=== PATIENT | male | born 1940 | race Caucasian/White ===

== ENCOUNTER 2016-11-15 19:43 | Emergency (ER) | payer MEDICARE ==
[~2016-11-15] VITALS: Ht 170.2 cm; Wt 80.8 kg
[2016-11-15 19:46] VITALS: TEMP 36.5; Ht 170.2 cm; Wt 80.8 kg
[2016-11-15] MEDS ORDERED: ATOR-24 PO (20:07)
--- NOTE | 2016-11-15 20:07 | EMERGENCY ROOM VISIT NOTE ---
History Report prepared by Amna: Jennifer Pastrana Under the Supervision of: Dr. Saige Damico D.O. First contact with patient: 19:54 Chief Complaint: DIARRHEA Stated Complaint: UNCONTROLLABLE DIARRHEA History of Present Illness The patient is a 75 year old male who presents to the Emergency Room with complaints of persistent diarrhea that began one hour prior to arrival. The patient states that he was recently diagnosed with diabetes, noting that he was just placed on Metformin. He states that he was previously on 1 tablet twice a day, but now is on two tablets twice a day. The patient states that today he started feeling bloated after he ate lunch. He states that he had a cheese steak in a bowl that had steak, cheese, peppers, onions, and lettuce. States he then "didn't feel well" after eating. The patient states that after he took a nap he developed persistent diarrhea. He states that he had six watery bowel movements in one hour. The patient states that the bowel movements are black in color but denies any hematochezia. He denies any history of previous GI bleeds. States he took pepto bismal after eating when he started to not feel well and before the diarrhea began. The patient denies any recent travel or other possible food sources. He states that recently he has been cutting back on carbohydrate intake. The patient denies any recent sick contacts. He states that he was recently on Doxycycline for bronchitis. The patient states that his Lipitor from 20 mg to 40 mg. He states that he additionally was changed from Atenolol to Norovasc for his hypertension. The patient reports a surgical history of an appendectomy. He denies any dizziness, lightheadedness, chest pain, shortness of breath, nausea, or vomiting. Source of History: patient Onset: one hour prior to arrival Position: other (global) Quality: other (diarrhea) Timing: other (persistent) Associated Symptoms: No chest pain, No SOB, No nausea, No vomiting, No hematochezia Review of Systems See HPI for pertinent positives & negatives. A total of 10 systems reviewed and were otherwise negative. Past Medical & Surgical Medical Problems: (1) Bronchitis (2) Diabetes (3) Heart disease (4) Hypertension (5) Stroke Surgical Problems: (1) S/P appendectomy Family History Diabetes mellitus FHx: cancer Heart disease Hypertension Kidney disease Kidney stones Social History Smoking Status: Former Smoker Smokeless Tobacco Use: No Alcohol Use: occasionally Marital Status: Housing Status: lives with family Occupation Status: retired Current/Historical Medications Scheduled Amlodipine (Norvasc), 5 MG PO DAILY Atorvastatin (Lipitor), 40 MG PO DAILY Cholecalciferol (Vitamin D3), 2,000 UNITS PO DAILY Clopidogrel (Plavix), 75 MG PO 5XWK Hydrochlorothiazide (Hctz), 25 MG PO DAILY Metformin Hcl (Glucophage), 500 MG PO UD Multivitamin (Multivitamin), 1 TAB PO DAILY Scheduled PRN Guaifenesin La (Guaifenesin Er), 600 MG PO DAILY PRN for Cough Allergies Coded Allergies: Hydrochlorothiazide (Verified Allergy, Mild, Cough, 11/15/16) Irbesartan (Verified Allergy, Mild, Cough, 11/15/16) Physical Exam Vital Signs Date Time Temp Pulse Resp B/P (MAP) Pulse Ox O2 Delivery O2 Flow Rate FiO2 11/16/16 01:20 75 18 121/75 97 Room Air 11/15/16 22:10 70 16 126/70 96 Room Air 11/15/16 20:57 86 16 149/82 93 Room Air 11/15/16 19:46 36.5 109 20 152/86 94 Room Air Physical Exam GENERAL: alert, well appearing, well nourished, no distress, non-toxic EYE EXAM: normal conjunctiva, PERRL and EOM's grossly intact OROPHARYNX: no exudate, no erythema, lips, buccal mucosa, and tongue normal and mucous membranes are moist NECK: supple, no nuchal rigidity, no adenopathy, non-tender LUNGS: Clear to auscultation. Normal chest wall mechanics HEART: no murmurs, S1 normal and S2 normal ABDOMEN: Mild tympany to percussion. abdomen soft, non-tender, normo-active bowel sounds, no masses, no rebound or guarding. BACK: Back is symmetrical on inspection and there is no deformity, no midline tenderness, no CVA tenderness. SKIN: no rashes and no bruising UPPER EXTREMITIES: upper extremities are grossly normal. LOWER EXTREMITIES: No pitting edema. NEURO EXAM: Normal sensorium, cranial nerves II-XII grossly intact, normal speech, no gross weakness of arms, no gross weakness of legs. Medical Decision & Procedures ER Provider Diagnostic Interpretation: Radiology results have been interpreted by the radiologist and reviewed by me. PA CHEST WITH ABDOMINAL SERIES CLINICAL HISTORY: Diarrhea. FINDINGS: A PA chest radiograph is obtained. No prior studies are available for comparison at the time of dictation. Examination is degraded by patient rotation. The cardiomediastinal silhouette is unremarkable. There is atherosclerotic calcification of the thoracic aorta. Chronic appearing interstitial thickening is noted. Linear scarring versus atelectasis is present the lung bases. No airspace consolidation, large pleural effusion, or pneumothorax is seen. The skeletal structures are osteopenic. Degenerative change is noted throughout the thoracic spine. Supine and erect abdominal radiographs are obtained. No prior studies are available for comparison at the time of dictation. There is a nonobstructed abdominal bowel gas pattern. No evidence of intraperitoneal free air is seen. There are no abnormal abdominal calcifications. Vascular calcifications and phleboliths are noted in the pelvis. There is moderate lumbosacral spondylosis. The bony pelvis appears intact. IMPRESSION: 1. No active disease in the chest. 2. Nonobstructed abdominal bowel gas pattern. Electronically signed by: Ollie Iverson M.D. 11/15/2016 9:01 PM Dictated Date/Time: 11/15/2016 8:59 PM Laboratory Results 11/15/16 20:15 Red Blood Count 5.30, Mean Corpuscular Volume 85.5, Mean Corpuscular Hemoglobin 30.0, Mean Corpuscular Hemoglobin Concent 35.1, Mean Platelet Volume 10.7, Neutrophils (%) (Auto) 59.8, Lymphocytes (%) (Auto) 29.3, Monocytes (%) (Auto) 7.4, Eosinophils (%) (Auto) 3.0, Basophils (%) (Auto) 0.3, Neutrophils # (Auto) 5.58, Lymphocytes # (Auto) 2.73, Monocytes # (Auto) 0.69, Eosinophils # (Auto) 0.28, Basophils # (Auto) 0.03 11/15/16 20:15 Test 11/15/16 20:15 11/16/16 00:47 White Blood Count 9.33 K/uL (4.8-10.8) Red Blood Count 5.30 M/uL (4.7-6.1) Hemoglobin 15.9 g/dL (14.0-18.0) Hematocrit 45.3 % (42-52) Mean Corpuscular Volume 85.5 fL (80-100) Mean Corpuscular Hemoglobin 30.0 pg (25-34) Mean Corpuscular Hemoglobin Concent 35.1 g/dl (32-36) Platelet Count 312 K/uL (130-400) Mean Platelet Volume 10.7 fL (7.4-10.4) Neutrophils (%) (Auto) 59.8 % Lymphocytes (%) (Auto) 29.3 % Monocytes (%) (Auto) 7.4 % Eosinophils (%) (Auto) 3.0 % Basophils (%) (Auto) 0.3 % Neutrophils # (Auto) 5.58 K/uL (1.4-6.5) Lymphocytes # (Auto) 2.73 K/uL (1.2-3.4) Monocytes # (Auto) 0.69 K/uL (0.11-0.59) Eosinophils # (Auto) 0.28 K/uL (0-0.5) Basophils # (Auto) 0.03 K/uL (0-0.2) RDW Standard Deviation 42.3 fL (36.4-46.3) RDW Coefficient of Variation 13.5 % (11.5-14.5) Immature Granulocyte % (Auto) 0.2 % Immature Granulocyte # (Auto) 0.02 K/uL (0.00-0.02) Anion Gap 13.0 mmol/L (3-11) Est Creatinine Clear Calc Drug Dose 50.0 ml/min Estimated GFR () 61.9 Estimated GFR (Non- 53.4 BUN/Creatinine Ratio 20.0 (10-20) Lactic Acid Level 2.1 mmol/L (0.4-2.0) Calcium Level 10.3 mg/dl (8.5-10.1) Total Bilirubin 0.7 mg/dl (0.2-1) Aspartate Amino Transf (AST/SGOT) 43 U/L (15-37) Alanine Aminotransferase (ALT/SGPT) 87 U/L (12-78) Alkaline Phosphatase 51 U/L (45-117) Total Protein 7.8 gm/dl (6.4-8.2) Albumin 4.2 gm/dl (3.4-5.0) Globulin 3.6 gm/dl (2.5-4.0) Albumin/Globulin Ratio 1.2 (0.9-2) Bedside Lactic Acid Venous 0.96 mmol/L (0.90-1.70) Laboratory results per my review. Medications Administered Medications (Trade) Dose Ordered Sig/Yuniel Route Start Time Stop Time Status Last Admin Dose Admin Sodium Chloride 1,000 ml @ 999 mls/hr Q1H1M STAT IV 11/15/16 21:47 11/15/16 22:47 DC 11/15/16 22:10 999 MLS/HR ED Course 1955: The patient was evaluated in room B6. A complete history and physical exam was performed. 2146: Ordered Sodium Chloride 1000 ml @ 999 mls/hr IV. 2218: I reevaluated the patient and he has had no further diarrhea. I did a repeat abdominal exam and it is still benign. 99: I reevaluated the patient and he is resting. I discussed the exam findings with him and I discussed the treatment plan. He verbalized complete understanding and agreement. He is ready to go home. Medical Decision The patient is a 75 year old male who presents to the ED with complaints of diarrhea. Differential diagnosis include food borne illness, medication reaction, viral syndrome, c-diff, mesenteric ischemia, colitis. Medication Reconciliation: I attest that I have personally reviewed the patient' s current medication list. Blood pressure screening: Patient was found to have an elevated blood pressure and was referred to their primary doctor for recheck and further treatment. Pt with no recurrent diarrhea here after being observed for several hours. tolerating pt. Repeat abdominal exams still without pain/discomfort. No f/c. Discussed with pt multiple possibilities for his diarrhea. Given stable VS, reassuring labs, and no recurrence, doubt ischemic colitis/aaa/dissection/sbo, doubt c.diff despite recent antibiotics. More likely related to food or recent change in metformin. Pt with dehydration clinically and appearance on labs. Mildly elevated lactate likely from dehydration, doubt bacteremia/sepsis. Discussed f/u with PCP as a precaution, sx to watch/return for, diet/hydration, glucose monitoring at home, he verbalized understanding and was agreeable with plan. Impression Primary Impression: Diarrhea Scribe Attestation The scribe's documentation has been prepared under my direction and personally reviewed by me in its entirety. I confirm that the note above accurately reflects all work, treatment, procedures, and medical decision making performed by me. Departure Information Dispostion Home / Self-Care Referrals Tristin Osorio D.O. (PCP) Forms HOME CARE DOCUMENTATION FORM, IMPORTANT VISIT INFORMATION, WORK / SCHOOL INSTRUCTIONS Patient Instructions My [facility] Additional Instructions Please call and follow up with your family doctor. Please drink clear liquids at frequent intervals to stay well-hydrated and eat a bland diet as tolerated. Please continue regular medications as prescribed and continue to check your blood sugar daily. If you develop any recurrent or worsening diarrhea, notice blood with your bowel movements, develop abdominal pain, nausea or vomiting, fevers or chills, or you have any other new or concerning symptoms, please return the emergency room. Problem Qualifiers Primary Impression: Diarrhea Diarrhea type: unspecified type Qualified Codes: R19.7 - Diarrhea, unspecified
[2016-11-15] MEDS ORDERED: CHOL2000 PO (20:14)
[2016-11-15] MEDS ORDERED: CLOP1TAB15 PO (20:14)
[2016-11-15] MEDS ORDERED: MULT-506 PO (20:14)
[2016-11-15] MEDS ORDERED: AMLO-110 PO (20:14)
[2016-11-15] MEDS ORDERED: GUAI1TAB75 PO (20:14)
[2016-11-15] MEDS ORDERED: HYDR25TA4 PO (20:14)
[2016-11-15] MEDS ORDERED: GLC/500 PO (20:14)
[2016-11-15 20:33] LABS: BASO % 0.3 %; BASO ABS # 0.03 K/uL (0-0.2); COMPLETE YES; HEMATOCRIT 45.3 % (42-52); IG% 0.2 %; LYMPH % 29.3 %; LYMPH ABS # 2.73 K/uL (1.2-3.4); MEAN CELL VOLUME 85.5 fL (80-100); MEAN CORPUSCULAR HGB CONC 35.1 g/dl (32-36); MEAN PLATELET VOLUME 10.7 fL (7.4-10.4); MONO % 7.4 %; NEUT % 59.8 %; PLATELET COUNT 312 K/uL (130-400); WHITE BLOOD COUNT 9.33 K/uL (4.8-10.8)
--- NOTE | 2016-11-15 21:02 | DIAGNOSTIC IMAGING REPORT ---
PA CHEST WITH ABDOMINAL SERIES CLINICAL HISTORY: Diarrhea. FINDINGS: A PA chest radiograph is obtained. No prior studies are available for comparison at the time of dictation. Examination is degraded by patient rotation. The cardiomediastinal silhouette is unremarkable. There is atherosclerotic calcification of the thoracic aorta. Chronic appearing interstitial thickening is noted. Linear scarring versus atelectasis is present the lung bases. No airspace consolidation, large pleural effusion, or pneumothorax is seen. The skeletal structures are osteopenic. Degenerative change is noted throughout the thoracic spine. Supine and erect abdominal radiographs are obtained. No prior studies are available for comparison at the time of dictation. There is a nonobstructed abdominal bowel gas pattern. No evidence of intraperitoneal free air is seen. There are no abnormal abdominal calcifications. Vascular calcifications and phleboliths are noted in the pelvis. There is moderate lumbosacral spondylosis. The bony pelvis appears intact. IMPRESSION: 1. No active disease in the chest. 2. Nonobstructed abdominal bowel gas pattern. Electronically signed by: Ollie Iverson M.D. 11/15/2016 9:01 PM Dictated Date/Time: 11/15/2016 8:59 PM
[2016-11-15 21:40] LABS: ALB/GLOB RATIO 1.2 (0.9-2); CALCIUM 10.3 mg/dl (8.5-10.1); CREATININE 1.3 mg/dl (0.60-1.40)
[2016-11-15] MEDS ORDERED: SODIUM CHLORIDE 0.9% 1000ML 1,000 ML IV STA (21:47)
[2016-11-15 21:52] LABS: POTASSIUM 3.3 mmol/L (3.5-5.1)
[2016-11-16 01:20] VITALS: BP 121/75; PULSE 75; O2SAT 97
== END 2016-11-16 01:35 | disposition home or self-care (01) ==
LOC: C.EDB 19:45
DX: R19.7 Diarrhea, unspecified (principal); E11.9 Type 2 diabetes mellitus without complications; I51.9 Heart disease, unspecified; I10 Essential (primary) hypertension; I63.9 Cerebral infarction, unspecified; Z83.3 Family history of diabetes mellitus; Z82.49 Family history of ischemic heart disease and other diseases of the circulatory system; Z87.891 Personal history of nicotine dependence

== ENCOUNTER 2023-12-24 17:34 | Inpatient (IN) ==
--- NOTE | 2023-12-24 18:17 | Emergency Department Note ---
Impression & Plan Acute UTI (urinary tract infection), Generalized weakness, Ambulatory dysfunction, Leukocytosis ED Provider Note HISTORY OF PRESENT ILLNESS: Patient is an 83-year-old male presenting with recurrent falls and generalized weakness. Patient's son provides most of history. Reports that the patient has had a significant decline in the last week or so. Reports the patient has had daily falls. States that the patient 4 days ago got up to go to the bathroom and his lower legs felt so weak that he lowered himself to the ground. He then was in the shower the next day and felt very weak and had to slide down the wall of the shower and sat on the ground until family could help him up. Patient states that he feels like his left leg gives out and his lower extremities are just too weak to hold him up when these episodes occur. He denies any chest pain or shortness of breath with the episodes. Denies any lightheadedness or dizziness or syncope. He states that he just feels like his legs are too weak. Son reports he is ambulatory with a cane at baseline. Son reports that they have been trying to work on getting him to [facility] in the outpatient setting and he was supposed to be evaluated tomorrow for [facility], but given his recurrent falls, the patient was brought to the emergency department. Son reports that today he was concerned because the patient seemed very disoriented and was hallucinating people in the room that were not there with him. Son reports the patient was recently treated for urinary tract infection at the end of November, but has not been on antibiotics in the last 2 weeks. He has been having episodes of loose stool over the last 2 to 3 weeks. No reported fevers. No abdominal pain, nausea or vomiting. Patient denies any dysuria. ROS: as above PHYSICAL EXAM: Constitutional: Patient appears in no acute distress. HENT: Head: Normocephalic and atraumatic. Eyes: EOMI, PERRL Mouth/Throat: Mucous membranes moist. Neck: Trachea midline. Neck supple. No midline cervical spine tenderness to palpation. Cardiovascular: RRR, No murmurs, rubs or gallops. Intact distal pulses. Pulmonary/Chest: No respiratory distress. Breath sounds clear and equal bilaterally. Expiratory wheezes bilaterally. No chest wall tenderness to palpation. Abdominal: Abdomen soft, no tenderness, rebound or guarding. Old appearing ecchymosis on the bilateral flanks. Musculoskeletal: No edema, tenderness or deformity noted. Skin: Warm and dry. No rash, erythema, pallor or cyanosis Psychiatric: Appropriate mood and affect for situation. Neurological: Alert and keenly responsive. CN II-XII grossly intact, moving all extremities equally and fully. MDM: - Vitals signs showed tachycardia. - History obtained via patient and patient's son. History as above. - Chronic conditions affecting care: HLD; DM-2; CVA; HTN; urothelial carcinoma of bladder - Differential diagnoses include, but are not limited to: pneumonia; UTI; CVA; intracranial hemorrhage; deconditioning - Order placed for continuous cardiac monitoring. At this time, monitor showed rate of 92 bpm with normal sinus rhythm, per my interpretation. - External medical records reviewed. Primary care visit note dated 12/13/[address] [facility] was reviewed. Patient was seen for a follow-up visit for 6-month recheck. He has a history of urothelial carcinoma and is seeing urology and had a procedure performed. Family had disclosed at that visit the patient having difficulties walking and recurrent falls. A home health referral in the outpatient setting was placed at the visit. - EKG interpreted by myself showed normal sinus rhythm. Rate 96 bpm. QT 390. No acute ischemic changes. 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 - Laboratory workup interpreted by myself showed leukocytosis (WBC 17.54) with neutrophilic shift; normal electrolytes; hyperglycemia (glucose 241); normal troponin - UA showed evidence of infection. Given 2g IV rocephin. - CXR negative for pneumonia, per my interpretation - CT head negative for acute pathology, per radiology - COVID/flu/RSV negative. - Will admit to hospital service for generalized weakness secondary to his acute UTI. Patient and patient's family are interested in potential placement at [facility] if possible, so patient will need PT/OT assessment on the inpatient setting as well. - Discussion was had with family independence case manager about patient's case and need for admission - Hospitalist, Dr. Camargo, consulted for admission - Patient admitted to [facility] service for further evaluation and management. ASSESSMENT AND PLAN: Diagnosis: Acute UTI; generalized weakness; recurrent falls; leukocytosis Plan: admit Past Med/Surg History Problem List (Updated 12/24/23 @ 19:36 by Kaur Christianson MD) Leukocytosis (Acute) Ambulatory dysfunction (Acute) Generalized weakness (Acute) Acute UTI (urinary tract infection) (Acute) Heart disease (Chronic) Medical History Hypertension Diabetes Family History Other Family history non-contributory Social History Smoking Status: Never smoker Tobacco Type: Cigarettes Preferred Language: British Feels Safe at Home: Yes Allergies Allergies Allergy/AdvReac Type Severity Reaction Status Date / Time hydrochlorothiazide Allergy Mild Cough Verified 11/09/18 18:16 irbesartan Allergy Mild Cough Verified 11/09/18 18:16 Home Meds Home Medications Medication Instructions Recorded Confirmed amlodipine 5 mg tablet 5 mg PO QAM 11/09/18 11/09/18 aspirin 81 mg tablet,delayed 81 mg PO QAM 11/09/18 11/09/18 release (Aspir-) atorvastatin 40 mg tablet 40 mg PO PM 11/09/18 11/09/18 cholecalciferol (vitamin D3) 50 2,000 unit PO QAM 11/09/18 11/09/18 mcg (2,000 unit) capsule (Vitamin D3) clopidogrel 75 mg tablet (Plavix) 75 mg PO 5XWK 11/09/18 11/09/18 hydrochlorothiazide 25 mg tablet 25 mg PO QAM 11/09/18 11/09/18 metformin 500 mg tablet,extended 500 mg PO QAM 11/09/18 11/09/18 release 24 hr metoprolol succinate 25 mg 25 mg PO QAM 11/09/18 11/09/18 tablet,extended release 24 hr multivitamin 1 tab PO QAM 11/09/18 11/09/18 pantoprazole 40 mg tablet,delayed 40 mg PO QAM 11/09/18 11/09/18 release (Protonix) Results & Data (ED) Vital Signs Vital Signs - 24 hr 12/24/23 17:36 12/24/23 18:10 12/24/23 18:10 Temperature 36.6 C 36.8 C Temperature Source Temporal Artery Scan Oral Pulse Rate 113 H 96 H Pulse Rate [Apical] 94 H Respiratory Rate 18 31 H 33 H Respiratory Effort / Characteristics Spontaneous SOB on Exertion Respiratory Pattern Regular Blood Pressure 138/68 Blood Pressure [Right Arm] 134/89 Blood Pressure Mean 91 Blood Pressure Mean [Right Arm] 104 Pulse Oximetry 94 98 98 Oxygen Delivery Method Room Air Room Air Sepsis Recent Fever Within 48 Hours No Sepsis New/Unexplained Change in Mental Status No Sepsis Action Taken by Nursing No Action Required 12/24/23 18:18 Temperature Temperature Source Pulse Rate 93 H Pulse Rate [Apical] Respiratory Rate Respiratory Effort / Characteristics Respiratory Pattern Blood Pressure Blood Pressure [Right Arm] Blood Pressure Mean Blood Pressure Mean [Right Arm] Pulse Oximetry Oxygen Delivery Method Sepsis Recent Fever Within 48 Hours Sepsis New/Unexplained Change in Mental Status Sepsis Action Taken by Nursing Laboratory Data 12/24/23 18:47 12/24/23 18:47 Lab Results 12/24/23 12/24/23 12/24/23 Range/Units 18:16 18:38 18:47 WBC 17.54 H (4.8-10.8) K/ul RBC 4.58 L (4.70-6.10) M/uL Hgb 13.6 L (14.0-18.0) g/dl Hct 40.3 L (42.0-52.0) % MCV 88.0 (80.0-100.0) fL MCH 29.7 (25.0-34.0) pg MCHC 33.7 (32.0-36.0) g/dL RDW Std Deviation 43.3 (36.4-46.3) fL RDW Coeff of Chinmay 13.5 (11.5-14.5) % Plt Count 210 (130-400) K/uL MPV 10.4 (9.4-12.4) fL Immature Gran % (Auto) 0.4 % Neut % (Auto) 86.0 % Lymph % (Auto) 4.6 % [place] % (Auto) 8.7 % Eos % (Auto) 0.1 % Baso % (Auto) 0.2 % Neut # (Auto) 15.09 H (1.40-6.50) K/uL Lymph # (Auto) 0.81 L (1.20-3.40) K/uL [place] # (Auto) 1.52 H (0.11-0.59) K/uL Eos # (Auto) 0.01 (0.00-0.50) K/uL Baso # (Auto) 0.04 (0.00-0.20) K/uL Immature Gran # (Auto) 0.07 (0.01-0.20) K/uL PT 12.8 H (9.0-12.0) Seconds INR 1.2 H (0.9-1.1) Sodium 137 (136-145) mmol/L Potassium 3.8 (3.5-5.1) mmol/L Chloride 104 (98-107) mmol/L Carbon Dioxide 25 (21-32) mmol/L Anion Gap 8 (3-11) BUN 21 (6-23) mg/dl Creatinine 1.20 (0.6-1.4) mg/dl Est Cr Clr Drug Dosing 46.3 ml/min Est GFR ( Amer) 64.4 ml/min Est GFR (Non-Af Amer) 55.6 ml/min BUN/Creatinine Ratio 17.5 (10-20) Glucose 241 H (70-99(Fasting)) mg/dl Lactate 1.5 (0.4-2.0) mmol/L Calcium 9.5 (8.6-10.3) mg/dl Magnesium 1.8 (1.7-2.4) mg/dl Total Bilirubin 0.8 (0.2-1.0) mg/dl AST 23 (13-39) U/L ALT 40 (7-52) U/L Alkaline Phosphatase 61 (34-104) U/L Troponin I High Sens 18.5 (0-20) pg/ml Total Protein 6.6 (6.0-8.3) gm/dl Albumin 3.9 (3.4-5.0) gm/dl Globulin 2.7 (2.5-4.0) gm/dl Albumin/Globulin Ratio 1.4 (0.9-2) TSH 0.924 (0.300-4.500) uIu/ml Urine Color Yellow Urine Appearance Turbid A (Clear) Urine pH 5.5 (4.5-7.5) Ur Specific [place] 1.014 (1.000-1.030) Urine Protein 2+ H (Negative) Urine Glucose (UA) Negative (Negative) Urine Ketones Trace H (Negative) Urine Blood 3+ H (Negative) Urine Nitrite Positive A (Negative) Urine Bilirubin Negative (Negative) Urine Urobilinogen Negative (Negative) Ur Leukocyte Esterase 3+ H (Negative) Urine WBC (Auto) >50 H (0-5) /hpf Urine RBC (Auto) 11-20 H (0-2) /hpf U Hyaline Cast (Auto) 0-2 (0-2) /lpf U Epithel Cells (Auto) 0-2 (0-2) /hpf Urine Bacteria (Auto) 4+ H (None Seen) SARS-CoV-2 (PCR) NEGATIVE (Negative) Influenza Type A (PCR) Negative (Neg) Influenza Type B (PCR) Negative (Neg) RSV (RT-PCR) Negative (Neg) Imaging Data Radiologist's Impression: Head CT 12/24/23 18:12 Exam(s): CT HEAD Without Contrast EXAM: CT Head Without Intravenous Contrast CLINICAL HISTORY: Reason for exam: recurrent falls; weakness. TECHNIQUE: Axial computed tomography images of the head/brain without intravenous contrast. CTDI is 35.65 mGy and DLP is 624.41 mGy-cm. Automated exposure control was utilized for the study. A dose lowering technique was utilized adhering to the principles of ALARA. COMPARISON: Head CT 03/02/2023 FINDINGS: Brain: No intracranial hemorrhage, mass-effect, or cerebral edema. Atrophy and chronic microvascular ischemic changes. Chronic infarcts within the cerebellum and occipital lobes. Ventricles: Unremarkable. Bones/joints: Unremarkable. No fracture. Soft tissues: Unremarkable. Sinuses: No acute sinusitis. Mastoid air cells: Unremarkable as visualized. IMPRESSION: 1. No acute intracranial abnormality. 2. Atrophy and chronic microvascular ischemic changes. 3. Chronic infarcts within the cerebellum and occipital lobes. Electronically signed by: Jordan Gilmore MD 12/24/23 19:30 PM Discharge Plan Visit Data Chief Complaint: Leg Weakness, Bilateral Stated Complaint: 4 FALLS, WEAKNESS IN LEGS, STOKE HISTORY/LT SIDE ED Provider: Kaur Christianson Discharge Problem: Acute UTI (urinary tract infection), Generalized weakness, Ambulatory dysfunction, Leukocytosis Forms Stand Alone Forms: My [employer] Prescriptions Prescriptions: No Action multivitamin Tablet 1 tab PO QAM atorvastatin 40 mg Tablet 40 mg PO PM clopidogrel [Plavix] 75 mg Tablet 75 mg PO 5XWK Rx Instructions: EVERY DAY EXCEPT SATURDAYS & SUNDAYS. amlodipine 5 mg Tablet 5 mg PO QAM aspirin [Aspir-81] 81 mg Tablet,Delayed Release (Dr/Ec) 81 mg PO QAM pantoprazole [Protonix] 40 mg Tablet,Delayed Release (Dr/Ec) 40 mg PO QAM hydrochlorothiazide 25 mg Tablet 25 mg PO QAM metoprolol succinate 25 mg Tablet Extended Release 24 Hr 25 mg PO QAM metformin 500 mg Tablet Extended Release 24 Hr 500 mg PO QAM cholecalciferol (vitamin D3) [Vitamin D3] 2,000 unit Capsule 2,000 unit PO QAM Referrals Referrals: Tristin Osorio DO [Primary Care Provider] -
[2023-12-24 19:02] LABS: Basophils # (auto) 0.04 K/uL (0.00-0.20); Basophils % (auto) 0.2 %; Eosinophils # (auto) 0.01 K/uL (0.00-0.50); Eosinophils % (auto) 0.1 %; Hematocrit (blood only) 40.3 % (42.0-52.0); Hemoglobin 13.6 g/dl (14.0-18.0); Immature Granulocytes # (auto) 0.07 K/uL (0.01-0.20); Immature Granulocytes % (auto) 0.4 %; Lymphocytes # (auto) 0.81 K/uL (1.20-3.40); Lymphocytes % (auto) 4.6 %; Mean Corpuscular Hemoglobin 29.7 pg (25.0-34.0); Mean Corpuscular Hgb Conc 33.7 g/dL (32.0-36.0); Mean Platelet Volume 10.4 fL (9.4-12.4); Monocytes # (auto) 1.52 K/uL (0.11-0.59); Monocytes % (auto) 8.7 %; Neutrophils # (auto) 15.09 K/uL (1.40-6.50); Platelet Count 210 K/uL (130-400); RDW Coefficient of Variation 13.5 % (11.5-14.5); RDW Standard Deviation 43.3 fL (36.4-46.3); Red Blood Count 4.58 M/uL (4.70-6.10); White Blood Count 17.54 K/ul (4.8-10.8)
[2023-12-24 19:07] LABS: Appearance Urine Turbid (Clear); Bacteria Urine Automated 4+ (None Seen); Bilirubin Urine Negative (Negative); Blood Urine 3+ (Negative); Color Urine Yellow; Epithelial Cell Urine Auto 0-2 /hpf (0-2); Glucose Urine UA Negative (Negative); Ketones Urine Trace (Negative); Leukocyte Esterase Urine 3+ (Negative); Nitrite Urine Positive (Negative); Protein Urine 2+ (Negative); Specific Gravity Urine 1.014 (1.000-1.030); Urobilinogen Urine Negative (Negative); WBC Urine Automated >50 /hpf (0-5); pH Urine 5.5 (4.5-7.5)
[2023-12-24 19:08] LABS: Cast Urine Automated 0-2 /lpf (0-2)
[2023-12-24 19:21] LABS: Albumin Globulin Ratio 1.4 (0.9-2); Albumin Level 3.9 gm/dl (3.4-5.0); BUN Creatinine Ratio 17.5 (10-20); Bilirubin,Total 0.8 mg/dl (0.2-1.0); Calcium 9.5 mg/dl (8.6-10.3); Creatinine Clr Calc Pharmacy 46.3 ml/min; Est GFR (African American) 64.4 ml/min; Est GFR (Non-African American) 55.6 ml/min; Globulin 2.7 gm/dl (2.5-4.0); Magnesium 1.8 mg/dl (1.7-2.4); Potassium 3.8 mmol/L (3.5-5.1); Total Protein 6.6 gm/dl (6.0-8.3)
[2023-12-24 19:27] LABS: Troponin I High Sensitivity 18.5 pg/ml (0-20)
--- NOTE | 2023-12-24 19:30 | CT Scan Report ---
Exam(s): CT HEAD Without Contrast EXAM: CT Head Without Intravenous Contrast CLINICAL HISTORY: Reason for exam: recurrent falls; weakness. TECHNIQUE: Axial computed tomography images of the head/brain without intravenous contrast. CTDI is 35.65 mGy and DLP is 624.41 mGy-cm. Automated exposure control was utilized for the study. A dose lowering technique was utilized adhering to the principles of ALARA. COMPARISON: Head CT 03/02/2023 FINDINGS: Brain: No intracranial hemorrhage, mass-effect, or cerebral edema. Atrophy and chronic microvascular ischemic changes. Chronic infarcts within the cerebellum and occipital lobes. Ventricles: Unremarkable. Bones/joints: Unremarkable. No fracture. Soft tissues: Unremarkable. Sinuses: No acute sinusitis. Mastoid air cells: Unremarkable as visualized. IMPRESSION: 1. No acute intracranial abnormality. 2. Atrophy and chronic microvascular ischemic changes. 3. Chronic infarcts within the cerebellum and occipital lobes. Electronically signed by: Jordan Gilmore MD 12/24/23 19:30 PM
[2023-12-24 19:31] LABS: INR 1.2 (0.9-1.1); Prothrombin Time 12.8 Seconds (9.0-12.0)
[2023-12-24 19:35] LABS: Influenza A virus by PCR Negative (Neg); Influenza B virus by PCR Negative (Neg); RSV by PCR Negative (Neg); SARS CoV2 RNA(COVID-19) Ceph NEGATIVE (Negative)
[2023-12-24 19:36] LABS: Thyroid Stimulating Hormone 0.924 uIu/ml (0.300-4.500)
[2023-12-24] MEDS: cefTRIAXone SODIUM 2,000 MG/50 ML BAG IV STA (19:48)
[2023-12-24] MEDS: SODIUM CHLORIDE 0.9% 1,000 ML IV ONE (19:49)
--- NOTE | 2023-12-24 19:49 | XRay Report ---
XR chest 1V portable CLINICAL HISTORY: weakness TECHNIQUE: Single frontal radiograph of the chest was obtained. Comparison: Comparison is made to chest and abdomen radiograph 11/15/2016 FINDINGS: No lines and tubes are seen. Calcified aortic knob is seen. Atelectasis is seen in the bilateral lowe r lungs. No evidence of pleural effusion or pneumothorax. IMPRESSION: No acute chest disease. ACT 112: Negative or not required by law. Electronically signed by: Manuel Duarte M.D. 12/24/2023 7:48 PM
[2023-12-24] MEDS ORDERED: GLUCOSE 40% GEL 15 GM TUBE PO PRN (21:50)
[2023-12-24] MEDS ORDERED: GLUCAGON FOR INJ 1 MG VIAL SQ PRN (21:50)
[2023-12-24] MEDS ORDERED: DEXTROSE 50% 50 ML SYRINGE IV PRN (21:50)
[2023-12-24] MEDS ORDERED: CARBOHYDRATES FOR HYPOGLYCEMIA PO PRN (21:50)
[2023-12-24] MEDS ORDERED: GLUCOSE 10 TAB/TUBE PO PRN (21:50)
[2023-12-24] MEDS ORDERED: LEVALBUTEROL 1.25 MG/3 ML NEB NEB PRN (21:55)
[2023-12-24] MEDS ORDERED: methylPREDNISolone 125 MG/2 ML VIAL IV STA (21:55)
[2023-12-24] MEDS: LEVALBUTEROL 1.25 MG/3 ML NEB NEB STA (22:08)
[2023-12-24] MEDS: methylPREDNISolone 60 MG in SYRINGE 0 ML IV ONE (22:47)
[2023-12-24] MEDS: HEPARIN SOD 5,000 UNIT/0.5 ML VIAL SQ SCH (22:48)
[2023-12-24] MEDS: INSULIN ASPART PER UNIT CHARGE SC SCH (22:48)
--- NOTE | 2023-12-24 22:56 | History & Physical Report ---
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 Son states patient lives with him but he has his own space. Last couple of days he fell several times mostly in the nighttime and son did not see the patient fall. But patient had told him that when he falls down he is taking a lot of time to get up. No hitting of the head. No loss of consciousness. And the patient told his son today that last night again he fell when he got of up from the bed because he saw his son and daughter in the room who were actually not present in the room. And also patient was finding hard to get up from the chair. Because of weakness ,falls and visual hallucination son brought him to the hospital today. In November patient had a surgery for bladder tumor which is found to be low-grade and since then he is incontinent of urine and using depends. He had episode of UTI after procedure. And he was told to check for any further infections. Patient was having no recent fevers. But lately his urine was foul smelling. Bowel movements On and off diarrhea. Patient denies any headache. No dizziness. No blurred visions. No runny nose. No sore throat. No cough. No difficulty swallowing. Appetite is been down for last couple of days. Denies any chest pain or shortness of breath. Patient when he came to the floor became short of breath and tachypneic. States occasional cough and he has mild COPD. But he saturating okay on room air currently. Confusion Weakness Most likely from acute UTI Empiric Rocephin Gentle fluids Will follow cultures PT OT when stable Close monitor COPD exacerbation History of tobacco abuse Diminished breath sounds and mild rhonchi and tachypnea Will follow CT chest Nebs [id number] and as needed IV Solu-Medrol Rocephin and Doxy Close monitor Bladder tumor Status post TURBT Low-grade noninvasive Since procedure having incontinence And UTI Urology consulted for any recommendations On and off diarrhea Will follow stool studies Diabetes Hold metformin Sliding scale Will follow blood sugars Follow his hba1c levels History of CVA Left-sided weakness On aspirin statin and Plavix Hypertension On amlodipine, hydralazine, hydrochlorothiazide, metoprolol succinate We will monitor Hyperlipidemia On statin GERD On Protonix Ambulate dysfunction PT OT when stable DVT prophylaxis Heparin subcu Disposition Med/telemetry Full code if there is chance of recovery. History of Present Illness Chief Complaint: Confusion, weakness Primary Care Provider: Tristin Osorio DO 83-year-old male with past medical history significant for type 2 diabetes, hyperlipidemia, 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 Son states patient lives with him but he has his own space. Last couple of days he fell several times mostly in the nighttime and son did not see the patient fall. But patient had told him that when he falls down he is taking a lot of time to get up. No hitting of the head. No loss of consciousness. And the patient told his son today that last night again he fell when he got of up from the bed because he saw his son and daughter in the room who were actually not present in the room. And also patient was finding hard to get up from the chair. Because of weakness ,falls and visual hallucination son brought him to the hospital today. In November patient had a surgery for bladder tumor which is found to be low-grade and since then he is incontinent of urine and using depends. He had episode of UTI after procedure. And he was told to check for any further infections. Patient was having no recent fevers. But lately his urine was foul smelling. Bowel movements On and off diarrhea. Patient denies any headache. No dizziness. No blurred visions. No runny nose. No sore throat. No cough. No difficulty swallowing. Appetite is been down for last couple of days. Denies any chest pain or shortness of breath. Patient when he came to the floor became short of breath and tachypneic. States occasional cough and he has mild COPD. But he saturating okay on room air currently. Past medical history. As mentioned above Past surgical history. Bladder instillation of Anticort splenic on 11/22/2023, cystoscopy/treat bladder tumor 11/22/2023, colonoscopy, appendectomy. Patient history. Living with son. Quit smoking in 2006. Smoked 2 packs a day for 50 years. Occasional beer. No drug use. Family history. Brother had cancer. Diabetes. Mother had diabetes. Father had UT. Daughter had gestational diabetes. Son has diabetes. Son has hypertension. Allergies Allergy/AdvReac Type Severity Reaction Status Date / Time hydrochlorothiazide Allergy Mild Cough Verified 12/24/23 20:15 irbesartan Allergy Mild Cough Verified 12/24/23 20:15 Home Medications Medication Instructions Recorded Confirmed Type amlodipine 5 mg tablet 5 mg PO QAM 12/24/23 12/24/23 History apple cider vinegar 300 mg tablet 300 mg PO DAILY 12/24/23 12/24/23 History aspirin 81 mg chewable tablet 81 mg PO DAILY 12/24/23 12/24/23 History atorvastatin 40 mg tablet 40 mg PO QAM 12/24/23 12/24/23 History cholecalciferol (vitamin D3) 50 50 mcg PO DAILY 12/24/23 12/24/23 History mcg (2,000 unit) tablet (Vitamin D3) clopidogrel 75 mg tablet 75 mg PO .[id number] 12/24/23 12/24/23 History dextromethorphan-guaifenesin 30 1 tab PO Q12H 12/24/23 12/24/23 History mg-600 mg tablet extended [id number] hr (Mucinex DM) hydralazine 10 mg tablet 20 mg PO QAM 12/24/23 12/24/23 History hydrochlorothiazide 25 mg tablet 25 mg PO QAM 12/24/23 12/24/23 History lactobacillus combination no.4 3 0 mmu cells PO DAILY 12/24/23 12/24/23 History billion cell capsule (Probiotic) metformin 500 mg tablet,extended 1,000 mg PO QAM 12/24/23 12/24/23 History release 24 hr metoprolol succinate 25 mg 25 mg PO QAM 12/24/23 12/24/23 History tablet,extended release 24 hr multivitamin 1 tab PO DAILY 12/24/23 12/24/23 History pantoprazole 40 mg tablet,delayed 40 mg PO DAILY 12/24/23 12/24/23 History release phenazopyridine 200 mg tablet 200 mg PO TID PRN .bladder pain 12/24/23 12/24/23 History (Pyridium) Past Med/Surg History Problem List Confusion Leukocytosis (Acute) Ambulatory dysfunction (Acute) Generalized weakness (Acute) Acute UTI (urinary tract infection) (Acute) Heart disease (Chronic) Medical History Hypertension Diabetes Family History Other Family history non-contributory Social History Smoking Status: Former smoker Tobacco Type: Cigarettes Smoking End Date: 2006; Second Hand Exposure: No; Do You Dip or Chew Tobacco: No; Tobacco Cessation Education Requested by Patient: No Hx Alcohol Use: No Hx Substance Use: No Preferred Language: Albanian Communication Ability: Effective Package Collector Required: No Beliefs That Will Affect Care: None Current Living Situation: Family Current Living Situation Comment: Patient lives in extension of son's home. Son and Daughter in Law Other Information That Helps Us Care for You: No Feels Safe at Home: Yes Safety Concerns: Feels Safe At This Time Assistive Devices: Cane and Walker Review of Systems Review of Systems: All systems reviewed & are unremarkable except as noted in HPI & below Physical Exam Physical Exam: General- Not in acute distress Head- atraumatic Eyes- PERRL. ENT- oropharynx clear Neck- supple, no JVD. Lungs- Diminished bilateral breath sounds and mild bilateral rhonchi heard Heart- regular rate and rhythm; no murmur, no gallop. Abdomen- normal bowel sounds, soft, nontender, no distension Extremities- no pretibial edema, no erythema seen Neuro- alert, oriented x 3; PERRL,no facial palsy; no dysarthria; moves extremities Results & Data Results & Data Vital Signs (Past 12 Hours) Vital Signs Temp Pulse Pulse Resp BP BP Pulse Ox 12/24/23 20:18 85 26 H 147/79 H 97 12/24/23 18:18 93 H 12/24/23 18:10 96 H 33 H 98 12/24/23 18:10 36.8 C 94 H 31 H 134/89 98 12/24/23 17:36 36.6 C 113 H 18 138/68 94 O2 Del Method 12/24/23 20:18 Room Air 12/24/23 18:18 12/24/23 18:10 Room Air 12/24/23 18:10 Room Air 12/24/23 17:36 Diagnostic Findings Laboratory Results WBC 17.54 K/ul (4.8-10.8) H 12/24/23 18:47 RBC 4.58 M/uL (4.70-6.10) L 12/24/23 18:47 Hgb 13.6 g/dl (14.0-18.0) L 12/24/23 18:47 Hct 40.3 % (42.0-52.0) L 12/24/23 18:47 MCV 88.0 fL (80.0-100.0) 12/24/23 18:47 MCH 29.7 pg (25.0-34.0) 12/24/23 18:47 MCHC 33.7 g/dL (32.0-36.0) 12/24/23 18:47 RDW Std Deviation 43.3 fL (36.4-46.3) 12/24/23 18:47 RDW Coeff of Chinmay 13.5 % (11.5-14.5) 12/24/23 18:47 Plt Count 210 K/uL (130-400) 12/24/23 18:47 MPV 10.4 fL (9.4-12.4) 12/24/23 18:47 Immature Gran % (Auto) 0.4 % 12/24/23 18:47 Neut % (Auto) 86.0 % 12/24/23 18:47 Lymph % (Auto) 4.6 % 12/24/23 18:47 Dare % (Auto) 8.7 % 12/24/23 18:47 Eos % (Auto) 0.1 % 12/24/23 18:47 Baso % (Auto) 0.2 % 12/24/23 18:47 Neut # (Auto) 15.09 K/uL (1.40-6.50) H 12/24/23 18:47 Lymph # (Auto) 0.81 K/uL (1.20-3.40) L 12/24/23 18:47 Dare # (Auto) 1.52 K/uL (0.11-0.59) H 12/24/23 18:47 Eos # (Auto) 0.01 K/uL (0.00-0.50) 12/24/23 18:47 Baso # (Auto) 0.04 K/uL (0.00-0.20) 12/24/23 18:47 Immature Gran # (Auto) 0.07 K/uL (0.01-0.20) 12/24/23 18:47 PT 12.8 Seconds (9.0-12.0) H 12/24/23 18:47 INR 1.2 (0.9-1.1) H 12/24/23 18:47 Sodium 137 mmol/L (136-145) 12/24/23 18:47 Potassium 3.8 mmol/L (3.5-5.1) 12/24/23 18:47 Chloride 104 mmol/L (98-107) 12/24/23 18:47 Carbon Dioxide 25 mmol/L (21-32) 12/24/23 18:47 Anion Gap 8 (3-11) 12/24/23 18:47 BUN 21 mg/dl (6-23) 12/24/23 18:47 Creatinine 1.20 mg/dl (0.6-1.4) 12/24/23 18:47 Est Cr Clr Drug Dosing 46.3 ml/min 12/24/23 18:47 Est GFR ( Amer) 64.4 ml/min 12/24/23 18:47 Est GFR (Non-Af Amer) 55.6 ml/min 12/24/23 18:47 BUN/Creatinine Ratio 17.5 (10-20) 12/24/23 18:47 Glucose 241 mg/dl (70-99(Fasting)) H 12/24/23 18:47 POC Glucose 198 mg/dl (70-99) H 12/24/23 22:13 Lactate 1.5 mmol/L (0.4-2.0) 12/24/23 18:47 Calcium 9.5 mg/dl (8.6-10.3) 12/24/23 18:47 Magnesium 1.8 mg/dl (1.7-2.4) 12/24/23 18:47 Total Bilirubin 0.8 mg/dl (0.2-1.0) 12/24/23 18:47 AST 23 U/L (13-39) 12/24/23 18:47 ALT 40 U/L (7-52) 12/24/23 18:47 Alkaline Phosphatase 61 U/L (34-104) 12/24/23 18:47 Troponin I High Sens 18.5 pg/ml (0-20) 12/24/23 18:47 Total Protein 6.6 gm/dl (6.0-8.3) 12/24/23 18:47 Albumin 3.9 gm/dl (3.4-5.0) 12/24/23 18:47 Globulin 2.7 gm/dl (2.5-4.0) 12/24/23 18:47 Albumin/Globulin Ratio 1.4 (0.9-2) 12/24/23 18:47 TSH 0.924 uIu/ml (0.300-4.500) 12/24/23 18:47 Urine Color Yellow 12/24/23 18:38 Urine Appearance Turbid (Clear) A 12/24/23 18:38 Urine pH 5.5 (4.5-7.5) 12/24/23 18:38 Ur Specific [place] 1.014 (1.000-1.030) 12/24/23 18:38 Urine Protein 2+ (Negative) H 12/24/23 18:38 Urine Glucose (UA) Negative (Negative) 12/24/23 18:38 Urine Ketones Trace (Negative) H 12/24/23 18:38 Urine Blood 3+ (Negative) H 12/24/23 18:38 Urine Nitrite Positive (Negative) A 12/24/23 18:38 Urine Bilirubin Negative (Negative) 12/24/23 18:38 Urine Urobilinogen Negative (Negative) 12/24/23 18:38 Ur Leukocyte Esterase 3+ (Negative) H 12/24/23 18:38 Urine WBC (Auto) >50 /hpf (0-5) H 12/24/23 18:38 Urine RBC (Auto) 11-20 /hpf (0-2) H 12/24/23 18:38 U Hyaline Cast (Auto) 0-2 /lpf (0-2) 12/24/23 18:38 U Epithel Cells (Auto) 0-2 /hpf (0-2) 12/24/23 18:38 Urine Bacteria (Auto) 4+ (None Seen) H 12/24/23 18:38 SARS-CoV-2 (PCR) NEGATIVE (Negative) 12/24/23 18:16 Influenza Type A (PCR) Negative (Neg) 12/24/23 18:16 Influenza Type B (PCR) Negative (Neg) 12/24/23 18:16 RSV (RT-PCR) Negative (Neg) 12/24/23 18:[address] 12/24/23 18:12 Exam(s): CT HEAD Without Contrast EXAM: CT Head Without Intravenous Contrast CLINICAL HISTORY: Reason for exam: recurrent falls; weakness. TECHNIQUE: Axial computed tomography images of the head/brain without intravenous contrast. CTDI is 35.65 mGy and DLP is 624.41 mGy-cm. Automated exposure control was utilized for the study. A dose lowering technique was utilized adhering to the principles of ALARA. COMPARISON: Head CT 03/02/2023 FINDINGS: Brain: No intracranial hemorrhage, mass-effect, or cerebral edema. Atrophy and chronic microvascular ischemic changes. Chronic infarcts within the cerebellum and occipital lobes. Ventricles: Unremarkable. Bones/joints: Unremarkable. No fracture. Soft tissues: Unremarkable. Sinuses: No acute sinusitis. Mastoid air cells: Unremarkable as visualized. IMPRESSION: 1. No acute intracranial abnormality. 2. Atrophy and chronic microvascular ischemic changes. 3. Chronic infarcts within the cerebellum and occipital lobes. Electronically signed by: Jordan iGlmore MD 12/24/23 19:30 PM ECG Additional Comments: ECG.. Normal sinus rhythm rate 96. Right bundle branch block. Left anterior fascicular block. Bifascicular block. Code Status & VTE Plan VTE Prophylaxis Plan VTE Prophylaxis will be ordered: Yes
[2023-12-24] MEDS: OPTIRAY 320 125ml IV ONE (23:07)
[2023-12-24] MEDS: SODIUM CHLORIDE 0.9% 1,000 ML IV SCH (23:12)
[2023-12-24] MEDS: DOXYCYCLINE HYCLATE 100 MG in DEXTROSE 5% MINI-B 100 ML IV SCH (23:12)
--- NOTE | 2023-12-24 23:15 | Urology Consultation ---
<Statement entered by Gustavo Pérez MD - 12/25/23 08:42> I have discussed Mr. Bonner's case with Alonso Corley PA-C and agree with the above documentation. Urine positive with gram-negative rods, likely the source of his infection. He is currently covered on ceftriaxone. Would continue broad-spectrum antibiotics and narrow coverage as culture data becomes availabl e. Agree with PVR and catheter placement if he is retaining urine. -Gustavo Pérez MD. Date of Consultation December 24, 2023 Assessment & Plan (1) Acute UTI (urinary tract infection): The patient has been admitted on the hospital service. He has been admitted for generalized weakness and it appears he has a urinary tract infection The hospital service is currently getting a CT scan of the chest secondary to the patient's shortness of breath Will defer management of this condition to their discretion From urologic perspective we recommend the following: The patient has been started on antibiotics in form of Rocephin and this should continue Patient does have a urine culture that has been sent and is pending and this culture can be utilized to tailor antibiotics as results are forthcoming Does appear as though the patient may have an element of urge incontinence and this may be related to underlying urinary tract infection. I have placed an order for patient to have a bladder scan and if he is greater than 200 cc on the scan I have left an order for the nurses to straight cath the patient to promote bladder emptying. If the patient continues to have episodes with urge incontinence and urinary retention consideration may be given to placing a Carr catheter Additional recommendations will be forthcoming based on his clinical course as it unfolds History of Present Illness Reason for Consultation: Urinary tract infection Urinary incontinence Attending Physician: Steven Pan MD History of Present Illness This is a 83-year-old male who presented to the emergency department secondary to generalized weakness. The patient says that he has felt generally weak and fatigued for the past several days. Urology has been asked to see the patient due to concern for urinary incontinence as well as urinary tract infection. The patient does report that he had a recent urologic procedure. Records were retrieved and the patient underwent a transurethral resection of a bladder tumor in November 2023. The patient notes that currently he is having some dysuria but denies any hematuria. He denies any back or flank pain. The patient notes that he is also able to only void very small amounts and then he feels as though he cannot empty his bladder and needs to void again. He did present to the emergency department today we had labs and imaging which independent reviewed. The patient had a chest x-ray that showed no evidence of pneumonia. He had a CT scan of the head that showed no acute intracranial abnormality. CBC revealed white blood cell count is elevated 17.5. Hemoglobin hematocrit 13.6 and 40.3. Platelet count was normal. Coagulation studies showed an INR of 1.2. Chemistry profile showed sodium and potassium as well as the BUN and creatinine were normal. Urinalysis showed turbid. Which was positive for nitrites and showed 3+ leukocyte Estrace and greater than 50 white blood cells per high-power field. There is 4+ bacteria on the study. He was tested for COVID, influenza AMB, as well as RSV all which were negative. At the time of my interview he was resting in bed. He did not appear to be in distress. Allergies Allergy/AdvReac Type Severity Reaction Status Date / Time hydrochlorothiazide Allergy Mild Cough Verified 12/24/23 20:15 irbesartan Allergy Mild Cough Verified 12/24/23 20:15 Home Medications Medication Instructions Recorded Confirmed Type amlodipine 5 mg tablet 5 mg PO QAM 12/24/23 12/24/23 History apple cider vinegar 300 mg tablet 300 mg PO DAILY 12/24/23 12/24/23 History aspirin 81 mg chewable tablet 81 mg PO DAILY 12/24/23 12/24/23 History atorvastatin 40 mg tablet 40 mg PO QAM 12/24/23 12/24/23 History cholecalciferol (vitamin D3) 50 50 mcg PO DAILY 12/24/23 12/24/23 History mcg (2,000 unit) tablet (Vitamin D3) clopidogrel 75 mg tablet 75 mg PO .[id number] 12/24/23 12/24/23 History dextromethorphan-guaifenesin 30 1 tab PO Q12H 12/24/23 12/24/23 History mg-600 mg tablet extended hr (Mucinex DM) hydralazine 10 mg tablet 20 mg PO QAM 12/24/23 12/24/23 History hydrochlorothiazide 25 mg tablet 25 mg PO QAM 12/24/23 12/24/23 History lactobacillus combination no.4 3 0 mmu cells PO DAILY 12/24/23 12/24/23 History billion cell capsule (Probiotic) metformin 500 mg tablet,extended 1,000 mg PO QAM 12/24/23 12/24/23 History release 24 hr metoprolol succinate 25 mg 25 mg PO QAM 12/24/23 12/24/23 History tablet,extended release 24 hr multivitamin 1 tab PO DAILY 12/24/23 12/24/23 History pantoprazole 40 mg tablet,delayed 40 mg PO DAILY 12/24/23 12/24/23 History release phenazopyridine 200 mg tablet 200 mg PO TID PRN .bladder pain 12/24/23 12/24/23 History (Pyridium) Patient History Medical History Hypertension Diabetes Family History Other Family history non-contributory Social History Smoking Status: Former smoker Tobacco Type: Cigarettes Smoking End Date: 2006; Second Hand Exposure: No; Do You Dip or Chew Tobacco: No; Tobacco Cessation Education Requested by Patient: No Hx Alcohol Use: No Hx Substance Use: No Preferred Language: Bengali Communication Ability: Effective Bait Tier Required: No Beliefs That Will Affect Care: None Current Living Situation: Family Current Living Situation Comment: Patient lives in extension of son's home. Son and Daughter in Law Other Information That Helps Us Care for You: No Feels Safe at Home: Yes Safety Concerns: Feels Safe At This Time Assistive Devices: Cane and Walker Review of Systems Review of Systems: All systems reviewed & are unremarkable except as noted in HPI & below Physical Exam Constitutional: WD/WN, vitals as above Eyes: no conjunctival abnormality ENMT: Ears: no hearing impairment and no external ear abnormality Mouth: no oropharynx abnormality Neck: trachea midline Respiratory: The patient was not using accessory muscles to aid in respiration but his breathing did appear slightly labored. Cardiovascular: Rate/Rhythm: regular rate and regular rhythm Gastrointestinal (Abdomen): Abdomen is soft and nondistended. No rebound tenderness or guarding is noted Musculoskeletal: No calf tenderness Skin: no rashes Neurologic: moves all extremities Psychiatric: A+Ox3, euthymic affect Genitourinary: No CVA tenderness with percussion bilaterally Results & Data Vital Signs (Past 12 Hours) Vital Signs Temp Pulse Pulse Resp BP BP BP 12/24/23 22:09 12/24/23 22:09 36.9 C 80 26 H 145/65 H 12/24/23 22:08 115 H 26 H 12/24/23 21:50 36.9 C 81 22 145/65 H 12/24/23 20:18 85 26 H 147/79 H 12/24/23 18:18 93 H 12/24/23 18:10 96 H 33 H 12/24/23 18:10 36.8 C 94 H 31 H 134/89 12/24/23 17:36 36.6 C 113 H 18 138/68 Pulse Ox O2 Del Method 12/24/23 22:09 Room Air 12/24/23 22:09 96 Room Air 12/24/23 22:08 98 Room Air 12/24/23 21:50 98 Room Air 12/24/23 20:18 97 Room Air 12/24/23 18:18 12/24/23 18:10 98 Room Air 12/24/23 18:10 98 Room Air 12/24/23 17:36 94 PG Care Time/CCT Total # of Minutes Spent Total Time Spent with Patient: Total time spent is greater than 50% in coordination of care (as documented) at patient's floor/unit and/or counseling patient: Coding Level of Care Code 91171 INT INP/OBS CARE 3/75MIN Diagnoses Acute UTI (urinary tract infection) N39.0
--- NOTE | 2023-12-25 00:17 | CT Scan Report ---
Exam(s): CTA CHEST IV Amt: 118 ml optiray 320 EXAM: CT Angiography Chest With Intravenous Contrast CLINICAL HISTORY: Reason for exam: PE. TECHNIQUE: Axial computed tomographic angiography images of the chest with intravenous contrast. CTDI is 40.5 mGy and DLP is 883.49 mGy-cm. Automated exposure control was utilized for the study. A dose lowering technique was utilized adhering to the principles of ALARA. MIP reconstructed images were created and reviewed. COMPARISON: No relevant prior studies available. FINDINGS: LUNGS: No focal consolidation, pleural effusion, or pneumothorax. Atelectasis at the lung bases. HEART: Cardiomegaly. VASCULATURE: No acute pulmonary embolism. Atherosclerotic changes of the aorta. THYROID: Within normal limits. MEDIASTINUM + LYMPH NODES: There are no pathologically enlarged mediastinal, hilar, or axillary lymph nodes. SUPERIOR ABDOMEN: Hepatic steatosis. MUSCULOSKELETAL: Degenerative changes. IMPRESSION: No acute pulmonary embolism. Electronically signed by: Clint Giraldo MD 12/25/23 00:16 AM
[2023-12-25 05:06] LABS: Hematocrit (blood only) 36.2 % (42.0-52.0); Hemoglobin 12.2 g/dl (14.0-18.0); Mean Corpuscular Hemoglobin 29.2 pg (25.0-34.0); Mean Corpuscular Hgb Conc 33.7 g/dL (32.0-36.0); Mean Corpuscular Volume 86.6 fL (80.0-100.0); Mean Platelet Volume 10.7 fL (9.4-12.4); Platelet Count 190 K/uL (130-400); RDW Coefficient of Variation 13.6 % (11.5-14.5); Red Blood Count 4.18 M/uL (4.70-6.10); White Blood Count 15.54 K/ul (4.8-10.8)
[2023-12-25 05:23] LABS: BUN Creatinine Ratio 19.6 (10-20); Calcium 8.5 mg/dl (8.6-10.3); Creatinine Clr Calc Pharmacy 47.2 ml/min; Est GFR (Non-African American) 63.9 ml/min; Magnesium 1.8 mg/dl (1.7-2.4); Potassium 3.7 mmol/L (3.5-5.1)
[2023-12-25 05:26] LABS: Basophils # (auto) 0.02 K/uL (0.00-0.20); Basophils % (auto) 0.1 %; Echinocytes 1+; Immature Granulocytes # (auto) 0.05 K/uL (0.01-0.20); Immature Granulocytes % (auto) 0.3 %; Lymphocytes # (auto) 0.53 K/uL (1.20-3.40); Lymphocytes % (auto) 3.4 %; Monocytes # (auto) 0.46 K/uL (0.11-0.59); Neutrophils # (auto) 14.48 K/uL (1.40-6.50); Neutrophils % (auto) 93.2 %
[2023-12-25] MEDS: INSULIN ASPART PER UNIT CHARGE SC STA (05:51)
--- NOTE | 2023-12-25 06:52 | XRay Report ---
SINGLE VIEW CHEST CLINICAL HISTORY: Dyspnea FINDINGS: An AP, portable, upright chest radiograph is compared to study dated 12/24/2023. The examina tion is degraded by portable technique and patient rotation. The heart is mildly enlarged noting ath erosclerotic calcification of the thoracic aorta. Pulmonary vasculature is noncongested. There is bib asilar scarring/atelectasis. No airspace consolidation or large pleural effusion is identified. No pn eumothorax is seen. The skeletal structures are osteopenic. The bony thorax is grossly intact. IMPRESSION: 1. Mild cardiomegaly with no acute cardiopulmonary abnormality identified. 2. A right upper lobe groundglass lesion seen on today's chest CT is not visualized by x-ray. A follo w-up chest CT in 3-4 months time is recommended for reassessment as a low-grade adenomatous lesion is not excluded. ACT 112: Positive. There are findings on this exam that require communication between the performing entity and the patient following Patient Test Result Information Act ([place] Act 112) guidelines. Electronically signed by: Ollie Iverson M.D. 12/25/2023 6:50 AM
[2023-12-25] MEDS: LEVALBUTEROL 1.25 MG/3 ML NEB NEB SCH (06:55)
[2023-12-25 07:03] LABS: Estimated Average Glucose 157 mg/dl; Hemoglobin A1C 7.1 % (4.5-5.6)
[2023-12-25] MEDS: methylPREDNISolone 40 MG in SYRINGE 0 ML IV SCH (07:41)
[2023-12-25] MEDS: METOPROLOL SUCC 25MG EXT REL TAB PO SCH (07:42)
[2023-12-25] MEDS: MULTIVITAMIN TAB PO SCH (07:42)
[2023-12-25] MEDS: PANTOprazole 40 MG TAB PO SCH (07:42)
[2023-12-25] MEDS: hydroCHLOROthiazide 25 MG TAB PO SCH (07:42)
[2023-12-25] MEDS: hydrALAZINE 10 MG TAB PO SCH (07:42)
[2023-12-25] MEDS: ADVANCED PROBIOTIC 625 MG CAPSULE PO SCH (07:42)
[2023-12-25] MEDS: CHOLECALCIFEROL 25 MCG (1000 UNITS) TAB PO SCH (07:42)
[2023-12-25] MEDS: ATORVASTATIN 40 MG TAB PO SCH (07:43)
[2023-12-25] MEDS: guaiFENesin 600 MG TABCR PO SCH (07:43)
[2023-12-25] MEDS: CLOPIDOGREL BISULFATE 75 MG TAB PO SCH (07:43)
[2023-12-25] MEDS: amLODIPine BESYLATE 5 MG TAB PO SCH (07:43)
[2023-12-25] MEDS: ASPIRIN 81 MG ECTAB PO SCH (07:43)
--- NOTE | 2023-12-25 08:54 | Electrocardiogram Report ---
Test Reason : Blood Pressure : */* mmHG Vent. Rate : 96 BPM Atrial Rate : 96 BPM P-R Int : 144 ms QRS Dur : 142 ms QT Int : 390 ms P-R-T Axes : 88 -45 14 degrees QTcB Int : 492 ms Normal sinus rhythm Right bundle branch block Left anterior fascicular block Abnormal ECG When compared with ECG of 17-Oct-2023 17:21, Aberrant conduction is no longer Present Confirmed by Richard Perera ([id number]) on 12/25/2023 8:54:25 AM Referred By: REFERRED SELF Confirmed By: Richard Perera
[2023-12-25] MEDS ORDERED: methylPREDNISolone 125 MG/2 ML VIAL IV SCH (09:00)
--- NOTE | 2023-12-25 10:25 | Hospitalist Progress Note ---
Date of Service December 25, 2023 Assessment & Plan (1) Confusion: Plan: per admitting service notes with addendum: 83-year-old male with past medical history significant for type 2 diabetes, hyperlipidemia, 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 Son states patient lives with him but he has his own space. Last couple of days he fell several times mostly in the nighttime and son did not see the patient fall. But patient had told him that when he falls down he is taking a lot of time to get up. No hitting of the head. No loss of consciousness. And the patient told his son today that last night again he fell when he got of up from the bed because he saw his son and daughter in the room who were actually not present in the room. And also patient was finding hard to get up from the chair. Because of weakness ,falls and visual hallucination son brought him to the hospital today. In November patient had a surgery for bladder tumor which is found to be low-grade and since then he is incontinent of urine and using depends. He had episode of UTI after procedure. And he was told to check for any further infections. Patient was having no recent fevers. But lately his urine was foul smelling. Bowel movements On and off diarrhea. Patient denies any headache. No dizziness. No blurred visions. No runny nose. No sore throat. No cough. No difficulty swallowing. Appetite is been down for last couple of days. Denies any chest pain or shortness of breath. Patient when he came to the floor became short of breath and tachypneic. States occasional cough and he has mild COPD. But he saturating okay on room air currently. Confusion, Metabolic Encephalopathy Weakness Most likely from acute UTI Empiric Rocephin Gentle fluids Will follow cultures PT OT when stable Close monitor COPD exacerbation History of tobacco abuse Diminished breath sounds and mild rhonchi and tachypnea Will follow CT chest: no pneumonia, (+) Atelectasis Nebs [id number] and as needed IV Solu-Medrol Rocephin and Doxy Close monitor 12/24 on room air BS clear d/c Solumedrol continue Nebs, Abx Incentive spirometry, josh eagle Bladder tumor Status post TURBT Low-grade noninvasive Since procedure having incontinence And UTI Urology consulted for any recommendations On and off diarrhea Will follow stool studies Diabetes Hold metformin Sliding scale Will follow blood sugars Follow his hba1c levels History of CVA Left-sided weakness On aspirin statin and Plavix Hypertension On amlodipine, hydralazine, hydrochlorothiazide, metoprolol succinate - hold HCTZ Hyperlipidemia On statin GERD On Protonix Ambulate dysfunction PT OT when stable DVT prophylaxis Heparin subcu Disposition may need acute rehab/SNF Full code if there is chance of recovery. Admission and Anticipated Discharge Date Admission Date: December 24, 2023 Subjective ff up for confusion, etc seen resting in bed, comfortable in good spirits, oriented x 3 states he feels ok overall answers most questions appropriately states he has occasional cough, but no shortness of breath, fever/chills no abdominal/flank/back pain, has foul smelling urine, denies pain with urination no other symptoms Review of Systems Review of Systems: all noted and negative except for above Physical Exam Physical Exam: General- oriented x 3, not in distress, speaks in sentences with no effort or accessory muscle use Eyes- anicteric Neck- no JVD Lungs- somewhat diminished but clear breath sounds bilaterally, no rales/wheezes Heart- normal rate, regular rhythm; no murmurs Abdomen- normal bowel sounds, nondistended, soft, nontender Extremities- no pretibial edema, no calf tenderness (+) small abrasions BL LE - no signs of infection Neuro- alert, oriented x 3; no gross focal neurologic deficits Skin- warm & dry Results & Data Results & Data Vital Signs (Past 12 Hours) Vital Signs Temp Pulse Pulse Resp BP Pulse Ox O2 Del Method 12/25/23 08:15 Room Air 12/25/23 08:00 36.3 C L 70 16 114/59 L 97 Room Air 12/25/23 06:56 79 20 94 Room Air 12/25/23 04:03 36.6 C 76 16 108/62 95 Room Air all noted and reviewed including below
--- OUTSIDE RECORDS SUMMARY | 2023-12-25 11:37 | External Medical Summary | Summary of Care ---
Author Name Unknown Organization [facility] Address [address] [place] [address] Phone [phone] Care Team Providers Care Senior Analyst Name Role Phone Tristin Osorio DO Primary Care Provider [phone] Reason for Visit * Reason Onset Date Comments Referral 12/24/2023 Encounter Details Date Type Department Care Team (Late st Contact Info) Description 12/24/2023 Telephone Family Practice [facility] [place] [address] [facility] [place] [address] Tristin Osorio DO [address] [facility] [place] [address] Referral Allergies Active Allergy Reactions Criticality Noted Date Comments Irbesartan-Hydrochlorothiazide 10/14 cough Hydrochlorothiazide Low 11/09/2018 Other reaction(s): Cough Irbesartan Low 11/09/2018 Other reaction(s): Cough documented as of this encounter (statuses as of 12/24/2023) Medications Medication Sig Dispensed Refills Start Date End Date Status Cholecalciferol (VITAMIN D3) 2000 UNITS Capsule Take 1 Capsule by mouth in the morning. Active Multiple Vitamins-Minerals (MULTIVITAL) Tablet Take 1 Tablet by mouth in the morning. Active Blood Glucose Monitoring Suppl ([employer] ULTRA SYSTEM) W/DEVICE KIT Use as directed 4 times a day as needed for Hyperglycemia (high sugar) or Hypoglycemia (low sugar). Use up to four times a day as directed 1 Kit 11/02/2016 Active SM ASPIRIN ADULT LOW STRENGTH 81 MG TBECIndications:Ty pe 2 diabetes mellitus with hemoglobin A1c goal of less than 8.0% (HCC) TAKE 1 TABLET BY MOUTH EVERY DAY 100 Tab 3 05/27/2018 Active guaifenesin ER (HUMIBID LA) 600 MG TB12 Take 1 Tablet by mouth in the morning. Active Apple Cider Vinegar 300 MG Oral Tablet Take by mouth. Active Clotrimazole 1 % External Solution (Mycelex) APPLY SMALL AMOUNT TO SKIN TWICE A DAY . APPLY SMALL AMOUNT TO TOENAILS TWICE DAILY FOR TINEA UNGUIUM 02/29/2020 Active OneTouch Ultra In Vitro Strip (Glucose Blood) USE DIRECTED FOUR TIMES DAILY NEEDED FOR HYPERGLYCEMIA (HIGH SUGAR) OR HYPOGLYCEMIA (LOW SUGAR) 400 Strip 3 01/23/2022 Active OneTouch Delica Plus [id number] USE TO TEST BLOOD SUGAR FOUR TIMES DAILY DIRECTED FOR HYPERGLYCEMIA OR HYPOGLYCEMIA 400 Each 3 11/22/2022 Active Atorvastatin Calcium 40 MG Oral Tablet (Lipitor)Indicatio ns:Dyslipidemia, goal to be determined TAKE 1 TABLET BY MOUTH EVERY MORNING 90 Tablet 3 04/05/2023 Active Pantoprazole Sodium 40 MG Oral Tablet Delayed Release (Protonix)Indicati ons:Gastroesophage al reflux disease without esophagitis TAKE 1 TABLET BY MOUTH EVERY MORNING 90 Tablet 3 04/05/2023 Active Metoprolol Succinate ER 25 MG Oral Tablet Extended Release 24 Hour (toPROL XL)Indications:HTN , goal below 130/80 TAKE 1 TABLET BY MOUTH EVERY MORNING 90 Tablet 3 04/05/2023 Active hydrALAZINE HCl 10 MG Oral Tablet (Apresoline) 2 Tablets in the morning. 06/19/2023 Active metFORMIN HCl ER 500 MG Oral Tablet Extended Release 24 Hour (Glucophage XR)Indications:Typ e 2 diabetes mellitus with hemoglobin A1c goal of less than 8.0% ([facility]) TAKE 2 TABLETS BY MOUTH EVERY MORNING 180 Tablet 3 09/06/2023 Active hydroCHLOROthiazid e 25 MG Oral Tablet (Hydrodiuril)Indic ations:HTN, goal below 140/90 TAKE 1 TABLET BY MOUTH EVERY MORNING 90 Tablet 3 09/06/2023 Active amLODIPine Besylate 5 MG Oral Tablet (Norvasc)Indicatio ns:HTN, goal below 140/90 TAKE 1 TABLET BY MOUTH EVERY DAY IN THE MORNING 90 Tablet 3 09/06/2023 Active Probiotic 250 MG Oral Capsule Take by mouth. Active Clopidogrel Bisulfate 75 MG Oral Tablet (pLAVix)Indication s:Stenosis of carotid artery, unspecified laterality,Cerebro vascular disease, arteriosclerotic, post-stroke TAKE 1 TABLET BY MOUTH EVERY DAY EXCEPT FOR SATURDAYS AND SUNDAYS 90 Tablet 2 10/16/2023 Active Phenazopyridine HCl 200 MG Oral Tablet (Pyridium) Take 1 Tablet by mouth 3 times a day as needed for Other (bladder pain). 15 Tablet 11/22/2023 Active Cefdinir 300 MG Oral Capsule (Omnicef) TAKE 1 CAPSULE BY MOUTH TWO TIMES DAILY FOR 10 DAYS 11/27/2023 Active Dexcom G7 SensorIndications: Type 2 diabetes mellitus without complication, without long-term current use of insulin (HCC) Use as directed every 10 days. E11.9 1 Each 3 12/13/2023 Active Dexcom G7 Policy Director DeviceIndications: Type 2 diabetes mellitus without complication, without long-term current use of insulin (HCC) Use as directed. E11.9 1 Each 3 12/13/2023 Active documented as of this encounter (statuses as of 12/24/2023) Active Problems Problem Noted Date Diagnosed Date Urothelial carcinoma of bladder 12/13/2023 Hematuria, gross 09/23/2023 Bladder tumor 09/23/2023 Type 2 diabetes mellitus wit hout complication, without long-term current use of insulin 11/26/2016 Diverticulosis of large intestine without hemorr lexus 01/26/2015 Advanced directives, counseling/discussion 11/16 Carotid artery stenosis 11/09/2014 Dyslipidemia, goal to be determined 11/09/2014 Cerebrovascular disease, arteriosclerotic, post- stroke 10/14/2014 HTN, goal below 140/90 10/14/2014 Neurologic gait dysfunction GERD (gastroesophageal reflux disease) documented as of this encounter (statuses as of 12/24/2023) Resolved Problems Problem Noted Date Diagnosed Date Resolved Date 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) 11/16/2021 03/06/2022 Bereavement, uncomplicated 08/08/2021 1 05/06/2021 Hemiparesis affecting left s marianne as late effect of cerebrovascular accident 11/26/201608/27 Weakness of left side of body 10/14/2014 11/26/2016 documented as of this encounter (statuses as of 12/24/2023) Immunizations Name Administration Dates Next Due COVID-19 mRNA, LNP-s, No Pre serve, 2-Dose Series ([employer]) 01/30/2021,07/12/2020,06/14/2020 Covid-19, Mrna, Lnp-s, Pf, B ivalent, 30 Mcg, IM, 12 yrs and above (Pfizer) 05/31/2022 Pneumococcal Conjugate Vacc, 13 Valent (Prevnar) 11/16/2014 Pneumococcal Polysaccharide PPV23 (Pneumovax) 12/08/2015 Season Influenza, Quad, PF, Adjuvanted, 65+ Yrs, IM (FLUAD) 02/12/2020 Seasonal Influenza, PF, 6 M & above, IM , (FluLaval or Fluzone) 01/04/2021,04/09/2017 Seasonal Influenza, Quadriva lent Hd, 65+ Yrs 02/04/2023,01/03/2022 Seasonal Influenza, Quadriva lent, No Preserve, IM 03/20/2016 Seasonal Influenza, Split, I IV3, With Preserve, Inj 01/26/2015 Seasonal Influenza, Trivalen t, Adjuvanted, 65+ yrs 02/08/2018 Seasonal Influenza, Trivalen t, High Dose, No Preserve, IM 01/21/2019 TDAP (age 10 and older)(Boostrix) 11/09/2018, Zoster Vaccine Recombinant (Shingrix) 11/29/2020 ,11/29/2017,08/20/2017 documented as of this encounter Social History Tobacco Use Types Packs/Day Years Used Date Smoking Tobacco: Former Cigarettes 2 50 0 [birth year]06/1956 - 05/06/2006 Smokeless Tobacco: Never Alcohol Use Standard Drinks/Week Comments Yes 0 (1 standard drink = 0.6 oz pur e alcohol) occasional beer AUDIT-C Answer Date Recorded Q1: How often do you have a drink containing alc ohol? 2-4 times a month 03/17/2020 Q2: How many drinks containi ng alcohol do you have on a typical day when you are drinking? 1 or 2 03/17/2020 Q3: How often do you have si x or more drinks on one occasion? Not asked 03/17/2020 PHQ-2 Answer Date Recorded PHQ Adult Total Score 1 03/21/2022 Hunger Vital Sign Answer Date Recorded Within the past 12 months, y ou worried that your food would run out before you got the money to buy more. Never true 03/21/20 22 Within the past 12 months, t he food you bought just didn't last and you didn't have money to get more. Never true 03/21/2022 Utilities Answer Date Recorded Do you have trouble paying y our heating, water, or electric bill? (Adult - for ages 18 years and over) Not on file 10/22/2023 Is your family able to pay t he heat, water, or electric bill? (Household - for ages 0-17 years) Not on file 10/22/2023 Does your family have access to good internet? (Household - for ages 0-17 years) Not on file 10/22/2023 Social Connections Answer Date Recorded How often do you feel lonely or isolated from those around you? (Adult - for ages 18 years and over) Not on file 10/22/2023 Sex and Gender Information Value Date Recorded Sex Assigned at Male 03/13/2019 9:20 AM EST Gender Identity Male 03/13/2019 9:20 AM EST Sexual Orientation Straight 03/21/2022 8: 58 AM EST Job Start Date Occupation Industry Not on file Not on file Not on file documented as of this encounter Miscellaneous Notes * Telephone Encounter - Enedina Grullon LPN - 12/24/2023 10:21 AM EDT Please see encounter dated 12/21/23. * Telephone Encounter - Sabina Estrella OSA - 12/24/2023 9:41 AM EDT Patients son called in asking if he could call [employer] due to his dad falling again. Gave him there contact number. Hakeem patient's son called back in stating that [employer] has not received the Referral. Can we please resend referral to fax number [phone]. Then, Send a messageto patient when faxed with success. documented in this encounter Plan of Treatment Upcoming Encounters Date Type Department Care Team (Late st Contact Info) Description 04/08/2024 9:00 AM EST Procedure Only Urology, [facility] [address] [place] [id number] Colby Ellison MD [address] [id number] 04/15/2024 12:30 PM EST Office Visit Dermatology, [address] [place] [address] Alexsandra Márquez PA-C [address] [address] 07/13/2024 8:20 AM EDT Office Visit Family Practice [facility] [address] [facility] [place] [address] Tristin Osorio DO [address] [facility] [place] [address] Health Maintenance Due Date Last Done Comments Albumin/Creatinine Ratio 12/25/2022 022, 03/14/2020, 10/14/2018, Additional history exists Adult Wellness Visit 03/21/2023 03/21/2022, 03/20/20 21 Depression Screening 03/21/2023 03/21/2022 Diabetic Eye Exam 07/20/2023 07/19/2022, (Done elsewhere), 07/06/2020, Additional history exists Influenza Vaccine (FLU shot) (#1) 2024 02/04/2023, 01/03/2022, 01/04/2021, Additional history exists COVID-19 Vaccine ( season) 2024 11/05/2023, 05/31/2022, 01/30/2021, Additional history exists Diabetic Foot Exam 04/22/2024 04/22/2023, 0 11/16/2021, 03/17/2020, Additional history exists HbA1c 06/14/2024 12/13/2023, 06/06, 09/21/2022, Additional history exists B-12 12/12/2024 12/13/2023, 09/03, 12/25/2021, Additional history exists GFR 12/12/2024 12/13/2023, 06/06, 09/21/2022, Additional history exists DTaP,Tdap,and Td Vaccines (3 - Td or Tdap) 11/09/2028 11/09/2018, 11/16/2014 Pneumococcal Vaccine: 65+ Years Completed 12/08/2015, 11/16/2014 Zoster Vaccines Completed 11/29/2020, 11/04, 08/20/2017 HPV (Gardasil) Vaccine Aged Out No lo nger eligible based on patient's age to complete this topic Hepatitis B Vaccine Aged Out No longe r eligible based on patient's age to complete this topic MENINGOCOCCAL (MENACTRA/MENVEO) Aged Out No longer eligible based on patient's age to complete this topic documented as of this encounter Medical Devices Not on filedocumented as of this encounter Advance Directives Documents on File Type Date Recorded Patient Medical Imaging Tech Expl anation Advance Directives and Living Will 06/23/2016 LIVING WILL * Full Code (Latest Code Status on File) Date Activated Date Inactivated Comments 11/22/2023 10:46 AM 11/22/2023 5:05 PM This order reflects the patients wishes and were consensually agreed upon. Question Answer Comments Discussion of Advance Directives occurred with: Patient * Full Code Date Activated Date Inactivated Comments 11/22/2023 8:50 AM 11/22/2023 10:46 AM This order reflects the patients wishes and were consensually agreed upon. Question Answer Comments Discussion of Advance Directives occurred with: Patient Care Teams Senior Analyst Relationship Specialty Start Date End Date Tristin Osorio DO [address] [place] [address] PCP - General Family Medicine 10/23/16 documented as of this encounter
--- OUTSIDE RECORDS SUMMARY | 2023-12-25 11:37 | External Medical Summary | Summary of Care ---
Author Name Unknown Organization [facility] Address [address] [facility] [place] [address] Phone [phone] Care Team Providers Care Party Plan Sales Agent Name Role Phone Tristin Osorio DO Primary Care Provider [phone] Encounter Details Date Type Department Care Team (Late st Contact Info) Description 09/23/2023 Telephone Urology, [facility] [address] [facility] [place] [address] Colby Ellison MD [address] [place] [address] Allergies Active Allergy Reactions Criticality Noted Date Comments Irbesartan-Hydrochlorothiazide 10/14 cough Hydrochlorothiazide Low 11/09/2018 Other reaction(s): Cough Irbesartan Low 11/09/2018 Other reaction(s): Cough documented as of this encounter (statuses as of 12/23/2023) Medications Medication Sig Dispensed Refills Start Date End Date Status Cholecalciferol (VITAMIN D3) 2000 UNITS Capsule Take 1 Capsule by mouth in the morning. Active Multiple Vitamins-Mineral s (MULTIVITAL) Tablet Take 1 Tablet by mouth in the morning. Active Blood Glucose Monitoring Suppl (MyWants SYSTEM) W/DEVICE KIT Use as directed 4 times a day as needed for Hyperglycemia (high sugar) or Hypoglycemia (low sugar). Use up to four times a day as directed 1 Kit 7 Active SM ASPIRIN ADULT LOW STRENGTH 81 MG TBECIndications: Type 2 diabetes mellitus with hemoglobin A1c goal of less than 8.0% (HCC) TAKE 1 TABLET BY MOUTH EVERY DAY 100 Tab 3 9 Active guaifenesin ER (HUMIBID LA) 600 MG TB12 Take 1 Tablet by mouth in the morning. Active Apple Cider Vinegar 300 MG Oral Tablet Take by mouth. Active Clotrimazole 1 % External Solution (Mycelex) APPLY SMALL AMOUNT TO SKIN TWICE A DAY . APPLY SMALL AMOUNT TO TOENAILS TWICE DAILY FOR TINEA UNGUIUM 0 Active OneTouch Ultra In Vitro Strip (Glucose Blood) USE DIRECTED FOUR TIMES DAILY NEEDED FOR HYPERGLYCEMIA (HIGH SUGAR) OR HYPOGLYCEMIA (LOW SUGAR) 400 Strip 3 2 Active OneTouch Delica Plus [id number] USE TO TEST BLOOD SUGAR FOUR TIMES DAILY DIRECTED FOR HYPERGLYCEMIA OR HYPOGLYCEMIA 400 Each 3 3 Active Atorvastatin Calcium 40 MG Oral Tablet (Lipitor)Indicat ions:Dyslipidemi a, goal to be determined TAKE 1 TABLET BY MOUTH EVERY MORNING 90 Tablet 3 3 Active Pantoprazole Sodium 40 MG Oral Tablet Delayed Release (Protonix)Indica tions:Gastroesop hageal reflux disease without esophagitis TAKE 1 TABLET BY MOUTH EVERY MORNING 90 Tablet 3 3 Active Metoprolol Succinate ER 25 MG Oral Tablet Extended Release 24 Hour (toPROL XL)Indications:H TN, goal below 130/80 TAKE 1 TABLET BY MOUTH EVERY MORNING 90 Tablet 3 3 Active hydrALAZINE HCl 10 MG Oral Tablet (Apresoline) 2 Tablets in the morning. 4 Active metFORMIN HCl ER 500 MG Oral Tablet Extended Release 24 Hour (Glucophage XR)Indications:T ype 2 diabetes mellitus with hemoglobin A1c goal of less than 8.0% ([facility]) TAKE 2 TABLETS BY MOUTH EVERY MORNING 180 Tablet 3 4 Active hydroCHLOROthiaz marianne 25 MG Oral Tablet (Hydrodiuril)Ind ications:HTN, goal below 140/90 TAKE 1 TABLET BY MOUTH EVERY MORNING 90 Tablet 3 4 Active amLODIPine Besylate 5 MG Oral Tablet (Norvasc)Indicat ions:HTN, goal below 140/90 TAKE 1 TABLET BY MOUTH EVERY DAY IN THE MORNING 90 Tablet 3 4 Active Probiotic 250 MG Oral Capsule Take by mouth. Active predniSONE 20 MG Oral Tablet (Deltasone)Indic ations:Swelling of thumb, right,Personal history of fall 2 tabs today, then 1 tab daily x 4 days, then 1/2 tab daily x 4 days 8 Tablet 3 11/22/19 24 Discontinued Clopidogrel Bisulfate 75 MG Oral Tablet (pLAVix)Indicati ons:Stenosis of carotid artery, unspecified laterality,Cereb rovascular disease, arteriosclerotic , post-stroke TAKE 1 TABLET BY MOUTH EVERY DAY EXCEPT FOR SATURDAYS AND SUNDAYS 90 Tablet 4 10/16/19 24 Discontinued documented as of this encounter (statuses as of 12/23/2023) Active Problems Problem Noted Date Diagnosed Date [...] as of this encounter (statuses as of 12/23/2023) Resolved Problems Problem Noted Date Diagnosed Date Resolved Date 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) 11/16/2021 03/06/2022 Bereavement, uncomplicated 08/08/2021 1 05/06/2021 Hemiparesis affecting left s marianne as late effect of cerebrovascular accident 11/26/201608/27 Weakness of left side of body 10/14/2014 11/26/2016 documented as of this encounter (statuses as of 12/23/2023) Immunizations Name Administration Dates Next Due COVID-19 mRNA, LNP-s, No Pre serve, 2-Dose Series (Evergig) 01/30/2021,07/12/2020,06/14/2020 Covid-19, Mrna, Lnp-s, Pf, B ivalent, 30 Mcg, IM, 12 yrs and above (Evergig) 05/31/2022 Pneumococcal Conjugate Vacc, 13 Valent (Prevnar) [...] 50 0 05/06/1956 - 05/06/2006 Smokeless Tobacco: Former Quit: 2006 Alcohol Use Standard Drinks/Week Comments Yes 0 [...] encounter Miscellaneous Notes * Telephone Encounter - Jennifer Vargas LPN - 09/23/2023 11:[address] Ellison Spoke with Kate. Dr Vicente, radiologist, wanted to make you aware of left bladder tumor shown on 09/17/23 CT urogram. Patient has appointment with you today 09/23/2023 at 1:15PM. If there are furtherquestions for Dr Vicente, they can be reached at [phone]. Thank you Argelia * Telephone Encounter - Angelina Hernandez OSA - 09/23/2023 10:10 AM EDT Kate called from a provider's office about finding in imaging. Please call back at [phone] andask for Kate. Thank you! documented in this encounter Plan of Treatment Upcoming Encounters Date Type Department Care Team (Late st Contact Info) Description 04/08/2024 9:00 AM EST Procedure Only Urology, [facility] [address] [facility] [place] [address] Colby Ellison MD 27 [place] [address] 04/15/2024 12:30 PM EST Office Visit Dermatology, Marcelle SilvaJanet [address] [place] [address] Alexsandra Márquez PA-C 27 [place] [address] 07/13/2024 8:20 AM EDT Office Visit Family Practice [facility] [place] [address] [facility] [place] [address] Tristin Osorio DO 200 [facility] [place] [address] Health Maintenance Due Date Last Done Comments [...] Documents on File Type Date Recorded 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
--- OUTSIDE RECORDS SUMMARY | 2023-12-25 11:37 | External Medical Summary | Summary of Care ---
Author Name Unknown Organization [facility] Address [address] [place] [address] Phone [phone] Care Team Providers Care District Court Administrator Name Role Phone Tristin Osorio DO Primary Care Provider [phone] Reason for Visit * Reason Onset Date Comments Referral 12/24/2023 Encounter Details Date Type Department Care Team (Late st Contact Info) Description 12/24/2023 Telephone Family Practice [facility] [place] 200 [facility] [place] [address] Tristin Osorio DO 200 [facility] [place] [address] Referral Allergies Active Allergy Reactions Criticality Noted [...] the morning. Active Blood Glucose Monitoring Suppl (Yicha Online ULTRA SYSTEM) W/DEVICE KIT Use as directed [...] Strip 3 01/23/2022 Active OneTouch Delica Plus [id number] USE TO TEST BLOOD SUGAR FOUR TIMES [...] A1c goal of less than 8.0% ([facility]) TAKE 2 TABLETS BY MOUTH EVERY [...] 1 Each 3 12/13/2023 Active Dexcom G7 Locator Specialist DeviceIndications: Type 2 diabetes mellitus without complication, [...] mRNA, LNP-s, No Pre serve, 2-Dose Series (ahoyDoc) 01/30/2021,07/12/2020,06/14/2020 Covid-19, Mrna, Lnp-s, Pf, B ivalent, [...] called in asking if he could call [facility] due to his dad falling again. Gave him there contact number. Hakeem patient's son called back in stating that [facility] has not received the Referral. Can we please resend referral to fax number [phone]. Then, Send a messageto patient when faxed with success. documented in this encounter Plan of Treatment Upcoming Encounters Date Type Department Care Team (Late st Contact Info) Description 04/08/2024 9:00 AM EST Procedure Only Urology, [facility] [address] [place] [address] Colby Ellison MD 27 [place] [address] 04/15/2024 12:30 PM EST Office Visit Dermatology, Marcelle Janet Silva [address] [place] [address] Alexsandra Márquez PA-C 27 [place] [address] 07/13/2024 8:20 AM EDT Office Visit Family Practice [facility] 200 [facility] [place] [address] Tristin Osorio DO 200 [facility] [place] [address] Health Maintenance Due Date Last Done Comments [...] Documents on File Type Date Recorded Patient Manufacturing Coordinator Expl anation Advance Directives and Living Will [...] Advance Directives occurred with: Patient Care Teams District Court Administrator Relationship Specialty Start Date End Date Tristin Osorio DO [address] [place] [address] PCP - General Family Medicine 10/23/16 documented as of this encounter
--- OUTSIDE RECORDS SUMMARY | 2023-12-25 11:37 | External Medical Summary | Summary of Care ---
Author Name Unknown Organization [facility] Address [address] [place] [address] Phone [phone] Care Team Providers Care Information Technology Intern Name Role Phone Tristin Osorio DO Primary Care Provider [phone] Reason for Visit * Reason Onset Date Comments Order Request 12/21/2023 Referral 12/21/2023 Encounter Details Date Type Department Care Team (Late st Contact Info) Description 12/21/2023 Telephone Family Practice [facility] 200 [facility] [place] [address] Tristin Osorio DO 200 [facility] [address] Order Request; Referral Allergies Active Allergy Reactions Criticality Noted [...] the morning. Active Blood Glucose Monitoring Suppl (VNY [employer] Innovations ULTRA SYSTEM) W/DEVICE KIT Use as directed [...] TWICE DAILY FOR TINEA UNGUIUM 02/29/2020 Active Nomorerack.comTouch Ultra In Vitro Strip (Glucose Blood) USE DIRECTED FOUR TIMES DAILY NEEDED FOR HYPERGLYCEMIA (HIGH SUGAR) OR HYPOGLYCEMIA (LOW SUGAR) 400 Strip 3 01/23/2022 Active Nomorerack.comTouch Delica Plus [id number] USE TO TEST BLOOD SUGAR FOUR TIMES [...] goal of less than 8.0% (HCC) TAKE 2 TABLETS BY MOUTH EVERY MORNING [...] 1 Each 3 12/13/2023 Active Dexcom G7 Trademark Paralegal DeviceIndications: Type 2 diabetes mellitus without complication, [...] mRNA, LNP-s, No Pre serve, 2-Dose Series (T-Quad 22) 01/30/2021,07/12/2020,06/14/2020 Covid-19, Mrna, Lnp-s, Pf, B ivalent, [...] Encounter - Enedina Grullon LPN - 12/24/2023 10:40 AM EDT Home health referral, OV note from 12/13/23 and demographics faxed to [facility]. Confirmation received. Per family request, my g message sent making them aware. * Telephone Encounter - Tristin Osorio DO - 12/23/2023 3:54 PM EDT Please help set up HH as requested. Order is in my visit from 12/12 with him * Telephone Encounter - Sabina Estrella OSA - 12/23/2023 2:15 PM EDT Son would like it faxed over to [facility]. Fax number is [phone] * Telephone Encounter - Tristin Osorio DO - 12/23/2023 12:45 PM EDT HH referral for PT and OT signed. Thank you! * Telephone Encounter - Sabina Estrella OSA - 12/23/2023 11:36 AM EDT Emma rene [facility] stop in requesting to see if would be able to send a OT & PT Referral. Contacted Patients son Casey to see where he would like them to be sent. Waiting on a call back. * Telephone Encounter - Tahira Gonsalves OSA - 12/21/2023 12:53 PM EDT Pt's space engineer is calling. Has been in contact with their son. They are requesting Physical and Occupation therapy Pt has had several falls in the past few days. Please advise next steps. Emma Thomas [phone] documented in this encounter Plan of Treatment Upcoming Encounters Date Type Department Care Team (Late st Contact Info) Description 04/08/2024 9:00 AM EST Procedure Only Urology, [facility] 132 [facility] [place] [address] Colby Ellison MD 27 [place] [address] 04/15/2024 12:30 PM EST Office Visit Dermatology, Janet Young [address] [place] [phone] Alexsandra Márquez PA-C 27 [place] [address] 07/13/2024 8:20 AM EDT Office Visit Family Practice [facility] [place] 200 [facility] [place] [address] Tristin Osorio DO 200 [facility] [place] [address] Health Maintenance Due Date Last Done Comments [...] Documents on File Type Date Recorded Patient Director Of Provider Relations Expl anation Advance Directives and Living Will [...] Advance Directives occurred with: Patient Care Teams Information Technology Intern Relationship Specialty Start Date End Date Tristin Osorio DO [address] [place] [address] PCP - General Family Medicine 10/23/16 documented as of this encounter
--- OUTSIDE RECORDS SUMMARY | 2023-12-25 11:37 | External Medical Summary | Summary of Care ---
Author Name Unknown Organization [facility] Address [address] [place] [address] Phone [phone] Care Team Providers Care Survey And Mapping Technician Name Role Phone Tristin Osorio DO Primary Care Provider [phone] Reason for Visit * Reason Onset Date Comments Order Request 12/21/2023 Referral 12/21/2023 Encounter Details Date Type Department Care Team (Late st Contact Info) Description 12/21/2023 Telephone Family Practice [facility] 200 [facility] [place] [address] Tristin Osorio DO 200 [facility] [address] Order Request; Referral Allergies Active Allergy Reactions [...] the morning. Active Blood Glucose Monitoring Suppl (Seer Technologies ULTRA SYSTEM) W/DEVICE KIT Use as directed [...] TWICE DAILY FOR TINEA UNGUIUM 02/29/2020 Active MarketMuseTouch Ultra In Vitro Strip (Glucose Blood) USE DIRECTED FOUR TIMES DAILY NEEDED FOR HYPERGLYCEMIA (HIGH SUGAR) OR HYPOGLYCEMIA (LOW SUGAR) 400 Strip 3 01/23/2022 Active MarketMuseTouch Delica Plus [id number] USE TO TEST BLOOD SUGAR FOUR TIMES [...] 1 Each 3 12/13/2023 Active Dexcom G7 Map Maker DeviceIndications: Type 2 diabetes mellitus without complication, [...] mRNA, LNP-s, No Pre serve, 2-Dose Series (Visante) 01/30/2021,07/12/2020,06/14/2020 Covid-19, Mrna, Lnp-s, Pf, B ivalent, [...] encounter Miscellaneous Notes * Telephone Encounter - Tristin Osorio DO - 12/23/2023 3:54 PM EDT Please help set up HH as requested. Order is in my visit from 12/12 with him * Telephone Encounter - Sabina Estrella OSA - 12/23/2023 2:15 PM EDT Son would like it faxed over to [facility]. Fax number is [phone] * Telephone Encounter - Tristin Osorio DO - 12/23/2023 12:45 PM EDT HH referral for PT and OT signed. Thank you! * Telephone Encounter - Sabina Estrella OSA - 12/23/2023 11:36 AM EDT Emma rene [facility] stop in requesting to see if would be able to send a OT & PT Referral. Contacted Patients son Casey to see where he would like them to be sent. Waiting on a call back. * Telephone Encounter - Tahira Gonsalves OSA - 12/21/2023 12:53 PM EDT Pt's police chief deputy is calling. Has been in contact with their son. They are requesting Physical and Occupation therapy Pt has had several falls in the past few days. Please advise next steps. Emma Thomas [phone] documented in this encounter Plan of Treatment Upcoming Encounters Date Type Department Care Team (Late st Contact Info) Description 04/08/2024 9:00 AM EST Procedure Only Urology, [facility] 132 [place] [address] Colby Ellison MD 27 [place] [address] 04/15/2024 12:30 PM EST Office Visit Dermatology, Janet Young [address] 140 [place] [address] Alexsandra Márquez PA-C 27 [place] [address] 07/13/2024 8:20 AM EDT Office Visit Family [facility] 200 [facility] [place] [address] Tristin Osorio, DO 200 [facility] [place] [address] Health Maintenance Due Date Last Done Comments [...] Documents on File Type Date Recorded Patient Furniture Manager Expl anation Advance Directives and Living Will [...] Advance Directives occurred with: Patient Care Teams Survey And Mapping Technician Relationship Specialty Start Date End Date Tristin Osorio DO [address] [place], [place] [address] PCP - General Family Medicine 10/23/16 documented as of this encounter
--- OUTSIDE RECORDS SUMMARY | 2023-12-25 11:37 | External Medical Summary | Summary of Care ---
Author Name Unknown Organization [facility] Address [address] [place] [address] Phone [phone] Care Team Providers Care Manager Security Name Role Phone Tristin Osorio DO Primary Care Provider [phone] Reason for Visit * Reason Onset Date Comments Order Request 12/21/2023 Referral 12/21/2023 Encounter Details Date Type Department Care Team (Late st Contact Info) Description 12/21/2023 Telephone Family Practice [facility] 200 [facility] [place] [address] Tristin Osorio DO 200 [facility] [address] Order Request; Referral Allergies Active Allergy Reactions [...] the morning. Active Blood Glucose Monitoring Suppl (Genymobile ULTRA SYSTEM) W/DEVICE KIT Use as directed [...] TWICE DAILY FOR TINEA UNGUIUM 02/29/2020 Active AttendifyTouch Ultra In Vitro Strip (Glucose Blood) USE DIRECTED FOUR TIMES DAILY NEEDED FOR HYPERGLYCEMIA (HIGH SUGAR) OR HYPOGLYCEMIA (LOW SUGAR) 400 Strip 3 01/23/2022 Active AttendifyTouch Delica Plus [id number] USE TO TEST BLOOD SUGAR FOUR TIMES [...] 1 Each 3 12/13/2023 Active Dexcom G7 Licensed Electrician DeviceIndications: Type 2 diabetes mellitus without complication, [...] mRNA, LNP-s, No Pre serve, 2-Dose Series (Populy Games) 01/30/2021,07/12/2020,06/14/2020 Covid-19, Mrna, Lnp-s, Pf, B ivalent, [...] Son would like it faxed [facility] to [facility]. Fax number is [phone] * Telephone Encounter - Tristin Osorio DO - 12/23/2023 12:45 PM EDT HH referral for PT and OT signed. Thank you! * Telephone Encounter - Sabina Estrella OSA - 12/23/2023 11:36 AM EDT Emma rene [facility] stop in requesting to see if would be able to send a OT & PT Referral. Contacted Patients son Casey to see where he would like them to be sent. Waiting on a call back. * Telephone Encounter - Tahira Gonsalves OSA - 12/21/2023 12:53 PM EDT Pt's geometry professor is calling. Has been in contact with their son. They are requesting Physical and Occupation therapy Pt has had several falls in the past few days. Please advise next steps. Emma Thomas [phone] documented in this encounter Plan of Treatment Upcoming Encounters Date Type Department Care Team (Late st Contact Info) Description 04/08/2024 9:00 AM EST Procedure Only Urology, [facility] 132 [place] [address] Cobly Ellison MD 27 [place] [address] 04/15/2024 12:30 PM EST Office Visit Dermatology, Janet Young 27 [address] [place] [address] Alexsandra Márquez PA-C 27 [place] [address] 07/13/2024 8:20 AM EDT Office Visit Family [facility] 200 [facility] [place] [address] Tristin Osorio, DO 200 [facility] [place] [address] Health Maintenance Due Date Last Done Comments [...] Documents on File Type Date Recorded Patient Sail Lay Out Worker Expl anation Advance Directives and Living Will [...] Advance Directives occurred with: Patient Care Teams Manager Security Relationship Specialty Start Date End Date Tristin Osorio DO [address] [place], [place] [address] PCP - General Family Medicine 10/23/16 documented as of this encounter
--- OUTSIDE RECORDS SUMMARY | 2023-12-25 11:38 | External Medical Summary | Summary of Care ---
Author Name Unknown Organization [facility] Address [address] [place] [address] Phone [phone] Care Team Providers Care Business Services Analyst Name Role Phone Tristin Osorio DO Primary Care Provider [phone] Reason for Visit * Reason Onset Date Comments Order Request 12/21/2023 Referral 12/21/2023 Encounter Details Date Type Department Care Team (Late st Contact Info) Description 12/21/2023 Telephone Family Practice [facility] 200 [facility] [place] [address] Tristin Osorio DO 200 [facility] [address] Order Request; Referral Allergies Active Allergy Reactions [...] the morning. Active Blood Glucose Monitoring Suppl (Be[employer] Moca [employer] ULTRA SYSTEM) W/DEVICE KIT Use as directed [...] TWICE DAILY FOR TINEA UNGUIUM 02/29/2020 Active SimalayaTouch Ultra In Vitro Strip (Glucose Blood) USE DIRECTED FOUR TIMES DAILY NEEDED FOR HYPERGLYCEMIA (HIGH SUGAR) OR HYPOGLYCEMIA (LOW SUGAR) 400 Strip 3 01/23/2022 Active SimalayaTouch Delica Plus [id number] USE TO TEST BLOOD SUGAR FOUR TIMES [...] 1 Each 3 12/13/2023 Active Dexcom G7 Retail Loss Prevention Investigator DeviceIndications: Type 2 diabetes mellitus without complication, [...] mRNA, LNP-s, No Pre serve, 2-Dose Series (ArtSquare) 01/30/2021,07/12/2020,06/14/2020 Covid-19, Mrna, Lnp-s, Pf, B ivalent, [...] encounter Miscellaneous Notes * Telephone Encounter - Sabina Estrella OSA - 12/23/2023 2:15 PM EDT Son would like it faxed [facility] to [facility]. Fax number is [phone] * Telephone Encounter - Tristin Osorio DO - 12/23/2023 12:45 PM EDT HH referral for PT and OT signed. Thank you! * Telephone Encounter - Sabina Estrella OSA - 12/23/2023 11:36 AM EDT Emma rene [facility] stop in requesting to see if would be able to send a OT & PT Referral. Contacted Patients son Christopher to see where he would like them to be sent. Waiting on a call back. * Telephone Encounter - Tahira Gonsalves OSA - 12/21/2023 12:53 PM EDT Pt's manager social media is calling. Has been in contact with their son. They are requesting Physical and Occupation therapy Pt has had several falls in the past few days. Please advise next steps. Emma Thomas [phone] documented in this encounter Plan of Treatment Upcoming Encounters Date Type Department Care Team (Late st Contact Info) Description 04/08/2024 9:00 AM EST Procedure Only Urology, [facility] 132 [place] [address] Colby Ellison MD 27 [place] [address] 04/15/2024 12:30 PM EST Office Visit Dermatology, Janet Young [address] [place] [address] Alexsandra Márquez PA-C 27 [place] [address] 07/13/2024 8:20 AM EDT Office Visit Family Practice [facility] [address] [place] [address] Tristin Osorio DO [address] [facility] [place] [address] Health Maintenance Due Date Last Done Comments [...] Documents on File Type Date Recorded Patient Classroom Teacher Expl anation Advance Directives and Living Will [...] Advance Directives occurred with: Patient Care Teams Business Services Analyst Relationship Specialty Start Date End Date Tristin Osorio DO [address] [place] [address] PCP - General Family Medicine 10/23/16 documented as of this encounter
--- OUTSIDE RECORDS SUMMARY | 2023-12-25 11:38 | External Medical Summary | Summary of Care ---
Author Name Unknown Organization [facility] Address [address] [facility] [place] [address] Phone [phone] Care Team Providers Care Nursery Supervisor Name Role Phone Tristin Osorio DO Primary Care Provider [phone] Encounter Details Date Type Department Care Team (Late st Contact Info) Description 11/27/2023 Telephone Urology Janet Young [address] [place] [address] Colby Ellison MD [address] [place] [address] Allergies Active Allergy Reactions Criticality Noted Date Comments Irbesartan-Hydrochlorothiazide 10/14 cough Hydrochlorothiazide Low 11/09/2018 Other reaction(s): Cough Irbesartan Low 11/09/2018 Other reaction(s): Cough documented as of this encounter (statuses as of 11/27/2023) Medications Medication Sig Dispensed Refills Start Date End Date Status Cholecalciferol (VITAMIN D3) 2000 UNITS Capsule Take 1 Capsule by mouth in the morning. Active Multiple Vitamins-Minerals (MULTIVITAL) Tablet Take 1 Tablet by mouth in the morning. Active Blood Glucose Monitoring Suppl ([employer]as[employer] SYSTEM) W/DEVICE KIT Use as directed 4 [...] TWICE DAILY FOR TINEA UNGUIUM 02/29/2020 Active Modern Family DoctorTouch Ultra In Vitro Strip (Glucose Blood) USE DIRECTED FOUR TIMES DAILY NEEDED FOR HYPERGLYCEMIA (HIGH SUGAR) OR HYPOGLYCEMIA (LOW SUGAR) 400 Strip 3 01/23/2022 Active OneTouch Delica Plus [id number] USE TO TEST BLOOD SUGAR FOUR TIMES [...] hemoglobin A1c goal of less than 8.0% ([facility]) TAKE 2 TABLETS BY MOUTH EVERY MORNING [...] AND SUNDAYS 90 Tablet 2 10/16/2023 Active oxyCODONE-Acetamin ophen 5-325 MG Oral Tablet (Percocet) Take 1 Tablet by mouth every 8 hours as needed for Pain, Breakthrough for up to 10 doses. 10 Tablet 11/22/2023 Active Sulfamethoxazole-T rimethoprim 800-160 MG Oral Tablet (Bactrim DS) Take 1 Tablet by mouth in the morning and 1 Tablet before bedtime. 6 Tablet 11/22/2023 Active Phenazopyridine HCl 200 MG Oral Tablet (Pyridium) Take 1 Tablet by mouth 3 times a day as needed for Other (bladder pain). 15 Tablet 11/22/2023 Active documented as of this encounter (statuses as of 11/27/2023) Active Problems Problem Noted Date Diagnosed Date Hematuria, gross 09/23/2023 Bladder tumor 09/23/2023 Diverticulosis of large intestine without hemorr lexus 01/26/2015 Advanced directives, counseling/discussion 11/16 Carotid artery stenosis 11/09/2014 Dyslipidemia, goal to be determined 11/09/2014 Cerebrovascular disease, arteriosclerotic, post- stroke 10/14/2014 HTN, goal below 140/90 10/14/2014 Neurologic gait dysfunction GERD (gastroesophageal reflux disease) documented as of this encounter (statuses as of 11/27/2023) Resolved Problems Problem Noted Date Diagnosed Date Resolved Date 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) 11/16/2021 03/06/2022 Bereavement, uncomplicated 08/08/2021 1 05/06/2021 Type 2 diabetes mellitus wit h hemoglobin A1c goal of less than 8.0% 11/26/2016 06/19/2023 Hemiparesis affecting left s 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 Confirmation fax was successful. * Telephone Encounter - Summer Leon OSA - 11/27/2023 12:47 PM EDT Haley from [place] is requesting operative notes for patient. documented in this encounter Plan of Treatment Upcoming Encounters Date Type Department Care Team (Late st Contact Info) Description 12/11/2023 2:45 PM EDT Office Visit Urology, [facility] [address] [facility] [place] [address] Colby Ellison MD [address] [place] [address] 12/13/2023 2:20 PM EDT Office Visit [facility] Practice [facility] [address] [place] [address] Tristin Osorio, [address] [facility] [place] [address] Health Maintenance Due Date Last Done Comments Depression Screening 03/21/2023 03/21/2022 B-12 09/22/2023 09/21/2022, 12/05, 07/20/2020, Additional history exists Influenza Vaccine (FLU shot) (#1) 2024 02/04/2023, 01/03/2022, 01/04/2021, Additional history exists COVID-19 Vaccine ( season) 2024 11/05/2023, 05/31/2022, 01/30/2021, Additional history exists GFR 06/19/2024 06/19/2023, 09/03, 12/25/2021, Additional history exists Albumin/Creatinine Ratio 12/25/2024 022, 03/14/2020, 10/14/2018, Additional history exists DTaP,Tdap,and Td Vaccines (3 - Td or Tdap) 11/09/2028 11/09/2018, 11/16/2014 Pneumococcal Vaccine: 65+ Years Completed 12/08/2015, 11/16/2014 Zoster Vaccines Completed 11/29/2020, 11/04, 08/20/2017 Diabetic Eye Exam Discontinued 07/19/2022, (Done elsewhere), 07/06/2020, Additional history exists Diabetic Foot Exam Discontinued 04/22/2023, 0 11/16/2021, 03/17/2020, Additional history exists HPV (Gardasil) Vaccine Aged Out No lo [...] Documents on File Type Date Recorded Patient Rn Immunology Expl anation Advance Directives and Living Will [...] Advance Directives occurred with: Patient Care Teams Nursery Supervisor Relationship Specialty Start Date End Date Tristin Osorio DO [address] [place] [address] PCP - General Family Medicine 10/23/16 documented as of this encounter
--- OUTSIDE RECORDS SUMMARY | 2023-12-25 11:38 | External Medical Summary ---
Author Name Unknown Address Unknown Organization K09:[facility] [place] [address] Laboratory Report Ordering Provider Test Date Status ABIGAIL GALLO 12/13/2023 14:54:03 Final Observation Date Value Abnormality Reference (Units ) Status BUN 12/13/2023 14:54:03 21 Above high normal 6-20 (mg/dL) Final Creatinine 12/13/2023 14:54:03 1.2 0.6-1.2 (mg/dL) Final Glomerular filtration rate/1.73 sq M.predicted [Volume Rate/Area] in Serum, Plasma or Blood by Creatinine-based formula (CKD-EPI) 12/13/2023 14:54:03 62 >=60 (mL/min) Final eGFR is calculated based on the CKD-EPI 2020 equation. Sodium 12/13/2023 14:54:03 143 135-146 (m mol/L) Final Potassium 12/13/2023 14:54:03 4.9 3.5-5.1 (m mol/L) Final Cl 12/13/2023 14:54:03 107 98-107 (mm ol/L) Final CO2 12/13/2023 14:54:03 24 22-32 (mmo l/L) Final Anion gap 12/13/2023 14:54:03 12 7-15 (mmol /L) Final Glucose 12/13/2023 14:54:03 129 Above high normal 70 -120 (mg/dL) Final Calcium 12/13/2023 14:54:03 9.9 8.4-10.2 ( mg/dL) Final Performing Location [facility] [place] [address]
--- OUTSIDE RECORDS SUMMARY | 2023-12-25 11:38 | External Medical Summary | Summary of Care ---
Author Name Unknown Organization [facility] Address [address] [facility] [place] [address] Phone [phone] Care Team Providers Care Director Of Marketing Communications Name Role Phone KelvinTristin godoy Primary Care Provider [phone] Reason for Visit * Reason Onset Date Comments Test Results 09/12/2023 Encounter Details Date Type Department Care Team (Late st Contact Info) Description 09/12/2023 Telephone Family Practice [facility] [address] [facility] [place] [address] Vielka Stinson PA-C [address] [facility] [place] [address] Test Results Allergies Active Allergy Reactions Criticality Noted Date Comments Irbesartan-Hydrochlorothiazide 10/14 cough Hydrochlorothiazide Low 11/09/2018 Other reaction(s): Cough Irbesartan Low 11/09/2018 Other reaction(s): Cough documented as of this encounter (statuses as of 12/12/2023) Medications Medication Sig Dispensed Refills Start Date End Date Status Cholecalciferol (VITAMIN D3) 2000 UNITS Capsule Take 1 Capsule by mouth in the morning. Active Multiple Vitamins-Minerals (MULTIVITAL) Tablet Take 1 Tablet by mouth in the morning. Active Blood Glucose Monitoring Suppl ([employer] ULTRA SYSTEM) W/DEVICE KIT Use as directed 4 times a day as needed for Hyperglycemia (high sugar) or Hypoglycemia (low sugar). Use up to four times a day as directed 1 Kit 11/02/2016 Active SM ASPIRIN ADULT LOW STRENGTH 81 MG TBECIndications:Ty pe 2 diabetes mellitus with hemoglobin A1c goal of less than 8.0% ([facility]) TAKE 1 TABLET BY MOUTH EVERY DAY [...] Strip 3 01/23/2022 Active OneTouch Delica Plus [id number] USE TO TEST BLOOD SUGAR FOUR TIMES [...] MG Oral Capsule Take by mouth. Active documented as of this encounter (statuses as of 12/12/2023) Active Problems Problem Noted Date Diagnosed Date Hematuria, gross 09/23/2023 Bladder tumor 09/23/2023 Diverticulosis of large intestine without hemorr lexus 01/26/2015 Advanced directives, counseling/discussion 11/16 Carotid artery stenosis 11/09/2014 Dyslipidemia, goal to be determined 11/09/2014 Cerebrovascular disease, arteriosclerotic, post- stroke 10/14/2014 HTN, goal below 140/90 10/14/2014 Neurologic gait dysfunction GERD (gastroesophageal reflux disease) documented as of this encounter (statuses as of 12/12/2023) Resolved Problems Problem Noted Date Diagnosed Date [...] as of this encounter (statuses as of 12/12/2023) Immunizations Name Administration Dates Next Due COVID-19 mRNA, LNP-s, No Pre serve, 2-Dose Series ([employer]) 01/30/2021,07/12/2020,06/14/2020 Covid-19, Mrna, Lnp-s, Pf, B ivalent, [...] encounter Miscellaneous Notes * Telephone Encounter - Ilsa Renee LPN - 09/18/2023 4:17 PM EDT Patient had CT urography done yesterday. * Telephone Encounter - Ilsa Renee LPN - 09/12/2023 9:46 AM EDT ----- Message from Vielka Stinson PA-C sent at 09/11/2023 6:24 PM EDT ----- Cystic structure present. Recommending doing a ct urogram to clarify. Please see if patient is willing documented in this encounter Plan of Treatment Upcoming Encounters Date Type Department Care Team (Late st Contact Info) Description 12/13/2023 2:20 PM EDT Office Visit Family Practice [facility] [address] [facility] [place] [address] Tristin Osorio, DO [address] [facility] [place] [address] 04/08/2024 9:00 AM EST Procedure Only Urology, [facility] [address] [facility] [place] [address] Colby Ellison MD [address] [place] [address] Health Maintenance Due Date Last Done Comments Adult Wellness Visit 03/21/2023 03/21/2022, 03/20/20 21 Depression Screening 03/21/2023 03/21/2022 B-12 09/22/2023 09/21/2022, 12/05, 07/20/2020, Additional history exists Influenza Vaccine (FLU shot) (#1) 2024 02/04/2023, 01/03/2022, 01/04/2021, Additional history exists COVID-19 Vaccine (2022- season) 2024 11/05/2023, 05/31/2022, 01/30/2021, Additional history [...] Documents on File Type Date Recorded Patient Contracts Officer Expl anation Advance Directives and Living Will [...] Advance Directives occurred with: Patient Care Teams Director Of Marketing Communications Relationship Specialty Start Date End Date Tristin Osorio DO [address] [place] [address] PCP - General Family Medicine 10/23/16 documented as of this encounter
--- OUTSIDE RECORDS SUMMARY | 2023-12-25 11:38 | External Medical Summary | Summary of Care ---
Author Name Unknown Organization [facility] Address [address] [place] [address] Phone [phone] Care Team Providers Care Water Commissioner Name Role Phone Tristin Osorio DO Primary Care Provider [phone] Reason for Referral * Evaluate & Treat - Unlimited Visits (Within 30 days (routine)) - Pending Review Specialty Diagnoses / Procedures Referred By Elisabeth christina Referred To Contact HOME CARE / Home Care Diagnoses Recurrent falls Cerebrovascular disease, arteriosclerotic, post-stroke Neurologic gait dysfunction Tristin Osorio DO [address] [place] [address] Referral ID Status Reason Start Date Expiration Date Visits Requested Visits Authorized [id number] Pending Review Specialty Services Required 12/23/[phone] Question Answer Referral Priority Within 30 days (routine) Where should this appointment be scheduled? [facility] Documentation of [facility] Encounter Addendum Patient Name: Aristeo Bonner I certify that this patient is under my care and that I, or a nurse practitioner or physician's judicial administrative assistant working with me, had a [facility] encounter that meets the physician uzqn-sb-rtem encounter requirements with this patient on: 12/13/23 The encounter with the patient was in whole, or in part, for the following medical condition, which is the primary reason for home health care (List medical condition): Gait dysfunction I certify that, based on my findings, the following services are medically necessary home health services: Physical Therapy and occupational therapy To provide the following care/treatments: (All hospitalists not following the patient after discharge should complete this section): PT and OT to help with walking and preventing falls. Evaluate home ADLs Primary Care Physician to follow home care plan of care after discharge: Tristin Osorio DO My clinical findings support the need for the above services because: Pt with recurrent falls Further, I certify that my clinical findings support that this patient is homebound (i.e. Absences from home require considerable and taxing effort and are for medical reasons or catholic services or infrequently or of short duration when for other reason) because: Pt can no longer drive. Physician Signature: Date of Signature: Physician Printed Name: Tristin Osorio DO * Evaluate & Treat - Unlimited Visits (Within 30 days (routine)) - Pending Review Specialty Diagnoses / Procedures Referred By Elisabeth christina Referred To Contact Dermatology Diagnoses Abnormal skin growth Tristin Osorio DO [address] [place] [address] Referral ID Status Reason Start Date Expiration Date Visits Requested Visits Authorized [id number] Pending Review Specialty Services Required 12/13/[phone] Question Answer Referral Priority Within 30 days (routine) Where should this appointment be scheduled? [facility] Are you referring the patient for Mohs Surgery and have a current positive skin cancer biopsy result? No What is the reason for the patient referral? Rash/Skin Check/Eval of Lesion or Mole Reason for Visit * Reason Comments Re-Check 6 month Encounter Details Date Type Department Care Team (Late st Contact Info) Description 12/13/2023 2:20 PM EDT Office Visit Family Practice [facility] Crowley [address], [place] [address] Tristin Osorio DO [address] [place] [id number] Type 2 diabetes mellitus without complication, without long-term current use of insulin ([facility])*; Encounter for long-term (current) use of medications; Urothelial carcinoma of bladder ([facility]); Abnormal skin growth; Hematuria, gross; Recurrent falls; Cerebrovascular disease, arteriosclerotic, post-stroke; Neurologic gait dysfunction Allergies Active Allergy Reactions Criticality Noted Date [...] the morning. Active Blood Glucose Monitoring Suppl (Popcuts ULTRA SYSTEM) W/DEVICE KIT Use as directed 4 times a day as needed for Hyperglycemia (high sugar) or Hypoglycemia (low sugar). Use up to four times a day as directed 1 Kit 7 Active SM ASPIRIN ADULT LOW STRENGTH 81 MG TBECIndications: Type 2 diabetes mellitus with hemoglobin A1c goal of less than 8.0% ([facility]) TAKE 1 TABLET BY MOUTH EVERY DAY [...] TWICE DAILY FOR TINEA UNGUIUM 0 Active EpiCrystalsuch Ultra In Vitro Strip (Glucose Blood) USE DIRECTED FOUR TIMES DAILY NEEDED FOR HYPERGLYCEMIA (HIGH SUGAR) OR HYPOGLYCEMIA (LOW SUGAR) 400 Strip 3 2 Active EpiCrystalsuch Delica Plus [id number] USE TO TEST BLOOD SUGAR FOUR TIMES [...] A1c goal of less than 8.0% ([facility]) TAKE 2 TABLETS BY MOUTH EVERY [...] Active Clopidogrel Bisulfate 75 MG Oral Tablet (pLAVix)Indicati ons:Stenosis of carotid artery, unspecified laterality,Cereb rovascular disease, arteriosclerotic , post-stroke TAKE 1 TABLET BY MOUTH EVERY DAY EXCEPT FOR SATURDAYS AND SUNDAYS 90 Tablet 2 4 Active Phenazopyridine HCl 200 MG Oral Tablet (Pyridium) Take 1 Tablet by mouth 3 times a day as needed for Other (bladder pain). 15 Tablet 4 Active Cefdinir 300 MG Oral Capsule (Omnicef) TAKE 1 CAPSULE BY MOUTH TWO TIMES DAILY FOR 10 DAYS 4 Active Dexcom G7 SensorIndication s:Type 2 diabetes mellitus without complication, without long-term current use of insulin (HCC) Use as directed every 10 days. E11.9 1 Each 3 4 Active Dexcom G7 Transplant Immunologist DeviceIndication s:Type 2 diabetes mellitus without complication, without long-term current use of insulin (HCC) Use as directed. E11.9 1 Each 3 4 Active oxyCODONE-Acetam inophen 5-325 MG Oral Tablet (Percocet) Take 1 Tablet by mouth every 8 hours as needed for Pain, Breakthrough for up to 10 doses. 10 Tablet 4 12/13/19 24 Discontinued Sulfamethoxazole -Trimethoprim 800-160 MG Oral Tablet (Bactrim DS) Take 1 Tablet by mouth in the morning and 1 Tablet before bedtime. 6 Tablet 4 12/13/19 24 Discontinued documented as of this encounter [...] mRNA, LNP-s, No Pre serve, 2-Dose Series ([employer]) 01/30/2021,07/12/2020,06/14/2020 Covid-19, Mrna, Lnp-s, Pf, B ivalent, 30 Mcg, IM, 12 yrs and above ([employer]) 05/31/2022 Pneumococcal Conjugate Vacc, 13 Valent (Prevnar) [...] on file documented as of this encounter Last Filed Vital Signs Vital Sign Reading Time Taken Comments Blood Pressure 122/64 12/13/2023 1:57 PM EDT Pulse 78 12/13/2023 1:57 PM EDT Temperature 36.6 C (97.8 F) 12/13/2023 1:57 PM ED T Respiratory Rate - - Oxygen Saturation 94% 12/13/2023 1:57 PM EDT Inhaled Oxygen Concentration - - Weight 81.7 kg (180 lb 3.2 oz) 12/13/2023 1:57 P M EDT Height 170.2 cm (5' 7.01") 12/13/2023 1:57 PM ED T Body Mass Index 28.22 12/13/2023 1:57 PM EDT documented in this encounter Progress Notes * Tristin Osorio, - 12/13/2023 2:26 PM EDT Subjective: Aristeo Bonner is a 83 year old male. Chief Complaint Patient presents with Re-Check 6 month HPI: PT with urothelial carcinoma. Seeing urology and got it taken care of. [facility] H had used Spiriva beofre. He says he breathes fine. He takes somemucinex to help. He says he has not heard about his lung test yet. BP good today. He started gummy beets to help. We discussed his DM. HE would like a Dexcom to try. His BG have been around 120s-130s. Some high numbers when he eats the wrong stuff. He is trying to do more seafood. HE cut out as much sodium. He switched to VitaminWater. He'd like to see derm for spots on his ears. HE has a growth on his L ear. HE has some compressions socks to help. He saw a clinical trial manager at the [facility]. [facility] sent a medicine. Aristeo is struggling with walking. Per family report he has had multiple falls. He uses assistive devices but still has falls. He is limiting how far he is going because of this. PMHx, meds, and allergies reviewed Patient Active Problem List Diagnosis Cerebrovascular disease, arteriosclerotic, post-stroke Neurologic gait dysfunction HTN, goal below 140/90 GERD (gastroesophageal reflux disease) Carotid artery stenosis Dyslipidemia, goal to be determined Advanced directives, counseling/discussion Diverticulosis of large intestine without hemorrhage Hematuria, gross Bladder tumor Current Outpatient Medications Medication Sig Dispense Refill Cholecalciferol (VITAMIN D3) 2000 UNITS Capsule Take 1 Capsule by mouth in the morning. Multiple Vitamins-Minerals (MULTIVITAL) Tablet Take 1 Tablet by mouth in the morning. Blood Glucose Monitoring Suppl (Popcuts ULTRA SYSTEM) W/DEVICE KIT Use as directed 4 times a day as needed for Hyperglycemia (high sugar) or Hypoglycemia (low sugar). Use up to four times a day as directed 1 Kit 0 SM ASPIRIN ADULT LOW STRENGTH 81 MG TBEC TAKE 1 TABLET BY MOUTH EVERY DAY 100 Tab 3 guaifenesin ER (HUMIBID LA) 600 MG TB12 Take 1 Tablet by mouth in the morning. Apple Cider Vinegar 300 MG Oral Tablet Take by mouth. Clotrimazole 1 % External Solution (Mycelex) APPLY SMALL AMOUNT TO SKIN TWICE A DAY . APPLY SMALL AMOUNT TO TOENAILS TWICE DAILY FOR TINEA UNGUIUM Remitly Ultra In Vitro Strip (Glucose Blood) USE DIRECTED FOUR TIMES DAILY NEEDED FOR HYPERGLYCEMIA (HIGH SUGAR) OR HYPOGLYCEMIA (LOW SUGAR) 400 Strip 3 OneTouch Delica Plus [id number] USE TO TEST BLOOD SUGAR FOUR TIMES DAILY DIRECTED FOR HYPERGLYCEMIA OR HYPOGLYCEMIA 400 Each 3 Atorvastatin Calcium 40 MG Oral Tablet (Lipitor) TAKE 1 TABLET BY MOUTH EVERY MORNING 90 Tablet 3 Pantoprazole Sodium 40 MG Oral Tablet Delayed Release (Protonix) TAKE 1 TABLET BY MOUTH EVERY MORNING 90 Tablet 3 Metoprolol Succinate ER 25 MG Oral Tablet Extended Release 24 Hour (toPROL XL) TAKE 1 TABLET BY MOUTH EVERY MORNING 90 Tablet 3 hydrALAZINE HCl 10 MG Oral Tablet (Apresoline) 2 Tablets in the morning. metFORMIN HCl ER 500 MG Oral Tablet Extended Release 24 Hour (Glucophage XR) TAKE 2 TABLETS BY MOUTH EVERY MORNING 180 Tablet 3 hydroCHLOROthiazide 25 MG Oral Tablet (Hydrodiuril) TAKE 1 TABLET BY MOUTH EVERY MORNING 90 Tablet 3 amLODIPine Besylate 5 MG Oral Tablet (Norvasc) TAKE 1 TABLET BY MOUTH EVERY DAY IN THE MORNING 90 Tablet 3 Probiotic 250 MG Oral Capsule Take by mouth. Clopidogrel Bisulfate 75 MG Oral Tablet (pLAVix) TAKE 1 TABLET BY MOUTH EVERY DAY EXCEPT FOR SATURDAYS AND SUNDAYS 90 Tablet 2 Phenazopyridine HCl 200 MG Oral Tablet (Pyridium) Take 1 Tablet by mouth 3 times a day as needed for Other (bladder pain). 15 Tablet 0 Cefdinir 300 MG Oral Capsule (Omnicef) TAKE 1 CAPSULE BY MOUTH TWO TIMES DAILY FOR 10 DAYS No current facility-administered medications for this visit. Review of patient's allergies indicates: Allergen Reactions Avalide [Irbesartan-Hydrochlorothiazide] cough Hydrochlorothiazide Other reaction(s): Cough Irbesartan Other reaction(s): Cough OBJECTIVE: BP 122/64 | Pulse 78 | Temp 36.6 C (97.8 F) | Ht 1.702 m (5' 7.01") | Wt 81.7 kg (180 lb 3.2 oz) | SpO2 94% | BMI 28.22 kg/m | BSA 1.97 m Estimated body mass index is 28.22 kg/m as calculated from the following: Height as of this encounter: 1.702 m (5' 7.01"). Weight as of this encounter: 81.7 kg (180 lb 3.2 oz). BP Readings from Last 3 Encounters: 12/13/23 122/64 11/22/23 159/82 09/04/23 118/62 Wt Readings from Last 3 Encounters: 12/13/23 81.7 kg (180 lb 3.2 oz) 11/22/23 78.5 kg (173 lb) 09/04/23 78.5 kg (173 lb 1.9 oz) ROS: Negative except for above PHYSICAL EXAM: General: alert, healthy, and no distress Head: Normocephalic, No masses, lesions, tenderness or abnormalities Heart: regular rate & rhythm, no murmur, and no gallops Lungs: chest symmetric with normal AP diameter, no chest deformities noted, no chest wall tenderness, lungs clear to auscultation ASSESSMENT/Plan Type 2 diabetes mellitus without complication, without long-term current use of insulin (HCC) (Primary) - HEMOGLOBIN A1C; Future; Expected date: 12/13/2023 - BASIC METABOLIC PANEL; Future; Expected date: 12/13/2023 - Dexcom G7 Sensor; Use as directed every 10 days. E11.9 - Dexcom G7 Transplant Immunologist Device; Use as directed. E11.9 - HEMOGLOBIN A1C - BASIC METABOLIC PANEL Encounter for long-term (current) use of medications - VITAMIN B12; Future; Expected date: 12/13/2023 - VITAMIN B12 Urothelial carcinoma of bladder (HCC) Abnormal skin growth - DERMATOLOGY REFERRAL OP Hematuria, gross Recurrent falls - HOME HEALTH REFERRAL OP Cerebrovascular disease, arteriosclerotic, post-stroke - HOME HEALTH REFERRAL OP Neurologic gait dysfunction - HOME HEALTH REFERRAL OP I spent a total of 30 minutes on the date of service in preparation, delivery, and documentation ofthe care provided to this patient, excluding any time spent on the performance of any procedure or separately billable services. Will go to HH PT and OT after receiving more feedback from his family. The above was discussed and understanding was expressed. Tristin Osorio DO documented in this encounter Nursing Notes * Gali Zuluaga CMA - 12/13/2023 1:53 PM EDT Aristeo Suarez Bonner presents for 6 month recheck. Medications & HM reviewed. He would like to discussgetting a dexcom monitor instead of doing finger sticks for glucose check, as well as discussing dermatological concerns regarding growths on his ears and face. documented in this encounter Plan of Treatment Upcoming Encounters Date Type Department Care Team (Late st Contact Info) Description 04/08/2024 9:00 AM EST Procedure Only Urology, [address] [place] [address] Colby Ellison MD [address] [place] [address] 04/15/2024 12:30 PM EST Office Visit Dermatology, Marcelle Silva Janet [address] [place] [address] Alexsandra Márquez PA-C [address] [place] [address] 07/13/2024 8:20 AM EDT Office Visit [facility] [address] [facility] [place] [address] Tristin Osorio DO [address] [facility] [place] [address] Scheduled Referrals Name Type Priority Associated Diagnoses Orde r Schedule DERMATOLOGY REFERRAL OP Referral Within 30 days (routine) Abnormal skin growth Ordered: 12/13/2023 HOME HEALTH REFERRAL OP Referral Within 30 days (routine) Recurrent falls Cerebrovascular disease, arteriosclerotic, post-stroke Neurologic gait dysfunction Ordered: 12/23/2023 Health Maintenance Due Date Last Done Comments [...] Not on filedocumented as of this encounter Procedures Procedure Name Priority Date/Time Associated Diagnosis Comments HEMOGLOBIN A1C Routine 12/13/2023 2:54 PM EDT Type 2 diabetes mellitus without complication, without long-term current use of insulin (HCC) BASIC METABOLIC PANEL Routine 12/13/2023 2:54 PM EDT Type 2 diabetes mellitus without complication, without long-term current use of insulin (HCC) VITAMIN B12 Routine 12/13/2023 2:54 PM EDT Encounter for long-term (current) use of medications documented in this encounter Results * (ABNORMAL) BASIC METABOLIC PANEL (12/13/2023 2:54 PM EDT) BUN 21(H) 6 - 20 mg/dL 12/13/2023 3:53 PM EDT [facility] [place] 56-02 Creatinine 1.2 0.6 - 1.2 mg/dL 12/13/2023 3:53 PM EDT [facility] 56-02 Estimated Glomerular Filtration Rate 62 >=60 mL/min 12/13/2023 3:53 PM EDT [facility] 56- Comment:eGFR is calculated b ased on the CKD-EPI 2020 equation. Sodium 143 135 - 146 mmol/L 12/13/2023 3:53 PM EDT [facility] 56- Potassium 4.9 3.5 - 5.1 mmol/L 12/13/2023 3:53 PM EDT [facility] 56- Chloride 107 98 - 107 mmol/L 12/13/2023 3:53 PM EDT [facility] 56 CO2 24 22 - 32 mmol/L 12/13/2023 3:53 PM EDT [facility] 56 Anion Gap 12 7 - 15 mmol/L 12/13/2023 3:53 PM EDT [facility] 56 Glucose 129(H) 70 - 120 mg/dL 12/13/2023 3:53 PM EDT [facility] 56 Calcium 9.9 8.4 - 10.2 mg/dL 12/13/2023 3:53 PM EDT [facility] 56 Blood Venous blood specimen / Unknown Venipuncture / Unknown 12/13/2023 2:54 PM EDT 12/13/2023 3:00 PM EDT Tristin Alvarez [facility] LAB BLOOD ORDERABLE S [facility] 56- [address] [place] [address] * VITAMIN B12 (12/13/2023 2:54 PM EDT) Pathologist [facility] Vitamin B12 627 232 - 1,245 pg/mL 12/14/2023 7:34 AM EDT [facility] Venous blood specimen / Unknown Venipuncture / Unknown 12/13/2023 2:54 PM EDT 12/13/2023 3:00 PM EDT [facility] [address], [place] [id number] [phone] * (ABNORMAL) HEMOGLOBIN A1C (12/13/2023 2:54 PM EDT) Hemoglobin A1C 7.2(H) 4.0 - 5.6 % 12/14/2023 4:08 AM EDT [facility] Comment:The use of HbA1c to monitor glycemic status is based on normal hemoglobin and HbA composition. This test should not be used in patients with abnormal hemoglobin that affects the half life of the red blood cell or the in vivo glycation rates. Estimated Average Glucose 160(H) <126 mg/dL 12/14/2023 4:08 AM EDT [facility] [place] Venous blood specimen / Unknown Venipuncture / Unknown 12/13/2023 2:54 PM EDT 12/13/2023 3:00 PM EDT Tristin Osorio DO LAB BLOOD ORDERABLE S [facility] [address] [place] [address] documented in this encounter Visit Diagnoses Diagnosis Type 2 diabetes mellitus without complication, without long-term current use of insulin (HCC)- Primary Encounter for long-term (current) use of medications Encounter for long-term (current) use of other medications Urothelial carcinoma of bladder (HCC) Abnormal skin growth Hematuria, gross Gross hematuria Recurrent falls Personal history of fall Cerebrovascular disease, arteriosclerotic, post-stroke Cerebral atherosclerosis Neurologic gait dysfunction Abnormality of gait documented in this encounter Advance Directives Documents on File Type Date Recorded Patient Senior Mobile Web Developer Expl anation Advance Directives and Living Will [...] Advance Directives occurred with: Patient Care Teams Water Commissioner Relationship Specialty Start Date End Date Tristin Osorio DO [address] [place] [address] PCP - General Family Medicine 10/23/16 documented as of this encounter
--- OUTSIDE RECORDS SUMMARY | 2023-12-25 11:38 | External Medical Summary ---
Author Name Unknown Address Unknown Organization [id number][place] [place] [address] [facility] [address] Laboratory Report Ordering Provider Test Date Status ABIGAIL GALLO 12/13/2023 14:54:03 Final Observation Date Value Abnormality Reference (Units ) Status HbA1C 12/13/2023 14:54:03 7.2 Above high normal 4. 0-5.6 (%) Final The use of HbA1c to monitor glycemic status is based on normal hemoglobin and HbA composition. This test should not be used in patients with abnormal hemoglobin that affects the half life of the red blood cell or the in vivo glycation rates. Glucose, estimated average 12/13/2023 14:54:03 160 Above high normal <126 (mg/dL) Edmond howe Performing Location [facility] [place] [address] [place] [id number]
--- OUTSIDE RECORDS SUMMARY | 2023-12-25 11:38 | External Medical Summary ---
Author Name Unknown Address Unknown Organization K01:[facility] [place] [address] [place] [address] Laboratory Report Ordering Provider Test Date Status ABIGAIL GALLO 12/13/2023 14:54:03 Final Observation Date Value Abnormality Reference (Units ) Status Vitamin B12 12/13/2023 14:54:03 [phone] (pg/mL) Final Performing Location LAB[facility]ATORY [facility] - [address] [place] [address]
--- OUTSIDE RECORDS SUMMARY | 2023-12-25 11:38 | External Medical Summary | Summary of Care ---
Author Name Unknown Organization [facility] Address [address] [place] [address] Phone [phone] Care Team Providers Care Electroplating Worker Name Role Phone KelvinCleo godoy Primary Care Provider [phone] Reason for Visit * Reason Comments Post-Op Encounter Details Date Type Department Care Team (Late st Contact Info) Description 12/11/2023 2:45 PM EDT Office Visit Urology, [facility] [address] [facility] [place] [address] Colby Ellison MD [address] [place] [address] Bladder tumor*; Hematuria, gross Allergies Active Allergy Reactions Criticality Noted Date Comments Irbesartan-Hydrochlorothiazide 10/14 cough Hydrochlorothiazide Low 11/09/2018 Other reaction(s): Cough Irbesartan Low 11/09/2018 Other reaction(s): Cough documented as of this encounter (statuses as of 12/11/2023) Medications Medication Sig Dispensed Refills Start Date End Date Status Cholecalciferol (VITAMIN D3) 2000 UNITS Capsule Take 1 Capsule by mouth in the morning. Active Multiple Vitamins-Minerals (MULTIVITAL) Tablet Take 1 Tablet by mouth in the morning. Active Blood Glucose Monitoring Suppl ([employer] ULTRA SYSTEM) W/DEVICE KIT Use as directed 4 times a day as needed for Hyperglycemia (high sugar) or Hypoglycemia (low sugar). Use up to four times a day as directed 1 Kit 11/02/2016 Active SM ASPIRIN ADULT LOW STRENGTH 81 MG TBECIndications:Ty pe 2 diabetes mellitus with hemoglobin A1c goal of less than 8.0% ([facility]) TAKE 1 TABLET BY MOUTH EVERY [...] TWICE DAILY FOR TINEA UNGUIUM 02/29/2020 Active Lockheed MartinTouch Ultra In Vitro Strip (Glucose Blood) USE DIRECTED FOUR TIMES DAILY NEEDED FOR HYPERGLYCEMIA (HIGH SUGAR) OR HYPOGLYCEMIA (LOW SUGAR) 400 Strip 3 01/23/2022 Active OneTouch Delica Plus [id number] USE TO TEST BLOOD SUGAR FOUR TIMES [...] hemoglobin A1c goal of less than 8.0% ([facility]) TAKE 2 TABLETS BY MOUTH EVERY MORNING [...] as of this encounter (statuses as of 12/11/2023) Active Problems Problem Noted Date Diagnosed Date Hematuria, gross 09/23/2023 Bladder tumor 09/23/2023 Diverticulosis of large intestine without hemorr lexus 01/26/2015 Advanced directives, counseling/discussion 11/16 Carotid artery stenosis 11/09/2014 Dyslipidemia, goal to be determined 11/09/2014 Cerebrovascular disease, arteriosclerotic, post- stroke 10/14/2014 HTN, goal below 140/90 10/14/2014 Neurologic gait dysfunction GERD (gastroesophageal reflux disease) documented as of this encounter (statuses as of 12/11/2023) Resolved Problems Problem Noted Date Diagnosed Date [...] as of this encounter (statuses as of 12/11/2023) Immunizations Name Administration Dates Next Due COVID-19 mRNA, LNP-s, No Pre serve, 2-Dose Series ([employer]) 01/30/2021,07/12/2020,06/14/2020 Covid-19, Mrna, Lnp-s, Pf, B ivalent, [...] on file documented as of this encounter Progress Notes * Colby Ellison MD - 12/11/2023 1:58 PM EDT [id number] PCP: [place] [address] Aristeo Bonner is a 83 year old male, who presents for path discussion after TURBT. This shows low grade pathology, noninvasive. Has upcoming visit with PMD for polyuria associated with diuretic. ER visit for UTI noted, resolved. Hematuria has resolved. Copy of pathology provided to patient. Bladder Cancer: Presented to Urology September 2023. Painless hematuria. Cysto September 2023: bladder tumor on left. Initial TURBT done November 2023. Low grade noninvasive CAB. CT scan September 2023: IMPRESSION: 1. Enhancing mass along the left posterior bladder wall measuring approximately 1.7 x 1 cm with some calcification and most compatible with bladder neoplasm. 2. Remainder of findings as described. Current Outpatient Medications Medication Sig Dispense Refill Cholecalciferol (VITAMIN D3) 2000 UNITS Capsule Take 1 Capsule by mouth in the morning. Multiple Vitamins-Minerals (MULTIVITAL) Tablet Take 1 Tablet by mouth in the morning. Blood Glucose Monitoring Suppl ([employer]ach[employer]ix ULTRA SYSTEM) W/DEVICE KIT Use as directed [...] TO TOENAILS TWICE DAILY FOR TINEA UNGUIUM [employer] Ultra In Vitro Strip (Glucose Blood) USE DIRECTED FOUR TIMES DAILY NEEDED FOR HYPERGLYCEMIA (HIGH SUGAR) OR HYPOGLYCEMIA (LOW SUGAR) 400 Strip 3 FoxyP2uch Delica Plus [id number] USE TO TEST BLOOD SUGAR FOUR TIMES [...] FOR SATURDAYS AND SUNDAYS 90 Tablet 2 oxyCODONE-Acetaminophen 5-325 MG Oral Tablet (Percocet) Take 1 Tablet by mouth every 8 hours as needed for Pain, Breakthrough for up to 10 doses. 10 Tablet 0 Sulfamethoxazole-Trimethoprim 800-160 MG Oral Tablet (Bactrim DS) Take 1 Tablet by mouth in the morning and 1 Tablet before bedtime. 6 Tablet 0 Phenazopyridine HCl 200 MG Oral Tablet (Pyridium) Take 1 Tablet by mouth 3 times a day as needed for Other (bladder pain). 15 Tablet 0 No current facility-administered medications for this visit. Review of patient's allergies indicates: Allergen Reactions Avalide [Irbesartan-Hydrochlorothiazide] cough Hydrochlorothiazide Other reaction(s): Cough Irbesartan Other reaction(s): Cough Social History: Social History Tobacco Use Smoking status: Former Current packs/day: 0.00 Average packs/day: 2.0 packs/day for 50.0 years (100.0 ttl pk-yrs) Types: Cigarettes Start date: [birth year]/06/1956 Quit date: 05/06/2006 Years since quittin.6 Smokeless tobacco: Never Substance Use Topics Alcohol use: Yes Comment: occasional beer Vaping/E-Cigarette Use Vaping/E-Cigarette Use Never User Vaping/E-Cigarette Substances Nicotine No Other No Flavoring No THC No Cannabidiol (CBD) No Vaping/E-Cigarette Devices Disposable No Pre-filled or Refillable Cartridge No Refillable Tank No Pre-filled Pod No Family History Problem Relation Name Age of Onset Diabetes Mother Heart Disorder Father [place] Diabetes Sister Diabetes Brother Diabetes Brother Cancer Brother Hypertension Son Diabetes Son Endocrine Disorder Daughter Gestational Diabetes Past Surgical History: Procedure Laterality Date BLADDER INSTILLATION, ANTICARCINOGENIC N/A 11/22/2023 BLADDER INSTILLATION OF ANTICARCINOGENIC AGENT performed by Colby Ellison MD at OR [facility] COLONOSCOPY, DIAGNOSTIC (RECTUM) 01/12/2015 diverticulosis, tortuous colon/COLONOSCOPY FLEXIBLE PROXIMAL DIAGNOSTIC performed by Julius Guillen MD at [facility] CYSTOSCOPY/TREAT MED BLADDER TUMOR N/A 11/22/2023 CYSTOURETHROSCOPY WITH FULGURATION MEDIUM BLADDER TUMOR performed by Colby Ellison MD at OR [facility] REMOVAL OF APPENDIX Past Medical History: Diagnosis Date Arthritis Bladder cancer (HCC) COPD (chronic obstructive pulmonary disease) (HCC) DM2 (diabetes mellitus, type 2) (HCC) Dyslipidemia GERD (gastroesophageal reflux disease) History of 2019 novel coronavirus disease (COVID-19) 11/16/2021 HTN, goal below 140/90 Neurologic gait dysfunction post-stroke Stroke (HCC) 05/06/2006 Weak L side Type 2 diabetes mellitus (HCC) Vitamin D deficiency Patient Active Problem List Diagnosis Cerebrovascular disease, arteriosclerotic, post-stroke Neurologic gait dysfunction HTN, goal below 140/90 GERD (gastroesophageal reflux disease) Carotid artery stenosis Dyslipidemia, goal to be determined Advanced directives, counseling/discussion Diverticulosis of large intestine without hemorrhage Hematuria, gross Bladder tumor Male : frequency, see HPI Musculoskeletal: (+) muscle weakness Neurology: (+) L hemiparesis Physical Exam Constitutional: Appearance: He is not ill-appearing or toxic-appearing. Comments: Using cane Neurological: Mental Status: He is oriented to person, place, and time. Motor: Weakness present. Gait: Gait abnormal. Impression/Plan: 83 yo male with low grade bladder cancer. Inquires regarding stoppage of diuretic, Will discuss further with primary care physician at upcoming visit, stoppage discouraged to avoid fluid overload until this conversation can take place. Will see the patient in 4 months for office cystoscopy, BCG are re-resection should not be indicated considering pathology report. We are pleased with guarding relatively low risk disease. Patient can contact us sooner if his urinary symptoms fail to resolve. The possibility of persistent irritative symptoms after TURBT while he is healing is also reviewed. Colby Ellison MD 1:58 PM 12/11/2023 documented in this encounter Nursing Notes * Jo Ann Ellison LPN - 12/11/2023 1:49 PM EDT Postop fulguration 11/21 PSA Results: Lab Results Component Value Date/Time PSA - [facility] 0.56 12/22/2022 10:33 AM PSA - [facility] 0.64 03/07/2021 07:12 AM PSA - [facility] 0.51 12/17/2018 10:24 AM PSA - [facility] 0.42 10/23/2016 07:04 AM C/o- incontinence, briefs x 4, pt notes he is on a diuretic unable to verify medications documented in this encounter Plan of Treatment Upcoming Encounters Date Type Department Care Team (Late st Contact Info) Description 12/13/2023 2:20 PM EDT Office Visit Family [facility] Jacquelyn Crowley [address] [facility] [place] [address] Cleo Hayes, DO [address] [place] [address] 04/08/2024 9:00 AM EST Procedure Only Urology, [facility], [place] [address] [place] [address] Colby Ellison MD [address] [place] [address] Health Maintenance Due Date Last Done Comments [...] Not on filedocumented as of this encounter Visit Diagnoses Diagnosis Bladder tumor- Primary Neoplasm of unspecified nature of bladder Hematuria, gross Gross hematuria documented in this encounter Advance Directives Documents on File Type Date Recorded Patient Pasta Maker Expl anation Advance Directives and Living Will [...] Advance Directives occurred with: Patient Care Teams Electroplating Worker Relationship Specialty Start Date End Date Cleo Hayes DO [address] [place] [address] PCP - General Family Medicine 10/23/16 documented as of this encounter
--- OUTSIDE RECORDS SUMMARY | 2023-12-25 11:38 | External Medical Summary | Summary of Care ---
Author Name Unknown Organization [facility] Address [address] [place] [address] Phone [phone] Care Team Providers Care Well Logger Name Role Phone Tristin Osorio DO Primary Care Provider [phone] Reason for Visit * Reason Onset Date Comments Advice 09/20/2023 Encounter Details Date Type Department Care Team (Late st Contact Info) Description 09/20/2023 Telephone Family Practice [facility] [place] [address] [facility] [place] [address] Tristin Osorio DO [address] [facility] [place] [address] Advice Allergies Active Allergy Reactions Criticality Noted Date Comments Irbesartan-Hydrochlorothiazide 10/14 cough Hydrochlorothiazide Low 11/09/2018 Other reaction(s): Cough Irbesartan Low 11/09/2018 Other reaction(s): Cough documented as of this encounter (statuses as of 12/20/2023) Medications Medication Sig Dispensed Refills Start Date End Date Status Cholecalciferol (VITAMIN D3) 2000 UNITS Capsule Take 1 Capsule by mouth in the morning. Active Multiple Vitamins-Minerals (MULTIVITAL) Tablet Take 1 Tablet by mouth in the morning. Active Blood Glucose Monitoring Suppl ([employer] ULTRA SYSTEM) W/DEVICE KIT Use as directed [...] Strip 3 01/23/2022 Active OneTouch Delica Plus [id number] USE TO TEST BLOOD SUGAR FOUR TIMES [...] hemoglobin A1c goal of less than 8.0% ([facility]) TAKE 2 TABLETS BY MOUTH [...] as of this encounter (statuses as of 12/20/2023) Active Problems Problem Noted Date Diagnosed Date [...] as of this encounter (statuses as of 12/20/2023) Resolved Problems Problem Noted Date Diagnosed Date Resolved Date 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) 11/16/2021 03/06/2022 Bereavement, uncomplicated 08/08/2021 1 05/06/2021 Hemiparesis affecting left s marianne as late effect of cerebrovascular accident 11/26/201608/27 Weakness of left side of body 10/14/2014 11/26/2016 documented as of this encounter (statuses as of 12/20/2023) Immunizations Name Administration Dates Next Due COVID-19 mRNA, LNP-s, No Pre serve, 2-Dose Series ([employer]) 01/30/2021,07/12/2020,06/14/2020 Covid-19, Mrna, Lnp-s, Pf, B ivalent, 30 Mcg, IM, 12 yrs and above ([employer]) 05/31/2022 Pneumococcal Conjugate Vacc, 13 Valent (Prevnar) [...] encounter Miscellaneous Notes * Telephone Encounter - Arianne Rojo OSA - 09/20/2023 4:16 PM EDT Pt calling back after missed call. I was not able to find an encounter. No message was left documented in this encounter Plan of Treatment Upcoming Encounters Date Type Department Care Team (Late st Contact Info) Description 04/08/2024 9:00 AM EST Procedure Only Urology, [facility] [address] [place] [address] Colby Ellison MD [address] [place] [address] 04/15/2024 12:30 PM EST Office Visit Dermatology, Janet Young [address] [place] [address] Alexsandra Márquez PA-C [address] [place] [place] [address] 07/13/2024 8:20 AM EDT Office Visit Family Practice [facility] [address] [facility] [place] [address] Tristin Osorio DO [address] [facility] [place] [address] Health Maintenance Due Date Last Done Comments [...] Documents on File Type Date Recorded Patient Admissions Counselor Expl anation Advance Directives and Living Will [...] Advance Directives occurred with: Patient Care Teams Well Logger Relationship Specialty Start Date End Date Tristin Osorio DO [address] [place] [address] PCP - General Family Medicine 10/23/16 documented as of this encounter
--- NOTE | 2023-12-25 13:23 | Urology Progress Note ---
Date of Service December 25, 2023 Assessment & Plan (1) Acute UTI (urinary tract infection): Plan Follow-up for acute UTI and incontinence. Afebrile with stable vitals. Labs today show leukocytosis of 15 and normal renal function. Urine culture prelim gram-negative bacilli; Blood culture pending. Patient is voiding spontaneously, does report some incontinence. PVR last night was 109ml which is acceptable. Continue to monitor bladder scans/PVR to ensure he is emptying. If patient is found to be retaining urine, would recommend Carr catheter placement. Would continue broad-spectrum antibiotics and narrow coverage as culture data becomes available. Continue supportive care. Patient follows with [facility] urology. Recommend follow-up with his primary urologist following discharge. Urology will sign off. Please call with any further questions, concerns, or changes in patient's status. Admission and Anticipated Discharge Date Admission Date: December 24, 2023 Subjective Patient seen at bedside today Awake, resting in bed on arrival No acute distress Denies any pain or discomfort at present Denies fever, chills, nausea, vomiting Voiding without issue Denies hematuria or dysuria He does complain of urinary incontinence Review of Systems Constitutional: as per Subjective / HPI Genitourinary: + as per Subjective / HPI Physical Exam Constitutional: no acute distress Respiratory: no respiratory distress and no labored breathing Neurologic: awake Psychiatric: A+Ox3, euthymic affect Results & Data Vital Signs (Past 12 Hours) Vital Signs Temp Pulse Pulse Resp BP Pulse Ox O2 Del Method 12/25/23 11:51 36.5 C 67 16 126/67 93 Room Air 12/25/23 10:53 70 16 92 Room Air 12/25/23 08:15 Room Air 12/25/23 08:00 36.3 C L 70 16 114/59 L 97 Room Air 12/25/23 06:56 79 20 94 Room Air 12/25/23 04:03 36.6 C 76 16 108/62 95 Room Air PG Care Time/CCT Total # of Minutes Spent Total Time Spent with Patient: Total time spent is greater than 50% in coordination of care (as documented) at patient's floor/unit and/or counseling patient: Coding Level of Care Code 01004 SUB INP/OBS CARE 2/35MIN Diagnoses Acute UTI (urinary tract infection) N39.0
[2023-12-25] MEDS ORDERED: PHARMACY GLYCEMIC MGMT CONSULT PRN (14:54)
--- NOTE | 2023-12-25 15:13 | Pharmacy Report ---
Pharmacy Glycemic Short Note 2 - Date of Service December 25, 2023 - Glycemic Short BSG Results (Last 24 hours): 12/24/23 12/24/23 12/25/23 18:47 22:13 04:46 Glucose 241 H 309 H* POC Glucose 198 H 12/25/23 12/25/23 12/25/23 05:30 08:14 12:07 Glucose POC Glucose 290 H 281 H 371 H* 12/25/23 12/25/23 12/25/23 12:09 14:24 14:25 Glucose POC Glucose 349 H* 317 H* 336 H* OUTPATIENT ANTIDIABETIC REGIMEN: * Metformin 1000 mg PO AM * HbA1c: 7.1% ASSESSMENT: * 83 yo M admitted on 12/24/23 secondary to confusion/UTI. Pharmacy has been consulted to assist with inpatient glycemic management. Patient is a Type 2 diabetic as an outpatient. Please refer to outpatient regimen and most recent HbA1c above. * Patient was NPO but now tolerating a T2DM diet today. BSGs were elevated upon admission and then received 60 mg of IV SoluMedrol last night and another 40 mg this AM before it was discontinued. No basal insulin received yet and Novolog was ordered based on weight/stress of 2. * BSGs today have been: 290-371-317 mg/dL. Will tighten Novolog to weight/stress of 3. Adding a one time basal dose of 20 units. Reassess in AM. Adding overnight checks for tonight only. PLAN FOR INPATIENT GLYCEMIC CONTROL: * Hold outpatient oral diabetes medications * Basal insulin * Lantus 20 units SC x 1 * Reassess basal in AM * Bolus insulin * NovoLog per scale ACHS or Q6hrs while NPO * Goal Range: Low 110 mg/dL - High 140 mg/dL * Correction Factor: 20 mg/dL/unit * Nutritional / Prandial insulin per carb ratio of 1 unit per 7 grams CHO consumed
[2023-12-25] MEDS: LANTUS PER UNIT CHARGE SQ STA (15:15)
[2023-12-25] MEDS: cefTRIAXone SODIUM 2,000 MG/50 ML BAG IV SCH (20:42)
[2023-12-25] MEDS: POLYETHYLENE (MIRALAX) 17 GM PACK PO PRN (20:43)
[2023-12-26] MEDS: INSULIN ASPART PER UNIT CHARGE SC SCH (00:27)
[2023-12-26 08:36] LABS: Basophils # (auto) 0.02 K/uL (0.00-0.20); Basophils % (auto) 0.1 %; Eosinophils # (auto) 0.04 K/uL (0.00-0.50); Eosinophils % (auto) 0.2 %; Hematocrit (blood only) 37.6 % (42.0-52.0); Hemoglobin 12.5 g/dl (14.0-18.0); Immature Granulocytes # (auto) 0.09 K/uL (0.01-0.20); Immature Granulocytes % (auto) 0.5 %; Lymphocytes # (auto) 2.23 K/uL (1.20-3.40); Lymphocytes % (auto) 11.5 %; Mean Corpuscular Hemoglobin 29.5 pg (25.0-34.0); Mean Corpuscular Hgb Conc 33.2 g/dL (32.0-36.0); Mean Corpuscular Volume 88.7 fL (80.0-100.0); Mean Platelet Volume 10.7 fL (9.4-12.4); Monocytes # (auto) 1.25 K/uL (0.11-0.59); Monocytes % (auto) 6.5 %; Neutrophils # (auto) 15.69 K/uL (1.40-6.50); Neutrophils % (auto) 81.2 %; Platelet Count 229 K/uL (130-400); RDW Coefficient of Variation 13.6 % (11.5-14.5); RDW Standard Deviation 44.1 fL (36.4-46.3); Red Blood Count 4.24 M/uL (4.70-6.10); White Blood Count 19.32 K/ul (4.8-10.8)
[2023-12-26 08:38] LABS: BUN Creatinine Ratio 25.7 (10-20); Calcium 9.3 mg/dl (8.6-10.3); Creatinine Clr Calc Pharmacy 44.7 ml/min; Est GFR (African American) 69.3 ml/min; Est GFR (Non-African American) 59.8 ml/min; Potassium 4.1 mmol/L (3.5-5.1)
[2023-12-26] MEDS ORDERED: LANTUS PER UNIT CHARGE SQ SCH (09:00)
--- NOTE | 2023-12-26 10:53 | Hospitalist Progress Note ---
Date of Service December 26, 2023 Assessment & Plan (1) Confusion: Plan: per admitting service notes with addendum: 83-year-old male with past medical history significant for type 2 diabetes, hyperlipidemia, 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 Son states patient lives with him but he has his own space. Last couple of days he fell several times mostly in the nighttime and son did not see the patient fall. But patient had told him that when he falls down he is taking a lot of time to get up. No hitting of the head. No loss of consciousness. And the patient told his son today that last night again he fell when he got of up from the bed because he saw his son and daughter in the room who were actually not present in the room. And also patient was finding hard to get up from the chair. Because of weakness ,falls and visual hallucination son brought him to the hospital today. In November patient had a surgery for bladder tumor which is found to be low-grade and since then he is incontinent of urine and using depends. He had episode of UTI after procedure. And he was told to check for any further infections. Patient was having no recent fevers. But lately his urine was foul smelling. Bowel movements On and off diarrhea. Patient denies any headache. No dizziness. No blurred visions. No runny nose. No sore throat. No cough. No difficulty swallowing. Appetite is been down for last couple of days. Denies any chest pain or shortness of breath. Patient when he came to the floor became short of breath and tachypneic. States occasional cough and he has mild COPD. But he saturating okay on room air currently. Confusion, Metabolic Encephalopathy secondary to UTI Weakness Empiric Rocephin Gentle fluids Will follow cultures PT OT when stable Close monitor 12/25 Urine culture: E coli sens to Ceftri Blood culture: negative so far continue Ceftri IV Day 2 ff up blood culture clinically improving PT/OT COPD exacerbation History of tobacco abuse Diminished breath sounds and mild rhonchi and tachypnea Will follow CT chest: no pneumonia, (+) Atelectasis Nebs [id number] and as needed IV Solu-Medrol Rocephin and Doxy Close monitor 12/24 on room air BS clear d/c Solumedrol continue Nebs, Abx Incentive spirometry, josh valce 12/25 continue Nebs, Abx IS, FV improving also Bladder tumor Status post TURBT Low-grade noninvasive Since procedure having incontinence and UTI Urology consulted : outpatient follow up On and off diarrhea Will follow stool studies -- resolved Diabetes Hold metformin Sliding scale Will follow blood sugars Follow his hba1c : 7.1 History of CVA Left-sided weakness On aspirin statin and Plavix Hypertension On amlodipine, hydralazine, hydrochlorothiazide, metoprolol succinate - hold HCTZ - stable Hyperlipidemia On statin GERD On Protonix Ambulate dysfunction PT OT when stable DVT prophylaxis Heparin subcu Disposition may need acute rehab/SNF Admission and Anticipated Discharge Date Admission Date: December 24, 2023 Subjective ff up for metabolic encephalopathy etc seen resting in bed, comfortable sitting up, oriented x 3 answers all questions appropriately states he continues to feel better overall denies abdominal pain, nausea/vomiting, fever/chills no chest pain, cough, shortness of breath no other symptoms Review of Systems Review of Systems: all noted and negative except for above Physical Exam Physical Exam: General- oriented x 3, not in distress, speaks in sentences with no effort or accessory muscle use Eyes- anicteric Neck- no JVD Lungs- clear breath sounds bilaterally, no rales/wheezes Heart- normal rate, regular rhythm; no murmurs Abdomen- normal bowel sounds, nondistended, soft, nontender Extremities- no pretibial edema, no calf tenderness Neuro- alert, oriented x 3; no gross focal neurologic deficits Skin- warm & dry Results & Data Results & Data Vital Signs (Past 12 Hours) Vital Signs Temp Pulse Pulse Pulse Resp BP BP 12/26/23 10:46 75 16 12/26/23 07:40 12/26/23 07:24 80 20 12/26/23 07:19 36.4 C L 63 16 131/77 12/26/23 07:00 62 12/26/23 03:52 36.4 C L 67 18 125/63 12/25/23 23:16 12/25/23 23:12 36.6 C 74 20 134/56 L 12/25/23 22:54 82 Pulse Ox O2 Del Method 12/26/23 10:46 96 Room Air 12/26/23 07:40 Room Air 12/26/23 07:24 97 Room Air 12/26/23 07:19 97 Room Air 12/26/23 07:00 12/26/23 03:52 96 Room Air 12/25/23 23:16 Room Air 12/25/23 23:12 97 Room Air 12/25/23 22:54 all noted and reviewed including below
[2023-12-26] MEDS: LACTULOSE SYRUP 20 GM/30 ML UDC PO ONE (11:34)
[2023-12-26] MEDS: LANTUS PER UNIT CHARGE SC ONE (13:51)
--- NOTE | 2023-12-26 13:54 | Pharmacy Report ---
Pharmacy Glycemic Short Note 2 - Date of Service December 26, 2023 - Glycemic Short BSG Results (Last 24 hours): 12/25/23 12/25/23 12/25/23 14:24 14:25 17:24 Glucose POC Glucose 317 H* 336 H* 252 H 12/25/23 12/25/23 12/26/23 20:14 23:48 04:08 Glucose POC Glucose 249 H 171 H 144 H 12/26/23 12/26/23 12/26/23 07:01 08:20 12:32 Glucose 136 H POC Glucose 159 H 239 H OUTPATIENT ANTIDIABETIC REGIMEN: * Metformin 1000 mg PO AM HbA1c: 7.1% (12/25/23) ASSESSMENT: 12/25: * Steroids are now discontinued * Blood sugars elevated yesterday, but improved overnight * Will continue low-dose basal insulin and will loosen Novolog parameters now that steroids are complete 12/24: * 83 yo M admitted on 12/24/23 secondary to confusion/UTI. Pharmacy has been co nsulted to assist with inpatient glycemic management. Patient is a Type 2 diabetic as an outpatient. Please refer to outpatient regimen and most recent HbA1c above. * Patient was NPO but now tolerating a T2DM diet today. BSGs were elevated upon admission and then received 60 mg of IV SoluMedrol last night and another 40 mg this AM before it was discontinued. No basal insulin received yet and Novol og was ordered based on weight/stress of 2. * BSGs today have been: 290-371-317 mg/dL. Will tighten Novolog to weight/stress of 3. Adding a one time basal dose of 20 units. Reassess in AM. Adding overn ight checks for tonight only. PLAN FOR INPATIENT GLYCEMIC CONTROL: * Hold outpatient oral diabetes medications * Basal insulin * Lantus 10 units SC x 1 today at lunchtime * Reassess in AM * Bolus insulin * NovoLog per scale ACHS or Q6hrs while NPO * Goal Range: Low 110 mg/dL - High 140 mg/dL * Correction Factor: 30 mg/dL/unit * Nutritional / Prandial insulin per carb ratio of 1 unit per 10 grams CHO consumed
[2023-12-26] MEDS: ACETAMINOPHEN 325 MG TAB PO PRN (21:47)
[2023-12-27 09:34] LABS: Basophils # (auto) 0.06 K/uL (0.00-0.20); Basophils % (auto) 0.5 %; Eosinophils # (auto) 0.29 K/uL (0.00-0.50); Eosinophils % (auto) 2.4 %; Hematocrit (blood only) 42.1 % (42.0-52.0); Hemoglobin 14.3 g/dl (14.0-18.0); Immature Granulocytes # (auto) 0.17 K/uL (0.01-0.20); Immature Granulocytes % (auto) 1.4 %; Lymphocytes # (auto) 1.33 K/uL (1.20-3.40); Lymphocytes % (auto) 11.1 %; Mean Corpuscular Hemoglobin 29.5 pg (25.0-34.0); Mean Platelet Volume 10.7 fL (9.4-12.4); Monocytes % (auto) 7.5 %; Neutrophils # (auto) 9.22 K/uL (1.40-6.50); Neutrophils % (auto) 77.1 %; Platelet Count 313 K/uL (130-400); RDW Coefficient of Variation 13.5 % (11.5-14.5); RDW Standard Deviation 42.8 fL (36.4-46.3); Red Blood Count 4.84 M/uL (4.70-6.10); White Blood Count 11.97 K/ul (4.8-10.8)
--- NOTE | 2023-12-27 09:41 | XRay Report ---
KUB HISTORY: constipation, r/o obstruction COMPARISON: Chest and abdominal series 11/15/2016. FINDINGS: The bowel gas pattern is unremarkable. There are no dilated loops of small bowel to suggest an obstruction. No renal calculi. No ureteral calculi. Calcifications in the deep pelvis likely rep resent phleboliths. Vascular calcifications are noted within the pelvis.. Left basilar linear densiti es favor subsegmental atelectasis or scarring. Moderate well-formed stool within the colon. No pneumo peritoneum or pneumatosis. Degenerative changes within the lumbar spine. IMPRESSION: 1. Nonobstructive bowel gas pattern. 2. Moderate fecal retention. ACT 112: Negative or not required by law. Electronically signed by: Mo Esparza M.D. 12/27/2023 9:40 AM
[2023-12-27 09:47] LABS: BUN Creatinine Ratio 27.1 (10-20); Calcium 9.5 mg/dl (8.6-10.3); Creatinine Clr Calc Pharmacy 47.2 ml/min; Est GFR (Non-African American) 63.9 ml/min; Potassium 4.1 mmol/L (3.5-5.1)
[2023-12-27] MEDS: LANTUS PER UNIT CHARGE SC SCH (09:48)
--- NOTE | 2023-12-27 13:10 | Pharmacy Report ---
Pharmacy Glycemic Short Note 2 - Date of Service December 27, 2023 - Glycemic Short BSG Results (Last 24 hours): 12/26/23 12/26/23 12/27/23 16:48 20:04 08:19 Glucose POC Glucose 163 H 163 H 199 H 12/27/23 12/27/23 09:05 12:15 Glucose 204 H POC Glucose 174 H OUTPATIENT ANTIDIABETIC REGIMEN: * Metformin 1000 mg PO AM HbA1c: 7.1% (12/25/23) ASSESSMENT: 12/26: * Blood sugars trended down yesterday, but still altogether elevated so will tighten Novolog parameters * Fasting blood sugar of 199 mg/dL, will increase basal 12/25: * Steroids are now discontinued * Blood sugars elevated yesterday, but improved overnight * Will continue low-dose basal insulin and will loosen Novolog parameters now that steroids are complete 12/24: * 83 yo M admitted on 12/24/23 secondary to confusion/UTI. Pharmacy has been consulted to assist with inpatient glycemic management. Patient is a Type 2 diabetic as an outpatient. Please refer to outpatient regimen and most recent HbA1c above. * Patient was NPO but now tolerating a T2DM diet today. BSGs were elevated upon admission and then received 60 mg of IV SoluMedrol last night and another 40 mg this AM before it was discontinued. No basal insulin received yet and Novolog was ordered based on weight/stress of 2. * BSGs today have been: 290-371-317 mg/dL. Will tighten Novolog to weight/stress of 3. Adding a one time basal dose of 20 units. Reassess in AM. Adding overnight checks for tonight only. PLAN FOR INPATIENT GLYCEMIC CONTROL: * Hold outpatient oral diabetes medications * Basal insulin * Lantus 15 units SC daily * Bolus insulin * NovoLog per scale ACHS or Q6hrs while NPO * Goal Range: Low 110 mg/dL - High 140 mg/dL * Correction Factor: 25 mg/dL/unit * Nutritional / Prandial insulin per carb ratio of 1 unit per 8 grams CHO consumed
[2023-12-27 14:09] LABS: Adenovirus F 40/41 PCR Not Detected (NotDetected); Astrovirus PCR Not Detected (NotDetected); Campylobacter PCR Not Detected (NotDetected); Cryptosporidium PCR Not Detected (NotDetected); Cyclospora cayetanensis PCR Not Detected (NotDetected); Entamoeba histolytica PCR Not Detected (NotDetected); Enteroaggregative E.coli(EAEC) Not Detected (NotDetected); Enteropathogenic E.coli (EPEC) Not Detected (NotDetected); Enterotoxigenic E.coli (ETEC) Not Detected (NotDetected); Giardia lamblia PCR Not Detected (NotDetected); Norovirus GI/GII PCR Not Detected (NotDetected); Plesiomonas shigelloides PCR Not Detected (NotDetected); Rotavirus A PCR Not Detected (NotDetected); Salmonella PCR Not Detected (NotDetected); Sapovirus PCR Not Detected (NotDetected); Shiga-like Toxin E.coli (STEC) Not Detected (NotDetected); Shigella/Enteroinvasive E.coli Not Detected (NotDetected); Vibrio cholerae PCR Not Detected (NotDetected); Vibrio species PCR Not Detected (NotDetected); Yersinia enterocolitica PCR Not Detected (NotDetected)
[2023-12-27] MEDS: LACTULOSE SYRUP 30 GM/45 ML UDP PO STA (14:43)
--- NOTE | 2023-12-27 15:13 | Hospitalist Progress Note ---
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 Son states patient lives with him but he has his own space. Last couple of days he fell several times mostly in the nighttime and son did not see the patient fall. But patient had told him that when he falls down he is taking a lot of time to get up. No hitting of the head. No loss of consciousness. And the patient told his son today that last night again he fell when he got of up from the bed because he saw his son and daughter in the room who were actually not present in the room. And also patient was finding hard to get up from the chair. Because of weakness ,falls and visual hallucination son brought him to the hospital today. In November patient had a surgery for bladder tumor which is found to be low-grade and since then he is incontinent of urine and using depends. He had episode of UTI after procedure. And he was told to check for any further infections. Patient was having no recent fevers. But lately his urine was foul smelling. Bowel movements On and off diarrhea. Patient denies any headache. No dizziness. No blurred visions. No runny nose. No sore throat. No cough. No difficulty swallowing. Appetite is been down for last couple of days. Denies any chest pain or shortness of breath. Patient when he came to the floor became short of breath and tachypneic. States occasional cough and he has mild COPD. But he saturating okay on room air currently. Confusion, Metabolic Encephalopathy secondary to UTI Weakness Empiric Rocephin Gentle fluids Will follow cultures PT OT when stable Close monitor 12/25 Urine culture: E coli sens to Ceftri Blood culture: negative so far continue Ceftri IV Day 2 ff up blood culture clinically improving PT/OT 12/26 Continues to improve Blood culture negative x 48 hours Continue ceftriaxone IV day #3 Constipation KUB: Nonobstructive bowel gas pattern, moderate fecal retention Lactulose 30 mg ordered today Started milk of molasses enema ordered for this afternoon Continue to monitor COPD exacerbation History of tobacco abuse Diminished breath sounds and mild rhonchi and tachypnea Will follow CT chest: no pneumonia, (+) Atelectasis Nebs [id number] and as needed IV Solu-Medrol Rocephin and Doxy Close monitor 12/24 on room air BS clear d/c Solumedrol continue Nebs, Abx Incentive spirometry, flutter valce 12/25 continue Nebs, Abx IS, FV improving also 12/26 Respiratory status stable Continue present management Bladder tumor Status post TURBT Low-grade noninvasive Since procedure having incontinence and UTI Urology consulted : outpatient follow up On and off diarrhea Will follow stool studies -- resolved Diabetes Hold metformin Sliding scale Will follow blood sugars Follow his hba1c : 7.1 History of CVA Left-sided weakness On aspirin statin and Plavix Hypertension On amlodipine, hydralazine, hydrochlorothiazide, metoprolol succinate - hold HCTZ - stable Hyperlipidemia On statin GERD On Protonix Ambulate dysfunction PT OT when stable DVT prophylaxis Heparin subcu Disposition may need acute rehab/SNF Admission and Anticipated Discharge Date Admission Date: December 24, 2023 Subjective Follow-up for UTI, etc. Seen resting in bed, comfortable, not in distress States he had a small BM earlier today No abdominal pain, nausea, fevers or chills Breathing is okay, no cough No other new symptom Review of Systems Review of Systems: all noted and negative except for above Physical Exam Physical Exam: General- oriented x 2, not in distress, speaks in sentences with no effort or accessory muscle use Eyes- anicteric Neck- no JVD Lungs- clear breath sounds bilaterally, no rales/wheezes Heart- normal rate, regular rhythm; no murmurs Abdomen- normal bowel sounds, nondistended, soft, nontender Extremities- no pretibial edema, no calf tenderness Neuro- alert, oriented x 2; no gross focal neurologic deficits Skin- warm & dry Results & Data Results & Data Vital Signs (Past 12 Hours) Vital Signs Temp Pulse Pulse Resp BP BP Pulse Ox 12/27/23 11:40 36.5 C 63 18 137/69 94 12/27/23 08:28 78 12/27/23 07:51 36.6 C 82 22 159/76 H 96 12/27/23 07:45 12/27/23 07:24 69 12/27/23 03:28 36.4 C L 76 18 148/75 H 93 O2 Del Method 12/27/23 11:40 Room Air 12/27/23 08:28 12/27/23 07:51 Room Air 12/27/23 07:45 Room Air 12/27/23 07:24 12/27/23 03:28 Room Air all noted and reviewed including below
--- NOTE | 2023-12-28 15:13 | Hospitalist Progress Note ---
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 Son states patient lives with him but he has his own space. Last couple of days he fell several times mostly in the nighttime and son did not see the patient fall. But patient had told him that when he falls down he is taking a lot of time to get up. No hitting of the head. No loss of consciousness. And the patient told his son today that last night again he fell when he got of up from the bed because he saw his son and daughter in the room who were actually not present in the room. And also patient was finding hard to get up from the chair. Because of weakness ,falls and visual hallucination son brought him to the hospital today. In November patient had a surgery for bladder tumor which is found to be low-grade and since then he is incontinent of urine and using depends. He had episode of UTI after procedure. And he was told to check for any further infections. Patient was having no recent fevers. But lately his urine was foul smelling. Bowel movements On and off diarrhea. Patient denies any headache. No dizziness. No blurred visions. No runny nose. No sore throat. No cough. No difficulty swallowing. Appetite is been down for last couple of days. Denies any chest pain or shortness of breath. Patient when he came to the floor became short of breath and tachypneic. States occasional cough and he has mild COPD. But he saturating okay on room air currently. Confusion, Metabolic Encephalopathy secondary to UTI Weakness Empiric Rocephin Gentle fluids Will follow cultures PT OT when stable Close monitor 12/25 Urine culture: E coli sens to Ceftri Blood culture: negative so far continue Ceftri IV Day 2 ff up blood culture clinically improving PT/OT 12/26 Continues to improve Blood culture negative x 48 hours Continue ceftriaxone IV day #3 12/27 Stable overall Blood cultures negative Ceftriaxone IV day number 4 out of 10-day total antibiotic course Transition to p.o. antibiotics tomorrow Constipation KUB: Nonobstructive bowel gas pattern, moderate fecal retention Lactulose 30 mg ordered today Started milk of molasses enema ordered for this afternoon Continue to monitor 12/27 resolved COPD exacerbation History of tobacco abuse Diminished breath sounds and mild rhonchi and tachypnea Will follow CT chest: no pneumonia, (+) Atelectasis Nebs [id number] and as needed IV Solu-Medrol Rocephin and Doxy Close monitor 12/24 on room air BS clear d/c Solumedrol continue Nebs, Abx Incentive spirometry, flutter valce 12/25 continue Nebs, Abx IS, FV improving also 12/26 Respiratory status stable Continue present management 12/27 Stable Bladder tumor Status post TURBT Low-grade noninvasive Since procedure having incontinence and UTI Urology consulted : outpatient follow up On and off diarrhea Will follow stool studies -- resolved Diabetes Hold metformin Sliding scale Will follow blood sugars hba1c : 7.1 History of CVA Left-sided weakness On aspirin, statin and Plavix Hypertension On amlodipine, hydralazine, hydrochlorothiazide, metoprolol succinate - Resume HCTZ - stable Hyperlipidemia On statin GERD On Protonix Ambulate dysfunction PT OT when stable DVT prophylaxis Heparin subcu Disposition Awaiting acceptance to acute rehab Admission and Anticipated Discharge Date Admission Date: December 24, 2023 Subjective Follow-up for UTI, etc. Seen resting in bed, comfortable, in good spirits States he feels fine overall Positive BMs yesterday, no abdominal pain, nausea No fevers or chills No other new symptoms Review of Systems Review of Systems: all noted and negative except for above Physical Exam Physical Exam: General- oriented x 3, not in distress, speaks in sentences with no effort or accessory muscle use Eyes- anicteric Neck- no JVD Lungs- clear breath sounds bilaterally, no crackles/wheezing Heart- normal rate, regular rhythm; no murmurs Abdomen- normal bowel sounds, nondistended, soft, no tenderness Extremities- no pretibial edema, no calf tenderness Neuro- alert, oriented x 3; no gross focal neurologic deficits Skin- warm & dry Results & Data Results & Data Vital Signs (Past 12 Hours) Vital Signs Temp Pulse Pulse Resp BP Pulse Ox O2 Del Method 12/28/23 15:00 70 12/28/23 11:15 Room Air 12/28/23 07:46 36.5 C 79 18 136/83 93 Room Air 12/28/23 07:30 67 all noted and reviewed including below
[2023-12-29] MEDS: LANTUS PER UNIT CHARGE SC SCH (09:17)
--- NOTE | 2023-12-29 15:03 | Hospitalist Progress Note ---
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 Son states patient lives with him but he has his own space. Last couple of days he fell several times mostly in the nighttime and son did not see the patient fall. But patient had told him that when he falls down he is taking a lot of time to get up. No hitting of the head. No loss of consciousness. And the patient told his son today that last night again he fell when he got of up from the bed because he saw his son and daughter in the room who were actually not present in the room. And also patient was finding hard to get up from the chair. Because of weakness ,falls and visual hallucination son brought him to the hospital today. In November patient had a surgery for bladder tumor which is found to be low-grade and since then he is incontinent of urine and using depends. He had episode of UTI after procedure. And he was told to check for any further infections. Patient was having no recent fevers. But lately his urine was foul smelling. Bowel movements On and off diarrhea. Patient denies any headache. No dizziness. No blurred visions. No runny nose. No sore throat. No cough. No difficulty swallowing. Appetite is been down for last couple of days. Denies any chest pain or shortness of breath. Patient when he came to the floor became short of breath and tachypneic. States occasional cough and he has mild COPD. But he saturating okay on room air currently. Confusion, Metabolic Encephalopathy secondary to UTI Weakness Empiric Rocephin Gentle fluids Will follow cultures PT OT when stable Close monitor 12/25 Urine culture: E coli sens to Ceftri Blood culture: negative so far continue Ceftri IV Day 2 ff up blood culture clinically improving PT/OT 12/26 Continues to improve Blood culture negative x 48 hours Continue ceftriaxone IV day #3 12/27 Stable overall Blood cultures negative Ceftriaxone IV day number 4 out of 10-day total antibiotic course Transition to p.o. antibiotics tomorrow 12/28 Stable overall Continue IV ceftriaxone day number 5 out of 10 total antibiotic course Transition to cefdinir tomorrow Constipation KUB: Nonobstructive bowel gas pattern, moderate fecal retention Lactulose 30 mg ordered today Started milk of molasses enema ordered for this afternoon Continue to monitor 12/27 resolved COPD exacerbation History of tobacco abuse Diminished breath sounds and mild rhonchi and tachypnea Will follow CT chest: no pneumonia, (+) Atelectasis Nebs [id number] and as needed IV Solu-Medrol Rocephin and Doxy Close monitor 12/24 on room air BS clear d/c Solumedrol continue Nebs, Abx Incentive spirometry, flutter valce 12/25 continue Nebs, Abx IS, FV improving also 12/26 Respiratory status stable Continue present management 12/28 Stable Bladder tumor Status post TURBT Low-grade noninvasive Since procedure having incontinence and UTI Urology consulted : outpatient follow up On and off diarrhea Will follow stool studies -- resolved Diabetes Hold metformin Sliding scale Will follow blood sugars hba1c : 7.1 History of CVA Left-sided weakness On aspirin, statin and Plavix Hypertension On amlodipine, hydralazine, hydrochlorothiazide, metoprolol succinate - Resume HCTZ - stable Hyperlipidemia On statin GERD On Protonix Ambulate dysfunction PT OT when stable DVT prophylaxis Heparin subcu Disposition Awaiting acceptance to acute rehab Admission and Anticipated Discharge Date Admission Date: December 24, 2023 Subjective Follow-up for UTI, falls, weakness, etc. Seen resting bedside chair, not in distress States he continues to feel improved overall Strength seems to be returning gradually No abdominal pain, fevers or chills No shortness of breath, cough Participating in physical therapy Review of Systems Review of Systems: all noted and negative except for above Physical Exam Physical Exam: General- oriented x 3, not in distress, speaks in sentences with no effort or accessory muscle use Eyes- anicteric Neck- no JVD Lungs- clear breath sounds bilaterally, No crackles or wheeze Heart- normal rate, regular rhythm; no murmurs Abdomen- normal bowel sounds, nondistended, soft, nontender Extremities- no pretibial edema, no calf tenderness Neuro- alert, oriented x 3; no gross focal neurologic deficits Skin- warm & dry Results & Data Results & Data Vital Signs (Past 12 Hours) Vital Signs Temp Pulse Pulse Pulse Resp BP BP 12/29/23 14:36 85 12/29/23 11:42 36.6 C 73 18 122/76 12/29/23 10:29 12/29/23 08:01 84 12/29/23 07:18 36.7 C 57 L 18 133/69 12/29/23 06:58 75 Pulse Ox O2 Del Method 12/29/23 14:36 12/29/23 11:42 96 Room Air 12/29/23 10:29 Room Air 12/29/23 08:01 12/29/23 07:18 93 Room Air 12/29/23 06:58 all noted and reviewed including below
[2023-12-29] MEDS: CEFDINIR 300 MG CAP PO SCH (20:40)
[2023-12-29] MEDS: DOXYCYCLINE HYCLATE 100 MG CAP PO SCH (20:40)
--- NOTE | 2023-12-30 09:43 | Pharmacy Report ---
Pharmacy Glycemic Short Note 2 - Date of Service December 30, 2023 - Glycemic Short BSG Results (Last 24 hours): 12/29/23 12/29/23 12/29/23 12:19 17:15 20:05 POC Glucose 154 H 115 H 185 H 12/30/23 07:54 POC Glucose 160 H OUTPATIENT ANTIDIABETIC REGIMEN: * Metformin 1000 mg PO AM HbA1c: 7.1% (12/25/23) ASSESSMENT: 12/29: * Patient received total of 45 units of insulin yesterday, of which 20 units were basal insulin * Fasting BSG 160 mg/dL - will continue current basal (day 2 of dose increase) * No change to CF/CR 12/26: * Blood sugars trended down yesterday, but still altogether elevated so will tighten Novolog parameters * Fasting blood sugar of 199 mg/dL, will increase basal 12/25: * Steroids are now discontinued * Blood sugars elevated yesterday, but improved overnight * Will continue low-dose basal insulin and will loosen Novolog parameters now that steroids are complete 12/24: * 83 yo M admitted on 12/24/23 secondary to confusion/UTI. Pharmacy has been consulted to assist with inpatient glycemic management. Patient is a Type 2 diabetic as an outpatient. Please refer to outpatient regimen and most recent HbA1c above. * Patient was NPO but now tolerating a T2DM diet today. BSGs were elevated upon admission and then received 60 mg of IV SoluMedrol last night and another 40 mg this AM before it was discontinued. No basal insulin received yet and Novolog was ordered based on weight/stress of 2. * BSGs today have been: 290-371-317 mg/dL. Will tighten Novolog to weight/stress of 3. Adding a one time basal dose of 20 units. Reassess in AM. Adding overnight checks for tonight only. PLAN FOR INPATIENT GLYCEMIC CONTROL: * Hold outpatient oral diabetes medications * Basal insulin * Lantus 20 units SC daily * Bolus insulin * NovoLog per scale ACHS or Q6hrs while NPO * Goal Range: Low 110 mg/dL - High 140 mg/dL * Correction Factor: 25 mg/dL/unit * Nutritional / Prandial insulin per carb ratio of 1 unit per 8 grams CHO consumed
[2023-12-30 11:43] VITALS: RESP 18
--- NOTE | 2023-12-30 17:51 | Hospitalist Progress Note ---
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 Son states patient lives with him but he has his own space. Last couple of days he fell several times mostly in the nighttime and son did not see the patient fall. But patient had told him that when he falls down he is taking a lot of time to get up. No hitting of the head. No loss of consciousness. And the patient told his son today that last night again he fell when he got of up from the bed because he saw his son and daughter in the room who were actually not present in the room. And also patient was finding hard to get up from the chair. Because of weakness ,falls and visual hallucination son brought him to the hospital today. In November patient had a surgery for bladder tumor which is found to be low-grade and since then he is incontinent of urine and using depends. He had episode of UTI after procedure. And he was told to check for any further infections. Patient was having no recent fevers. But lately his urine was foul smelling. Bowel movements On and off diarrhea. Patient denies any headache. No dizziness. No blurred visions. No runny nose. No sore throat. No cough. No difficulty swallowing. Appetite is been down for last couple of days. Denies any chest pain or shortness of breath. Patient when he came to the floor became short of breath and tachypneic. States occasional cough and he has mild COPD. But he saturating okay on room air currently. Confusion, Metabolic Encephalopathy secondary to UTI Weakness Empiric Rocephin Gentle fluids Will follow cultures PT OT when stable Close monitor 12/25 Urine culture: E coli sens to Ceftri Blood culture: negative so far continue Ceftri IV Day 2 ff up blood culture clinically improving PT/OT 12/26 Continues to improve Blood culture negative x 48 hours Continue ceftriaxone IV day #3 12/27 Stable overall Blood cultures negative Ceftriaxone IV day number 4 out of 10-day total antibiotic course Transition to p.o. antibiotics tomorrow 12/28 Stable overall Continue IV ceftriaxone day number 5 out of 10 total antibiotic course Transition to cefdinir tomorrow 12/29 stable continue IV Ceftriaxone Constipation KUB: Nonobstructive bowel gas pattern, moderate fecal retention Lactulose 30 mg ordered today Started milk of molasses enema ordered for this afternoon Continue to monitor 12/27 resolved COPD exacerbation History of tobacco abuse Diminished breath sounds and mild rhonchi and tachypnea Will follow CT chest: no pneumonia, (+) Atelectasis Nebs [id number] and as needed IV Solu-Medrol Rocephin and Doxy Close monitor 12/24 on room air BS clear d/c Solumedrol continue Nebs, Abx Incentive spirometry, flutter valce 12/25 continue Nebs, Abx IS, FV improving also 12/26 Respiratory status stable Continue present management 12/28 Stable Bladder tumor Status post TURBT Low-grade noninvasive Since procedure having incontinence and UTI Urology consulted : outpatient follow up On and off diarrhea Will follow stool studies -- resolved Diabetes Hold metformin Sliding scale Will follow blood sugars hba1c : 7.1 History of CVA Left-sided weakness On aspirin, statin and Plavix Hypertension On amlodipine, hydralazine, hydrochlorothiazide, metoprolol succinate - Resume HCTZ - stable Hyperlipidemia On statin GERD On Protonix Ambulate dysfunction PT OT when stable DVT prophylaxis Heparin subcu Disposition Awaiting acceptance to acute rehab Admission and Anticipated Discharge Date Admission Date: December 24, 2023 Subjective ff up for uti etc seen resting in bed, comfortable feels fine overall no urinary symptoms no other symptoms Review of Systems Review of Systems: all noted and negative except for above Physical Exam Physical Exam: General- oriented x 3, not in distress, speaks in sentences with no effort or accessory muscle use Eyes- anicteric Neck- no JVD Lungs- clear breath sounds bilaterally, no rales/wheezes Heart- normal rate, regular rhythm; no murmurs Abdomen- normal bowel sounds, nondistended, soft, nontender Extremities- no pretibial edema, no calf tenderness Neuro- alert, oriented x 3; no gross focal neurologic deficits Skin- warm & dry Results & Data Results & Data Vital Signs (Past 12 Hours) Vital Signs Temp Pulse Pulse Resp BP BP Pulse Ox 12/30/23 16:07 36.6 C 70 18 122/74 97 12/30/23 15:13 84 12/30/23 11:43 36.4 C L 77 18 121/67 96 12/30/23 10:40 74 12/30/23 08:14 36.6 C 81 19 113/68 94 O2 Del Method 12/30/23 16:07 Room Air 12/30/23 15:13 12/30/23 11:43 Room Air 12/30/23 10:40 12/30/23 08:14 Room Air all noted and reviewed including below
[2023-12-31 08:18] VITALS: TEMP 97.9; O2SAT 93
[2023-12-31 11:35] VITALS: BP 142/68; PULSE 84
--- NOTE | 2023-12-31 11:49 | Discharge Summary ---
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 Son states patient lives with him but he has his own space. Last couple of days he fell several times mostly in the nighttime and son did not see the patient fall. But patient had told him that when he falls down he is taking a lot of time to get up. No hitting of the head. No loss of consciousness. And the patient told his son today that last night again he fell when he got of up from the bed because he saw his son and daughter in the room who were actually not present in the room. And also patient was finding hard to get up from the chair. Because of weakness ,falls and visual hallucination son brought him to the hospital today. In November patient had a surgery for bladder tumor which is found to be low-grade and since then he is incontinent of urine and using depends. He had episode of UTI after procedure. And he was told to check for any further infections. Patient was having no recent fevers. But lately his urine was foul smelling. Bowel movements On and off diarrhea. Patient denies any headache. No dizziness. No blurred visions. No runny nose. No sore throat. No cough. No difficulty swallowing. Appetite is been down for last couple of days. Denies any chest pain or shortness of breath. Patient when he came to the floor became short of breath and tachypneic. States occasional cough and he has mild COPD. But he saturating okay on room air currently. Confusion, Metabolic Encephalopathy secondary to UTI Urine culture: E coli sens to Ceftri Blood culture: negative improved gradually while admitted mental status back to baseline continue PT/OT completed 7 day course of IV Ceftriaxone, then Cefdinir continue Cefdinir x 3 more days to complete 10 day course ff up with Urologist in 1-2 weeks Probiotics daily x 1 month at least Bladder tumor Status post TURBT Low-grade noninvasive Since procedure having incontinence and UTI Urology consulted : close outpatient follow up COPD exacerbation, Mild History of tobacco abuse Diminished breath sounds and mild rhonchi and tachypnea Will follow CT chest: no pneumonia, (+) Atelectasis Nebs [id number] and as needed IV Solu-Medrol Rocephin and Doxy Close monitor completed Doxycycline x 7 days resolved Respiratory status stable Abnormal Chest Xray Finding A right upper lobe groundglass lesion seen on today's chest CT is not visualized by x-ray. A follow-up chest CT in 3-4 months time is recommended for reassessment as a low-grade adenomatous lesion is not excluded. Please refer to full report in the Ordered Studies section above Further work up, management, and ff up as outpatient Constipation KUB: Nonobstructive bowel gas pattern, moderate fecal retention resolved continue Miralax Diabetes resume Metformin hba1c : 7.1 History of CVA Left-sided weakness On aspirin, statin and Plavix Hypertension On amlodipine, hydralazine, hydrochlorothiazide, metoprolol succinate Hyperlipidemia On statin GERD On Protonix Ambulatory dysfunction continue PT/OT daily DVT prophylaxis Heparin subcu given Disposition transition to subacute rehab ff up with PCP 1 week ff up with Urologist in 1-2 weeks Notes For Next Care Provider Repeat CT chest in 3-4 months to re-evaluated Right upper lung lobe lesion Medication Changes From Visit Cefdinir x 3 more days Admission HPI Per Admitting Provider 83-year-old male with past medical history significant for type 2 diabetes, hyperlipidemia, 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 Son states patient lives with him but he has his own space. Last couple of days he fell several times mostly in the nighttime and son did not see the patient fall. But patient had told him that when he falls down he is taking a lot of time to get up. No hitting of the head. No loss of consciousness. And the patient told his son today that last night again he fell when he got of up from the bed because he saw his son and daughter in the room who were actually not present in the room. And also patient was finding hard to get up from the chair. Because of weakness ,falls and visual hallucination son brought him to the hospital today. In November patient had a surgery for bladder tumor which is found to be low-grade and since then he is incontinent of urine and using depends. He had episode of UTI after procedure. And he was told to check for any further infections. Patient was having no recent fevers. But lately his urine was foul smelling. Bowel movements On and off diarrhea. Patient denies any headache. No dizziness. No blurred visions. No runny nose. No sore throat. No cough. No difficulty swallowing. Appetite is been down for last couple of days. Denies any chest pain or shortness of breath. Patient when he came to the floor became short of breath and tachypneic. States occasional cough and he has mild COPD. But he saturating okay on room air currently. Past medical history. As mentioned above Past surgical history. Bladder instillation of Anticort splenic on 11/22/2023, cystoscopy/treat bladder tumor 11/22/2023, colonoscopy, appendectomy. Patient history. Living with son. Quit smoking in 2006. Smoked 2 packs a day for 50 years. Occasional beer. No drug use. Family history. Brother had cancer. Diabetes. Mother had diabetes. Father had NM. Daughter had gestational diabetes. Son has diabetes. Son has hypertension. Admission Exam Per Admitting Provider General- Not in acute distress Head- atraumatic Eyes- PERRL. ENT- oropharynx clear Neck- supple, no JVD. Lungs- Diminished bilateral breath sounds and mild bilateral rhonchi heard Heart- regular rate and rhythm; no murmur, no gallop. Abdomen- normal bowel sounds, soft, nontender, no distension Extremities- no pretibial edema, no erythema seen Neuro- alert, oriented x 3; PERRL,no facial palsy; no dysarthria; moves extremities Discharge Exam General- oriented x 3, not in distress, speaks in sentences with no effort or accessory muscle use Eyes- anicteric Neck- no JVD Lungs- clear breath sounds bilaterally, no rales/wheezes Heart- normal rate, regular rhythm; no murmurs Abdomen- normal bowel sounds, nondistended, soft, nontender Extremities- no pretibial edema, no calf tenderness Neuro- alert, oriented x 3; no gross focal neurologic deficits Skin- warm & dry Updated Medication List Medication Instructions Recorded Confirmed Type amlodipine 5 mg tablet 5 mg PO QAM 12/24/23 12/24/23 History apple cider vinegar 300 mg tablet 300 mg PO DAILY 12/24/23 12/24/23 History aspirin 81 mg chewable tablet 81 mg PO DAILY 12/24/23 12/24/23 History atorvastatin 40 mg tablet 40 mg PO QAM 12/24/23 12/24/23 History cholecalciferol (vitamin D3) 50 50 mcg PO DAILY 12/24/23 12/24/23 History mcg (2,000 unit) tablet (Vitamin D3) clopidogrel 75 mg tablet 75 mg PO .[id number] 12/24/23 12/24/23 History dextromethorphan-guaifenesin 30 1 tab PO Q12H 12/24/23 12/24/23 History mg-600 mg tablet extended [id number] hr (Mucinex DM) hydralazine 10 mg tablet 20 mg PO QAM 12/24/23 12/24/23 History hydrochlorothiazide 25 mg tablet 25 mg PO QAM 12/24/23 12/24/23 History lactobacillus combination no.4 3 0 mmu cells PO DAILY 12/24/23 12/24/23 History billion cell capsule (Probiotic) metformin 500 mg tablet,extended 1,000 mg PO QAM 12/24/23 12/24/23 History release 24 hr metoprolol succinate 25 mg 25 mg PO QAM 12/24/23 12/24/23 History tablet,extended release 24 hr multivitamin 1 tab PO DAILY 12/24/23 12/24/23 History pantoprazole 40 mg tablet,delayed 40 mg PO DAILY 12/24/23 12/24/23 History release phenazopyridine 200 mg tablet 200 mg PO TID PRN .bladder pain 12/24/23 12/24/23 History (Pyridium) cefdinir 300 mg capsule 300 mg PO BID 3 days #6 caps 12/31/23 Rx polyethylene glycol 3350 17 gram 17 g PO DAILY PRN constipation #20 12/31/23 Rx oral powder packet (Miralax) ea Hospital Stay Data Consultations 12/24/23 19:35 ED Decision to Admit Stat 12/25/23 08:00 Consult Urology Routine Diagnostic Imagining Performed Laboratory Results WBC 11.97 K/ul (4.8-10.8) H 12/27/23 09:05 RBC 4.84 M/uL (4.70-6.10) 12/27/23 09:05 Hgb 14.3 g/dl (14.0-18.0) 12/27/23 09:05 Hct 42.1 % (42.0-52.0) 12/27/23 09:05 MCV 87.0 fL (80.0-100.0) 12/27/23 09:05 MCH 29.5 pg (25.0-34.0) 12/27/23 09:05 MCHC 34.0 g/dL (32.0-36.0) 12/27/23 09:05 RDW Std Deviation 42.8 fL (36.4-46.3) 12/27/23 09:05 RDW Coeff of Chinmay 13.5 % (11.5-14.5) 12/27/23 09:05 Plt Count 313 K/uL (130-400) 12/27/23 09:05 MPV 10.7 fL (9.4-12.4) 12/27/23 09:05 Immature Gran % (Auto) 1.4 % 12/27/23 09:05 Neut % (Auto) 77.1 % 12/27/23 09:05 Lymph % (Auto) 11.1 % 12/27/23 09:05 [place] % (Auto) 7.5 % 12/27/23 09:05 Eos % (Auto) 2.4 % 12/27/23 09:05 Baso % (Auto) 0.5 % 12/27/23 09:05 Neut # (Auto) 9.22 K/uL (1.40-6.50) H 12/27/23 09:05 Lymph # (Auto) 1.33 K/uL (1.20-3.40) 12/27/23 09:05 [place] # (Auto) 0.90 K/uL (0.11-0.59) H 12/27/23 09:05 Eos # (Auto) 0.29 K/uL (0.00-0.50) 12/27/23 09:05 Baso # (Auto) 0.06 K/uL (0.00-0.20) 12/27/23 09:05 Immature Gran # (Auto) 0.17 K/uL (0.01-0.20) 12/27/23 09:05 Absolute Nucleated RBC Cancelled 12/26/23 07:01 Nucleated RBC % (auto) Cancelled 12/26/23 07:01 Neutrophils % (Manual) Cancelled 12/26/23 07:01 Band Neutrophils % Cancelled 12/26/23 07:01 Lymphocytes % (Manual) Cancelled 12/26/23 07:01 Prolymphocyte % Cancelled 12/26/23 07:01 Reactive Lymphs % (Man) Cancelled 12/26/23 07:01 Monocytes % (Manual) Cancelled 12/26/23 07:01 Eosinophils % (Manual) Cancelled 12/26/23 07:01 Basophils % (Manual) Cancelled 12/26/23 07:01 Metamyelocytes % (Man) Cancelled 12/26/23 07:01 Myelocytes % (Man) Cancelled 12/26/23 07:01 Promyelocytes % (Man) Cancelled 12/26/23 07:01 Blast Cells % (Manual) Cancelled 12/26/23 07:01 Plasma Cell % (Manual) Cancelled 12/26/23 07:01 Other Cells % Cancelled 12/26/23 07:01 Nucleated RBC % Cancelled 12/26/23 07:01 Neutrophils # (Manual) Cancelled 12/26/23 07:01 Band Neutrophils # Cancelled 12/26/23 07:01 Total Absolute Neuts Cancelled 12/26/23 07:01 Lymphocytes # (Manual) Cancelled 12/26/23 07:01 Prolymphocyte # Cancelled 12/26/23 07:01 Reactive Lymphs # Cancelled 12/26/23 07:01 Total Abs Lymphocytes Cancelled 12/26/23 07:01 Monocytes # (Manual) Cancelled 12/26/23 07:01 Eosinophils # (Manual) Cancelled 12/26/23 07:01 Basophils # (Manual) Cancelled 12/26/23 07:01 Metamyelocytes # (Man) Cancelled 12/26/23 07:01 Myelocytes # (Manual) Cancelled 12/26/23 07:01 Promyelocytes # (Man) Cancelled 12/26/23 07:01 Blast Cells # (Man) Cancelled 12/26/23 07:01 Plasma Cell # (Manual) Cancelled 12/26/23 07:01 Other Cells # Cancelled 12/26/23 07:01 Nucleated RBCs # (Man) Cancelled 12/26/23 07:01 Hypersegmented Neuts Cancelled 12/26/23 07:01 Hyposegmented Neuts Cancelled 12/26/23 07:01 Hypogranular Neuts Cancelled 12/26/23 07:01 Large Granular Lymphs Cancelled 12/26/23 07:01 # Lrg Granular Lymphs Cancelled 12/26/23 07:01 Hairy Cells Cancelled 12/26/23 07:01 Smudge Cells Cancelled 12/26/23 07:01 Toxic Granulation Cancelled 12/26/23 07:01 Toxic Vacuolation Cancelled 12/26/23 07:01 Dohle Bodies Cancelled 12/26/23 07:01 Tiff Rods Cancelled 12/26/23 07:01 Platelet Estimate Cancelled 12/26/23 07:01 Hypogranular Platelets Cancelled 12/26/23 07:01 Giant Platelets Cancelled 12/26/23 07:01 Platelet Satelliting Cancelled 12/26/23 07:01 RBC Morphology Cancelled 12/26/23 07:01 Polychromasia Cancelled 12/26/23 07:01 Hypochromasia Cancelled 12/26/23 07:01 Poikilocytosis Cancelled 12/26/23 07:01 Basophilic Stippling Cancelled 12/26/23 07:01 Anisocytosis Cancelled 12/26/23 07:01 Microcytosis Cancelled 12/26/23 07:01 Macrocytosis Cancelled 12/26/23 07:01 Spherocytes Cancelled 12/26/23 07:01 Pappenheimer Bodies Cancelled 12/26/23 07:01 Sickle Cells Cancelled 12/26/23 07:01 Target Cells Cancelled 12/26/23 07:01 Tear Drop Cells Cancelled 12/26/23 07:01 Ovalocytes Cancelled 12/26/23 07:01 Stomatocytes Cancelled 12/26/23 07:01 Gonzalez-Emporium Bodies Cancelled 12/26/23 07:01 Echinocytes Cancelled 12/26/23 07:01 Acanthocytes (Spur) Cancelled 12/26/23 07:01 Rouleaux Cancelled 12/26/23 07:01 RBC Agglutinates Cancelled 12/26/23 07:01 Schistocytes Cancelled 12/26/23 07:01 Sezary Cell Cancelled 12/26/23 07:01 PT 12.8 Seconds (9.0-12.0) H 12/24/23 18:47 INR 1.2 (0.9-1.1) H 12/24/23 18:47 Sodium 138 mmol/L (136-145) 12/27/23 09:05 Potassium 4.1 mmol/L (3.5-5.1) 12/27/23 09:05 Chloride 106 mmol/L (98-107) 12/27/23 09:05 Carbon Dioxide 24 mmol/L (21-32) 12/27/23 09:05 Anion Gap 8 (3-11) 12/27/23 09:05 BUN 29 mg/dl (6-23) H 12/27/23 09:05 Creatinine 1.07 mg/dl (0.6-1.4) 12/27/23 09:05 Est Cr Clr Drug Dosing 47.2 ml/min 12/27/23 09:05 Est GFR ( Amer) 74.0 ml/min 12/27/23 09:05 Est GFR (Non-Af Amer) 63.9 ml/min 12/27/23 09:05 BUN/Creatinine Ratio 27.1 (10-20) H 12/27/23 09:05 Glucose 204 mg/dl (70-99(Fasting)) H 12/27/23 09:05 POC Glucose 185 mg/dl (70-99) H 12/31/23 07:56 Estimat Average Glucose 157 mg/dl 12/25/23 04:46 Hemoglobin A1c 7.1 % (4.5-5.6) H 12/25/23 04:46 Lactate 1.5 mmol/L (0.4-2.0) 12/24/23 18:47 Calcium 9.5 mg/dl (8.6-10.3) 12/27/23 09:05 Magnesium 1.8 mg/dl (1.7-2.4) 12/25/23 04:46 Total Bilirubin 0.8 mg/dl (0.2-1.0) 12/24/23 18:47 AST 23 U/L (13-39) 12/24/23 18:47 ALT 40 U/L (7-52) 12/24/23 18:47 Alkaline Phosphatase 61 U/L (34-104) 12/24/23 18:47 Troponin I High Sens 18.5 pg/ml (0-20) 12/24/23 18:47 Total Protein 6.6 gm/dl (6.0-8.3) 12/24/23 18:47 Albumin 3.9 gm/dl (3.4-5.0) 12/24/23 18:47 Globulin 2.7 gm/dl (2.5-4.0) 12/24/23 18:47 Albumin/Globulin Ratio 1.4 (0.9-2) 12/24/23 18:47 TSH 0.924 uIu/ml (0.300-4.500) 12/24/23 18:47 Urine Color Yellow 12/24/23 18:38 Urine Appearance Turbid (Clear) A 12/24/23 18:38 Urine pH 5.5 (4.5-7.5) 12/24/23 18:38 Ur Specific [place] 1.014 (1.000-1.030) 12/24/23 18:38 Urine Protein 2+ (Negative) H 12/24/23 18:38 Urine Glucose (UA) Negative (Negative) 12/24/23 18:38 Urine Ketones Trace (Negative) H 12/24/23 18:38 Urine Blood 3+ (Negative) H 12/24/23 18:38 Urine Nitrite Positive (Negative) A 12/24/23 18:38 Urine Bilirubin Negative (Negative) 12/24/23 18:38 Urine Urobilinogen Negative (Negative) 12/24/23 18:38 Ur Leukocyte Esterase 3+ (Negative) H 12/24/23 18:38 Urine WBC (Auto) >50 /hpf (0-5) H 12/24/23 18:38 Urine RBC (Auto) 11-20 /hpf (0-2) H 12/24/23 18:38 U Hyaline Cast (Auto) 0-2 /lpf (0-2) 12/24/23 18:38 U Epithel Cells (Auto) 0-2 /hpf (0-2) 12/24/23 18:38 Urine Bacteria (Auto) 4+ (None Seen) H 12/24/23 18:38 Stl C. cayetanensis PCR Not Detected (NotDetected) 12/27/23 12:15 Stool Rotavirus A PCR Not Detected (NotDetected) 12/27/23 12:15 Stl Adenov F 40/41 PCR Not Detected (NotDetected) 12/27/23 12:15 Stool Astrovirus (PCR) Not Detected (NotDetected) 12/27/23 12:15 Stool Campylobacter PCR Not Detected (NotDetected) 12/27/23 12:15 Stool Cryptosporidium PCR Not Detected (NotDetected) 12/27/23 12:15 Stl E.coli Shiga Tox PCR Not Detected (NotDetected) 12/27/23 12:15 Stl Enterotoxigenic E PCR Not Detected (NotDetected) 12/27/23 12:15 Stool EPEC (PCR) Not Detected (NotDetected) 12/27/23 12:15 Stool EAEC (PCR) Not Detected (NotDetected) 12/27/23 12:15 Stl E. histolytica PCR Not Detected (NotDetected) 12/27/23 12:15 Stool Giardia Lamblia PCR Not Detected (NotDetected) 12/27/23 12:15 Stool Salmonella PCR Not Detected (NotDetected) 12/27/23 12:15 Stool Sapovirus (PCR) Not Detected (NotDetected) 12/27/23 12:15 Stl P. shigelloides PCR Not Detected (NotDetected) 12/27/23 12:15 Stl Shigella/EIEC PCR Not Detected (NotDetected) 12/27/23 12:15 St Y.enterocolitica PCR Not Detected (NotDetected) 12/27/23 12:15 Stool Vibrio (PCR) Not Detected (NotDetected) 12/27/23 12:15 Stl Vibrio cholerae PCR Not Detected (NotDetected) 12/27/23 12:15 Stl Norovirus GI/GII PCR Not Detected (NotDetected) 12/27/23 12:15 SARS-CoV-2 (PCR) NEGATIVE (Negative) 12/24/23 18:16 Influenza Type A (PCR) Negative (Neg) 12/24/23 18:16 Influenza Type B (PCR) Negative (Neg) 12/24/23 18:16 RSV (RT-PCR) Negative (Neg) 12/24/23 18:16 Blood Parasites ID Cancelled 12/26/23 07:[address] 12/24/23 18:12 Exam(s): CT HEAD Without Contrast EXAM: CT Head Without Intravenous Contrast CLINICAL HISTORY: Reason for exam: recurrent falls; weakness. TECHNIQUE: Axial computed tomography images of the head/brain without intravenous contrast. CTDI is 35.65 mGy and DLP is 624.41 mGy-cm. Automated exposure control was utilized for the study. A dose lowering technique was utilized adhering to the principles of ALARA. COMPARISON: Head CT 03/02/2023 FINDINGS: Brain: No intracranial hemorrhage, mass-effect, or cerebral edema. Atrophy and chronic microvascular ischemic changes. Chronic infarcts within the cerebellum and occipital lobes. Ventricles: Unremarkable. Bones/joints: Unremarkable. No fracture. Soft tissues: Unremarkable. Sinuses: No acute sinusitis. Mastoid air cells: Unremarkable as visualized. IMPRESSION: 1. No acute intracranial abnormality. 2. Atrophy and chronic microvascular ischemic changes. 3. Chronic infarcts within the cerebellum and occipital lobes. Electronically signed by: Jordan Gilmore MD 12/24/23 19:30 PM Chest X-Ray 12/24/23 21:55 SINGLE VIEW CHEST CLINICAL HISTORY: Dyspnea FINDINGS: An AP, portable, upright chest radiograph is compared to study dated 12/24/2023. The examination is degraded by portable technique and patient rotation. The heart is mildly enlarged noting atherosclerotic calcification of the thoracic aorta. Pulmonary vasculature is noncongested. There is bibasilar scarring/atelectasis. No airspace consolidation or large pleural effusion is identified. No pneumothorax is seen. The skeletal structures are osteopenic. The bony thorax is grossly intact. IMPRESSION: 1. Mild cardiomegaly with no acute cardiopulmonary abnormality identified. 2. A right upper lobe groundglass lesion seen on today's chest CT is not visualized by x-ray. A follow-up chest CT in 3-4 months time is recommended for reassessment as a low-grade adenomatous lesion is not excluded. ACT 112: Positive. There are findings on this exam that require communication between the performing entity and the patient following Patient Test Result Information Act ([place] Act 112) guidelines. Electronically signed by: Ollie Iverson M.D. 12/25/2023 6:50 AM Chest CTA 12/24/23 21:58 Exam(s): CTA CHEST IV Amt: 118 ml optiray 320 EXAM: CT Angiography Chest With Intravenous Contrast CLINICAL HISTORY: Reason for exam: PE. TECHNIQUE: Axial computed tomographic angiography images of the chest with intravenous contrast. CTDI is 40.5 mGy and DLP is 883.49 mGy-cm. Automated exposure control was utilized for the study. A dose lowering technique was utilized adhering to the principles of ALARA. MIP reconstructed images were created and reviewed. COMPARISON: No relevant prior studies available. FINDINGS: LUNGS: No focal consolidation, pleural effusion, or pneumothorax. Atelectasis at the lung bases. HEART: Cardiomegaly. VASCULATURE: No acute pulmonary embolism. Atherosclerotic changes of the aorta. THYROID: Within normal limits. MEDIASTINUM + LYMPH NODES: There are no pathologically enlarged mediastinal, hilar, or axillary lymph nodes. SUPERIOR ABDOMEN: Hepatic steatosis. MUSCULOSKELETAL: Degenerative changes. IMPRESSION: No acute pulmonary embolism. Electronically signed by: Clint Giraldo MD 12/25/23 00:16 AM KUB X-Ray 12/27/23 08:29 KUB HISTORY: constipation, r/o obstruction COMPARISON: Chest and abdominal series 11/15/2016. FINDINGS: The bowel gas pattern is unremarkable. There are no dilated loops of small bowel to suggest an obstruction. No renal calculi. No ureteral calculi. Calcifications in the deep pelvis likely represent phleboliths. Vascular calcifications are noted within the pelvis.. Left basilar linear densities favor subsegmental atelectasis or scarring. Moderate well-formed stool within the colon. No pneumoperitoneum or pneumatosis. Degenerative changes within the lumbar spine. IMPRESSION: 1. Nonobstructive bowel gas pattern. 2. Moderate fecal retention. ACT 112: Negative or not required by law. Electronically signed by: oM Esparza M.D. 12/27/2023 9:40 AM 12/24/23 18:12 CT head/brain wo con Stat 12/24/23 21:58 CT angio chest PE protocol Urgent Pending Results Patient Have Any Pending Studies at Discharge: No Discharge Instructions Given to Patient (Per Discharging Provider) PLEASE REFER TO ACCOMPANYING HOSPITAL DISCHARGE SUMMARY Chest xray A right upper lobe groundglass lesion seen on today's chest CT is not visualized by x-ray. A follow-up chest CT in 3-4 months time is recommended for reassessment as a low-grade adenomatous lesion is not excluded. Total Time Total Time Spent Total Time Spent (In Minutes): 45 minutes
--- NOTE | 2024-01-01 16:19 | Coding Query ---
CODING QUERY To promote full compliance with coding requirements relating to patient care, provider participation is requested in all cases of enginehouse brakeman uncertainty. Please assist us with the question(s) below: 12/24 PN- Addendum December 25, 2023 10:27 Please add to Assessment and Plan #1> Sepsis, Present on Admission VITALS on admission: HR 113 WBC 17.7 +INFECTION-UTI Sepsis is not documented elsewhere including your DS Coding Question(s): Can you please clarify if sepsis has been ruled in/ruled out? [ ] Sepsis 2/2 UTI resolved on discharge [ ] SIRS only (no sepsis) 2/2 UTI (sepsis ruled out) [ x ] Other ___possible sepsis secondary to UTI, resolved on discharge Physician's Response(s): Thank you Avani Veliz Principal Diagnosis: "that condition established after study, to be chiefly responsible for occasioning the admission of the patient to the hospital for care." Co-Existing Principal Diagnosis: "when two or more diagnoses equally meet the criteria for principal diagnosis as determined by the circumstances of admission, diagnostic work up, and/or therapy provided, and the Alphabetic Index, Tabular List, or another coding guideline does not provide sequencing direction, any one of the diagnoses may be sequenced first." "When the physician has documented what appears to be a current diagnosis in the body of the record, but has not included the diagnosis in the final diagnostic statement, the physician should be asked whether the diagnosis should be added." (Source Coding [facility] 2 QTR90. p3-4) JAMEL
== END 2023-12-31 12:38 | DRG 871 ==
LOC: ED 17:34 → 2N 20:19 → SUATTDRO 20:19 → 2N 21:11

== ENCOUNTER 2024-03-20 18:07 | Inpatient (IN) ==
[2024-03-20 19:05] LABS: Hematocrit (blood only) 42.8 % (42.0-52.0); Hemoglobin 14.6 g/dl (14.0-18.0); Mean Corpuscular Hemoglobin 29.7 pg (25.0-34.0); Mean Corpuscular Hgb Conc 34.1 g/dL (32.0-36.0); Mean Corpuscular Volume 87.2 fL (80.0-100.0); Mean Platelet Volume 10.7 fL (9.4-12.4); Platelet Count 253 K/uL (130-400); RDW Coefficient of Variation 13.7 % (11.5-14.5); RDW Standard Deviation 43.9 fL (36.4-46.3); Red Blood Count 4.91 M/uL (4.70-6.10); White Blood Count 18.59 K/ul (4.8-10.8)
[2024-03-20 19:20] LABS: Alanine Aminotransferase 24 U/L (7-52); Albumin Globulin Ratio 1.8 (0.9-2); Albumin Level 4.6 gm/dl (3.4-5.0); Alkaline Phosphatase 47 U/L (34-104); Anion Gap 11 (3-11); Aspartate Aminotransferase 17 U/L (13-39); Bilirubin,Total 1.1 mg/dl (0.2-1.0); Blood Urea Nitrogen 22 mg/dl (6-23); Calcium 10.2 mg/dl (8.6-10.3); Carbon Dioxide 27 mmol/L (21-32); Chloride 101 mmol/L (98-107); Globulin 2.6 gm/dl (2.5-4.0); Glucose 209 mg/dl (70-99(Fasting)); Potassium 3.3 mmol/L (3.5-5.1); Sodium 139 mmol/L (136-145); Total Protein 7.2 gm/dl (6.0-8.3)
[2024-03-20 19:24] LABS: Basophils # (auto) 0.04 K/uL (0.00-0.20); Basophils % (auto) 0.2 %; Eosinophils # (auto) 0.02 K/uL (0.00-0.50); Eosinophils % (auto) 0.1 %; Immature Granulocytes # (auto) 0.08 K/uL (0.01-0.20); Immature Granulocytes % (auto) 0.4 %; Lymphocytes # (auto) 0.49 K/uL (1.20-3.40); Lymphocytes % (auto) 2.6 %; Monocytes # (auto) 0.85 K/uL (0.11-0.59); Monocytes % (auto) 4.6 %; Neutrophils # (auto) 17.11 K/uL (1.40-6.50); Neutrophils % (auto) 92.1 %
[2024-03-20 20:48] LABS: Appearance Urine Cloudy (Clear); Bacteria Urine Automated 4+ (None Seen); Bilirubin Urine Negative (Negative); Blood Urine 3+ (Negative); Cast Urine Automated 0-2 /lpf (0-2); Color Urine Yellow; Epithelial Cell Urine Auto 0-2 /hpf (0-2); Glucose Urine UA Negative (Negative); Ketones Urine Trace (Negative); Leukocyte Esterase Urine 3+ (Negative); Nitrite Urine Positive (Negative); Protein Urine 1+ (Negative); RBC Urine Automated >20 /hpf (0-2); Urobilinogen Urine Negative (Negative); WBC Urine Automated >50 /hpf (0-5); pH Urine 5.5 (4.5-7.5)
[2024-03-20] MEDS: SODIUM CHLORIDE 0.9% 500 ML IV ONE (21:05)
[2024-03-20] MEDS: PIPERACILLIN/TAZOBACTAM 4.5 GM/100 ML BAG IV ONE (21:26)
[2024-03-20 21:44] LABS: Magnesium 1.4 mg/dl (1.7-2.4)
--- NOTE | 2024-03-20 21:51 | History & Physical Report ---
Date of Service March 20, 2024 Assessment & Plan (1) Sepsis: Plan: Possible sources Complicated UTI, history bladder cancer status post surgery LLE cellulitis rule out abscess rule out DVT hx CVA/PVD hypertension, stable hyperlipidemia, on statin Rx COPD, stable DM2 on oral medications, reasonable control as of recent hemoglobin A1c of 7.2 last December 2023 Ambulatory dysfunction Hypokalemia secondary to diuretic Rx past tobacco abuse Medical telemetry CS, cefepime for complicated UTI, doxycycline for LLE cellulitis CT left leg rule out abscess, L LE venous Doppler history of DVT Replace electrolytes Basal bolus insulin, ISS BG goal 1 10-1 40, carb count coverage DVT prophylaxis. Lovenox subcu if no bleeding on CTs Full code Patient requests for son to be given updates regarding care. Mr. Hakeem Bonner, contact #[phone]. Text document was generated using [employer] voice recognition software. It may contain grammatical or spelling errors. Kindly contact undersigned for clarification of any documentation item in question. History of Present Illness Chief Complaint: Weakness, fever, chills Primary Care Provider: Tristin Osorio, History obtained from patient and records. Medical history significant for CVA, PVD, hypertension, hyperlipidemia, COPD, DM2 on oral medications, GERD, bladder cancer status post surgery, past tobacco abuse Last confinement December 2023 for confusion/metabolic encephalopathy secondary to E. coli UTI. Patient noted left leg swelling about 2 weeks ago from wound. Possible trauma as per patient. Today, patient noted increased generalized weakness causing him to fall back. Family worried about UTI similar to episode from 3 months ago. Patient denies headache, chest pain, SOB, abdominal/flank pain, hematuria, dysuria symptoms. IV Zosyn administered at the ER. 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 Allergies Allergy/AdvReac Type Severity Reaction Status Date / Time hydrochlorothiazide AdvReac Mild Cough Verified 03/20/24 22:22 irbesartan AdvReac Mild Cough Verified 03/20/24 22:22 Home Medications Medication Instructions Recorded Confirmed Type amlodipine 5 mg tablet 5 mg PO QAM 12/24/23 03/20/24 History aspirin 81 mg chewable tablet 81 mg PO DAILY 12/24/23 03/20/24 History atorvastatin 40 mg tablet 40 mg PO QAM 12/24/23 03/20/24 History cholecalciferol (vitamin D3) 50 50 mcg PO DAILY 12/24/23 03/20/24 History mcg (2,000 unit) tablet (Vitamin D3) clopidogrel 75 mg tablet 75 mg PO .[id number] 12/24/23 03/20/24 History hydralazine 10 mg tablet 20 mg PO QAM 12/24/23 03/20/24 History hydrochlorothiazide 25 mg tablet 25 mg PO QAM 12/24/23 03/20/24 History metformin 500 mg tablet,extended 1,000 mg PO QAM 12/24/23 03/20/24 History release 24 hr metoprolol succinate 25 mg 25 mg PO QAM 12/24/23 03/20/24 History tablet,extended release 24 hr pantoprazole 40 mg tablet,delayed 40 mg PO QAM 12/24/23 03/20/24 History release polyethylene glycol 3350 17 gram 17 g PO DAILY PRN constipation #20 12/31/23 03/20/24 Rx oral powder packet (Miralax) ea Lactobacillus acidophilus 250 10,000 mmu cells PO DAILY 03/20/24 03/20/24 History million cell capsule (Probiotic Acidophilus) guaifenesin 600 mg tablet, 600 mg PO AMHS 03/20/24 03/20/24 History extended release 12 hr melatonin 3 mg tablet 6 mg PO HS 03/20/24 03/20/24 History multivitamin with minerals 1 tab PO QAM 03/20/24 03/20/24 History (Multiple Vitamin-Minerals tablet) Past Med/Surg History Problem List (Updated 03/20/24 @ 23:03 by Dante Govea MD) Sepsis Confusion Leukocytosis (Acute) Ambulatory dysfunction (Acute) Generalized weakness (Acute) Heart disease (Chronic) Medical History Hypertension Diabetes Family History Other Family history non-contributory Social History Smoking Status: Former smoker Tobacco Type: Cigarettes Second Hand Exposure: No; Do You Dip or Chew Tobacco: No; Hx Alcohol Use: No Hx Substance Use: No Preferred Language: Cymraes Communication Ability: Effective Medical Technologist Microbiology Required: No Beliefs That Will Affect Care: None Current Living Situation: Family Current Living Situation Comment: Patient lives in extension of son's home. Son and Daughter in Law Feels Safe at Home: Yes Assistive Devices: Cane Review of Systems Review of Systems: As per HPI, all other systems reviewed and negative Physical Exam Physical Exam: GENERAL: Comfortable, pleasant, no respiratory distress SKIN: Normal color, warm HEENT: Alopecia, pink palpebral conjunctivae, no ptosis, dry buccal mucosa NECK : Supple, no tenderness CHEST : CTA, no tenderness HEART : RRR, no obvious murmurs ABDOMEN: Some distention, nontender EXTREMITIES : LLE swelling with minimal tenderness, bandage over LLE, no other conspicuous deformities noted NEUROLOGIC : Coherent, no facial asymmetry, gait and stance not assessed Results & Data Results & Data Vital Signs (Past 12 Hours) Vital Signs Temp Pulse Pulse Resp BP BP Pulse Ox 03/20/24 21:21 86 18 129/68 95 03/20/24 19:21 96 H 20 137/78 94 03/20/24 19:17 100 H 03/20/24 18:23 36.8 C 109 H 18 143/63 H 93 O2 Del Method 03/20/24 21:21 03/20/24 19:21 03/20/24 19:17 03/20/24 18:23 Room Air Laboratory Results Laboratory Results WBC 18.59 K/ul (4.8-10.8) H 03/20/24 18:51 RBC 4.91 M/uL (4.70-6.10) 03/20/24 18:51 Hgb 14.6 g/dl (14.0-18.0) 03/20/24 18:51 Hct 42.8 % (42.0-52.0) 03/20/24 18:51 MCV 87.2 fL (80.0-100.0) 03/20/24 18:51 MCH 29.7 pg (25.0-34.0) 03/20/24 18:51 MCHC 34.1 g/dL (32.0-36.0) 03/20/24 18:51 RDW Std Deviation 43.9 fL (36.4-46.3) 03/20/24 18:51 RDW Coeff of Chinmay 13.7 % (11.5-14.5) 03/20/24 18:51 Plt Count 253 K/uL (130-400) 03/20/24 18:51 MPV 10.7 fL (9.4-12.4) 03/20/24 18:51 Immature Gran % (Auto) 0.4 % 03/20/24 18:51 Neut % (Auto) 92.1 % 03/20/24 18:51 Lymph % (Auto) 2.6 % 03/20/24 18:51 Baxter % (Auto) 4.6 % 03/20/24 18:51 Eos % (Auto) 0.1 % 03/20/24 18:51 Baso % (Auto) 0.2 % 03/20/24 18:51 Neut # (Auto) 17.11 K/uL (1.40-6.50) H 03/20/24 18:51 Lymph # (Auto) 0.49 K/uL (1.20-3.40) L 03/20/24 18:51 Baxter # (Auto) 0.85 K/uL (0.11-0.59) H 03/20/24 18:51 Eos # (Auto) 0.02 K/uL (0.00-0.50) 03/20/24 18:51 Baso # (Auto) 0.04 K/uL (0.00-0.20) 03/20/24 18:51 Immature Gran # (Auto) 0.08 K/uL (0.01-0.20) 03/20/24 18:51 Sodium 139 mmol/L (136-145) 03/20/24 18:51 Potassium 3.3 mmol/L (3.5-5.1) L 03/20/24 18:51 Chloride 101 mmol/L (98-107) 03/20/24 18:51 Carbon Dioxide 27 mmol/L (21-32) 03/20/24 18:51 Anion Gap 11 (3-11) 03/20/24 18:51 BUN 22 mg/dl (6-23) 03/20/24 18:51 Creatinine 1.10 mg/dl (0.6-1.4) 03/20/24 18:51 Est Cr Clr Drug Dosing Not Reportable 03/20/24 18:51 eGFR 66.61 03/20/24 18:51 BUN/Creatinine Ratio 20.0 (10-20) 03/20/24 18:51 Glucose 209 mg/dl (70-99(Fasting)) H 03/20/24 18:51 Lactate 1.5 mmol/L (0.4-2.0) 03/20/24 20:56 Calcium 10.2 mg/dl (8.6-10.3) 03/20/24 18:51 Magnesium 1.4 mg/dl (1.7-2.4) L 03/20/24 18:51 Total Bilirubin 1.1 mg/dl (0.2-1.0) H 03/20/24 18:51 AST 17 U/L (13-39) 03/20/24 18:51 ALT 24 U/L (7-52) 03/20/24 18:51 Alkaline Phosphatase 47 U/L (34-104) 03/20/24 18:51 Total Protein 7.2 gm/dl (6.0-8.3) 03/20/24 18:51 Albumin 4.6 gm/dl (3.4-5.0) 03/20/24 18:51 Globulin 2.6 gm/dl (2.5-4.0) 03/20/24 18:51 Albumin/Globulin Ratio 1.8 (0.9-2) 03/20/24 18:51 Procalcitonin 0.20 ng/ml (0-0.5) 03/20/24 20:51 Urine Color Yellow 03/20/24 20:24 Urine Appearance Cloudy (Clear) A 03/20/24 20:24 Urine pH 5.5 (4.5-7.5) 03/20/24 20:24 Ur Specific [place] 1.020 (1.000-1.030) 03/20/24 20:24 Urine Protein 1+ (Negative) H 03/20/24 20:24 Urine Glucose (UA) Negative (Negative) 03/20/24 20:24 Urine Ketones Trace (Negative) H 03/20/24 20:24 Urine Blood 3+ (Negative) H 03/20/24 20:24 Urine Nitrite Positive (Negative) A 03/20/24 20:24 Urine Bilirubin Negative (Negative) 03/20/24 20:24 Urine Urobilinogen Negative (Negative) 03/20/24 20:24 Ur Leukocyte Esterase 3+ (Negative) H 03/20/24 20:24 Urine WBC (Auto) >50 /hpf (0-5) H 03/20/24 20:24 Urine RBC (Auto) >20 /hpf (0-2) H 03/20/24 20:24 U Hyaline Cast (Auto) 0-2 /lpf (0-2) 03/20/24 20:24 U Epithel Cells (Auto) 0-2 /hpf (0-2) 03/20/24 20:24 Urine Bacteria (Auto) 4+ (None Seen) H 03/20/24 20:24 Diagnostic Findings EKG as per my interpretation :
[2024-03-20] MEDS: POTASSIUM CHLORIDE CRTAB 20 MEQ TABCR PO STA (22:06)
[2024-03-20] MEDS ORDERED: PROMETHAZINE 6.25 MG/50.25 ML BAG IV PRN (22:08)
[2024-03-20] MEDS ORDERED: oxyCODONE HCL IR 5 MG TAB (IMMEDIATE RELEASE) PO PRN (22:08)
[2024-03-20 22:26] LABS: Creatine Kinase 150 U/L (30-223)
[2024-03-20] MEDS: OPTIRAY 320 100ml IV ONE (22:35)
[2024-03-20] MEDS ORDERED: GLUCOSE 40% GEL 15 GM TUBE PO PRN (23:13)
[2024-03-20] MEDS ORDERED: GLUCAGON FOR INJ 1 MG VIAL SQ PRN (23:13)
[2024-03-20] MEDS ORDERED: GLUCOSE 10 TAB/TUBE PO PRN (23:13)
[2024-03-20] MEDS ORDERED: DEXTROSE 50% 50 ML SYRINGE IV PRN (23:13)
[2024-03-20] MEDS ORDERED: CARBOHYDRATES FOR HYPOGLYCEMIA PO PRN (23:13)
[2024-03-20] MEDS: MAGNESIUM SULFATE / D5W 1 GM/100 ML BAG IV SCH (23:31)
[2024-03-20] MEDS: DOXYCYCLINE HYCLATE 100 MG in DEXTROSE 5% MINI-B 100 ML IV STA (23:31)
[2024-03-20] MEDS: INSULIN ASPART PER UNIT CHARGE SC SCH (23:50)
[2024-03-21] MEDS: ACETAMINOPHEN 325 MG TAB PO PRN (03:03)
[2024-03-21] MEDS: CEFEPIME 2000MG 2,000 MG/20 ML SYR IV SCH (03:03)
--- NOTE | 2024-03-21 03:04 | Emergency Department Note ---
Impression & Plan Acute UTI, Generalized weakness, Leukocytosis ED Provider Note CHIEF COMPLAINT: Stroke, fall HISTORY OF PRESENT ILLNESS: This 83 yo male patient with past medical history of hypertension, hyperlipidemia, diabetes, GERD presents to the emergency department with complaints of generalized weakness and a fall x 2 today. Patient states he fell into his recliner and did not get injured initially. He told his son about it. Son states he was resting comfortably in his chair did not seem to be injured, so he left him and went downstairs. Upon the son's return, the patient had fallen 1 more time. He fell against a piece of furniture with some discomfort along the left low back. Patient denies hitting his head, there has been no loss of consciousness. REVIEW OF SYSTEMS: A review of systems was performed with positives and pertinent negatives listed in the history of present illness. 10 systems were reviewed and are otherwise negative. ALLERGIES: see below MEDICATIONS: see below PMH: see below SOCIAL HISTORY: see below DDx: UTI, sepsis, PNA, viral etiology, dehydration, metabolic abnormality, among others PHYSICAL EXAM: Vital signs reviewed, noted to be febrile General: Well-appearing 83 yo male, in no significant distress. HEENT: No scleral icterus, PERRLA, neck supple. MMM. Cardiovascular: Regular rate and rhythm, no extra sounds. Pulmonary: Clear to auscultation bilaterally, normal work of breathing. Abdomen: Soft, nontender, nondistended, positive bowel sounds. Musculoskeletal: Atraumatic, no peripheral edema. Neurologic: Patient awake alert and oriented x 3, speech is clear Skin: Warm, dry, no rash EMERGENCY DEPARTMENT COURSE/MDM: This patient was evaluated and appeared to be in no significant distress. IV access was obtained and laboratory work was drawn which was placed on the cardiac sinus rhythm. He was febrile, blood cultures were obtained hydrated with normal saline solution. Patient was medicated with IV Zosyn after review of previous cultures. Patient's laboratory work reveals a WBC of 18.9, lactate of 1.5 and normal procalcitonin. Given the patient's fever, weakness and falls, case was discussed with the hospitalist service, Dr. Rodney was agreed to evaluate the patient for admission and further management. Patient and son at the bedside were informed of the findings and plan and agreed. MONITORING: An order for cardiac monitoring was placed and the patient is noted to be in a NSR at 84 beats per minute. EKG: This is my interpretation reveals a normal sinus rhythm at 96 bpm, right bundle branch block, left anterior fascicular block, QTc of 492. No PVC, no PAC. DISPOSITION: Admission Past Med/Surg History Problem List (Updated 03/22/24 @ 00:52 by Edyta Stafford MD) Acute UTI (Acute) Sepsis Confusion Leukocytosis (Acute) Ambulatory dysfunction (Acute) Generalized weakness (Acute) Heart disease (Chronic) Medical History Hypertension Diabetes Family History Other Family history non-contributory Social History Smoking Status: Former smoker Tobacco Type: Cigarettes Smoking End Date: 2006; Second Hand Exposure: No; Do You Dip or Chew Tobacco: No; Hx Alcohol Use: Yes Alcohol type: beer Hx Substance Use: No Preferred Language: Fijian Communication Ability: Effective Infant Babysitter Required: No Beliefs That Will Affect Care: None Current Living Situation: Family Current Living Situation Comment: Lives in same building as son & daughter in law Other Information That Helps Us Care for You: No Feels Safe at Home: Yes Safety Concerns: Feels Safe At This Time Assistive Devices: Cane and Walker Allergies Allergies Allergy/AdvReac Type Severity Reaction Status Date / Time hydrochlorothiazide AdvReac Mild Cough Verified 03/20/24 22:22 irbesartan AdvReac Mild Cough Verified 03/20/24 22:22 Home Meds Home Medications Medication Instructions Recorded Confirmed amlodipine 5 mg tablet 5 mg PO QAM 12/24/23 03/20/24 aspirin 81 mg chewable tablet 81 mg PO DAILY 12/24/23 03/20/24 atorvastatin 40 mg tablet 40 mg PO QAM 12/24/23 03/20/24 cholecalciferol (vitamin D3) 50 50 mcg PO DAILY 12/24/23 03/20/24 mcg (2,000 unit) tablet (Vitamin D3) clopidogrel 75 mg tablet 75 mg PO .[id number] 12/24/23 03/20/24 hydralazine 10 mg tablet 20 mg PO QAM 12/24/23 03/20/24 hydrochlorothiazide 25 mg tablet 25 mg PO QAM 12/24/23 03/20/24 metformin 500 mg tablet,extended 1,000 mg PO QAM 12/24/23 03/20/24 release 24 hr metoprolol succinate 25 mg 25 mg PO QAM 12/24/23 03/20/24 tablet,extended release 24 hr pantoprazole 40 mg tablet,delayed 40 mg PO QAM 12/24/23 03/20/24 release Lactobacillus acidophilus 250 10,000 mmu cells PO DAILY 03/20/24 03/20/24 million cell capsule (Probiotic Acidophilus) guaifenesin 600 mg tablet, 600 mg PO AMHS 03/20/24 03/20/24 extended release 12 hr melatonin 3 mg tablet 6 mg PO HS 03/20/24 03/20/24 multivitamin with minerals 1 tab PO QAM 03/20/24 03/20/24 (Multiple Vitamin-Minerals tablet) Previous Rx's Medication Instructions Recorded polyethylene glycol 3350 17 gram 17 g PO DAILY PRN constipation #20 12/31/23 oral powder packet (Miralax) ea Results & Data (ED) Vital Signs Vital Signs - 24 hr 03/20/24 18:23 03/20/24 19:17 03/20/24 19:21 Temperature 36.8 C Temperature Source Temporal Artery Scan Pulse Rate 109 H 100 H Pulse Rate [Apical] 96 H Respiratory Rate 18 20 Respiratory Effort / Characteristics Non-Labored Spontaneous Respiratory Depth Normal Blood Pressure 143/63 H Blood Pressure [Left Arm] 137/78 Blood Pressure Mean 89 Blood Pressure Mean [Left Arm] 97 Pulse Oximetry 93 94 Oxygen Delivery Method Room Air Sepsis Recent Fever Within 48 Hours No Sepsis New/Unexplained Change in Mental Status No Sepsis Action Taken by Nursing No Action Required 03/20/24 21:21 Temperature Temperature Source Pulse Rate Pulse Rate [Apical] 86 Respiratory Rate 18 Respiratory Effort / Characteristics Respiratory Depth Blood Pressure Blood Pressure [Left Arm] 129/68 Blood Pressure Mean Blood Pressure Mean [Left Arm] 88 Pulse Oximetry 95 Oxygen Delivery Method Sepsis Recent Fever Within 48 Hours Sepsis New/Unexplained Change in Mental Status Sepsis Action Taken by Usp Medications Current Medication List: was personally reviewed by me Laboratory Data Attestation: I reviewed the patient's lab results. 03/21/24 05:29 03/21/24 05:29 Lab Results 03/20/24 03/20/24 03/20/24 Range/Units 18:51 20:24 20:51 WBC 18.59 H (4.8-10.8) K/ul RBC 4.91 (4.70-6.10) M/uL Hgb 14.6 (14.0-18.0) g/dl Hct 42.8 (42.0-52.0) % MCV 87.2 (80.0-100.0) fL MCH 29.7 (25.0-34.0) pg MCHC 34.1 (32.0-36.0) g/dL RDW Std Deviation 43.9 (36.4-46.3) fL RDW Coeff of Chinmay 13.7 (11.5-14.5) % Plt Count 253 (130-400) K/uL MPV 10.7 (9.4-12.4) fL Immature Gran % (Auto) 0.4 % Neut % (Auto) 92.1 % Lymph % (Auto) 2.6 % [place] % (Auto) 4.6 % Eos % (Auto) 0.1 % Baso % (Auto) 0.2 % Neut # (Auto) 17.11 H (1.40-6.50) K/uL Lymph # (Auto) 0.49 L (1.20-3.40) K/uL [place] # (Auto) 0.85 H (0.11-0.59) K/uL Eos # (Auto) 0.02 (0.00-0.50) K/uL Baso # (Auto) 0.04 (0.00-0.20) K/uL Immature Gran # (Auto) 0.08 (0.01-0.20) K/uL Sodium 139 (136-145) mmol/L Potassium 3.3 L (3.5-5.1) mmol/L Chloride 101 (98-107) mmol/L Carbon Dioxide 27 (21-32) mmol/L Anion Gap 11 (3-11) BUN 22 (6-23) mg/dl Creatinine 1.10 (0.6-1.4) mg/dl Est Cr Clr Drug Dosing Not Reportable eGFR 66.61 BUN/Creatinine Ratio 20.0 (10-20) Glucose 209 H (70-99(Fasting)) mg/dl Lactate (0.4-2.0) mmol/L Calcium 10.2 (8.6-10.3) mg/dl Magnesium 1.4 L (1.7-2.4) mg/dl Total Bilirubin 1.1 H (0.2-1.0) mg/dl AST 17 (13-39) U/L ALT 24 (7-52) U/L Alkaline Phosphatase 47 (34-104) U/L Total Creatine Kinase 150 (30-223) U/L Total Protein 7.2 (6.0-8.3) gm/dl Albumin 4.6 (3.4-5.0) gm/dl Globulin 2.6 (2.5-4.0) gm/dl Albumin/Globulin Ratio 1.8 (0.9-2) Procalcitonin 0.20 (0-0.5) ng/ml Urine Color Yellow Urine Appearance Cloudy A (Clear) Urine pH 5.5 (4.5-7.5) Ur Specific [place] 1.020 (1.000-1.030) Urine Protein 1+ H (Negative) Urine Glucose (UA) Negative (Negative) Urine Ketones Trace H (Negative) Urine Blood 3+ H (Negative) Urine Nitrite Positive A (Negative) Urine Bilirubin Negative (Negative) Urine Urobilinogen Negative (Negative) Ur Leukocyte Esterase 3+ H (Negative) Urine WBC (Auto) >50 H (0-5) /hpf Urine RBC (Auto) >20 H (0-2) /hpf U Hyaline Cast (Auto) 0-2 (0-2) /lpf U Epithel Cells (Auto) 0-2 (0-2) /hpf Urine Bacteria (Auto) 4+ H (None Seen) Enterobacterales (PCR) (NotDetected) E. coli (PCR) (NotDetected) mcr-1 Colistin Res Gene PCR (NotDetected) blaIMP Car res Gene PCR (NotDetected) KPC-Carbap Res Gene PCR (NotDetected) blaNDM Car Res Gene PCR (NotDetected) OXA-48 Carbapenem Resis Gene (PCR) (NotDetected) blaVIM Car Res Gene PCR (NotDetected) CTX-M Gene Resistance (PCR) (NotDetected) Bld Cult ID Panel PCR (NotDetected) 03/20/24 03/20/24 Range/Units 20:56 21:25 WBC (4.8-10.8) K/ul RBC (4.70-6.10) M/uL Hgb (14.0-18.0) g/dl Hct (42.0-52.0) % MCV (80.0-100.0) fL MCH (25.0-34.0) pg MCHC (32.0-36.0) g/dL RDW Std Deviation (36.4-46.3) fL RDW Coeff of Chinmay (11.5-14.5) % Plt Count (130-400) K/uL MPV (9.4-12.4) fL Immature Gran % (Auto) % Neut % (Auto) % Lymph % (Auto) % [place] % (Auto) % Eos % (Auto) % Baso % (Auto) % Neut # (Auto) (1.40-6.50) K/uL Lymph # (Auto) (1.20-3.40) K/uL [place] # (Auto) (0.11-0.59) K/uL Eos # (Auto) (0.00-0.50) K/uL Baso # (Auto) (0.00-0.20) K/uL Immature Gran # (Auto) (0.01-0.20) K/uL Sodium (136-145) mmol/L Potassium (3.5-5.1) mmol/L Chloride (98-107) mmol/L Carbon Dioxide (21-32) mmol/L Anion Gap (3-11) BUN (6-23) mg/dl Creatinine (0.6-1.4) mg/dl Est Cr Clr Drug Dosing eGFR BUN/Creatinine Ratio (10-20) Glucose (70-99(Fasting)) mg/dl Lactate 1.5 (0.4-2.0) mmol/L Calcium (8.6-10.3) mg/dl Magnesium (1.7-2.4) mg/dl Total Bilirubin (0.2-1.0) mg/dl AST (13-39) U/L ALT (7-52) U/L Alkaline Phosphatase (34-104) U/L Total Creatine Kinase (30-223) U/L Total Protein (6.0-8.3) gm/dl Albumin (3.4-5.0) gm/dl Globulin (2.5-4.0) gm/dl Albumin/Globulin Ratio (0.9-2) Procalcitonin (0-0.5) ng/ml Urine Color Urine Appearance (Clear) Urine pH (4.5-7.5) Ur Specific [place] (1.000-1.030) Urine Protein (Negative) Urine Glucose (UA) (Negative) Urine Ketones (Negative) Urine Blood (Negative) Urine Nitrite (Negative) Urine Bilirubin (Negative) Urine Urobilinogen (Negative) Ur Leukocyte Esterase (Negative) Urine WBC (Auto) (0-5) /hpf Urine RBC (Auto) (0-2) /hpf U Hyaline Cast (Auto) (0-2) /lpf U Epithel Cells (Auto) (0-2) /hpf Urine Bacteria (Auto) (None Seen) Enterobacterales (PCR) DETECTED A (NotDetected) E. coli (PCR) DETECTED A (NotDetected) mcr-1 Colistin Res Gene PCR Not Detected (NotDetected) blaIMP Car res Gene PCR Not Detected (NotDetected) KPC-Carbap Res Gene PCR Not Detected (NotDetected) blaNDM Car Res Gene PCR Not Detected (NotDetected) OXA-48 Carbapenem Resis Gene (PCR) Not Detected (NotDetected) blaVIM Car Res Gene PCR Not Detected (NotDetected) CTX-M Gene Resistance (PCR) Not Detected (NotDetected) Bld Cult ID Panel PCR See PCR Comment (NotDetected) Administered Medications Acetaminophen (Acetaminophen 325 Mg Tab) 650 mg PO QID PRN PRN Reason: pain/fever Stop: 04/19/24 22:07 Last Admin: 03/21/24 09:09 Dose: 650 mg Documented By: Admin: 03/21/24 03:03 Dose: 650 mg Documented By: TERRY Amlodipine Besylate (Amlodipine Besylate 5 Mg Tab) 2.5 mg PO [facility] Stop: 04/20/24 08:59 Last Admin: 03/21/24 09:08 Dose: 2.5 mg Documented By: LAMONT Aspirin (Aspirin 81 Mg Ectab) 81 mg PO DAILY [facility] Stop: 04/20/24 08:59 Last Admin: 03/21/24 09:08 Dose: 81 mg Documented By: LAMONT Atorvastatin Calcium (Atorvastatin 40 Mg Tab) [facility] Stop: 04/20/24 08:59 Last Admin: 03/21/24 09:07 Dose: 40 mg Documented By: LAMONT Doxycycline Hyclate (Doxycycline Hyclate 100 Mg Cap) 100 mg PO BID [facility] Stop: 03/28/24 08:59 Last Admin: 03/21/24 22:04 Dose: 100 mg Documented By: Admin: 03/21/24 09:08 Dose: 100 mg Documented By: LAMONT Enoxaparin Sodium (Enoxaparin Inj 40 Mg/0.4 Ml Syr) 40 mg SQ QAM [facility] Stop: 04/20/24 08:59 Last Admin: 03/21/24 09:06 Dose: 40 mg Documented By: LAMONT Guaifenesin (Guaifenesin 600 Mg Tabcr) 600 mg PO Q12 [facility] Stop: 04/20/24 20:59 Last Admin: 03/21/24 22:04 Dose: 600 mg Documented By: TERRY Hydralazine HCl (Hydralazine 10 Mg Tab) 20 mg PO QAM [facility] Stop: 04/20/24 08:59 Last Admin: 03/21/24 09:08 Dose: 20 mg Documented By: LAMONT Cefepime HCl (Maxipime 2000mg) 2,000 mg in 20 mls @ 5 mls/min IV Q12H [facility]; Protocol Stop: 03/31/24 03:59 Last Admin: 03/21/24 16:03 Dose: 5 mls/min Documented By: Admin: 03/21/24 03:03 Dose: 5 mls/min Documented By: TERRY Insulin Aspart (Insulin Aspart Per Unit Charge) 0 units SC ACHS [facility] Stop: 04/19/24 23:12 Last Admin: 03/21/24 21:46 Dose: Not Given Documented By: Admin: 03/21/24 17:58 Dose: 3 units Documented By: LAMONT Co-signed By: ELSY Admin: 03/21/24 13:04 Dose: 4 units Documented By: LAMONT Co-signed By: ELSY Admin: 03/21/24 09:05 Dose: 2 units Documented By: LAMONT Co-signed By: ELSY Admin: 03/20/24 23:50 Dose: 2 units Documented By: TERRY Co-signed By: MARILYN Insulin Glargine (Lantus Per Unit Charge) 5 units SQ DAILY [facility] Stop: 04/20/24 08:59 Last Admin: 03/21/24 09:05 Dose: 5 units Documented By: LAMONT Co-signed By: SHRUTHI Lactobacillus Acidophilus (Advanced Probiotic 625 Mg Capsule) 1,250 mg PO DAILY [facility] Stop: 04/20/24 08:59 Last Admin: 03/21/24 09:07 Dose: 1,250 mg Documented By: LAMONT Magnesium Chloride (Magnesium Chloride W/Calcium 64mg Delayed Rel Tab) 64 mg PO BID [facility] Stop: 04/20/24 08:59 Last Admin: 03/21/24 22:04 Dose: 64 mg Documented By: Admin: 03/21/24 09:07 Dose: 64 mg Documented By: LAMONT Metoprolol Succinate (Metoprolol Succ 25mg Ext Rel Tab) 25 mg PO QAM [facility] Stop: 04/20/24 08:59 Last Admin: 03/21/24 09:08 Dose: 25 mg Documented By: LAMONT Multivitamins/Minerals (Cerovite Adv Formula Tab) 1 tab PO QAM [facility] Stop: 04/20/24 08:59 Last Admin: 03/21/24 09:08 Dose: 1 tab Documented By: LAMONT Pantoprazole Sodium (Pantoprazole 40 Mg Tab) 40 mg PO QAM [facility] Stop: 04/20/24 08:59 Last Admin: 03/21/24 09:08 Dose: 40 mg Documented By: LAMONT Discontinued Medications Piperacillin Sod/Tazobactam Sod (Zosyn) 4.5 gm in 100 mls @ 200 mls/hr IV NOW ONE; Protocol Stop: 03/20/24 21:20 Last Infusion: 03/20/24 22:03 Dose: Infused Documented By: Admin: 03/20/24 21:26 Dose: 200 mls/hr Documented By: ARNULFO Sodium Chloride (Nss) 500 mls @ 999 mls/hr IV .Q31M ONE Stop: 03/20/24 21:21 Last Infusion: 03/20/24 22:03 Dose: Infused Documented By: Admin: 03/20/24 21:05 Dose: 999 mls/hr Documented By: ARNULFO Doxycycline Hyclate 100 mg/ (Dextrose) 100 mls @ 50 mls/hr IV NOW STA Stop: 03/21/24 00:04 Last Infusion: 03/21/24 01:27 Dose: Infused Documented By: Admin: 03/20/24 23:31 Dose: 50 mls/hr Documented By: TERRY Magnesium Sulfate/Dextrose (Magnesium Sulfate / D5w) 1 gm in 100 mls @ 50 mls/hr IV Q2H [facility] Stop: 03/21/24 02:14 Last Infusion: 03/21/24 03:09 Dose: Infused Documented By: Admin: 03/21/24 01:04 Dose: 50 mls/hr Documented By: Infusion: 03/21/24 01:04 Dose: Infused Documented By: Admin: 03/20/24 23:31 Dose: 50 mls/hr Documented By: TERRY Ioversol (Optiray 320 100ml) 94 ml IV ONCE ONE Stop: 03/20/24 22:36 Last Admin: 03/20/24 22:35 Dose: 94 ml Documented By: STUARTB Potassium Chloride (Potassium Chloride Crtab 20 Meq Tabcr) 40 meq PO NOW STA Stop: 03/20/24 21:26 Last Admin: 03/20/24 22:06 Dose: 40 meq Documented By: ARNULFO Potassium Chloride (Potassium Chloride Crtab 20 Meq Tabcr) 40 meq PO ONE ONE Stop: 03/21/24 08:11 Last Admin: 03/21/24 09:10 Dose: 40 meq Documented By: LAMNOT Discharge Plan Visit Data Chief Complaint: Testing Request Stated Complaint: FALLING, NAUSEA, WEAKNESS, UTI ED Provider: Edyta Stafford Discharge Problem: Acute UTI, Generalized weakness, Leukocytosis Patient Disposition: Admitted As Inpatient Discharge Instructions Interventions: ED Discharge Assessment Last Done: 03/20/24 22:51 Discharge Problem: Leukocytosis Qualifiers: Leukocytosis type: other Qualified Code(s): D72.828 - Other elevated white blood cell count
--- NOTE | 2024-03-21 03:07 | Ultrasound Report ---
Exam(s): US VENOUS LEFT LOWER EXTREMITY EXAM: US Duplex Left Lower Extremity Veins CLINICAL HISTORY: Reason for exam: swelling. TECHNIQUE: Real-time duplex ultrasound scan of the left lower extremity veins integrating B-mode two-dimensional vascular structure, Doppler spectral analysis, color flow Doppler imaging and compression. COMPARISON: No relevant prior studies available. FINDINGS: Deep veins: Unremarkable. No DVT in the visualized common femoral, femoral, proximal deep femoral or popliteal veins. The veins demonstrate normal color flow, are normally compressible, with normal phasic flow and/or augmentation response. Superficial veins: Unremarkable. No thrombus in the visualized great saphenous vein. Soft tissues: No acute findings. No popliteal cyst. IMPRESSION: Normal left lower extremity duplex venous ultrasound. Electronically signed by: Jamel Martin MD 03/21/24 03:06 AM
--- NOTE | 2024-03-21 03:28 | CT Scan Report ---
Exam(s): CT EXTREMITY LEFT LOWER With Contrast IV Amt: 94ml optiray 320 EXAM: CT Left Lower Extremity With Intravenous Contrast CLINICAL HISTORY: Reason for exam: swelling, wound. TECHNIQUE: Axial computed tomography images of the left lower extremity with intravenous contrast. CTDI is 6 mGy and DLP is 282 mGy-cm. Automated exposure control was utilized for the study. A dose lowering technique was utilized adhering to the principles of ALARA. CONTRAST: Patient received 94ml optiray 320 of IV contrast COMPARISON: No relevant prior studies available. FINDINGS: Bones/joints: Unremarkable. No acute fracture. No dislocation. Soft tissues: Diffuse soft tissue swelling with skin thickening within the visualized left lower extremity. Findings may be due to cellulitis. No visualized abscess detected. Vasculature: Atherosclerotic disease. IMPRESSION: 1. Diffuse soft tissue swelling with skin thickening within the visualized left lower extremity. Findings may be due to cellulitis. No visualized abscess detected. 2. If there is further concern for osteomyelitis, consider MRI. Electronically signed by: Balta Johnson MD 03/21/24 03:27 AM
[2024-03-21 06:23] LABS: Basophils # (auto) 0.03 K/uL (0.00-0.20); Basophils % (auto) 0.2 %; Eosinophils # (auto) 0.01 K/uL (0.00-0.50); Eosinophils % (auto) 0.1 %; Hematocrit (blood only) 38.2 % (42.0-52.0); Hemoglobin 13.1 g/dl (14.0-18.0); Immature Granulocytes # (auto) 0.04 K/uL (0.01-0.20); Immature Granulocytes % (auto) 0.3 %; Lymphocytes # (auto) 0.77 K/uL (1.20-3.40); Lymphocytes % (auto) 5.8 %; Mean Corpuscular Hemoglobin 29.7 pg (25.0-34.0); Mean Corpuscular Hgb Conc 34.3 g/dL (32.0-36.0); Mean Corpuscular Volume 86.6 fL (80.0-100.0); Monocytes # (auto) 0.78 K/uL (0.11-0.59); Monocytes % (auto) 5.8 %; Neutrophils # (auto) 11.74 K/uL (1.40-6.50); Neutrophils % (auto) 87.8 %; Platelet Count 222 K/uL (130-400); RDW Coefficient of Variation 13.9 % (11.5-14.5); RDW Standard Deviation 44.3 fL (36.4-46.3); Red Blood Count 4.41 M/uL (4.70-6.10); White Blood Count 13.37 K/ul (4.8-10.8)
[2024-03-21 06:39] LABS: Calcium 9.4 mg/dl (8.6-10.3); Creatinine Clr Calc Pharmacy 49.8 ml/min; Potassium 3.3 mmol/L (3.5-5.1)
[2024-03-21] MEDS: LANTUS PER UNIT CHARGE SQ SCH (09:05)
[2024-03-21] MEDS: ENOXAPARIN INJ 40 MG/0.4 ML SYR SQ SCH (09:06)
[2024-03-21] MEDS: ATORVASTATIN 40 MG TAB PO SCH (09:07)
[2024-03-21] MEDS: ADVANCED PROBIOTIC 625 MG CAPSULE PO SCH (09:07)
[2024-03-21] MEDS: MAGNESIUM CHLORIDE W/CALCIUM 64MG DELAYED REL TAB PO SCH (09:07)
[2024-03-21] MEDS: METOPROLOL SUCC 25MG EXT REL TAB PO SCH (09:08)
[2024-03-21] MEDS: amLODIPine BESYLATE 5 MG TAB PO SCH (09:08)
[2024-03-21] MEDS: PANTOprazole 40 MG TAB PO SCH (09:08)
[2024-03-21] MEDS: hydrALAZINE 10 MG TAB PO SCH (09:08)
[2024-03-21] MEDS: CEROVITE ADV FORMULA TAB PO SCH (09:08)
[2024-03-21] MEDS: DOXYCYCLINE HYCLATE 100 MG CAP PO SCH (09:08)
[2024-03-21] MEDS: ASPIRIN 81 MG ECTAB PO SCH (09:08)
[2024-03-21] MEDS: POTASSIUM CHLORIDE CRTAB 20 MEQ TABCR PO ONE (09:10)
--- OUTSIDE RECORDS SUMMARY | 2024-03-21 09:54 | External Medical Summary | Summary of Care ---
Author Name Unknown Organization [facility] Address [address] [place] [facility] [place] [address] Phone [phone] Care Team Providers Care Flat Machine Cutter Name Role Phone KelvinTristin godoy Primary Care Provider [phone] Reason for Visit * Reason Onset Date Comments Skilled Visit 01/03/2024 Encounter Details Date Type Department Care Team (Late st Contact Info) Description 01/03/2024 10:00 AM EDT Group Home Visit [facility] [address] [place] [address] Bobbi Olivares PA-C [address] [place] [address] Neurologic gait dysfunction*; Recurrent falls; Left foot drop; Acute cystitis without hematuria Allergies Active Allergy Reactions Criticality Noted Date Comments Irbesartan-Hydrochloro thiazide 10/14/2014 Cough - TOLERATES HYDROCHLOROTHIAZIDE Irbesartan Low 11/09/2018 Other reaction(s): Cough documented as of this encounter (statuses as of 01/03/2024) Medications Medication Sig Dispensed Refills Start Date End Date Status Cholecalciferol (VITAMIN D3) 2000 UNITS Capsule Take 1 Capsule by mouth in the morning. Active Multiple Vitamins-Minerals (MULTIVITAL) Tablet Take 1 Tablet by mouth in the morning. Active Blood Glucose Monitoring Suppl (RushFiles ULTRA SYSTEM) W/DEVICE KIT Use as directed 4 times a day as needed for Hyperglycemia (high sugar) or Hypoglycemia (low sugar). Use up to four times a day as directed 1 Kit 11/02/2016 Active SM ASPIRIN ADULT LOW STRENGTH 81 MG TBECIndications:Type 2 diabetes mellitus with hemoglobin A1c goal of less than 8.0% (HCC) TAKE 1 TABLET BY MOUTH EVERY DAY 100 Tab 3 05/27/2018 Active Clotrimazole 1 % External Solution (Mycelex) APPLY SMALL AMOUNT TO SKIN TWICE A DAY . APPLY SMALL AMOUNT TO TOENAILS TWICE DAILY FOR TINEA UNGUIUM 02/29/2020 Active Editas MedicineTouch Ultra In Vitro Strip (Glucose Blood) USE DIRECTED FOUR TIMES DAILY NEEDED FOR HYPERGLYCEMIA (HIGH SUGAR) OR HYPOGLYCEMIA (LOW SUGAR) 400 Strip 3 01/23/2022 Active Editas MedicineTouch Delica Plus [id number] USE TO TEST BLOOD SUGAR FOUR TIMES DAILY DIRECTED FOR HYPERGLYCEMIA OR HYPOGLYCEMIA 400 Each 3 11/22/2022 Active Atorvastatin Calcium 40 MG Oral Tablet (Lipitor)Indications :Dyslipidemia, goal to be determined TAKE 1 TABLET BY MOUTH EVERY MORNING 90 Tablet 3 04/05/2023 Active Pantoprazole Sodium 40 MG Oral Tablet Delayed Release (Protonix)Indication s:Gastroesophageal reflux disease without esophagitis TAKE 1 TABLET BY MOUTH EVERY MORNING 90 Tablet 3 04/05/2023 Active Metoprolol Succinate ER 25 MG Oral Tablet Extended Release 24 Hour (toPROL XL)Indications:HTN, goal below 130/80 TAKE 1 TABLET BY MOUTH EVERY MORNING 90 Tablet 3 04/05/2023 Active hydrALAZINE HCl 10 MG Oral Tablet (Apresoline) 2 Tablets in the morning. 06/19/2023 Active metFORMIN HCl ER 500 MG Oral Tablet Extended Release 24 Hour (Glucophage XR)Indications:Type 2 diabetes mellitus with hemoglobin A1c goal of less than 8.0% (HCC) TAKE 2 TABLETS BY MOUTH EVERY MORNING 180 Tablet 3 09/06/2023 Active hydroCHLOROthiazide 25 MG Oral Tablet (Hydrodiuril)Indicat ions:HTN, goal below 140/90 TAKE 1 TABLET BY MOUTH EVERY MORNING 90 Tablet 3 09/06/2023 Active amLODIPine Besylate 5 MG Oral Tablet (Norvasc)Indications :HTN, goal below 140/90 TAKE 1 TABLET BY MOUTH EVERY DAY IN THE MORNING 90 Tablet 3 09/06/2023 Active Probiotic 250 MG Oral Capsule Take by mouth. Active Clopidogrel Bisulfate 75 MG Oral Tablet (pLAVix)Indications: Stenosis of carotid artery, unspecified laterality,Cerebrova scular disease, arteriosclerotic, post-stroke TAKE 1 TABLET BY MOUTH EVERY DAY EXCEPT FOR SATURDAYS AND SUNDAYS 90 Tablet 2 10/16/2023 Active Cefdinir 300 MG Oral Capsule (Omnicef) TAKE 1 CAPSULE BY MOUTH TWO TIMES DAILY FOR 10 DAYS 11/27/2023 Active Dexcom G7 SensorIndications:Ty pe 2 diabetes mellitus without complication, without long-term current use of insulin (HCC) Use as directed every 10 days. E11.9 1 Each 3 12/13/2023 Active Dexcom G7 Chin Strap Cutter DeviceIndications:Ty pe 2 diabetes mellitus without complication, without long-term current use of insulin (HCC) Use as directed. E11.9 1 Each 3 12/13/2023 Active guaiFENesin ER 600 MG Oral Tablet Extended Release 12 Hour (Humibid LA) Take 1 Tablet by mouth in the morning and 1 Tablet before bedtime. 01/02/2024 Active Melatonin 3 MG Oral Tablet Disintegrating Take 6 mg by mouth every night at bedtime. 01/02/2024 Active documented as of this encounter (statuses as of 01/03/2024) Active Problems Problem Noted Date Diagnosed Date Ground glass opacity present on imaging of lung 01/02/2024 Overview: Repeat CT scan of chest recommended in 3-4 months for RUL groundglass opacity on CT scan 12/24/23 History of tobacco use 01/02/2024 Urothelial carcinoma of bladder 12/13/2023 Hematuria, gross 09/23/2023 Type 2 diabetes mellitus wit hout complication, without long-term current use of insulin 11/26/2016 Hemiparesis affecting left s marianne as late effect of cerebrovascular accident 11/26/2016 Diverticulosis of large intestine without hemorr lexus 01/26/2015 Advanced directives, counseling/discussion 11/16 Carotid artery stenosis 11/09/2014 Dyslipidemia, goal to be determined 11/09/2014 Cerebrovascular disease, arteriosclerotic, post- stroke 10/14/2014 HTN, goal below 140/90 10/14/2014 Neurologic gait dysfunction GERD (gastroesophageal reflux disease) documented as of this encounter (statuses as of 01/03/2024) Resolved Problems Problem Noted Date Diagnosed Date Resolved Date Bladder tumor 09/23/2023 01/02/2024 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) 11/16/2021 03/06/2022 Bereavement, uncomplicated 08/08/2021 1 05/06/2021 Weakness of left side of body 10/14/2014 11/26/2016 documented as of this encounter (statuses as of 01/03/2024) Immunizations Name Administration Dates Next Due COVID-19 mRNA, LNP-s, No Pre serve, 2-Dose Series (Pfizer) 01/30/2021,07/12/2020,06/14/2020 Covid-19, Mrna, Lnp-s, Pf, B ivalent, 30 Mcg, IM, 12 yrs and above (Pfizer) 05/31/2022 Pneumococcal Conjugate Vacc, 13 Valent (Prevnar) 11/16/2014 Pneumococcal Polysaccharide PPV23 (Pneumovax) 12/08/2015 Season Influenza, Quad, PF, Adjuvanted, 65+ Yrs, IM (FLUAD) 02/12/2020 Seasonal Influenza, High Dos e, Trivalent, PF, IM (Fluzone HD) 01/21/2019 Seasonal Influenza, PF, 6 M & above, IM , (FluLaval or Fluzone) 01/04/2021,04/09/2017 Seasonal Influenza, Quadriva lent Hd, 65+ Yrs 02/04/2023,01/03/2022 Seasonal Influenza, Quadriva lent, No Preserve, IM 03/20/2016 Seasonal Influenza, Trivalen t, (IIV3), with Preserv, (Fluzone) 01/26/2015 Seasonal Influenza, Trivalen t, Adjuvanted, 65+ YRS, PF, (Fluad) 02/08/2018 TDAP (age 10 and older)(Boostrix) 11/09/2018, Zoster [...] 9:20 AM EST Sexual Orientation Straight 03/21/2022 8 :58 AM EST Job Start Date Occupation Industry Not on file Not on file Not on file documented as of this encounter Last Filed Vital Signs Vital Sign Reading Time Taken Comments Blood Pressure 149/63 01/03/2024 5:19 PM EDT Pulse 68 01/03/2024 5:19 PM EDT Temperature 36.2 C (97.2 F) 01/03/2024 5:19 PM ED T Respiratory Rate 18 01/03/2024 5:19 PM EDT Oxygen Saturation 95% 01/03/2024 5:19 PM EDT room air Inhaled Oxygen Concentration - - Weight - - Height - - Body Mass Index - - documented in this encounter Plan of Treatment Upcoming Encounters Date Type Department Care Team (Late st Contact Info) Description 04/08/2024 9:00 AM EST Procedure Only Urology, [facility] [address] [place] [address] Colby Ellison MD [address] [place] [address] 04/15/2024 12:30 PM EST Office Visit Dermatology, Marcelle SilvaJanet [address] [place] [address] Alexsandra Márquez PA-C [address] [place] [address] 07/13/2024 8:20 AM EDT Office Visit Family Practice [facility] [place] [address] [facility] [place] [address] Tristin Osorio DO [address] [facility] [place] [address] Health Maintenance Due Date Last Done Comments Albumin/Creatinine Ratio 12/25/20222 022, 03/14/2020, 10/14/2018, Additional history exists Adult [...] 12/13/2023, 09/03, 12/25/2021, Additional history exists GFR 01/01/2025 01/02/2024, /01/2024, 06/19/2023, Additional history exists DTap/Tdap Vaccines (3 - Td or Tdap) 11/09/2028 [...] as of this encounter Visit Diagnoses Diagnosis Neurologic gait dysfunction- Primary Abnormality of gait Recurrent falls Personal history of fall Left foot drop Other acquired deformity of ankle and foot Acute cystitis without hematuria Acute cystitis documented in this encounter Advance Directives Documents on File Type Date Recorded Patient Title Closer Expl anation Advance Directives and Living Will [...] Advance Directives occurred with: Patient Care Teams Flat Machine Cutter Relationship Specialty Start Date End Date Tristin Osroio DO [facility] [place] [address] PCP - General Family Medicine 10/23/16 documented as of this encounter
--- OUTSIDE RECORDS SUMMARY | 2024-03-21 09:54 | External Medical Summary ---
Author Name Unknown Address Unknown Organization [id number]:[facility] [place] [address] [place] [address] Laboratory Report Ordering Provider Test Date Status JESSIE WYLIE 01/02/2024 05:30:00 Final Observation Date Value Abnormality Reference (Units ) Status WBC, Total 01/02/2024 05:30:00 15.78 Above high normal 4 .00-10.80 (K/uL) Final RBC 01/02/2024 05:30:00 4.51 4.50-5.25 (M/uL) Final Hemoglobin 01/02/2024 05:30:00 13.5 Below low normal 14 .0-16.8 (g/dL) Final HCT 01/02/2024 05:30:00 41.6 40.0-48.4 (%) Final MCV 01/02/2024 05:30:00 92.2 82.0-99.5 (fL) Final MCH 01/02/2024 05:30:00 29.9 27.0-34.0 (pg) Final MCHC 01/02/2024 05:30:00 32.5 32.0-36.0 (g/dL) Final RDW 01/02/2024 05:30:00 14.6 11.5-15.5 (%) Final Platelets 01/02/2024 05:30:00 422 Above high normal 14 0-400 (K/uL) Final MPV 01/02/2024 05:30:00 10.4 6.6-11.1 ( fL) Final Performing Location [facility] [place] [address] [place] [address]
--- OUTSIDE RECORDS SUMMARY | 2024-03-21 09:54 | External Medical Summary ---
Author Name Unknown Address Unknown [facility] [facility] [address] [place] [address] Laboratory Report Ordering Provider Test Date Status JESSIE WYLIE 01/09/2024 05:42:00 Final Observation Date Value Abnormality Reference (Units ) Status SYNC LEUKOCYTES IN BLOOD BY AUTOMATED COUNT 01/09/2024 05:42:00 9.63 4.00-10.80 (K/uL) Final Segs 01/09/2024 05:42:00 64.5 40.0-75.0 (%) Final Lymphs % 01/09/2024 05:42:00 21.6 18.0-42.0 (%) Final Monos 01/09/2024 05:42:00 9.7 1.0-11.0 (%) Final Eosinophils 01/09/2024 05:42:00 3.8 0.0-6.0 (%) Final Basos 01/09/2024 05:42:00 0.4 0.0-2.0 (%) Final Absolute Segs 01/09/2024 05:42:00 6.21 1.80-7.70 (K/uL) Final Lymphs, absolute 01/09/2024 05:42:00 2.08 1.00-4.80 (K/ul) Final Monos, Abs 01/09/2024 05:42:00 0.93 0.00-1.10 (K/uL) Final Eos, Abs 01/09/2024 05:42:00 0.37 0.00-0.70 (K/uL) Final Basos, Abs 01/09/2024 05:42:00 0.04 0.00-0.20 (K/uL) Final Performing Location [facility]ORY [facility] [place] [address] [place] [address]
--- OUTSIDE RECORDS SUMMARY | 2024-03-21 09:54 | External Medical Summary | Summary of Care ---
Author Name Unknown Organization [facility] Address [address] [place] [facility] [place] [address] Phone [phone] Care Team Providers Care Sole Inker Name Role Phone KelvinTristin godoy Primary Care Provider [phone] Reason for Visit * Reason Onset Date Comments Skilled Visit 01/01/2024 Encounter Details Date Type Department Care Team (Late st Contact Info) Description 01/01/2024 10:00 AM EDT Jail Visit [facility] [address] [place] [address] Bobbi Olivares PA-C [address] [place] [address] Recurrent falls*; Neurologic gait dysfunction; Left foot drop; Acute cystitis with hematuria; Urothelial carcinoma of bladder (HCC); HTN, goal below 140/90; Sleep disturbance Allergies Active Allergy Reactions Criticality Noted Date Comments Irbesartan-Hydrochloro thiazide 10/14/2014 Cough - TOLERATES HYDROCHLOROTHIAZIDE Irbesartan Low 11/09/2018 Other reaction(s): Cough documented as of this encounter (statuses as of 01/01/2024) Medications Medication Sig Dispensed Refills Start Date End Date Status Cholecalciferol (VITAMIN D3) 2000 UNITS Capsule Take 1 Capsule by mouth in the morning. Active Multiple Vitamins-Minerals (MULTIVITAL) Tablet Take 1 Tablet by mouth in the morning. Active Blood Glucose Monitoring Suppl (C[employer]air ULTRA SYSTEM) W/DEVICE KIT Use as directed [...] TWICE DAILY FOR TINEA UNGUIUM 02/29/2020 Active [employer]Touch Ultra In Vitro Strip (Glucose Blood) USE DIRECTED FOUR TIMES DAILY NEEDED FOR HYPERGLYCEMIA (HIGH SUGAR) OR HYPOGLYCEMIA (LOW SUGAR) 400 Strip 3 01/23/2022 Active [employer]Touch Delica Plus [id number] USE TO TEST BLOOD SUGAR FOUR TIMES [...] 1 Each 3 12/13/2023 Active Dexcom G7 Study Assistant DeviceIndications: Type 2 diabetes mellitus without complication, without long-term current use of insulin (HCC) Use as directed. E11.9 1 Each 3 12/13/2023 Active documented as of this encounter (statuses as of 01/01/2024) Active Problems Problem Noted Date Diagnosed Date [...] as of this encounter (statuses as of 01/01/2024) Resolved Problems Problem Noted Date Diagnosed Date Resolved Date 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) 11/16/2021 03/06/2022 Bereavement, uncomplicated 08/08/2021 1 05/06/2021 Hemiparesis affecting left s marianne as late effect of cerebrovascular accident 11/26/201608/27 Weakness of left side of body 10/14/2014 11/26/2016 documented as of this encounter (statuses as of 01/01/2024) Immunizations Name Administration Dates Next Due COVID-19 [...] Sign Reading Time Taken Comments Blood Pressure 145/71 01/01/2024 4:16 PM EDT Pulse 89 01/01/2024 4:16 PM EDT Temperature 36.3 C (97.3 F) 01/01/2024 4:16 PM ED T Respiratory Rate 18 01/01/2024 4:16 PM EDT Oxygen Saturation 98% 01/01/2024 4:16 PM EDT room air Inhaled Oxygen Concentration - - Weight - - Height - - Body Mass Index - - documented in this encounter Progress Notes * Bobbi Olivares PA-C - 01/01/2024 10:00 AM EDT Name: Aristeo Bonner Date of : 1940 This note pertains to care provided at [facility]. Please see facility record for original note. This note is not to be edited or addended in [employer]. Editing or addending needs to occur in the facility's medical record. Chief Complaint Patient presents with Skilled Visit TRANSITION EVENT: Type: Skilled visit Date: December 31 Code Status: Full Code SUBJECTIVE: Aristeo Bonner is a 83 year old male HPI: short-term rehab pt with history of CVA/gait disturbance/left foot drop, recent TURBT for removal of low grade urothelial caarcinoma, recently hospitalized with increased weakness in setting of UTI. He continues on course of cefdinir for UTI. He denies dysuria, hematuria, nausea, vomiting, diarrhea. Pt c/o difficulty sleeping last night, states he takes melatonin at home. Also on HCTZ chronically, but the medication is also listed as allergy. He had a remote reaction (cough) to a combination HCTZ/ARB medication. PMH: Patient Active Problem List Diagnosis Cerebrovascular disease, arteriosclerotic, post-stroke Neurologic gait dysfunction HTN, goal below 140/90 GERD (gastroesophageal reflux disease) Carotid artery stenosis Dyslipidemia, goal to be determined Advanced directives, counseling/discussion Diverticulosis of large intestine without hemorrhage Type 2 diabetes mellitus without complication, without long-term current use of insulin (HCC) Hematuria, gross Bladder tumor Urothelial carcinoma of bladder (HCC) Review of patient's allergies indicates: Allergen Reactions Avalide [Irbesartan-Hydrochlorothiazide] Cough - TOLERATES HYDROCHLOROTHIAZIDE Irbesartan Other reaction(s): Cough Medications: Pt's current medication list is maintained at [facility] and was reviewed at this visit. Review of Systems: Per HPI OBJECTIVE: BP 145/71 | Pulse 89 | Temp 36.3 C (97.3 F) | Resp 18 | SpO2 98% Comment: room air General: alert, healthy, and no distress Heart: regular rate & rhythm Lungs: chest symmetric with normal AP diameter, no chest deformities noted, no chest wall tenderness, lungs clear to auscultation Abdomen: abdomen soft, non-tender, normal bowel sounds, and no masses or organomegaly Extremities: less than 2 second capillary refill, no edema Skin: skin color, texture, turgor are normal ASSESSMENT/PLAN: retirement chart (outside system) reviewed for vital signs, nursing notes, CODE STATUS, and most up to date medication list Discussed management with other clinician during the visit (occupational therapist) Recurrent falls (Primary) Neurologic gait dysfunction Left foot drop PT and OT Discussed with occupational therapist re: left foot drop and AFO status ([facility]) Acute cystitis with hematuria Urothelial carcinoma of bladder (HCC) Finish abx Follow up with urology, as planned HTN, goal below 140/90 Stable Alelrgies clarified (pt not allergic to HCTZ) Sleep disturbance Melatonin Tablet 3 MG - Give 2 tablet by mouth at bedtime for sleep disturbance Follow up: tomorrow with MD, and as needed I spent a total of 30 minutes coordinating, documenting, and providing care for this patient excluding time spent in the performance of separately billed services or time spent by another provider/QHP. Electronically signed by: Bobbi Olivares PA-C documented in this encounter Plan of Treatment Upcoming Encounters Date Type Department Care Team (Late st Contact Info) Description 04/08/2024 9:00 AM EST Procedure Only Urology, [facility] [address] [place] [address] Colby Ellison MD [address] [place] [place] [address] 04/15/2024 12:30 PM EST Office Visit Dermatology, Janet Young [address] [place] [address] Alexsandra Márquez PA-C [address] [place] [address] 07/13/2024 8:20 AM EDT [facility] [place] [address] [place] [address] Tristin Osorio DO [address] [place] [address] Health Maintenance Due Date Last Done Comments [...] 12/12/2024 12/13/2023, 06/06, 09/21/2022, Additional history exists DTap/Tdap Vaccines (3 - [...] as of this encounter Visit Diagnoses Diagnosis Recurrent falls- Primary Personal history of fall Neurologic gait dysfunction Abnormality of gait Left foot drop Other acquired deformity of ankle and foot Acute cystitis with hematuria Acute cystitis Urothelial carcinoma of bladder (HCC) HTN, goal below 140/90 Unspecified essential hypertension Sleep disturbance Sleep disturbance, unspecified documented in this encounter Advance Directives Documents on File Type Date Recorded Patient Double End Chucking Machine Operator Expl anation Advance Directives and [...] Advance Directives occurred with: Patient Care Teams Sole Inker Relationship Specialty Start Date End Date Tristin Osorio DO [address] [place] [address] PCP - General Family Medicine 10/23/16 documented as of this encounter"
--- OUTSIDE RECORDS SUMMARY | 2024-03-21 09:54 | External Medical Summary | Summary of Care ---
Author Name Unknown Organization [facility] Address [address] [place] [place] [address] Phone [phone] Care Team Providers Care Grinding Wheel Facer Name Role Phone KelvinTristin godoy Primary Care Provider [phone] Reason for Visit * Reason Onset Date Comments Skilled Visit 01/08/2024 Encounter Details Date Type Department Care Team (Late st Contact Info) Description 01/08/2024 9:30 AM EDT Long Term Visit [facility] [address] [place] [address] Bobbi Olivares PA-C [address] [place] [address] Neurologic gait dysfunction*; Recurrent falls; Leukocytosis, unspecified type; HTN, goal below 140/90; Type 2 diabetes mellitus without complication, without long-term current use of insulin (HCC) Allergies Active Allergy Reactions Criticality Noted Date Comments Irbesartan-Hydrochloro thiazide 10/14/2014 Cough - TOLERATES HYDROCHLOROTHIAZIDE Irbesartan Low 11/09/2018 Other reaction(s): Cough documented as of this encounter (statuses as of 01/08/2024) Medications Medication Sig Dispensed Refills Start Date End Date Status Cholecalciferol (VITAMIN D3) 2000 UNITS Capsule Take 1 Capsule by mouth in the morning. Active Multiple Vitamins-Minerals (MULTIVITAL) Tablet Take 1 Tablet by mouth in the morning. Active Blood Glucose Monitoring Suppl (Chemo Beanies ULTRA SYSTEM) W/DEVICE KIT Use as directed [...] TWICE DAILY FOR TINEA UNGUIUM 02/29/2020 Active [employer] Ultra In Vitro Strip (Glucose Blood) USE DIRECTED FOUR TIMES DAILY NEEDED FOR HYPERGLYCEMIA (HIGH SUGAR) OR HYPOGLYCEMIA (LOW SUGAR) 400 Strip 3 01/23/2022 Active [employer]Touch Delica Plus [id number] USE TO TEST BLOOD SUGAR FOUR TIMES [...] hemoglobin A1c goal of less than 8.0% ([facility]) TAKE 2 TABLETS BY MOUTH EVERY MORNING [...] 1 Each 3 12/13/2023 Active Dexcom G7 Regulator Assembler DeviceIndications:Ty pe 2 diabetes mellitus without complication, [...] as of this encounter (statuses as of 01/08/2024) Active Problems Problem Noted Date Diagnosed Date [...] as of this encounter (statuses as of 01/08/2024) Resolved Problems Problem Noted Date Diagnosed Date Resolved Date Bladder tumor 09/23/2023 01/02/2024 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) 11/16/2021 03/06/2022 Bereavement, uncomplicated 08/08/2021 1 05/06/2021 Weakness of left side of body 10/14/2014 11/26/2016 documented as of this encounter (statuses as of 01/08/2024) Immunizations Name Administration Dates Next Due COVID-19 [...] Sign Reading Time Taken Comments Blood Pressure 126/55 01/08/2024 2:24 PM EDT Pulse 73 01/08/2024 2:24 PM EDT Temperature 36.1 C (97 F) 01/08/2024 2:24 PM EDT Respiratory Rate 18 01/08/2024 2:24 PM EDT Oxygen Saturation 95% 01/08/2024 2:24 PM EDT Inhaled Oxygen Concentration - - Weight 75 kg (165 lb 6.4 oz) 01/08/2024 2:24 PM EDT Height - - Body Mass Index 25.9 12/13/2023 1:57 PM EDT documented in this encounter Plan of Treatment Upcoming Encounters Date Type Department Care Team (Late st Contact Info) Description 04/08/2024 9:00 AM EST Procedure Only Urology, [facility] [address] [place] [address] Colby Ellison MD [address] [place] [id number] 04/15/2024 12:30 PM EST Office Visit Dermatology, Janet Young [address] [place] [address] Alexsandra Márquez PA-C [address] [place] [address] 07/13/2024 8:20 AM EDT Office Visit Family Practice [facility] [address] [facility] [place] [address] Tristin Osorio, [address] [facility] [place] [address] Health Maintenance Due Date Last Done Comments Albumin/Creatinine Ratio 12/25/2022 022, 03/14/2020, 10/14/2018, Additional history exists Adult Wellness Visit 03/21/2023 03/21/2022, 03/20/20 21 Depression Screening 03/21/2023 03/21/2022 Diabetic Eye Exam 07/20/2023 07/19/2022, (Done elsewhere), 07/06/2020, Additional history exists Influenza Vaccine (FLU shot) (#1) 2024 02/04/2023, 01/03/2022, 01/04/2021, Additional history exists *NEPHROLOGY REFERRAL DUE TO RESISTANT HTN 01/06/2024 COVID-19 Vaccine ( season) 2024 11/05/2023, 05/31/2022, 01/30/2021, Additional history exists Diabetic Foot Exam 04/22/2024 04/22/2023, 0 11/16/2021, 03/17/2020, Additional history exists HbA1c 06/14/2024 12/13/2023, 06/06, 09/21/2022, Additional history exists B-12 12/12/2024 12/13/2023, 09/03, 12/25/2021, Additional history exists GFR 01/01/2025 01/02/2024, 08/01/2024, 06/19/2023, Additional history exists DTap/Tdap Vaccines (3 [...] gait Recurrent falls Personal history of fall Leukocytosis, unspecified type HTN, goal below 140/90 Unspecified essential hypertension Type 2 diabetes mellitus without complication, without long-term current use of insulin (HCC) documented in this encounter Advance Directives Documents on File Type Date Recorded Patient Crowd Controller Expl anation Advance Directives and Living Will [...] Advance Directives occurred with: Patient Care Teams Grinding Wheel Facer Relationship Specialty Start Date End Date Tristin Osorio DO [address] [place] [address] PCP - General Family Medicine 10/23/16 documented as of this encounter
--- OUTSIDE RECORDS SUMMARY | 2024-03-21 09:54 | External Medical Summary | Summary of Care ---
Author Name Unknown Organization [facility] Address [address] [facility] [place] [address] Phone [phone] Care Team Providers Care Mechanic Welder Name Role Phone Tristin Osorio DO Primary Care Provider [phone] Reason for Visit * Reason Onset Date Comments Hospital Follow-Up 01/01/2024 BRETT Encounter Details Date Type Department Care Team (Late st Contact Info) Description 01/01/2024 Telephone Family Practice [facility] [place] [address] [facility] [place] [address] Tristin Osorio DO [address] [facility] [place] [address] Hospital Follow-Up (BRETT) Allergies Active Allergy Reactions Criticality Noted Date [...] the morning. Active Blood Glucose Monitoring Suppl (Effective Measure ULTRA SYSTEM) W/DEVICE KIT Use as directed [...] TWICE DAILY FOR TINEA UNGUIUM 02/29/2020 Active Liquid BronzeTouch Ultra In Vitro Strip (Glucose Blood) USE DIRECTED FOUR TIMES DAILY NEEDED FOR HYPERGLYCEMIA (HIGH SUGAR) OR HYPOGLYCEMIA (LOW SUGAR) 400 Strip 3 01/23/2022 Active OneTouch Delica Plus [id number] USE TO TEST BLOOD SUGAR FOUR TIMES [...] 1 Each 3 12/13/2023 Active Dexcom G7 Special Warfare Combatant Crewman DeviceIndications: Type 2 diabetes mellitus without complication, [...] mRNA, LNP-s, No Pre serve, 2-Dose Series ([employer]) 01/30/2021,07/12/2020,06/14/2020 Covid-19, Mrna, Lnp-s, Pf, B ivalent, [...] encounter Miscellaneous Notes * Telephone Encounter - Emma Lebron RN - 01/01/2024 7:30 AM EDT Transitions of Care Note Reason for Referral: Recent Admission Phone visit for follow up: Inpatient Hospitalization Admitted to: [facility], Date: 12/24/2023 Discharged to: SNF, Date: 12/31/2023 BRETT call not indicated due to patient admitted to [facility] after hospitalization for Encephalopathy, weakness, falls. documented in this encounter Plan of Treatment Upcoming Encounters Date Type Department Care Team (Late st Contact Info) Description 04/08/2024 9:00 AM EST Procedure Only Urology, [facility] [address] [facility] [place] [address] Colby Ellison MD [address] [place] [address] 04/15/2024 12:30 PM EST Office Visit Dermatology, Marcelle SilvaJanet [address] [place] [address] Alexsandra Márquez PA-C [address] [place] [address] 07/13/2024 8:20 AM EDT [facility] [place] [address] [facility] [place], [place] [address] Tristin Osorio DO [address] [place] [address] Health Maintenance Due Date Last Done Comments [...] Documents on File Type Date Recorded Patient Hot Room Attendant Expl anation Advance Directives and Living Will [...] Advance Directives occurred with: Patient Care Teams Mechanic Welder Relationship Specialty Start Date End Date Tristin Osorio DO [address] [place] [address] PCP - General Family Medicine 10/23/16 documented as of this encounter
--- OUTSIDE RECORDS SUMMARY | 2024-03-21 09:54 | External Medical Summary ---
Author Name Unknown Address Unknown Organization [facility] [address] [place] [address] Laboratory Report Ordering Provider Test Date Status JESSIE WYLIE 01/02/2024 05:30:00 Final Observation Date Value Abnormality Reference (Units ) Status BUN 01/02/2024 05:30:00 29 Above high normal 6-20 (mg/dL) Final Creatinine 01/02/2024 05:30:00 1.3 Above high normal 0.6-1.2 (mg/dL) Final Glomerular filtration rate/1.73 sq M.predicted [Volume Rate/Area] in Serum, Plasma or Blood by Creatinine-based formula (CKD-EPI) 01/02/2024 05:30:00 54 Below low normal >=60 (mL/min) Final eGFR is calculated based on the CKD-EPI 2020 equation. Sodium 01/02/2024 05:30:00 139 135-146 (m mol/L) Final Potassium 01/02/2024 05:30:00 3.9 3.5-5.1 (m mol/L) Final Cl 01/02/2024 05:30:00 100 98-107 (mm ol/L) Final CO2 01/02/2024 05:30:00 24 22-32 (mmo l/L) Final Anion gap 01/02/2024 05:30:00 15 7-15 (mmol /L) Final Glucose 01/02/2024 05:30:00 130 Above high normal 70 -120 (mg/dL) Final Calcium 01/02/2024 05:30:00 10.0 8.4-10.2 ( mg/dL) Final Performing Location [facility] [[email or web address]] [place] [address] [place] [address]
--- OUTSIDE RECORDS SUMMARY | 2024-03-21 09:54 | External Medical Summary | Summary of Care ---
Author Name Unknown Organization [facility] Address [address] [facility] [place] [address] Phone [phone] Care Team Providers Care Healthcare Recruiter Name Role Phone Tristin Osorio Primary Care Provider [phone] Encounter Details Date Type Department Care Team (Late st Contact Info) Description 01/09/2024 Orders Only [facility] [address] [place] [address] Bobbi Olivares PA-C [address] [place] [address] Leukocytosis* Allergies Active Allergy Reactions Criticality Noted Date Comments Irbesartan-Hydrochloro thiazide 10/14/2014 Cough - TOLERATES HYDROCHLOROTHIAZIDE Irbesartan Low 11/09/2018 Other reaction(s): Cough documented as of this encounter (statuses as of 01/09/2024) Medications Medication Sig Dispensed Refills Start Date End Date Status Cholecalciferol (VITAMIN D3) 2000 UNITS Capsule Take 1 Capsule by mouth in the morning. Active Multiple Vitamins-Minerals (MULTIVITAL) Tablet Take 1 Tablet by mouth in the morning. Active Blood Glucose Monitoring Suppl (Trillian [employer] AB ULTRA SYSTEM) W/DEVICE KIT Use as directed [...] TWICE DAILY FOR TINEA UNGUIUM 02/29/2020 Active Intuitive User InterfacesTouch Ultra In Vitro Strip (Glucose Blood) USE DIRECTED FOUR TIMES DAILY NEEDED FOR HYPERGLYCEMIA (HIGH SUGAR) OR HYPOGLYCEMIA (LOW SUGAR) 400 Strip 3 01/23/2022 Active OneTouch Delica Plus [id number] USE TO TEST BLOOD SUGAR FOUR TIMES [...] 1 Each 3 12/13/2023 Active Dexcom G7 Emergency Planning And Response Manager DeviceIndications:Ty pe 2 diabetes mellitus without complication, [...] as of this encounter (statuses as of 01/09/2024) Active Problems Problem Noted Date Diagnosed Date [...] as of this encounter (statuses as of 01/09/2024) Resolved Problems Problem Noted Date Diagnosed Date Resolved Date Bladder 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/23/2023 01/02/2024 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) 11/16/2021 03/06/2022 Bereavement, uncomplicated 08/08/2021 1 05/06/2021 Weakness of left side of body 10/14/2014 11/26/2016 documented as of this encounter (statuses as of 01/09/2024) Immunizations Name Administration Dates Next Due COVID-19 mRNA, LNP-s, No Pre serve, 2-Dose Series ([employer]) 01/30/2021,07/12/2020,06/14/2020 Covid-19, Mrna, Lnp-s, Pf, B ivalent, [...] on file documented as of this encounter Plan of Treatment Upcoming Encounters Date Type Department Care Team (Late st Contact Info) Description 04/08/2024 9:00 AM EST Procedure Only [facility], [facility] [place] [address] Colby Ellison MD [place] [address] 04/15/2024 12:30 PM EST Office Visit Dermatology, Janet Young [address] [place] [address] Alexsandra Márquez PA-C [address] [place] [address] 07/13/2024 8:20 AM EDT Office Visit Family Practice [employer] [address] [place] [address] Tristin Osorio DO [address] [place] [address] Scheduled Orders Name Type Priority Associated Diagnoses Orde r Schedule CBC WITH WBC DIFFERENTIAL Lab Routine Leukocytosis Expected: 01/09/2024, Expires: 01/08/2025 Health Maintenance Due Date Last Done Comments [...] as of this encounter Visit Diagnoses Diagnosis Leukocytosis- Primary Leukocytosis, unspecified documented in this encounter Advance Directives Documents on File Type Date Recorded Patient Isolation Washer Expl anation Advance Directives and Living Will [...] Advance Directives occurred with: Patient Care Teams Healthcare Recruiter Relationship Specialty Start Date End Date Tristin Osorio DO [address] [place] [address] PCP - General Family Medicine 10/23/16 documented as of this encounter
--- OUTSIDE RECORDS SUMMARY | 2024-03-21 09:54 | External Medical Summary | Summary of Care ---
Author Name Unknown Organization [facility] Address [address] [facility] [place] [address] Phone [phone] Care Team Providers Care Phlebotomist Medical Lab Assistant Name Role Phone KelvinTristin godoy Primary Care Provider [phone] Reason for Visit * Reason Onset Date Comments Alf Visit - Admission 01/02/2024 Encounter Details Date Type Department Care Team (Latest Contact Info) Description 01/02/2024 9:00 AM EDT Alf Visit [address] [place] [address] Yamilet Panda MD [address] [place] [address] [place] [phone] Acute cystitis without hematuria*; COPD, severity to be determined (HCC); Type 2 diabetes mellitus without complication, without long-term current use of insulin (HCC); Leukocytosis, unspecified type; 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); Ground glass opacity present on imaging of lung; Urothelial carcinoma of bladder (HCC); Cerebrovascular disease, arteriosclerotic, post-stroke; HTN, goal below 140/90; Neurologic gait dysfunction; Gastroesophageal reflux disease without esophagitis; History of tobacco use Allergies Active Allergy Reactions Criticality Noted Date Comments Irbesartan-Hydrochloro thiazide 10/14/2014 Cough - TOLERATES HYDROCHLOROTHIAZIDE Irbesartan Low 11/09/2018 Other reaction(s): Cough documented as of this encounter (statuses as of 01/02/2024) Medications Medication Sig Dispensed Refills Start Date End Date Status Cholecalciferol (VITAMIN D3) 2000 UNITS Capsule Take 1 Capsule by mouth in the morning. Active Multiple Vitamins-Minerals (MULTIVITAL) Tablet Take 1 Tablet by mouth in the morning. Active Blood Glucose Monitoring Suppl ([employer] SYSTEM) W/DEVICE KIT Use as directed 4 [...] EVERY DAY 100 Tab 3 9 Active Clotrimazole 1 % External Solution (Mycelex) APPLY SMALL AMOUNT TO SKIN TWICE A DAY . APPLY SMALL AMOUNT TO TOENAILS TWICE DAILY FOR TINEA UNGUIUM 0 Active BlaBlaCar In Vitro Strip (Glucose Blood) USE DIRECTED FOUR TIMES DAILY NEEDED FOR HYPERGLYCEMIA (HIGH SUGAR) OR HYPOGLYCEMIA (LOW SUGAR) 400 Strip 3 2 Active Akanoo Delica Plus [id number] USE TO TEST BLOOD SUGAR FOUR TIMES [...] EVERY MORNING 180 Tablet 3 4 Active hydroCHLOROthiazid e 25 MG Oral Tablet [...] AND SUNDAYS 90 Tablet 2 4 Active Cefdinir 300 MG Oral Capsule (Omnicef) TAKE 1 CAPSULE BY MOUTH TWO TIMES DAILY FOR 10 DAYS 4 Active Dexcom G7 SensorIndications: Type 2 diabetes mellitus without complication, without long-term current use of insulin (HCC) Use as directed every 10 days. E11.9 1 Each 3 4 Active Dexcom G7 Post Tensioning Ironworker DeviceIndications: Type 2 diabetes mellitus without complication, without long-term current use of insulin (HCC) Use as directed. E11.9 1 Each 3 4 Active guaiFENesin ER 600 MG Oral Tablet Extended Release 12 Hour (Humibid LA) Take 1 Tablet by mouth in the morning and 1 Tablet before bedtime. 4 Active Melatonin 3 MG Oral Tablet Disintegrating Take 6 mg by mouth every night at bedtime. 4 Active guaifenesin ER (HUMIBID LA) 600 MG TB12 Take 1 Tablet by mouth in the morning. 024 Discontinued Apple Cider Vinegar 300 MG Oral Tablet Take by mouth. 024 Discontinued Phenazopyridine HCl 200 MG Oral Tablet (Pyridium) Take 1 Tablet by mouth 3 times a day as needed for Other (bladder pain). 15 Tablet 4 024 Discontinued documented as of this encounter (statuses as of 01/02/2024) Active Problems Problem Noted Date Diagnosed Date [...] as of this encounter (statuses as of 01/02/2024) Resolved Problems Problem Noted Date Diagnosed Date Resolved Date Bladder tumor 09/23/2023 01/02/2024 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) 11/16/2021 03/06/2022 Bereavement, uncomplicated 08/08/2021 1 05/06/2021 Weakness of left side of body 10/14/2014 11/26/2016 documented as of this encounter (statuses as of 01/02/2024) Immunizations Name Administration Dates Next Due COVID-19 mRNA, LNP-s, No Pre serve, 2-Dose Series ([employer]) 01/30/2021,07/12/2020,06/14/2020 Covid-19, Mrna, Lnp-s, Pf, B ivalent, 30 Mcg, IM, 12 yrs and above ([employer]) 05/31/2022 Pneumococcal Conjugate Vacc, 13 Valent (Prevnar) [...] as of this encounter Progress Notes * Yamilet Panda MD - 01/02/2024 11:47 AM EDT ADMISSION HISTORY and PHYSICAL TRANSITION EVENT: Type: SNF admission Date: December 30 Code Status: Full Code Name: Aristeo Bonner Date of : 1940 This note pertains to [place] [facility] Please see facility medical record for original note. This note is not to be edited or addended in [employer]. Editing or addending needs to occur in the facilities medical record. S: Aristeo Bonner had been admitted to [facility] from [facility] for PT and OT. Recently admitted [facility] on 12/24/23 because of falls, confusion, UTI, and inability to stand and was transferred here and admitted on 12/31/2023. Patient of Dr. 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 Patient also notes he had been falling a lot over the last month. Patient also reported seeing his son and daughter in his room the night before admission but they were not actually present. Patient had recent had TURBT for a bladder tumor in 11/22/23 and had an ED visit for UTI on 11/27/23. The bladder tumor was low grade and urology will repeat cystoscopy in a few months but does not feel that further treatment will be needed. Patient also noted foul smelling urine for a few days and was noted to have a cough and dyspnea on admission. In the ED, he was tachycardic to 113. His CBC showed an elevated WBC of 17.54, H&H of 13.6 and 40.3, and platelets of 210. His Creatinine was 1.20 and glucose 240. UA was grossly positive. Respiratory PCR for COVID/influenza A/B/RSV was negative. Head CT showed atrophy and chronic microvascularischemic changes and chronic infarcts within the cerebellum and occipital lobes. CXR showed mild cardiomegaly and bibasilar scarring/atelectasis. It is noted that there was a rightupper lobe ground-glass opacity on chest CT from 12/24/23 that was not seen on the CXR and a follow-up chest CT in 3-4 months is recommended. However, chest CTA report noted it was negative for PE andthere was atelectasis in the lung bases but no other lung findings commended upon. He was admitted and started on IV ceftriaxone for UTI. He was noted to have cough and shortness of breath. Diagnosed with COPD exacerbation and was treated with IV Solu-Medrol, oxygen, and doxycycline was added. Patient states he was a heavy smoker and quit when he had his stroke in 2006. Patient denies having COPD and states as long as he take Mucinexhis breathing is good. Does not use inhalers. Patient developed constipation and KUB done 12/27/23 showed nonobstructive bowel gas pattern and moderate fecal retention, which was treated with Miralax. He completed doxycycline for COPD exacerbation prior to discharge. He was discharged on 3 days of cefdinir. He was recommended to have repeat chest CT in 3-4 months to follow-up RUL ground-glass opacity. His blood sugars were high while on steroids. He was discharged on his home metformin. Patient is now admitted for PT/OT with plans to return home. He lives with his son, who helps to take care of him. Patient states he is active and goes out for breakfast and lunch every day and goes to a lot of [employer] football games. He states as long as he takes Mucinex, he can breathe well and does not believe he has COPD. He denies current cough, congestion, or shortness of breath. He denies fever or chills. His appetite is good. Past Medical History: Patient Active Problem List Diagnosis Cerebrovascular disease, arteriosclerotic, post-stroke Neurologic gait dysfunction HTN, goal below 140/90 GERD (gastroesophageal reflux disease) Carotid artery stenosis Dyslipidemia, goal to be determined Advanced directives, counseling/discussion Diverticulosis of large intestine without hemorrhage Type 2 diabetes mellitus without complication, without long-term current use of insulin (HCC) 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) Hematuria, gross Urothelial carcinoma of bladder (HCC) Ground glass opacity present on imaging of lung History of tobacco use Current Outpatient Medications Medication Sig Dispense Refill guaiFENesin ER 600 MG Oral Tablet Extended Release 12 Hour (Humibid LA) Take 1 Tablet by mouth in the morning and 1 Tablet before bedtime. Melatonin 3 MG Oral Tablet Disintegrating Take 6 mg by mouth every night at bedtime. Cholecalciferol (VITAMIN D3) 2000 UNITS Capsule Take 1 Capsule by mouth in the morning. Multiple Vitamins-Minerals (MULTIVITAL) Tablet Take 1 Tablet by mouth in the morning. Blood Glucose Monitoring Suppl ([employer] ULTRA SYSTEM) W/DEVICE KIT Use as directed 4 times a day as needed for Hyperglycemia (high sugar) or Hypoglycemia (low sugar). Use up to four times a day as directed 1 Kit 0 SM ASPIRIN ADULT LOW STRENGTH 81 MG TBEC TAKE 1 TABLET BY MOUTH EVERY DAY 100 Tab 3 Clotrimazole 1 % External Solution (Mycelex) APPLY SMALL AMOUNT TO SKIN TWICE A DAY . APPLY SMALL AMOUNT TO TOENAILS TWICE DAILY FOR TINEA UNGUIUM Akanoo Ultra In Vitro Strip (Glucose Blood) USE DIRECTED FOUR TIMES DAILY NEEDED FOR HYPERGLYCEMIA (HIGH SUGAR) OR HYPOGLYCEMIA (LOW SUGAR) 400 Strip 3 Catchafireuch Delica Plus [id number] USE TO TEST BLOOD SUGAR FOUR TIMES [...] FOR SATURDAYS AND SUNDAYS 90 Tablet 2 Cefdinir 300 MG Oral Capsule (Omnicef) TAKE 1 CAPSULE BY MOUTH TWO TIMES DAILY FOR 10 DAYS Dexcom G7 Sensor Use as directed every 10 days. E11.9 1 Each 3 Dexcom G7 Post Tensioning Ironworker Device Use as directed. E11.9 1 Each 3 No current facility-administered medications for this visit. Review of patient's allergies indicates: Allergen Reactions Avalide [Irbesartan-Hydrochlorothiazide] Cough - TOLERATES HYDROCHLOROTHIAZIDE Irbesartan Other reaction(s): Cough Social History Tobacco Use Smoking status: Former [...] No Refillable Tank No Pre-filled Pod No Past Surgical History: Procedure Laterality Date BLADDER INSTILLATION, ANTICARCINOGENIC N/A 11/22/2023 BLADDER INSTILLATION OF ANTICARCINOGENIC AGENT performed by Colby Ellison MD at OR [facility] COLONOSCOPY, DIAGNOSTIC (RECTUM) 01/12/2015 diverticulosis, tortuous colon/COLONOSCOPY FLEXIBLE PROXIMAL DIAGNOSTIC performed by Julius Guillen MD at ENDOSCOPY [facility] CYSTOSCOPY/TREAT MED BLADDER TUMOR N/A 11/22/2023 CYSTOURETHROSCOPY WITH FULGURATION MEDIUM BLADDER TUMOR performed by Colby Ellison MD at OR [facility] REMOVAL OF APPENDIX Family History Problem Relation Name Age of Onset Diabetes Mother Heart Disorder Father [place] Diabetes Sister Diabetes Brother Diabetes Brother Cancer Brother Hypertension Son Diabetes Son Endocrine Disorder Daughter Gestational Diabetes Family Status Relation Status Mo Fa Sis Bro Bro Son (Not Specified) Son (Not Specified) Joana (Not Specified) Results for orders placed or performed in visit on 01/02/24 BASIC METABOLIC PANEL Result Value Ref Range BUN 29 (H) 6 - 20 mg/dL Creatinine 1.3 (H) 0.6 - 1.2 mg/dL Estimated Glomerular Filtration Rate 54 (L) >=60 mL/min Sodium 139 135 - 146 mmol/L Potassium 3.9 3.5 - 5.1 mmol/L Chloride 100 98 - 107 mmol/L CO2 24 22 - 32 mmol/L Anion Gap 15 7 - 15 mmol/L Glucose 130 (H) 70 - 120 mg/dL Calcium 10.0 8.4 - 10.2 mg/dL CBC Result Value Ref Range WBC 15.78 (H) 4.00 - 10.80 K/uL RBC 4.51 4.50 - 5.25 M/uL HGB 13.5 (L) 14.0 - 16.8 g/dL HCT 41.6 40.0 - 48.4 % MCV 92.2 82.0 - 99.5 fL MCH 29.9 27.0 - 34.0 pg MCHC 32.5 32.0 - 36.0 g/dL RDW 14.6 11.5 - 15.5 % PLT 422 (H) 140 - 400 K/uL MPV 10.4 6.6 - 11.1 fL Review of Systems: Constitutional ROS: No change in weight, No fevers, sweats, or chills, and +weakness Eye ROS: No recent significant change in vision and No eye pain, redness, discharge Ear ROS: No ear pain, No drainage, No tinnitus or vertigo, and No recent change in hearing Nose ROS: No history of frequent colds or sinusitis, No nasal stuffiness, No history of Hay Fever, and No significant epistaxis Mouth/Throat ROS: No bleeding gums, No thrush, or No sore throat Pulmonary ROS: No wheezing and +recent COPD exacerbation Cardiovascular ROS: No chest pain, No shortness of breath, No orthopnea, No paroxysmal nocturnal dyspnea, No edema, No palpitations, and No syncope Gastrointestinal ROS: No abdominal pain, No change in bowel habits, No significant heartburn, No significant change in appetite, No hematemesis, No blood in stools or black tarry stools, No abdominalbloating or early satiety, No dysphagia, and +GERD and constipation Genito-Urinary Female ROS: +as per HPI Musculoskeletal/Extremities ROS: No pain, redness or swelling on the joints Hematologic/Lymphatic ROS: No coagulation disorder, No anemia, No abnormal bleeding, No bruising, and No weight loss Skin/Integumentary ROS: No rash and No itching Neurologic ROS: No headaches, No seizures, and +left hemiplegia post remote stroke Endocrine ROS: No heat intolerance, No cold intolerance, No thyroid trouble, No excessive thirst orurination, and +type 2 diabetes mellitus Psychiatric ROS: No depression, No anxiety, and No psychosis ADL skills: dependent Ambulates with walker OBJECTIVE: PHYSICAL EXAM: I reviewed the most recent facilities vitals. Refer to vital signs flowsheet in jail chart.General: alert, no distress, well nourished, and well developed Head: Normocephalic, No masses, lesions, tenderness or abnormalities Eye Exam: PERRLA, extraocular movements intact, conjunctiva are pink and non- injected, sclera clear Ears: External ears normal Nose: no mucosal erythema, no mucosal edema, no purulent discharge Oropharynx: no exudate, no erythema, lips, buccal mucosa, and tongue normal, and mucous membranes are moist Neck: supple, no adenopathy, no bruits Heart: regular rate & rhythm and no gallops Lungs: chest symmetric with normal AP diameter, no chest deformities noted, no chest wall tenderness, coarse sounds heard, decreased breath sounds Abdomen: abdomen soft, non-tender, normal bowel sounds, and no masses or organomegaly Extremities: no edema, no clubbing, no cyanosis Neuro Exam: alert & oriented x 3 with fluent speech, +left hemiparesis ASSESSMENT: Acute cystitis without hematuria (Primary)--complete cefdinir as ordered. COPD, severity to be determined (HCC)--continue Mucinex DM twice daily. Patient states he has no issues with his breathing as long as he does not miss any doses. Will order PRN Duoneb in case he developed shortness of breath again. Type 2 diabetes mellitus without complication, without long-term current use of insulin (HCC)--continue metformin ER 1000 mg daily. Leukocytosis, unspecified type--WBC remains elevated today and was elevated throughout hospital stay. Suspect due to lingering effect of steroids. Will recheck in one week. Not having any infectious symptoms today. 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)--stable. Continue PT/OT. Ground glass opacity present on imaging of lung--will need follow-up chest CT in 3-4 months as outpatient. Urothelial carcinoma of bladder (HCC)--s/p TURBT 11/22/23. Not felt to need further treatment. Cerebrovascular disease, arteriosclerotic, post-stroke--continue aspirin 81 mg daily and Plavix 75 mg daily. HTN, goal below 140/90--controlled with amlodipine 5 mg daily, Hydralazine 20 mg daily, HCTZ 25 mg daily, and metoprolol succinate 25 mg daily Neurologic gait dysfunction--PT/OT Gastroesophageal reflux disease without esophagitis--continue Protonix 40 mg daily. History of tobacco use PLAN: 1. Continue present medication(s): Begin medication(s): Duoneb Q4H PRN cough, SOB, or wheezing Change dose of medication(s) to Change metformin to ER formulation per home medications. Schedule labs: CBC w/diff in 1 week regarding leukocytosis 2. Admission orders, medications, labs, hospital records and care plan reviewed. 3. Rough Rice Tender consult, Physical Therapy, Occupational Therapy, and Speech Therapy ordered. 4. Care plan reviewed. 5. Advance Directives were discussed: Full Code 6. Mcc Home Treatment Given: Antibiotic Oral complete cefdinir Electronically signed by: Yamilet Panda MD I spent a total of 52 minutes coordinating, documenting, and providing care for this patient excluding time spent in the performance of separately billed services or time spent by another provider/QHP. documented in this encounter Plan of Treatment Upcoming Encounters Date Type Department Care Team (Late st Contact Info) Description 04/08/2024 9:00 AM EST Procedure Only Urology, [address] [place] [id number] Colby Ellison MD [address] [place] [id number] 04/15/2024 12:30 PM EST Office Visit Dermatology, Janet Young [address] [place] [id number] Alexsandra Márquez PA-C [address] [place] [id number] 07/13/2024 8:20 AM EDT Office Visit Family Practice State Jacquelyn Crowley [address] [place], [place] [address] Tristin Osorio DO [address] [place] [address] Health Maintenance Due Date Last Done Comments [...] 12/25/2021, Additional history exists GFR 01/01/2025 01/02/2024, 08/0 01/2024, 06/19/2023, Additional history exists DTap/Tdap Vaccines (3 [...] as of this encounter Visit Diagnoses Diagnosis Acute cystitis without hematuria- Primary Acute cystitis COPD, severity to be determined (HCC) Chronic airway obstruction, not elsewhere classified Type 2 diabetes mellitus without complication, without long-term current use of insulin (HCC) Leukocytosis, unspecified type 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) Hemiplegia affecting unspecified side, late effect of cerebrovascular disease Ground glass opacity present on imaging of lung 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, arteriosclerotic, post-stroke Cerebral atherosclerosis HTN, goal below 140/90 Unspecified essential hypertension Neurologic gait dysfunction Abnormality of gait Gastroesophageal reflux disease without esophagitis Esophageal reflux History of tobacco use Personal history of tobacco use, presenting hazards to health documented in this encounter Advance Directives Documents on File Type Date Recorded 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
--- OUTSIDE RECORDS SUMMARY | 2024-03-21 09:54 | External Medical Summary | Summary of Care ---
Author Name Unknown Organization [facility] Address [address] [place] [facility] [place] [address] Phone [phone] Care Team Providers Care Associate Software Engineer Name Role Phone KelvinTristin godoy Primary Care Provider [phone] Reason for Visit * Reason Onset Date Comments Hospital Follow-Up Medication Administration 01/13/2024 Flu an d/or Pneumo Inj Encounter Details Date Type Department Care Team (Latest Contact Info) Description 01/13/2024 12:00 PM EDT Office Visit Family Practice [facility] [place] [address] [facility] [place] [address] Vielka Stinson PA-C [address] [place] [address] Hospital discharge follow-up*; HTN, goal below 140/90; 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); Neurologic gait dysfunction; Type 2 diabetes mellitus without complication, without long-term current use of insulin (HCC); Need for prophylactic vaccination and inoculation against influenza; Need for RSV immunization Allergies Active Allergy Reactions Criticality Noted Date Comments Irbesartan-Hydrochloro thiazide 10/14/2014 Cough - TOLERATES HYDROCHLOROTHIAZIDE Irbesartan Low 11/09/2018 Other reaction(s): Cough documented as of this encounter (statuses as of 01/13/2024) Medications Medication Sig Dispensed Refills Start Date End Date Status Cholecalciferol (VITAMIN D3) 2000 UNITS Capsule Take 1 Capsule by mouth in the morning. Active Multiple Vitamins-Minerals (MULTIVITAL) Tablet Take 1 Tablet by mouth in the morning. Active Blood Glucose Monitoring Suppl (ONETOUCH ULTRA SYSTEM) W/DEVICE KIT Use as directed [...] EVERY DAY 100 Tab 3 05/27/2018 Active RingCredible Ultra In Vitro Strip (Glucose Blood) USE DIRECTED FOUR TIMES DAILY NEEDED FOR HYPERGLYCEMIA (HIGH SUGAR) OR HYPOGLYCEMIA (LOW SUGAR) 400 Strip 3 01/23/2022 Active RingCredible Delica Plus [id number] USE TO TEST BLOOD SUGAR FOUR TIMES [...] AND SUNDAYS 90 Tablet 2 10/16/2023 Active Dexcom G7 SensorIndications:Ty pe 2 diabetes mellitus without complication, without long-term current use of insulin (HCC) Use as directed every 10 days. E11.9 1 Each 3 12/13/2023 Active Dexcom G7 Site Supervising Technical Operator DeviceIndications:Ty pe 2 diabetes mellitus without complication, [...] mouth every night at bedtime. 01/02/2024 Active Abrysvo 120 MCG/0.5ML Intramuscular Solution Reconstituted (RSV Pre-Fusion F A&B Vac Rcmb)Indications:Nee d for RSV immunization Inject 0.5 mL into a large muscle once for 1 dose. 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) 11/16/2021 03/06/2022 Bereavement, uncomplicated 08/08/2021 1 05/06/2021 Weakness of left side of body 10/14/2014 11/26/2016 documented as of this encounter (statuses as of 01/13/2024) Immunizations Name Administration Dates Next Due COVID-19 mRNA, LNP-s, No Pre serve, 2-Dose Series (Pfizer) 01/30/2021,07/12/2020,06/14/2020 Covid-19, Mrna, Lnp-s, Pf, B ivalent, 30 Mcg, IM, 12 yrs and above (Pfizer) 05/31/2022 Pneumococcal Conjugate Vacc, 13 Valent (Prevnar) 11/16/2014 Pneumococcal Polysaccharide PPV23 (Pneumovax) 12/08/2015 RSV Vac., Bivalent, Perfusio n F, Pf,0.5 Ml (Abrysvo) 01/13/2024 Season Influenza, Quad, PF, Adjuvanted, 65+ Yrs, IM (FLUAD) 02/12/2020 Seasonal Influenza, High Dos e, Trivalent, PF, IM (Fluzone HD) 01/13/2024,01/21/2019 Seasonal Influenza, PF, 6 M & above, [...] Sign Reading Time Taken Comments Blood Pressure 140/80 01/13/2024 11:53 AM EDT Pulse 79 01/13/2024 11:53 AM EDT Temperature 35.9 C (96.7 F) 01/13/2024 11:53 AM E DT Respiratory Rate 20 01/13/2024 11:53 AM EDT Oxygen Saturation 91% 01/13/2024 11:53 AM EDT Inhaled Oxygen Concentration - - Weight 78 kg (172 lb 0.6 oz) 01/13/2024 11:53 AM EDT Height - - Body Mass Index 26.94 12/13/2023 1:57 PM EDT documented in this encounter Progress Notes * Vielka Stinson PA-C - 01/13/2024 12:13 PM EDT Images from the original note were not included. History of Present Illness Aristeo Bonner is a 83 year old male that presents for Hospital Follow-Up and Medication Administration (Flu and/or Pneumo Inj) Patient is a 83 year old male who presents for a follow up.was hospital from 12/23-12/30 due a sepsis. Found urinary infection which make him weak and he was unable to stand.. Upon clearing the infection was discharged to [facility] from 12/30-01/09/24. 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 Has been driving since. Getting a brace for the foot drop Recent bladder surgery due to cancer. Declan been driving. Since. Feeling good Back home; lives in an apartment attached to his son's home. Prior to recent hospitalization, was using a cane. Using a walker now. Thinks he is to get outpatient physical therapy. Appetite good Sleep good Urination/ bowel movements Physical Exam Vitals: 01/13/24 1153 Temp: 35.9 C (96.7 F) Pulse: 79 Resp: 20 SpO2: 91% BP: 140/80 BP Readings from Last 3 Encounters: 01/13/24 140/80 01/09/24 137/54 01/08/24 126/55 Wt Readings from Last 3 Encounters: 01/13/24 78 kg (172 lb 0.6 oz) 01/08/24 75 kg (165 lb 6.4 oz) 12/31/23 75.6 kg (166 lb 9.6 oz) General: alert, healthy, no distress, well nourished, well developed, comfortable, cooperative, andusing walker to ambulate Head: Normocephalic, No masses, lesions, tenderness or abnormalities Eye Exam: PERRLA, extraocular movements intact, conjunctiva are pink and non- injected, sclera clear Neck: supple, no adenopathy, no bruits, thyroid normal size, non-tender, without nodularity Heart: regular rate & rhythm, no murmur, and no gallops Lungs: chest symmetric with normal AP diameter, no chest deformities noted, normal respiratory rateand rhythm, no chest wall tenderness, diaphragmatic excursion normal, lungs clear to auscultation Extremities: less than 2 second capillary refill, no joint deformities, effusion, or inflammation, no edema, no skin discoloration, no clubbing, no cyanosis Neuro Exam: alert & oriented x 3 with fluent speech, no focal motor/sensory deficits, gait normal I have reviewed the following results: None Assessment and Plan Hospital discharge follow-up (Primary) HTN, goal below 140/90 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 - RSV VAC, BIVALENT, PERF, PF, 0.5 ML, 60YRS AND ABOVE Wrap-Up Time: I spent a total of 40-54 minutes (exact time 45 mins) on the date of service in preparation, delivery, and documentation of the care provided to Aristeo Bonner excluding any time spent in the performance of separately billed services. * Mariaa Camejo LPN - 01/13/2024 11:56 AM EDT PRE - ADMINISTRATION DOCUMENTATION Are you experiencing any cold symptoms or fever? No Have you had Guillain-Baskerville Syndrome (an illness that causes paralysis) within the last 6 weeks? No Have you had the flu shot in the past? YES Have you ever had a reaction to the flu shot? No Mariaa Camejo LPN, 01/13/2024 11:56 AM Immunization Administration Documentation Time Out Procedure Performed: Yes Patient Identified (Ask Name/Date of ): Yes Does the patient have a fever greater than 101 degrees today? No Patient allergic to latex? No VFC Stock: No Immunization(s) verified: Yes, Immunization Name: Flu, VIS Sheet(s) given: Yes Verified Side and Site: Yes Verified Shot(s) with Parent(s)/Patient: Yes documented in this encounter Nursing Notes * Mariaa Camejo LPN - 01/13/2024 11:50 AM EDT Aristeo Bonner presents for juniper discharge follow up. Medications & HM reviewed. Wants discuss being able to drive again Wondering if he should get RSV vaccine documented in this encounter Plan of Treatment Upcoming Encounters Date Type Department Care Team (Late st Contact Info) Description 04/08/2024 9:00 AM EST Procedure Only Urology, [facility] [address] [address] Colby Ellison MD [address] [address] 04/15/2024 12:30 PM EST Office Visit Dermatology, Janet Young [address] [address] Alexsandra Márquez PA-C [address] [address] 07/13/2024 8:20 AM EDT Office Visit Family Practice [facility] [place] [address] [facility] [place] [address] Tristin Osorio, [address] [facility] [place] [address] Health Maintenance Due Date Last Done Comments Albumin/Creatinine Ratio 12/25/2022 022, 03/14/2020, 10/14/2018, Additional history exists Adult Wellness Visit 03/21/2023 03/21/2022, 03/20/20 21 Depression Screening 03/21/2023 03/21/2022 Diabetic Eye Exam 07/20/2023 07/19/2022, (Done elsewhere), 07/06/2020, Additional history exists *NEPHROLOGY REFERRAL DUE TO [...] 11/16/2014 Zoster Vaccines Completed 11/29/2020, 11/04, 08/20/2017 Influenza Vaccine (FLU shot) Completed 01/2024, 02/04/2023, 01/03/2022, Additional history exists HPV (Gardasil) Vaccine Aged [...] as of this encounter Visit Diagnoses Diagnosis Hospital discharge follow-up- Primary Other follow-up examination HTN, goal below 140/90 Unspecified essential hypertension 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) Hemiplegia affecting unspecified side, late effect of cerebrovascular disease Neurologic gait dysfunction Abnormality of gait Type 2 diabetes mellitus without complication, without long-term current use of insulin (HCC) Need for prophylactic vaccination and inoculation against influenza Need for RSV immunization Need for prophylactic vaccination and inoculation against respiratory syncytial virus documented in this encounter Advance Directives Documents on File Type Date Recorded Patient Business Communications Instructor Expl anation Advance Directives and Living Will [...] Advance Directives occurred with: Patient Care Teams Associate Software Engineer Relationship Specialty Start Date End Date Tristin Osorio DO [address] [place] [address] PCP - General Family Medicine 10/23/16 documented as of this encounter
--- OUTSIDE RECORDS SUMMARY | 2024-03-21 09:54 | External Medical Summary | Summary of Care ---
Author Name Unknown Organization [facility] Address [address] [place] [address] Phone [phone] Care Team Providers Care Local Announcer Name Role Phone Tristin Osorio DO Primary Care Provider [phone] Reason for Visit * Reason Onset Date Comments Order Request 12/21/2023 Referral 12/21/2023 Encounter Details Date Type Department Care Team (Late st Contact Info) Description 12/21/2023 Telephone Family Practice [facility] [address] [facility] [place] [address] Tristin [facility]sor[facility] DO [facility] [address] Order Request; Referral Allergies Active Allergy Reactions [...] the morning. Active Blood Glucose Monitoring Suppl (ShopAdvisor ULTRA SYSTEM) W/DEVICE KIT Use as directed [...] TWICE DAILY FOR TINEA UNGUIUM 02/29/2020 Active Blossom RecordsTouch Ultra In Vitro Strip (Glucose Blood) USE DIRECTED FOUR TIMES DAILY NEEDED FOR HYPERGLYCEMIA (HIGH SUGAR) OR HYPOGLYCEMIA (LOW SUGAR) 400 Strip 3 01/23/2022 Active Blossom RecordsTouch Delica Plus [id number] USE TO TEST BLOOD SUGAR FOUR TIMES [...] 1 Each 3 12/13/2023 Active Dexcom G7 Mail Handler Equipment Operator DeviceIndications: Type 2 diabetes mellitus without complication, [...] mRNA, LNP-s, No Pre serve, 2-Dose Series (Monitor My Meds) 01/30/2021,07/12/2020,06/14/2020 Covid-19, Mrna, Lnp-s, Pf, B ivalent, [...] and demographics faxed to [facility]. Confirmation received. Per family request, my g message sent making them aware. * Telephone Encounter - Tristin Osorio DO - 12/23/2023 3:54 PM EDT Please help set up HH as requested. Order is in my visit from 12/12 with him * Telephone Encounter - Sabina Estrella OSA - 12/23/2023 2:15 PM EDT Son would like it faxed over to [facility]. 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 Has been in contact with their son. They are requesting Physical and Occupation therapy Pt has had several falls in the past few days. Please advise next steps. Emma Thomas [phone] documented in this encounter Plan of Treatment Upcoming Encounters Date Type Department Care Team (Late st Contact Info) Description 04/08/2024 9:00 AM EST Procedure Only Urology, [facility] [address] [facility] [place] [address] Colby Ellison MD [address] [address] 04/15/2024 12:30 PM EST Office Visit Dermatology, Janet Young [address] [phone] Alexsandra Márquez PA-C [address] [address] 07/13/2024 8:20 AM EDT Office Visit Family Practice [facility] [place] [address] [facility] [place] [address] Tristin Osorio DO [address] [facility] [place] [address] Health Maintenance Due Date Last Done Comments [...] Documents on File Type Date Recorded Patient Paint Line Operator Expl anation Advance Directives and Living [...] Advance Directives occurred with: Patient Care Teams Local Announcer Relationship Specialty Start Date End Date Tristin Osorio DO [address] [place] [address] PCP - General Family Medicine 10/23/16 documented as of this encounter
--- OUTSIDE RECORDS SUMMARY | 2024-03-21 09:54 | External Medical Summary | Summary of Care ---
Author Name Unknown Organization [facility] Address [address] [place] [address] Phone [phone] Care Team Providers Care Band Sawyer Name Role Phone KelvinanafaustoTristin Primary Care Provider [phone] Reason for Referral * Evaluate & Treat - Unlimited Visits (Within 3 days (urgent)) - Pending Review Specialty Diagnoses / Procedures Referred By Elisabeth christina Referred To Contact Occupational Medicine / Occupational Therapy Diagnoses Neurologic gait dysfunction Recurrent falls Left foot drop Bobbi Olivares PA-C [address] [place] [address] Referral ID Status Reason Start Date Expiration Date Visits Requested Visits Authorized [id number] Pending Review Specialty Services Required 01/09/2024 [id number] Question Answer Referral Priority Within 3 days (urgent) Where should this appointment be scheduled? External Comments All correspondence to PCP * Evaluate & Treat - Unlimited Visits (Within 3 days (urgent)) - Pending Review Specialty Diagnoses / Procedures Referred By Elisabeth christina Referred To Contact Physical Therapy / Physical Medicine And Rehab Diagnoses Neurologic gait dysfunction Recurrent falls Left foot drop Bobbi Olivares PA-C [address] [place] [address] Referral ID Status Reason Start Date Expiration Date Visits Requested Visits Authorized [id number] Pending Review Specialty Services Required 01/09/[phone] Question Answer Referral Priority Within 3 days (urgent) Where should this appointment be scheduled? External Comments All correspondence to PCP Reason for Visit * Reason Onset Date Comments Long Term Visit - Discharge 01/09/2024 Encounter Details Date Type Department Care Team (Late st Contact Info) Description 01/09/2024 11:30 AM EDT Long Term Visit [facility] [place] [address] [place] [address] Bobbi Olivares PA-C [address] [place] [address] Neurologic gait dysfunction*; Recurrent falls; Left foot drop; History of UTI; Type 2 diabetes mellitus without complication, without long-term current use of insulin (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); Cerebrovascular disease, arteriosclerotic, post-stroke; Gastroesophageal reflux disease without esophagitis Allergies Active Allergy Reactions Criticality Noted Date [...] the morning. Active Blood Glucose Monitoring Suppl (PROSimity ULTRA SYSTEM) W/DEVICE KIT Use as directed 4 times a day as needed for Hyperglycemia (high sugar) or Hypoglycemia (low sugar). Use up to four times a day as directed 1 Kit 11/03/19 17 Active SM ASPIRIN ADULT LOW STRENGTH 81 MG TBECIndications:Ty pe 2 diabetes mellitus with hemoglobin A1c goal of less than 8.0% ([facility]) TAKE 1 TABLET BY MOUTH EVERY DAY 100 Tab 3 05/27/19 19 Active Cartera Commerceuch Ultra In Vitro Strip (Glucose Blood) USE DIRECTED FOUR TIMES DAILY NEEDED FOR HYPERGLYCEMIA (HIGH SUGAR) OR HYPOGLYCEMIA (LOW SUGAR) 400 Strip 3 01/24/20 22 Active Cartera Commerceuch Delica Plus [id number] USE TO TEST BLOOD SUGAR FOUR TIMES DAILY DIRECTED FOR HYPERGLYCEMIA OR HYPOGLYCEMIA 400 Each 3 11/23/19 23 Active Atorvastatin Calcium 40 MG Oral Tablet (Lipitor)Indicatio ns:Dyslipidemia, goal to be determined TAKE 1 TABLET BY MOUTH EVERY MORNING 90 Tablet 3 04/05/20 23 Active Pantoprazole Sodium 40 MG Oral Tablet Delayed Release (Protonix)Indicati ons:Gastroesophage al reflux disease without esophagitis TAKE 1 TABLET BY MOUTH EVERY MORNING 90 Tablet 3 04/05/20 23 Active Metoprolol Succinate ER 25 MG Oral Tablet Extended Release 24 Hour (toPROL XL)Indications:HTN , goal below 130/80 TAKE 1 TABLET BY MOUTH EVERY MORNING 90 Tablet 3 04/05/20 23 Active hydrALAZINE HCl 10 MG Oral Tablet (Apresoline) 2 Tablets in the morning. 06/19/19 24 Active metFORMIN HCl ER 500 MG Oral Tablet Extended Release 24 Hour (Glucophage XR)Indications:Typ e 2 diabetes mellitus with hemoglobin A1c goal of less than 8.0% (HCC) TAKE 2 TABLETS BY MOUTH EVERY MORNING 180 Tablet 3 09/06/19 24 Active hydroCHLOROthiazid e 25 MG Oral Tablet (Hydrodiuril)Indic ations:HTN, goal below 140/90 TAKE 1 TABLET BY MOUTH EVERY MORNING 90 Tablet 3 09/06/19 24 Active amLODIPine Besylate 5 MG Oral Tablet (Norvasc)Indicatio ns:HTN, goal below 140/90 TAKE 1 TABLET BY MOUTH EVERY DAY IN THE MORNING 90 Tablet 3 09/06/19 24 Active Probiotic 250 MG Oral Capsule Take by mouth. Active Clopidogrel Bisulfate 75 MG Oral Tablet (pLAVix)Indication s:Stenosis of carotid artery, unspecified laterality,Cerebro vascular disease, arteriosclerotic, post-stroke TAKE 1 TABLET BY MOUTH EVERY DAY EXCEPT FOR SATURDAYS AND SUNDAYS 90 Tablet 2 10/16/19 24 Active Dexcom G7 SensorIndications: Type 2 diabetes mellitus without complication, without long-term current use of insulin (HCC) Use as directed every 10 days. E11.9 1 Each 3 12/13/19 24 Active Dexcom G7 Underwriting Director DeviceIndications: Type 2 diabetes mellitus without complication, without long-term current use of insulin (HCC) Use as directed. E11.9 1 Each 3 12/13/19 24 Active guaiFENesin ER 600 MG Oral Tablet Extended Release 12 Hour (Humibid LA) Take 1 Tablet by mouth in the morning and 1 Tablet before bedtime. 01/02/20 Active Melatonin 3 MG Oral Tablet Disintegrating Take 6 mg by mouth every night at bedtime. 01/02/20 Active Clotrimazole 1 % External Solution (Mycelex) APPLY SMALL AMOUNT TO SKIN TWICE A DAY . APPLY SMALL AMOUNT TO TOENAILS TWICE DAILY FOR TINEA UNGUIUM 02/29/20 024 Discontinued Cefdinir 300 MG Oral Capsule (Omnicef) TAKE 1 CAPSULE BY MOUTH TWO TIMES DAILY FOR 10 DAYS 11/27/19 024 Discontinued(En d of Procedure) documented as of this encounter (statuses as [...] mRNA, LNP-s, No Pre serve, 2-Dose Series (Pro 3 Games) 01/30/2021,07/12/2020,06/14/2020 Covid-19, Mrna, Lnp-s, Pf, B [...] Sign Reading Time Taken Comments Blood Pressure 137/54 01/09/2024 1:43 PM EDT Pulse 75 01/09/2024 1:43 PM EDT Temperature 36.3 C (97.4 F) 01/09/2024 1:43 PM ED T Respiratory Rate 18 01/09/2024 1:43 PM EDT Oxygen Saturation 93% 01/09/2024 1:43 PM EDT room air Inhaled Oxygen Concentration - - Weight - - Height - - Body Mass Index - - documented in this encounter Plan of Treatment Upcoming Encounters Date Type Department Care Team (Late st Contact Info) Description 04/08/2024 9:00 AM EST Procedure Only Urology, [facility] [address] [address] Colby Ellison MD [address] [address] 04/15/2024 12:30 PM EST Office Visit Dermatology, Marcelle Silva Janet [address] [address] Alexsandra Márquez PA-C [address] [place] [address] 07/13/2024 8:20 AM EDT Office Visit Family Practice [facility] [address] [facility] [place] [address] Tristin Osorio DO [address] [facility] [place] [address] Scheduled Referrals Name Type Priority Associated Diagnoses Order Schedule PHYSICAL THERAPY REFERRAL OP Referral Within 3 days (urgent) Neurologic gait dysfunction Recurrent falls Left foot drop Ordered: 01/09/2024 OCCUPATIONAL THERAPY REFERRAL OP Referral Within 3 days (urgent) Neurologic gait dysfunction Recurrent falls Left foot drop Ordered: 01/09/2024 Health Maintenance Due Date Last Done Comments [...] 12/25/2021, Additional history exists GFR 01/01/2025 01/02/2024, 01/2024, 06/19/2023, Additional history exists DTap/Tdap Vaccines [...] Other acquired deformity of ankle and foot History of UTI Personal history of urinary (tract) infection Type 2 diabetes mellitus without complication, without long-term current use of insulin (HCC) HTN, goal below 140/90 Unspecified essential hypertension Ground glass opacity present on imaging of lung 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
--- OUTSIDE RECORDS SUMMARY | 2024-03-21 09:54 | External Medical Summary | Summary of Care ---
Author Name Unknown Organization [facility] Address [address] [place] [address] Phone [phone] Care Team Providers Care Web Press Roll Tender Name Role Phone KelvinTristin godoy Primary Care Provider [phone] Reason for Visit * Reason Onset Date Comments Skilled Visit 12/31/2023 Encounter Details Date Type Department Care Team (Late st Contact Info) Description 12/31/2023 3:30 PM EDT Alf Visit [facility] [place] [address] [place] [address] Bobbi Olivares PA-C [address] [place] [address] Acute cystitis with hematuria*; Recurrent falls; Urothelial carcinoma of bladder (HCC); Type 2 diabetes mellitus without complication, without long-term current use of insulin (HCC); Cerebrovascular disease, arteriosclerotic, post-stroke; Neurologic gait dysfunction; HTN, goal below 140/90; Abnormal CT of the chest Allergies Active Allergy Reactions Criticality Noted Date Comments Irbesartan-Hydrochlorothiazide 10/14 cough Hydrochlorothiazide Low 11/09/2018 Other reaction(s): Cough Irbesartan Low 11/09/2018 Other reaction(s): Cough documented as of this encounter (statuses as of 12/31/2023) Medications Medication Sig Dispensed Refills Start Date End Date Status Cholecalciferol (VITAMIN D3) 2000 UNITS Capsule Take 1 Capsule by mouth in the morning. Active Multiple Vitamins-Minerals (MULTIVITAL) Tablet Take 1 Tablet by mouth in the morning. Active Blood Glucose Monitoring Suppl (CampaignAmp SYSTEM) W/DEVICE KIT Use as directed 4 [...] TWICE DAILY FOR TINEA UNGUIUM 02/29/2020 Active Retina Implant In Vitro Strip (Glucose Blood) USE DIRECTED FOUR TIMES DAILY NEEDED FOR HYPERGLYCEMIA (HIGH SUGAR) OR HYPOGLYCEMIA (LOW SUGAR) 400 Strip 3 01/23/2022 Active Enigmedia Delica Plus [id number] USE TO TEST BLOOD SUGAR FOUR TIMES [...] 1 Each 3 12/13/2023 Active Dexcom G7 Auto Engine Mechanic DeviceIndications: Type 2 diabetes mellitus without complication, without long-term current use of insulin (HCC) Use as directed. 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 11/26/201608/27 Weakness of left side of body 10/14/2014 11/26/2016 documented as of this encounter (statuses as of 12/31/2023) Immunizations Name Administration Dates Next Due COVID-19 [...] Sign Reading Time Taken Comments Blood Pressure 153/61 12/31/2023 5:39 PM EDT Pulse 90 12/31/2023 5:39 PM EDT Temperature 36.7 C (98.1 F) 12/31/2023 5:39 PM ED T Respiratory Rate 18 12/31/2023 5:39 PM EDT Oxygen Saturation 96% 12/31/2023 5:39 PM EDT room air Inhaled Oxygen Concentration - - Weight 75.6 kg (166 lb 9.6 oz) 12/31/2023 5:39 P M EDT Height - - Body Mass Index 26.09 12/13/2023 1:57 PM EDT documented in this encounter Plan of Treatment Upcoming Encounters Date Type Department Care Team (Late st Contact Info) Description 04/08/2024 9:00 AM EST Procedure Only Urology, [facility] [address] [address] Colby Ellison MD [address] [id number] 04/15/2024 12:30 PM EST Office Visit Dermatology, Janet Young [address] [address] Alexsandra Márquez PA-C [address] [address] 07/13/2024 8:20 AM EDT Office Visit Family Practice [facility] [address] [facility] [place] [address] Tristin Osorio, [address] [facility] [place] [address] Health Maintenance Due Date Last Done Comments [...] this encounter Visit Diagnoses Diagnosis Acute cystitis with hematuria- Primary Acute cystitis Recurrent falls Personal history of fall Urothelial carcinoma of bladder (HCC) Type 2 diabetes mellitus without complication, without long-term current use of insulin (HCC) Cerebrovascular disease, arteriosclerotic, post-stroke Cerebral atherosclerosis Neurologic gait dysfunction Abnormality of gait HTN, goal below 140/90 Unspecified essential hypertension Abnormal CT of the chest Nonspecific (abnormal) findings on radiological and other examination of other intrathoracic organs documented in this encounter Advance Directives Documents on File Type Date Recorded 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
--- OUTSIDE RECORDS SUMMARY | 2024-03-21 09:54 | External Medical Summary ---
Author Name Unknown Address Unknown Organization [facility] [address] [place] [address] Laboratory Report Ordering Provider Test Date Status JESSIE WYLIE 01/09/2024 05:42:00 Final Observation Date Value Abnormality Reference (Units ) Status WBC, Total 01/09/2024 05:42:00 9.63 4.00-10.8 0 (K/uL) Final RBC 01/09/2024 05:42:00 4.55 4.50-5.25 (M/uL) Final Hemoglobin 01/09/2024 05:42:00 13.5 Below low normal 14 .0-16.8 (g/dL) Final HCT 01/09/2024 05:42:00 41.7 40.0-48.4 (%) Final MCV 01/09/2024 05:42:00 91.6 82.0-99.5 (fL) Final MCH 01/09/2024 05:42:00 29.7 27.0-34.0 (pg) Final MCHC 01/09/2024 05:42:00 32.4 32.0-36.0 (g/dL) Final RDW 01/09/2024 05:42:00 14.4 11.5-15.5 (%) Final Platelets 01/09/2024 05:42:00 330 140-400 (K /uL) Final MPV 01/09/2024 05:42:00 11.2 6.6-11.1 ( fL) Final Performing Location [facility] [address] [place] [address]
[2024-03-21 11:42] LABS: A calco-baum cmplx NotReported Not Detected (NotDetected); Bact fragilis Not Reported Not Detected (NotDetected); Blood Culture Id Panel See PCR Comment (NotDetected); C auris Not Reported Not Detected (NotDetected); CTX-M Resistant Gene Not Detected (NotDetected); Calbicans Not Reported Not Detected (NotDetected); Candida glabrata Not Reported Not Detected (NotDetected); Candida krusei Not Reported Not Detected (NotDetected); Cneoformans/gatti Not Reported Not Detected (NotDetected); Cparapsilosis Not Reported Not Detected (NotDetected); E cloacae compx Not Reported Not Detected (NotDetected); Efaecalis Not Reported Not Detected (NotDetected); Efaecium Not Reported Not Detected (NotDetected); Enterobacterales DETECTED (NotDetected); Enterobacterales Not Reported DETECTED (NotDetected); Escherichia coli Not Reported DETECTED (NotDetected); H influenzae Not Reported Not Detected (NotDetected); IMP Resistant Gene Not Detected (NotDetected); K aerogenes Not Reported Not Detected (NotDetected); KPC Resistant Gene Not Detected (NotDetected); Koxytoca Not Reported Not Detected (NotDetected); Kpneumoniae grp Not Reported Not Detected (NotDetected); Lmonocyt Not Reported Not Detected (NotDetected); N meningitidis Not Reported Not Detected (NotDetected); NDM Resistant Gene Not Detected (NotDetected); OXA 48 Like Resistant Gene Not Detected (NotDetected); P aeruginosa Not Reported Not Detected (NotDetected); Proteus spp Not Reported Not Detected (NotDetected); Salmonella spp Not Reported Not Detected (NotDetected); Staph lugdunensis Not Reported Not Detected (NotDetected); Staph spp. Not Reported Not Detected (NotDetected); Staphaureus Not Reported Not Detected (NotDetected); Staphepi Not Reported Not Detected (NotDetected); Stenmaltophilia Not Reported Not Detected (NotDetected); Strep agal(GrpB) Not Reported Not Detected (NotDetected); Strep pneum Not Reported Not Detected (NotDetected); Strep pyog (GrpA) Not Reported Not Detected (NotDetected); Strep spp Not Reported Not Detected (NotDetected); VIM Resistant Gene Not Detected (NotDetected); mcr-1 Colistin Resistant Gene Not Detected (NotDetected)
--- NOTE | 2024-03-21 12:45 | Hospitalist Progress Note ---
Date of Service March 21, 2024 Assessment & Plan (1) Sepsis: Plan: Sepsis E. coli bacteremia Complicated urinary tract infection Left leg cellulitis H/O bladder cancer S/P surgery --Left Leg CT: Diffuse soft tissue swelling with skin thickening within the visualized left lower extremity. Findings may be due to cellulitis. No visualized abscess detected. --Venous Doppler:Normal left lower extremity duplex venous ultrasound. --Blood, urine culture growing gram-negative bacilli Continue cefepime, doxycycline for now Will repeat blood cultures tomorrow Resume home diuretics as able Possible dysphagia Speech therapy evaluation Aspiration precautions Hypokalemia Hypomagnesemia Replete electrolytes as needed CVA/PVD Continue aspirin, statin, Plavix Hypertension Continue amlodipine, hydralazine, metoprolol Monitor BP Hyperlipidemia on statin COPD No signs of exacerbation Monitor DM II Last HbA1c 7.2 Continue insulin while hospitalized Monitor BGs Ambulatory dysfunction Generalized weakness Past tobacco abuse Fall precautions PT OT as able DVT Px: Lovenox SQ Code Status Full code Admission and Anticipated Discharge Date Admission Date: March 20, 2024 Subjective Patient is seen and examined at bedside States feeling tired Generalized weakness better Left leg swelling still persistent Offers no other complaints Denies any chest pain, dyspnea, nausea, vomiting, abdominal pain Review of Systems Review of Systems: All systems reviewed & are unremarkable except as noted in Subjective Physical Exam Physical Exam: Physical Exam: Vitals signs as noted above General Appearance:Moderately built and nourished, no apparent distress Head: normocephalic, Atraumatic Eyes: normal inspection, EOMI Neck: supple, Trachea midline Respiratory/Chest: Normal breath sounds, CTA, No accessory muscle use Cardiovascular: S1, S2, No murmur Abdomen/GI:Soft, Non tender, Bowel sounds present Extremities/Musculoskeletal:normal inspection, LE edema L>R, Left leg wound in dressing Neurologic/Psych:AAOX3, grossly no focal neurological deficits Skin: normal color, warm Results & Data Results & Data Vital Signs (Past 12 Hours) Vital Signs Temp Pulse Pulse Resp BP BP Pulse Ox 03/21/24 11:29 36.9 C 80 18 105/64 92 03/21/24 10:00 03/21/24 08:12 37.3 C 82 20 115/62 94 03/21/24 07:29 78 03/21/24 04:24 36.6 C 03/21/24 03:28 38.1 C H 96 H 22 142/63 H 94 O2 Del Method 03/21/24 11:29 Room Air 03/21/24 10:00 Room Air 03/21/24 08:12 Room Air 03/21/24 07:29 03/21/24 04:24 03/21/24 03:28 Room Air Laboratory Results Short CBC 03/20/24 03/21/24 Range/Units 18:51 05:29 WBC 18.59 H 13.37 H (4.8-10.8) K/ul Hgb 14.6 13.1 L (14.0-18.0) g/dl Hct 42.8 38.2 L (42.0-52.0) % Plt Count 253 222 (130-400) K/uL BMP 03/20/24 03/21/24 18:51 05:29 Sodium 139 140 Potassium 3.3 L 3.3 L Chloride 101 106 Carbon Dioxide 27 25 BUN 22 20 Creatinine 1.10 1.11 Glucose 209 H 157 H Calcium 10.2 9.4 Cardiac Enzymes 03/20/24 Range/Units 18:51 Total Creatine Kinase 150 (30-223) U/L Liver Function 03/20/24 Range/Units 18:51 Total Bilirubin 1.1 H (0.2-1.0) mg/dl AST 17 (13-39) U/L ALT 24 (7-52) U/L Alkaline Phosphatase 47 (34-104) U/L Albumin 4.6 (3.4-5.0) gm/dl Urine 03/20/24 Range/Units 20:24 Urine Color Yellow Urine Appearance Cloudy A (Clear) Urine pH 5.5 (4.5-7.5) Ur Specific [place] 1.020 (1.000-1.030) Urine Protein 1+ H (Negative) Urine Glucose (UA) Negative (Negative)
--- NOTE | 2024-03-21 14:54 | XRay Report ---
EXAM: X-ray chest one-view portable CLINICAL HISTORY: Cough PRIORS: 12/24/2023 TECHNIQUE: Frontal view chest FINDINGS: The chest is well-expanded. Mild heterogeneous opacification present in the lung bases, appearing in the interval. Heart size is top normal. No pneumothorax. Trachea is patent. Osseous structures demonstrate no acute abnormality. No radiopaque foreign body. IMPRESSION: Bibasilar opacifications suggestive of pneumonia given the stated clinical history. After medical treatment, follow-up chest radiograph could be considered in 6 to 8 weeks to reassess and ensure resolution. ACT 112: Positive. There are findings on this examination that require communication between the performing entity and the patient following Patient Test Result Information Act ([place] ACT 112) guidelines. Electronically signed by Shannan Powers 03-21-2024 2:54 PM
[2024-03-21] MEDS: guaiFENesin 600 MG TABCR PO SCH (22:04)
--- NOTE | 2024-03-22 03:01 | Communication Note ---
Date of Service: March 22, 2024 Patient febrile and with accessory muscle use as per RN. 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 Chest x-ray as per my interpretation bibasilar infiltrates AP Fever Aspiration pneumonia Gram-negative bacteremai/UTI on cefepime Change cefepime to Zosyn Continue doxycycline for atypical coverage
[2024-03-22] MEDS: PIPERACILLIN/TAZOBACTAM 4.5 GM/100 ML BAG IV ONE (03:14)
[2024-03-22 04:10] LABS: Base Excess VBG 2.1 mEq/L; HCO3 VBG 26 mmol/L; Oxygen Saturation VBG 93.5 %; PCO2 VBG 35 mmHg (38-50); PO2 VBG 65 mmHg; pH VBG 7.47 (7.36-7.41)
[2024-03-22 04:15] LABS: Basophils # (auto) 0.04 K/uL (0.00-0.20); Basophils % (auto) 0.4 %; Eosinophils # (auto) 0.04 K/uL (0.00-0.50); Eosinophils % (auto) 0.4 %; Hematocrit (blood only) 37.6 % (42.0-52.0); Hemoglobin 12.4 g/dl (14.0-18.0); Immature Granulocytes # (auto) 0.03 K/uL (0.01-0.20); Immature Granulocytes % (auto) 0.3 %; Lymphocytes # (auto) 1.34 K/uL (1.20-3.40); Lymphocytes % (auto) 12.1 %; Mean Corpuscular Volume 88.1 fL (80.0-100.0); Mean Platelet Volume 10.8 fL (9.4-12.4); Monocytes % (auto) 8.1 %; Neutrophils # (auto) 8.75 K/uL (1.40-6.50); Neutrophils % (auto) 78.7 %; Platelet Count 188 K/uL (130-400); RDW Coefficient of Variation 14.1 % (11.5-14.5); RDW Standard Deviation 45.4 fL (36.4-46.3); Red Blood Count 4.27 M/uL (4.70-6.10)
--- NOTE | 2024-03-22 04:16 | XRay Report ---
EXAM: XR chest 1V portable CLINICAL HISTORY: LOW O2 WTW TECHNIQUE: An X-ray image of the chest is obtained in AP projection. COMPARISON: Comparison with the previous study dated 03/21/2024. FINDINGS: Pulmonary Parenchyma: left lower lung zone air space filling opacity with silhouetting of left hemidiaphragm. prominent both linda with possible right para cardiac infiltriates. Blunting of left costophrenic angle suggesting left-sided pleural effusion. Bilateral apical pleural thickening is seen. Heart and Mediastinum: Heart size and shape are normal. No mediastinal widening or masses. No hilar or mediastinal lymphadenopathy. Bony Thorax: Bony thorax appears intact without fractures or deformities. Soft Tissues: Soft tissues overlying the chest wall are unremarkable. IMPRESSION: 1. Left lower lung zone air space filling opacity with prominent both linda and possible right para cardiac lung infiltrates, picture is suggestive of an ongoing infectious process for clinical correlation (no gross interval changes). 2. Mild blunting of left costophrenic angle suggesting mild left-sided pleural effusion/ thickening (no gross interval changes). Electronically signed by Keisha Sauceda 03-22-2024 04:16 AM
[2024-03-22 04:32] LABS: BUN Creatinine Ratio 17.8 (10-20); Creatinine Clr Calc Pharmacy 46.8 ml/min; Magnesium 1.7 mg/dl (1.7-2.4); Potassium 3.7 mmol/L (3.5-5.1)
[2024-03-22] MEDS: IPRATROPIUM BROMIDE NEB SOLN 0.02% 0.5MG/2.5ML VIAL INH STA (04:51)
[2024-03-22] MEDS: LEVALBUTEROL 1.25 MG/3 ML NEB NEB STA (04:51)
[2024-03-22] MEDS: MAGNESIUM SULFATE / D5W 1 GM/100 ML BAG IV ONE (06:34)
[2024-03-22] MEDS: PIPERACILLIN/TAZOBACTAM 4.5 GM/100 ML BAG IV SCH (08:43)
--- NOTE | 2024-03-22 12:53 | Hospitalist Progress Note ---
Date of Service March 22, 2024 Assessment & Plan (1) Sepsis: Plan: Sepsis E. coli bacteremia Complicated urinary tract infection Left leg cellulitis H/O bladder cancer S/P surgery --Left Leg CT: Diffuse soft tissue swelling with skin thickening within the visualized left lower extremity. Findings may be due to cellulitis. No visualized abscess detected. --Venous Doppler:Normal left lower extremity duplex venous ultrasound. --Urine culture growing E. coli --Blood culture gram-negative basilli Continue cefepime, doxycycline>> Doxy, Zosyn Resume home diuretics as able Aspiration pneumonia Dysphagia --CXR: Suggestive of possible aspiration pneumonia Continue Zosyn as above Speech therapy evaluation Aspiration precautions Plan for video swallow study tomorrow Hypokalemia Hypomagnesemia Replete electrolytes as needed CVA/PVD Continue aspirin, statin, Plavix Hypertension Continue amlodipine, hydralazine, metoprolol Monitor BP Hyperlipidemia on statin COPD No signs of exacerbation Monitor DM II Last HbA1c 7.2 Continue insulin while hospitalized Monitor BGs Ambulatory dysfunction Generalized weakness Past tobacco abuse Fall precautions PT OT as able DVT Px: Lovenox SQ Code Status Full code Admission and Anticipated Discharge Date Admission Date: March 20, 2024 Subjective Patient is seen and examined at bedside Patient was febrile and had an episode of aspiration overnight Less cough today Weaned off of supplemental oxygen Offers no new complaints Plan for video swallow study tomorrow Subjectively feels better today Denies any chest pain, dyspnea, nausea, vomiting, abdominal pain Review of Systems Review of Systems: All systems reviewed & are unremarkable except as noted in Subjective Physical Exam Physical Exam: Physical Exam: Vitals signs as noted above General Appearance:Moderately built and nourished, no apparent distress Head: normocephalic, Atraumatic Eyes: normal inspection, EOMI Neck: supple, Trachea midline Respiratory/Chest: Normal breath sounds, CTA, No accessory muscle use Cardiovascular: S1, S2, No murmur Abdomen/GI:Soft, Non tender, Bowel sounds present Extremities/Musculoskeletal:normal inspection, LE edema L>R, Left leg wound in dressing Neurologic/Psych:AAOX3, grossly no focal neurological deficits Skin: normal color, warm Results & Data Results & Data Vital Signs (Past 12 Hours) Vital Signs Temp Pulse Pulse Resp BP Pulse Ox O2 Del Method 03/22/24 11:39 36.4 C L 73 18 107/61 94 Room Air 03/22/24 09:44 Nasal Cannula 03/22/24 07:45 36.4 C L 66 18 125/70 96 Nasal Cannula 03/22/24 07:10 66 03/22/24 04:53 90 18 96 Nasal Cannula 03/22/24 04:05 37.3 C 03/22/24 02:41 38.1 C H 90 22 145/71 H 97 Nasal Cannula 03/22/24 01:17 36.7 C 93 H 24 94 Nasal Cannula O2 Flow Rate 03/22/24 11:39 03/22/24 09:44 2 03/22/24 07:45 2 03/22/24 07:10 03/22/24 04:53 3 03/22/24 04:05 03/22/24 02:41 2 03/22/24 01:17 2 Laboratory Results Short CBC 03/22/24 Range/Units 03:37 WBC 11.10 H (4.8-10.8) K/ul Hgb 12.4 L (14.0-18.0) g/dl Hct 37.6 L (42.0-52.0) % Plt Count 188 (130-400) K/uL BMP 03/22/24 03:37 Sodium 136 Potassium 3.7 Chloride 104 Carbon Dioxide 26 BUN 21 Creatinine 1.18 Glucose 183 H Calcium 9.0
[2024-03-22] MEDS: POLYETHYLENE (MIRALAX) 17 GM PACK PO PRN (16:01)
[2024-03-23 07:32] LABS: Hematocrit (blood only) 37.6 % (42.0-52.0); Hemoglobin 12.9 g/dl (14.0-18.0); Mean Corpuscular Hemoglobin 29.9 pg (25.0-34.0); Mean Corpuscular Hgb Conc 34.3 g/dL (32.0-36.0); Mean Corpuscular Volume 87.2 fL (80.0-100.0); Mean Platelet Volume 10.8 fL (9.4-12.4); Platelet Count 191 K/uL (130-400); RDW Coefficient of Variation 13.7 % (11.5-14.5); RDW Standard Deviation 44.3 fL (36.4-46.3); Red Blood Count 4.31 M/uL (4.70-6.10); White Blood Count 8.12 K/ul (4.8-10.8)
[2024-03-23 07:50] LABS: BUN Creatinine Ratio 16.5 (10-20); Calcium 8.9 mg/dl (8.6-10.3); Creatinine Clr Calc Pharmacy 48.1 ml/min; Potassium 3.8 mmol/L (3.5-5.1)
[2024-03-23] MEDS: CLOPIDOGREL BISULFATE 75 MG TAB PO SCH (08:31)
[2024-03-23] MEDS ORDERED: ALBUT/IPRATROP 3MG/0.5MG NEB 3 ML VIAL NEB PRN (10:38)
[2024-03-23] MEDS: FUROSEMIDE 20 MG TAB PO ONE (11:09)
--- NOTE | 2024-03-23 12:33 | Fluoroscopy Report ---
MODIFIED BARIUM SWALLOW CLINICAL HISTORY: assess for aspiration COMPARISON STUDY: None. FLUOROSCOPY TIME: 1.16 minutes. Ka,r: 6.66 mGy. TECHNIQUE: A modified barium swallow was performed in conjunction with Speech Pathology. The patient ingested varying consistencies of barium containing material. Video fluoroscopy was performed. FINDINGS: No tracheal aspiration was identified with thin liquids, nectar thick liquids, pudding or c racker in pudding consistencies. There was a small amount of penetration with thin liquids via straw. Epiglottic inversion was normal. Laryngeal elevation was normal. IMPRESSION: 1. No tracheal aspiration identified. Intact swallowing mechanism. 2. Full recommendations by Speech pathology to follow. ACT 112: Negative or not required by law. Electronically signed by: Cordell Spann M.D. 03/23/2024 12:31 PM
--- NOTE | 2024-03-23 14:26 | Hospitalist Progress Note ---
Date of Service March 23, 2024 Assessment & Plan (1) Sepsis: Plan: Sepsis E. coli bacteremia Complicated urinary tract infection Left leg cellulitis H/O bladder cancer S/P surgery --Left Leg CT: Diffuse soft tissue swelling with skin thickening within the visualized left lower extremity. Findings may be due to cellulitis. No visualized abscess detected. --Venous Doppler:Normal left lower extremity duplex venous ultrasound. --Urine culture growing E. coli --Blood culture: E. coli --Repeat blood cultures negative to date Continue cefepime, doxycycline>> Doxy, Zosyn>> Rocephin, Doxy Resume home diuretics today Monitor volume status PT OT prior to discharge Aspiration pneumonia Dysphagia --CXR: Suggestive of possible aspiration pneumonia --Video Swallow:No tracheal aspiration identified. Intact swallowing mechanism. Continue Zosyn>> Rocephin, Flagyl Speech therapy evaluation Aspiration precautions Hypokalemia Hypomagnesemia Replete electrolytes as needed CVA/PVD Continue aspirin, statin, Plavix Hypertension Continue amlodipine, hydralazine, metoprolol Monitor BP Hyperlipidemia on statin COPD No signs of exacerbation Monitor DM II Last HbA1c 7.2 Continue insulin while hospitalized Monitor BGs Ambulatory dysfunction Generalized weakness Past tobacco abuse Fall precautions PT OT as able DVT Px: Lovenox SQ Code Status Full code Disposition Rehab as able Admission and Anticipated Discharge Date Admission Date: March 20, 2024 Subjective Patient is seen and examined at bedside Subjectively feels well today Had video swallow study earlier today No new complaints Reports chronic leg edema Ongoing cough which he attributes to COPD Denies any chest pain, dyspnea, nausea, vomiting, abdominal pain Review of Systems Review of Systems: All systems reviewed & are unremarkable except as noted in Subjective Physical Exam Physical Exam: Physical Exam: Vitals signs as noted above General Appearance:Moderately built and nourished, no apparent distress Head: normocephalic, Atraumatic Eyes: normal inspection, EOMI Neck: supple, Trachea midline Respiratory/Chest: Normal breath sounds, CTA, No accessory muscle use Cardiovascular: S1, S2, No murmur Abdomen/GI:Soft, Non tender, Bowel sounds present Extremities/Musculoskeletal:normal inspection, LE edema L>R, Left leg wound in dressing Neurologic/Psych:AAOX3, grossly no focal neurological deficits Skin: normal color, warm Results & Data Results & Data Vital Signs (Past 12 Hours) Vital Signs Temp Pulse Pulse Resp BP BP Pulse Ox 03/23/24 14:00 76 03/23/24 09:29 03/23/24 08:13 36.6 C 76 20 150/74 H 93 03/23/24 07:18 79 03/23/24 02:38 36.6 C 70 18 130/75 97 O2 Del Method O2 Flow Rate 03/23/24 14:00 03/23/24 09:29 Room Air 03/23/24 08:13 Room Air 03/23/24 07:18 03/23/24 02:38 Nasal Cannula 3 Laboratory Results Short CBC 03/23/24 Range/Units 07:06 WBC 8.12 (4.8-10.8) K/ul Hgb 12.9 L (14.0-18.0) g/dl Hct 37.6 L (42.0-52.0) % Plt Count 191 (130-400) K/uL BMP 03/23/24 07:06 Sodium 139 Potassium 3.8 Chloride 106 Carbon Dioxide 27 BUN 19 Creatinine 1.15 Glucose 129 H Calcium 8.9
[2024-03-23] MEDS: cefTRIAXone SODIUM 2,000 MG/50 ML BAG IV SCH (16:32)
[2024-03-23] MEDS: metroNIDAZOLE 500 MG TAB PO SCH (16:32)
[2024-03-23] MEDS: MELATONIN 3 MG TAB PO PRN (20:35)
[2024-03-24 08:47] LABS: Hematocrit (blood only) 40.7 % (42.0-52.0); Hemoglobin 13.5 g/dl (14.0-18.0); Mean Corpuscular Hemoglobin 28.8 pg (25.0-34.0); Mean Corpuscular Hgb Conc 33.2 g/dL (32.0-36.0); Mean Corpuscular Volume 86.8 fL (80.0-100.0); Mean Platelet Volume 10.8 fL (9.4-12.4); Platelet Count 216 K/uL (130-400); RDW Coefficient of Variation 13.9 % (11.5-14.5); RDW Standard Deviation 43.9 fL (36.4-46.3); Red Blood Count 4.69 M/uL (4.70-6.10); White Blood Count 7.11 K/ul (4.8-10.8)
[2024-03-24 09:15] LABS: Calcium 9.3 mg/dl (8.6-10.3); Creatinine Clr Calc Pharmacy 55.1 ml/min; Potassium 4.1 mmol/L (3.5-5.1)
[2024-03-24] MEDS: hydroCHLOROthiazide 25 MG TAB PO SCH (10:02)
--- NOTE | 2024-03-24 15:17 | Hospitalist Progress Note ---
Date of Service March 24, 2024 Assessment & Plan (1) Sepsis: Plan: Sepsis E. coli bacteremia Complicated urinary tract infection Left leg cellulitis H/O bladder cancer S/P surgery --Left Leg CT: Diffuse soft tissue swelling with skin thickening within the visualized left lower extremity. Findings may be due to cellulitis. No visualized abscess detected. --Venous Doppler:Normal left lower extremity duplex venous ultrasound. --Urine culture growing E. coli --Blood culture: E. coli --Repeat blood cultures negative to date Continue cefepime, doxycycline>> Doxy, Zosyn>> Rocephin, Doxy Transition to oral antibiotics to complete the course on discharge Monitor volume status Waiting for rehab placement Rehab bed likely available on Aspiration pneumonia Dysphagia --CXR: Suggestive of possible aspiration pneumonia --Video Swallow:No tracheal aspiration identified. Intact swallowing mechanism. Continue Zosyn>> Rocephin, Flagyl Speech therapy evaluation Aspiration precautions Hypokalemia Hypomagnesemia Replete electrolytes as needed CVA/PVD Continue aspirin, statin, Plavix Hypertension Continue amlodipine, hydralazine, metoprolol Monitor BP Hyperlipidemia on statin COPD No signs of exacerbation Monitor DM II Last HbA1c 7.2 Continue insulin while hospitalized Monitor BGs Ambulatory dysfunction Generalized weakness Past tobacco abuse Fall precautions PT OT as able DVT Px: Lovenox SQ Code Status Full code Disposition Rehab when accepted Admission and Anticipated Discharge Date Admission Date: March 20, 2024 Subjective Patient is seen and examined at bedside Minimal cough States feeling tired Otherwise no complaints Waiting for placement Denies any chest pain, dyspnea, nausea, vomiting, abdominal pain Review of Systems Review of Systems: All systems reviewed & are unremarkable except as noted in Subjective Physical Exam Physical Exam: Physical Exam: Vitals signs as noted above General Appearance:Moderately built and nourished, no apparent distress Head: normocephalic, Atraumatic Eyes: normal inspection, EOMI Neck: supple, Trachea midline Respiratory/Chest: Normal breath sounds, CTA, No accessory muscle use Cardiovascular: S1, S2, No murmur Abdomen/GI:Soft, Non tender, Bowel sounds present Extremities/Musculoskeletal:normal inspection, LE edema L>R, Left leg wound in dressing Neurologic/Psych:AAOX3, grossly no focal neurological deficits Skin: normal color, warm Results & Data Results & Data Vital Signs (Past 12 Hours) Vital Signs Temp Pulse Pulse Resp BP BP Pulse Ox 03/24/24 15:12 34.4 C L 74 16 128/68 96 03/24/24 14:20 81 03/24/24 12:29 34.7 C L 74 18 130/78 95 03/24/24 10:53 36.4 C L 74 18 141/63 H 94 03/24/24 07:45 03/24/24 07:18 36.4 C L 85 16 122/76 96 03/24/24 07:09 81 O2 Del Method 03/24/24 15:12 Room Air 03/24/24 14:20 03/24/24 12:29 Room Air 03/24/24 10:53 Room Air 03/24/24 07:45 Room Air 03/24/24 07:18 Room Air 03/24/24 07:09 Laboratory Results Short CBC 03/24/24 Range/Units 08:03 WBC 7.11 (4.8-10.8) K/ul Hgb 13.5 L (14.0-18.0) g/dl Hct 40.7 L (42.0-52.0) % Plt Count 216 (130-400) K/uL BMP 03/24/24 08:03 Sodium 138 Potassium 4.1 Chloride 104 Carbon Dioxide 26 BUN 19 Creatinine 1.00 Glucose 157 H Calcium 9.3
[2024-03-25] MEDS: guaiFENesin 600 MG TABCR PO SCH (04:51)
[2024-03-25 08:39] LABS: Hematocrit (blood only) 39.5 % (42.0-52.0); Hemoglobin 13.4 g/dl (14.0-18.0); Mean Corpuscular Hemoglobin 29.5 pg (25.0-34.0); Mean Corpuscular Hgb Conc 33.9 g/dL (32.0-36.0); Mean Corpuscular Volume 86.8 fL (80.0-100.0); Mean Platelet Volume 10.7 fL (9.4-12.4); Platelet Count 234 K/uL (130-400); RDW Coefficient of Variation 13.7 % (11.5-14.5); RDW Standard Deviation 43.9 fL (36.4-46.3); Red Blood Count 4.55 M/uL (4.70-6.10); White Blood Count 7.04 K/ul (4.8-10.8)
[2024-03-25 08:57] LABS: Calcium 9.4 mg/dl (8.6-10.3); Creatinine Clr Calc Pharmacy 50.5 ml/min
--- NOTE | 2024-03-25 09:44 | Hospitalist Progress Note ---
Date of Service March 25, 2024 Assessment & Plan (1) Sepsis: Plan: Sepsis E. coli bacteremia Complicated urinary tract infection Left leg cellulitis H/O bladder cancer S/P surgery Left Leg CT: Diffuse soft tissue swelling with skin thickening within the visualized left lower extremity. Findings may be due to cellulitis. No visualized abscess detected. Venous Doppler:Normal left lower extremity duplex venous ultrasound. Urine culture growing E. coli Blood culture: E. coli Repeat blood cultures negative to date Was initially on cefepime, doxycycline>> Doxy, Zosyn, now currently on Rocephin, Doxy Reviewed culture sensitivities. Will deescalate to po levofloxacin for E coli UTI/bacteremia Will continue doxycycline to complete treatment for cellulitis Aspiration pneumonia Dysphagia --CXR: Suggestive of possible aspiration pneumonia --Video Swallow:No tracheal aspiration identified. Intact swallowing mechanism. Speech therapy evaluation noted Aspiration precautions Will be covered by levofloxacin Hypokalemia Hypomagnesemia Resolved CVA/PVD Continue aspirin, statin, Plavix Hypertension Continue amlodipine, hydralazine, metoprolol Monitor BP Hyperlipidemia on statin COPD No signs of exacerbation Monitor DM II Last HbA1c 7.2 Continue insulin while hospitalized Monitor BGs Ambulatory dysfunction Generalized weakness Past tobacco abuse Fall precautions Continue PT/OT DVT Px: Lovenox SQ Code Status Full code Disposition Medically stable for DC. Awaiting placement I spent a total of 50 minutes coordinating, documenting and providing care for this patient excluding time spent in performance of separately billed services Admission and Anticipated Discharge Date Admission Date: March 20, 2024 Subjective Patient seen and examined Reports feeling better Stated urinary incontinence has resolved so far Reports left leg swelling is resolved Denied any complaints on ROS Physical Exam Constitutional: + well hydrated; no acute distress Eyes: PERRL, conjunctivae normal, anicteric sclerae ENMT: external ear and nose normal, oropharynx normal Respiratory: normal respiratory effort, lungs clear to auscultation Cardiovascular: Rate/Rhythm: regular rate and regular rhythm Gastrointestinal (Abdomen): normal bowel sounds, soft, nontender, no hepatosplenomegaly Musculoskeletal: No pedal edema Neurologic: PERRL, EOMI, accommodation nl, no face palsy, no dysarthria Psychiatric: A+Ox3, euthymic affect Results & Data Results & Data Vital Signs (Past 12 Hours) Vital Signs Temp Pulse Pulse Resp BP BP Pulse Ox 03/25/24 08:01 36.6 C 77 18 150/66 H 94 03/25/24 05:43 75 03/25/24 01:45 36.7 C 75 18 137/70 94 03/24/24 23:00 78 03/24/24 22:38 36.8 C 73 16 129/61 92 03/24/24 22:02 O2 Del Method 03/25/24 08:01 Room Air 03/25/24 05:43 03/25/24 01:45 Room Air 03/24/24 23:00 03/24/24 22:38 Room Air 03/24/24 22:02 Room Air Laboratory Results Abnormal lab results 03/24/24 03/24/24 03/24/24 Range/Units 12:17 17:26 20:43 RBC (4.70-6.10) M/uL Hgb (14.0-18.0) g/dl Hct (42.0-52.0) % Chloride (98-107) mmol/L Glucose (70-99(Fasting)) mg/dl POC Glucose 127 H 110 H 188 H (70-99) mg/dl 03/25/24 03/25/24 Range/Units 07:24 07:58 RBC 4.55 L (4.70-6.10) M/uL Hgb 13.4 L (14.0-18.0) g/dl Hct 39.5 L (42.0-52.0) % Chloride 108 H (98-107) mmol/L Glucose 136 H (70-99(Fasting)) mg/dl POC Glucose 134 H (70-99) mg/dl
[2024-03-25] MEDS: levoFLOXacin 750 MG TAB PO SCH (11:28)
[2024-03-26 07:04] LABS: Hematocrit (blood only) 40.7 % (42.0-52.0); Hemoglobin 13.8 g/dl (14.0-18.0); Mean Corpuscular Hemoglobin 29.4 pg (25.0-34.0); Mean Corpuscular Hgb Conc 33.9 g/dL (32.0-36.0); Mean Corpuscular Volume 86.8 fL (80.0-100.0); Mean Platelet Volume 10.8 fL (9.4-12.4); Platelet Count 243 K/uL (130-400); RDW Coefficient of Variation 13.5 % (11.5-14.5); RDW Standard Deviation 43.1 fL (36.4-46.3); Red Blood Count 4.69 M/uL (4.70-6.10); White Blood Count 8.13 K/ul (4.8-10.8)
[2024-03-26 07:20] LABS: BUN Creatinine Ratio 17.5 (10-20); Calcium 9.5 mg/dl (8.6-10.3); Creatinine Clr Calc Pharmacy 44.3 ml/min; Magnesium 1.8 mg/dl (1.7-2.4); Potassium 3.9 mmol/L (3.5-5.1)
[2024-03-26 08:02] VITALS: BP 125/73; PULSE 70; RESP 18; TEMP 97.7; O2SAT 94
--- NOTE | 2024-03-26 10:30 | Discharge Summary ---
Date of Service March 26, 2024 Admission HPI Per Admitting Provider History obtained from patient and records. Medical history significant for CVA, PVD, hypertension, hyperlipidemia, COPD, DM2 on oral medications, GERD, bladder cancer status post surgery, past tobacco abuse Last confinement December 2023 for confusion/metabolic encephalopathy secondary to E. coli UTI. Patient noted left leg swelling about 2 weeks ago from wound. Possible trauma as per patient. Today, patient noted increased generalized weakness causing him to fall back. Family worried about UTI similar to episode from 3 months ago. Patient denies headache, chest pain, SOB, abdominal/flank pain, hematuria, d ysuria symptoms. IV Zosyn administered at the ER. 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 Admission Exam Per Admitting Provider GENERAL: Comfortable, pleasant, no respiratory distress SKIN: Normal color, warm HEENT: Alopecia, pink palpebral conjunctivae, no ptosis, dry buccal mucosa NECK : Supple, no tenderness CHEST : CTA, no tenderness HEART : RRR, no obvious murmurs ABDOMEN: Some distention, nontender EXTREMITIES : LLE swelling with minimal tenderness, bandage over LLE, no other conspicuous deformities noted NEUROLOGIC : Coherent, no facial asymmetry, gait and stance not assessed Principal Diagnosis Sepsis E coli bacteremia Complicated urinary tract infection Left leg cellulitis Discharge Exam Constitutional + well hydrated; no acute distress Eyes PERRL, conjunctivae normal, anicteric sclerae ENMT external ear and nose normal, oropharynx normal Respiratory normal respiratory effort, lungs clear to auscultation Cardiovascular Rate/Rhythm: regular rate and regular rhythm Gastrointestinal (Abdomen) normal bowel sounds, soft, nontender, no hepatosplenomegaly Musculoskeletal No pedal edema Neurologic PERRL, EOMI, accommodation nl, no face palsy, no dysarthria Psychiatric A+Ox3, euthymic affect Discharge Data Allergies Allergy/AdvReac Type Severity Reaction Status Date / Time hydrochlorothiazide AdvReac Mild Cough Verified 03/23/24 10:43 irbesartan AdvReac Mild Cough Verified 03/20/24 22:22 Consultations 03/20/24 22:10 ED Decision to Admit Stat Ordered Studies 03/20/24 22:05 CT tib/fib LT w con Stat US venous doppler LE LT Stat 03/23/24 10:30 FL video swallow Routine Hospital Course (1) Sepsis: Sepsis E. coli bacteremia Complicated urinary tract infection Left leg cellulitis H/O bladder cancer S/P surgery Left Leg CT: Diffuse soft tissue swelling with skin thickening within the visualized left lower extremity. Findings may be due to cellulitis. No visualized abscess detected. Venous Doppler:Normal left lower extremity duplex venous ultrasound. Urine culture growing E. coli Blood culture: E. coli Repeat blood cultures negative to date Was initially on IV antibiotics now deescalated to po levofloxacin for E coli UTI/bacteremia Doxycycline to complete treatment for cellulitis Aspiration pneumonia Dysphagia --CXR: Bilateral opacities --Video Swallow:No tracheal aspiration identified. Intact swallowing mechanism. Speech therapy evaluation noted Aspiration precautions Will be covered by levofloxacin CVA/PVD Continue aspirin, statin, Plavix Hypertension Continue amlodipine, hydralazine, metoprolol Hyperlipidemia on statin COPD No signs of exacerbation Monitor DM II Last HbA1c 7.2 Ambulatory dysfunction Generalized weakness Past tobacco abuse Fall precautions PT/OT eval noted Patient discharged to SNF for rehab Total Time Total Time Spent Total Time Spent (In Minutes): 35 Total Time Includes: Examination of the Patient, Discharge Planning and Medication Reconciliation Discharge Plan Discharge Items Patient Disposition: Transfer Care Home Fac Reason For Visit: SEPSIS Discharge Diagnosis: Sepsis E coli bacteremia Complicated urinary tract infection Left leg cellulitis Activity: As commented below Activity Comment: Per Physical therapist recommendations Non-emergency contact: Primary Care Provider Call non-emergency contact if: you have any medication questions Follow-up/Referrals: Tristin Osorio DO [Primary Care Provider] - Diet: Carb Consistent or DM2, Heart Healthy and Low Sodium (2gm) Addtl Attending Provider Instructions: Mr Bonner You presented to the hospital with weakness, fever and chills. You were managed for the above listed diagnoses. You are being discharged to nursing home facility for rehab. It was a pleasure taking care of you Pending Studies at Discharge: No Stand-Alone Forms: My [facility] [address] Skilled Items Patient informed of condition?: Yes DNR: No Discharge Level of Care: Skilled Communicable Disease: No Discharge Prognosis: Stable Lines: None Urinary Catheter: No Medications and DC Order Prescriptions: New doxycycline hyclate 100 mg Capsule 100 mg PO BID 2 Days Qty: 4 0RF levofloxacin 750 mg Tablet 750 mg PO DAILY@1100 8 Days Qty: 8 0RF magnesium chloride [Mag 64] 64 mg Tablet,Delayed Release (Dr/Ec) 64 mg PO DAILY Qty: 14 0RF Continued atorvastatin 40 mg tablet 40 mg PO QAM Qty: 30 0RF hydralazine 10 mg Tablet 20 mg PO QAM Qty: 30 0RF Rx Instructions: From [place] polyethylene glycol 3350 [Miralax] 17 gram Powder In Packet 17 g PO DAILY PRN (Reason: constipation) Qty: 20 0RF clopidogrel 75 mg tablet 75 mg PO .5XSWEEK Qty: 30 0RF Rx Instructions: none on sat & sun amlodipine 5 mg tablet 5 mg PO QAM Qty: 30 0RF pantoprazole 40 mg tablet,delayed release (DR/EC) 40 mg PO QAM Qty: 30 0RF aspirin 81 mg Tablet,Chewable 81 mg PO DAILY Qty: 30 0RF hydrochlorothiazide 25 mg tablet 25 mg PO QAM Qty: 30 0RF metoprolol succinate 25 mg tablet extended release 24 hr 25 mg PO QAM Qty: 30 0RF Multiple Vitamin-Minerals Tablet 1 tab PO QAM Qty: 30 0RF metformin 500 mg tablet extended release 24 hr 1,000 mg PO QAM Qty: 30 0RF cholecalciferol (vitamin D3) [Vitamin D3] 50 mcg (2,000 unit) Tablet 50 mcg PO DAILY Qty: 30 0RF guaifenesin 600 mg Tablet Extended Release 12hr 600 mg PO AMHS Qty: 30 0RF Probiotic Acidophilus 250 million cell Capsule 10,000 mmu cells PO DAILY Qty: 14 0RF Changed melatonin 3 mg Tablet 6 mg PO HS PRN (Reason: insomnia) Qty: 14 0RF Discharge Orders: Discharge Order (Routine); Ordered 03/26/24 Ordered By: Dahiana Albright Admission Data Admit Date/Time: 03/20/24 21:52 Attending Provider: Dahiana Albright I. Admit Provider: Dante Govea Primary Care Provider: Tristin Osorio Other Providers: Dante Govea; [facility]; Raul Gao [facility]; Rajeev Sanchez Other Interventions: Discharge Summary Assessment (RN) Last Done: 03/26/24 10:35
== END 2024-03-26 11:32 | DRG 871 ==
LOC: ED 18:07 → 2N 21:52 → SUATTDRO 21:52 → 2N 22:51

== ENCOUNTER 2024-10-20 00:32 | Observation (INO) ==
[2024-10-20 01:00] LABS: Basophils # (auto) 0.04 K/uL (0.00-0.20); Basophils % (auto) 0.3 %; Eosinophils # (auto) 0.05 K/uL (0.00-0.50); Eosinophils % (auto) 0.4 %; Hematocrit (blood only) 41.7 % (42.0-52.0); Immature Granulocytes # (auto) 0.03 K/uL (0.01-0.20); Immature Granulocytes % (auto) 0.2 %; Lymphocytes # (auto) 0.97 K/uL (1.20-3.40); Lymphocytes % (auto) 7.9 %; Mean Corpuscular Hemoglobin 29.9 pg (25.0-34.0); Mean Corpuscular Hgb Conc 33.6 g/dL (32.0-36.0); Mean Corpuscular Volume 88.9 fL (80.0-100.0); Mean Platelet Volume 10.4 fL (9.4-12.4); Monocytes # (auto) 0.79 K/uL (0.11-0.59); Monocytes % (auto) 6.5 %; Neutrophils # (auto) 10.35 K/uL (1.40-6.50); Neutrophils % (auto) 84.7 %; Platelet Count 239 K/uL (130-400); RDW Coefficient of Variation 13.3 % (11.5-14.5); RDW Standard Deviation 43.4 fL (36.4-46.3); Red Blood Count 4.69 M/uL (4.70-6.10); White Blood Count 12.23 K/ul (4.8-10.8)
[2024-10-20] MEDS: ACETAMINOPHEN 500 MG TAB PO STA (01:00)
--- NOTE | 2024-10-20 01:08 | Emergency Department Note ---
Impression & Plan Left leg cellulitis, Ambulatory dysfunction, Pain of left calf, Leg wound, left ED Provider Note Provider: Baldo Wheeler MD CHIEF COMPLAINT: Left leg wound and pain and calf HISTORY OF PRESENT ILLNESS: Patient is a 83-year-old past medical history of urosepsis, bladder tumor resection, hypertension, chronic left leg swelling presenting here today with son. Patient lives at home with son. Evidently over the last week or so they have noticed 2 small areas of wound behind the left lower calf with a little bit of pussy drainage recently. Son's been cleaning it last this afternoon with some iodine and bandaging. No other bloody discharge or serous discharge reported. Having worsening calf pain of the left leg today/this evening. Having difficulty even using his rollator at home and thus they brought him here for evaluation. No real significant falls. No cruz pain or foot pain but pain in the left calf. Does not involve the thigh. Maybe a little bit of cold and congestion for the last day or 2 and family has had some cough and congestion by report. No fevers. No chest pain. No shortness of breath. No abdominal pain. Does have fairly bad neuropathy but states no new numbness in the lower extremities. Does have a history of cellulitis as well as urine infections chronically on Macrobid. No report of no urinary symptoms. Did not take anything for pain prior to arrival. PAST MEDICAL HISTORY: As noted above MEDICATIONS: Reviewed home medications with son at bedside SOCIAL HISTORY: Lives with son PHYSICAL EXAM: GENERAL: alert and oriented in no acute distress on stretcher, slightly hard of hearing Head: normocephalic and atraumatic EYES: No injection, discharge or icterus. EOMI. NECK: Trachea midline. Good range of motion ENT: Mucous membranes pink and moist. LUNGS: Airway patent. No retractions. Breath sounds clear HEART: Regular rate and rhythm. No chest wall tenderness ABDOMEN: Soft and non-tender, without guarding or rebound. SKIN: Acyanotic, warm, dry bandaging to left lower extremity as below EXTREMITIES: Without swelling, tenderness or deformity of the right lower extremity or upper extremities. The left lower leg below the knee has some 1-2+ edema and some tenderness of the calf. No significant cruz tenderness. Minimal to no swelling of the left foot itself with a 1+ DP pulse here and capillary refill notable. Intact movement of the toes however diminished sensation in left toes reportedly chronic. The bottom of the left posterior calf there is less than a centimeter area of wound that is bandaged a little bit of remaining iodine from cleaning at home but no significant purulence or deep wound or fluctuance noted. NEUROLOGICAL: No aphasia. No facial droop or slurred speech. Normal strength and tone in the extremities. Diminished sensation bilateral lower legs to the mid calf. EK bpm normal sinus rhythm right bundle branch block left anterior fascicular block. No acute ST segment elevation with QTc of 497. CONTINUOUS CARDIAC MONITORING: was ordered and showed a heart rate of 70s-100s bpm in normal sinus rhythm Patient's laboratory studies and imaging reviewed. Differential includes DVT, musculoskeletal, cellulitis/infection, joint effusion, trauma, lymphedema, idiopathic, CHF, compartment syndrome, as well as other pathologies. IMPRESSION/MEDICAL DECISION MAKING: No fevers reported. No real significant trauma. Is somewhat hypertensive here. Denies shortness of breath or chest pain. Maybe little bit of congestion as such COVID test sent and family have been sick with a URI type illness. Primary complaint was related to swelling some small wounds of the left lower leg around the calf and worsening pain here inhibiting ambulation. No significant trauma or falls. Doubt compartment syndrome. Some trace wound but does not seem to have any significant depth to it or fluctuance and doubt abscess. Will complete ultrasound exclude EVT. Review of records from this past year and both December and more significantly in March had both UTIs at that time as well as in March a cellulitis left lower leg. Is chronically on Lasix. Basic blood work is sent including cultures. Is on Macrobid but this would cover any cellulitis that may develop in the calf of the leg. Right leg without significant issue. Doubt this represents heart failure given the unilateral nature. Did not seem to have vascular compromise. Chronic neuropathy not reported to be different. X-ray was obtained of the left tib-fib but again no significant trauma. Blood work returns with mild leukocytosis 12.2. No anemia. No thrombocytopenia. Magnesium borderline low at 1.5 but no significant lecture light abnormalities otherwise or renal dysfunction. No transaminitis elevated CK. Troponin normal. BNP minimally elevated 141 and doubt significant fluid overload at this time. Procalcitonin not elevated and doubt sepsis. Negative COVID flu RSV. Ultrasound of the lower extremity without evidence of DVT but some soft tissue swelling. Do question there may be some cellulitis from the small wound but I doubt a deeper infection, necrotizing fasciitis, or osteomyelitis. Patient treated with Zosyn and doxycycline for MRSA coverage as well as broad-spectrum coverage given his history of diabetes. Will attempt obtain urine sample as well to exclude infection here that may be contributing. Patient's pain is improved after Tylenol and reassessment declines additional pain medicine at this time. Certainly concerns with his ambulatory function and with his comorbidities will bring in for further observation. Discussed with him and his son who are in agreement. Later given a little bit of Zofran for nausea after the oral doxycycline. DIAGNOSIS: Left lower leg cellulitis/wound and swelling, left leg pain, ambulatory dysfunction, hypomagnesemia DISPOSITION: Hospitalist will evaluate Patient was agreeable with this plan. Past Med/Surg History Problem List (Updated 10/20/24 @ 02:52 by Baldo Wheeler M.D.) Leg wound, left (Acute) Pain of left calf (Acute) Left leg cellulitis (Acute) Acute UTI (Acute) Sepsis Confusion Leukocytosis (Acute) Ambulatory dysfunction (Acute) Generalized weakness (Acute) Heart disease (Chronic) Medical History Hypertension Diabetes Family History Other Family history non-contributory Social History Smoking Status: Former smoker Tobacco Type: Cigarettes Second Hand Exposure: No; Do You Dip or Chew Tobacco: No; Hx Alcohol Use: Yes Alcohol type: beer Hx Substance Use: No Preferred Language: Italian Communication Ability: Effective Manager Motor Required: No Beliefs That Will Affect Care: None Current Living Situation: Family Current Living Situation Comment: Lives in same building as son & daughter in law Feels Safe at Home: Yes Assistive Devices: Walker Allergies Allergies Allergy/AdvReac Type Severity Reaction Status Date / Time hydrochlorothiazide AdvReac Mild Cough Verified 03/23/24 10:43 irbesartan AdvReac Mild Cough Verified 03/20/24 22:22 Home Meds Home Medications Medication Instructions Recorded Confirmed Lactobacillus rhamnosus GG 10 1 cap PO DAILY 10/20/24 10/20/24 billion cell capsule (Culturelle) aspirin 81 mg tablet 81 mg PO DAILY 10/20/24 10/20/24 furosemide 20 mg tablet 20 mg PO QAM 10/20/24 10/20/24 nitrofurantoin 100 mg PO QPM 10/20/24 10/20/24 monohydrate/macrocrystals 100 mg capsule Previous Rx's Medication Instructions Recorded Lactobacillus acidophilus 250 10,000 mmu cells (40 x 250 million 03/26/24 million cell capsule (Probiotic cell) PO DAILY #14 caps Acidophilus) amlodipine 5 mg tablet 5 mg PO QAM #30 tabs 03/26/24 atorvastatin 40 mg tablet 40 mg PO QAM #30 tabs 03/26/24 cholecalciferol (vitamin D3) 50 50 mcg PO DAILY #30 tabs 03/26/24 mcg (2,000 unit) tablet (Vitamin D3) clopidogrel 75 mg tablet 75 mg PO .5XSWEEK #30 tabs 03/26/24 guaifenesin 600 mg tablet, 600 mg PO AMHS #30 tabs 03/26/24 extended release 12 hr hydralazine 10 mg tablet 20 mg (2 x 10 mg) PO QAM #30 tabs 03/26/24 hydrochlorothiazide 25 mg tablet 25 mg PO QAM #30 tabs 03/26/24 magnesium chloride 64 mg 64 mg PO DAILY #14 tabs 03/26/24 (magnesium chloride) tablet,delayed release (Mag 64) melatonin 3 mg tablet 6 mg (2 x 3 mg) PO HS PRN insomnia 03/26/24 #14 tabs metformin 500 mg tablet,extended 1,000 mg (2 x 500 mg) PO QAM #30 03/26/24 release 24 hr tabs metoprolol succinate 25 mg 25 mg PO QAM #30 tabs 03/26/24 tablet,extended release 24 hr multivitamin with minerals 1 tab PO QAM #30 tabs 03/26/24 (Multiple Vitamin-Minerals tablet) pantoprazole 40 mg tablet,delayed 40 mg PO QAM #30 tabs 03/26/24 release Results & Data (ED) Vital Signs Vital Signs - 24 hr 10/20/24 00:34 10/20/24 00:34 10/20/24 00:35 Temperature 36.6 C Temperature Source Temporal Artery Scan Pulse Rate 105 H Respiratory Rate 20 Respiratory Effort / Characteristics Non-Labored Non-Labored Spontaneous Respiratory Depth Normal Normal Blood Pressure 180/85 H Blood Pressure Mean 116 Pulse Oximetry 93 Oxygen Delivery Method Room Air Room Air Sepsis Recent Fever Within 48 Hours No Sepsis New/Unexplained Change in Mental Status N/A Sepsis Action Taken by Nursing No Action Required 10/20/24 00:41 10/20/24 00:57 10/20/24 01:42 Temperature Temperature Source Pulse Rate 95 H 79 Respiratory Rate 18 Respiratory Effort / Characteristics Respiratory Depth Blood Pressure 138/62 Blood Pressure Mean 87 Pulse Oximetry 95 Oxygen Delivery Method Room Air Room Air Sepsis Recent Fever Within 48 Hours Sepsis New/Unexplained Change in Mental Status Sepsis Action Taken by Nursing 10/20/24 02:30 10/20/24 03:00 10/20/24 03:30 Temperature Temperature Source Pulse Rate 83 71 70 Respiratory Rate 20 16 20 Respiratory Effort / Characteristics Respiratory Depth Blood Pressure 144/63 H 125/61 118/58 L Blood Pressure Mean 118 82 81 Pulse Oximetry 96 92 92 Oxygen Delivery Method Room Air Room Air Room Air Sepsis Recent Fever Within 48 Hours Sepsis New/Unexplained Change in Mental Status Sepsis Action Taken by Nursing Laboratory Data 10/20/24 00:50 10/20/24 00:41 Lab Results 10/20/24 10/20/24 10/20/24 Range/Units 00:41 00:49 00:50 WBC 12.23 H (4.8-10.8) K/ul RBC 4.69 L (4.70-6.10) M/uL Hgb 14.0 (14.0-18.0) g/dl Hct 41.7 L (42.0-52.0) % MCV 88.9 (80.0-100.0) fL MCH 29.9 (25.0-34.0) pg MCHC 33.6 (32.0-36.0) g/dL RDW Std Deviation 43.4 (36.4-46.3) fL RDW Coeff of [place] 13.3 (11.5-14.5) % Plt Count 239 (130-400) K/uL MPV 10.4 (9.4-12.4) fL Immature Gran % (Auto) 0.2 % Neut % (Auto) 84.7 % Lymph % (Auto) 7.9 % [place] % (Auto) 6.5 % Eos % (Auto) 0.4 % Baso % (Auto) 0.3 % Neut # (Auto) 10.35 H (1.40-6.50) K/uL Lymph # (Auto) 0.97 L (1.20-3.40) K/uL [place] # (Auto) 0.79 H (0.11-0.59) K/uL Eos # (Auto) 0.05 (0.00-0.50) K/uL Baso # (Auto) 0.04 (0.00-0.20) K/uL Immature Gran # (Auto) 0.03 (0.01-0.20) K/uL PT 12.1 H (9.0-12.0) Seconds INR 1.1 (0.9-1.1) Sodium 139 (136-145) mmol/L Potassium 3.8 (3.5-5.1) mmol/L Chloride 107 (98-107) mmol/L Carbon Dioxide 23 (21-32) mmol/L Anion Gap 9 (3-11) BUN 15 (6-23) mg/dl Creatinine 0.99 (0.6-1.4) mg/dl Est Cr Clr Drug Dosing Not Reportable eGFR 75.58 BUN/Creatinine Ratio 15.2 (10-20) Glucose 148 H (70-99(Fasting)) mg/dl Calcium 9.5 (8.6-10.3) mg/dl Magnesium 1.5 L (1.7-2.4) mg/dl Total Bilirubin 0.7 (0.2-1.0) mg/dl AST 20 (13-39) U/L ALT 42 (7-52) U/L Alkaline Phosphatase 53 (34-104) U/L Total Creatine Kinase 133 (30-223) U/L Troponin I High Sens 10.1 (0-20) pg/ml B-Natriuretic Peptide 141 H (0-100) pg/ml Total Protein 7.1 (6.0-8.3) gm/dl Albumin 4.4 (3.4-5.0) gm/dl Globulin 2.7 (2.5-4.0) gm/dl Albumin/Globulin Ratio 1.6 (0.9-2) Procalcitonin 0.06 (0-0.5) ng/ml TSH 2.148 (0.300-4.500) uIu/ml SARS-CoV-2 (PCR) NEGATIVE (Negative) Influenza Type A (PCR) Negative (Neg) Influenza Type B (PCR) Negative (Neg) RSV (RT-PCR) Negative (Neg) Administered Medications Discontinued Medications Acetaminophen (Acetaminophen 500 Mg Tab) 1,000 mg PO NOW STA Stop: 10/20/24 00:50 Last Admin: 10/20/24 01:00 Dose: 1,000 mg Documented By: ED Doxycycline Hyclate (Doxycycline Hyclate 100 Mg Cap) 100 mg PO NOW STA Stop: 10/20/24 02:48 Last Admin: 10/20/24 03:10 Dose: 100 mg Documented By: ED Piperacillin Sod/Tazobactam Sod (Zosyn) 4.5 gm in 100 mls @ 200 mls/hr IV NOW ONE; Protocol Stop: 10/20/24 03:15 Last Infusion: 10/20/24 03:45 Dose: Infused Documented By: Admin: 10/20/24 03:10 Dose: 200 mls/hr Documented By: ED Magnesium Sulfate/Dextrose (Magnesium Sulfate / D5w) 1 gm in 100 mls @ 100 mls/hr IV NOW STA Stop: 10/20/24 03:53 Last Admin: 10/20/24 03:10 Dose: 100 mls/hr Documented By: ED Imaging Data Radiologist's Impression: Chest X-Ray 10/20/24 00:41 EXAM: XR chest 1V portable CLINICAL HISTORY: weakness TECHNIQUE: X-ray image of the chest was obtained in AP projection. COMPARISON: X-ray dated 03/22/2024 FINDINGS: Pulmonary Parenchyma: Resolved previously seen left lower lung zone air space filling opacity silhouetting the left hemidiaphragm. Decreased prominence of the bilateral hilar bronchovascular markings. Still noted bilateral lower zonal atelectatic bands. Decreased obliteration of the left costophrenic angle. Still noted bilateral apical pleural thickening. Clear right costophrenic angle. Heart and Mediastinum: Heart size and shape are normal. No mediastinal widening or masses. Still noted atherosclerotic calcifications of the aortic arch. Bony Thorax: Bony thorax appears intact without fractures or deformities. Soft Tissues: Soft tissues overlying the chest wall are unremarkable. IMPRESSION: 1. No acute abnormality identified. 2. Resolved previously seen left lower lung zone air space filling opacity. 3. Decreased prominence of the bilateral hilar bronchovascular markings, likely due to pulmonary congestion. 4. Stable bilateral lower zonal atelectatic bands. 5. Decreased obliteration of the left costophrenic angle, probably due to minimal pleural effusion/ thickening. 6. Stable bilateral apical pleural thickening could be a sequel to old granulomatous affection. 7. Stable atherosclerotic calcifications of the aortic arch. Electronically signed by Mckay Duarte 10-20-2024 02:03 AM Tibia/Fibula X-Ray 10/20/24 00:49 EXAM: XR tibia fibula LT 2V CLINICAL HISTORY: calf pain. TECHNIQUE: X-ray tibia and fibula, 2 views: AP (Anteroposterior) and lateral projections. COMPARISON: None. FINDINGS: Bone: The visualized tibia and fibula are intact. No evidence of fracture or dislocation. No lytic or sclerotic osseous lesions. Soft Tissue: Diffuse soft tissue swelling around the leg. Atherosclerotic calcifications of the tibial arteries. IMPRESSION: 1. No acute fracture or dislocation. 2. Diffuse soft tissue swelling around the leg. 3. Atherosclerotic calcifications of the tibial arteries. Disclaimer: A subtle bone abnormality or fracture may not be readily apparent on X-rays, thus clinical correlation and further imaging including follow-up CT, MRI, or follow-up X-rays are advised as needed. Electronically signed by Mckay Duarte 10-20-2024 02:19 AM Venous Doppler Study 10/20/24 00:49 EXAM: US venous doppler LE LT CLINICAL HISTORY: calf pain swelling. prior 03/20/2024 TECHNIQUE: Grayscale ultrasound, with and without compression, and color Doppler spectral waveform analysis were performed of the deep veins of the left lower extremity from the level of the common femoral veins to the level of the popliteal veins. The posterior tibial and peroneal veins were also scanned. 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 There is no evidence of DVT in the visualized portions of the posterior tibial and peroneal veins. Subcutaneous oedema over calf. IMPRESSION: 1. Negative for deep vein thrombosis. 2. Subcutaneous oedema over calf. (New finding) Electronically signed by Josafat Cook 10-20-2024 03:28 AM Discharge Plan Visit Data Chief Complaint: Weakness Stated Complaint: WEAKNESS,LT LEG EDEMA,AMS ED Provider: Baldo Wheeler Discharge Problem: Left leg cellulitis, Ambulatory dysfunction, Pain of left calf, Leg wound, left Patient Disposition: Being Evaluated by Hospitalist Condition: Fair Forms Stand Alone Forms: My [facility] Prescriptions Prescriptions: No Action magnesium chloride [Mag 64] 64 mg Tablet,Delayed Release (Dr/Ec) 64 mg PO DAILY Qty: 14 0RF atorvastatin 40 mg tablet 40 mg PO QAM Qty: 30 0RF hydralazine 10 mg Tablet 20 mg PO QAM Qty: 30 0RF Rx Instructions: From [place] melatonin 3 mg Tablet 6 mg PO HS PRN (Reason: insomnia) Qty: 14 0RF clopidogrel 75 mg tablet 75 mg PO .5XSWEEK Qty: 30 0RF Rx Instructions: none on sat & sun amlodipine 5 mg tablet 5 mg PO QAM Qty: 30 0RF pantoprazole 40 mg tablet,delayed release (DR/EC) 40 mg PO QAM Qty: 30 0RF hydrochlorothiazide 25 mg tablet 25 mg PO QAM Qty: 30 0RF metoprolol succinate 25 mg tablet extended release 24 hr 25 mg PO QAM Qty: 30 0RF Multiple Vitamin-Minerals Tablet 1 tab PO QAM Qty: 30 0RF metformin 500 mg tablet extended release 24 hr 1,000 mg PO QAM Qty: 30 0RF cholecalciferol (vitamin D3) [Vitamin D3] 50 mcg (2,000 unit) Tablet 50 mcg PO DAILY Qty: 30 0RF guaifenesin 600 mg Tablet Extended Release 12hr 600 mg PO AMHS Qty: 30 0RF Probiotic Acidophilus 250 million cell Capsule 10,000 mmu cells PO DAILY Qty: 14 0RF furosemide 20 mg tablet 20 mg PO QAM nitrofurantoin monohyd/m-cryst 100 mg capsule 100 mg PO QPM Culturelle 10 billion cell Capsule 1 cap PO DAILY aspirin 81 mg Tablet 81 mg PO DAILY Referrals Referrals: Tristin Osorio DO [Primary Care Provider] -
[2024-10-20 01:26] LABS: Anion Gap 9 (3-11); Bilirubin,Total 0.7 mg/dl (0.2-1.0); Magnesium 1.5 mg/dl (1.7-2.4); Potassium 3.8 mmol/L (3.5-5.1); Sodium 139 mmol/L (136-145)
[2024-10-20 01:29] LABS: Troponin I High Sensitivity 10.1 pg/ml (0-20)
[2024-10-20 01:32] LABS: Albumin Globulin Ratio 1.6 (0.9-2); BUN Creatinine Ratio 15.2 (10-20); Globulin 2.7 gm/dl (2.5-4.0); Glucose 148 mg/dl (70-99(Fasting)); Total Protein 7.1 gm/dl (6.0-8.3)
[2024-10-20 01:36] LABS: INR 1.1 (0.9-1.1); Prothrombin Time 12.1 Seconds (9.0-12.0)
[2024-10-20 01:39] LABS: Thyroid Stimulating Hormone 2.148 uIu/ml (0.300-4.500)
[2024-10-20 01:50] LABS: Alanine Aminotransferase 42 U/L (7-52); Albumin Level 4.4 gm/dl (3.4-5.0); Alkaline Phosphatase 53 U/L (34-104); Aspartate Aminotransferase 20 U/L (13-39); Blood Urea Nitrogen 15 mg/dl (6-23); Calcium 9.5 mg/dl (8.6-10.3); Carbon Dioxide 23 mmol/L (21-32); Chloride 107 mmol/L (98-107); Creatine Kinase 133 U/L (30-223)
--- NOTE | 2024-10-20 02:04 | XRay Report ---
EXAM: XR chest 1V portable CLINICAL HISTORY: weakness TECHNIQUE: X-ray image of the chest was obtained in AP projection. COMPARISON: X-ray dated 03/22/2024 FINDINGS: Pulmonary Parenchyma: Resolved previously seen left lower lung zone air space filling opacity silhouetting the left hemidiaphragm. Decreased prominence of the bilateral hilar bronchovascular markings. Still noted bilateral lower zonal atelectatic bands. Decreased obliteration of the left costophrenic angle. Still noted bilateral apical pleural thickening. Clear right costophrenic angle. Heart and Mediastinum: Heart size and shape are normal. No mediastinal widening or masses. Still noted atherosclerotic calcifications of the aortic arch. Bony Thorax: Bony thorax appears intact without fractures or deformities. Soft Tissues: Soft tissues overlying the chest wall are unremarkable. IMPRESSION: 1. No acute abnormality identified. 2. Resolved previously seen left lower lung zone air space filling opacity. 3. Decreased prominence of the bilateral hilar bronchovascular markings, likely due to pulmonary congestion. 4. Stable bilateral lower zonal atelectatic bands. 5. Decreased obliteration of the left costophrenic angle, probably due to minimal pleural effusion/ thickening. 6. Stable bilateral apical pleural thickening could be a sequel to old granulomatous affection. 7. Stable atherosclerotic calcifications of the aortic arch. Electronically signed by Mckay Duarte 10-20-2024 02:03 AM
--- NOTE | 2024-10-20 02:19 | XRay Report ---
EXAM: XR tibia fibula LT 2V CLINICAL HISTORY: calf pain. TECHNIQUE: X-ray tibia and fibula, 2 views: AP (Anteroposterior) and lateral projections. COMPARISON: None. FINDINGS: Bone: The visualized tibia and fibula are intact. No evidence of fracture or dislocation. No lytic or sclerotic osseous lesions. Soft Tissue: Diffuse soft tissue swelling around the leg. Atherosclerotic calcifications of the tibial arteries. IMPRESSION: 1. No acute fracture or dislocation. 2. Diffuse soft tissue swelling around the leg. 3. Atherosclerotic calcifications of the tibial arteries. Disclaimer: A subtle bone abnormality or fracture may not be readily apparent on X-rays, thus clinical correlation and further imaging including follow-up CT, MRI, or follow-up X-rays are advised as needed. Electronically signed by Mckay Duarte 10-20-2024 02:19 AM
[2024-10-20 02:32] LABS: Influenza A virus by PCR Negative (Neg); Influenza B virus by PCR Negative (Neg); RSV by PCR Negative (Neg); SARS CoV2 RNA(COVID-19) Ceph NEGATIVE (Negative)
[2024-10-20] MEDS: MAGNESIUM SULFATE / D5W 1 GM/100 ML BAG IV STA (03:10)
[2024-10-20] MEDS: DOXYCYCLINE HYCLATE 100 MG CAP PO STA (03:10)
[2024-10-20] MEDS: PIPERACILLIN/TAZOBACTAM 4.5 GM/100 ML BAG IV ONE (03:10)
--- NOTE | 2024-10-20 03:28 | Ultrasound Report ---
EXAM: US venous doppler LE LT CLINICAL HISTORY: calf pain swelling. prior 03/20/2024 TECHNIQUE: Grayscale ultrasound, with and without compression, and color Doppler spectral waveform analysis were performed of the deep veins of the left lower extremity from the level of the common femoral veins to the level of the popliteal veins. The posterior tibial and peroneal veins were also scanned. 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 There is no evidence of DVT in the visualized portions of the posterior tibial and peroneal veins. Subcutaneous oedema over calf. IMPRESSION: 1. Negative for deep vein thrombosis. 2. Subcutaneous oedema over calf. (New finding) Electronically signed by Josafat Cook 10-20-2024 03:28 AM
[2024-10-20] MEDS: ONDANSETRON INJ 2 MG/ML 2 ML VIAL IV STA (03:59)
[2024-10-20] MEDS: MAGNESIUM SULFATE / D5W 1 GM/100 ML BAG IV ONE (04:21)
--- NOTE | 2024-10-20 04:27 | History & Physical Report ---
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 Patient says since last 2 weeks having lower extremity edema. Lately is also feeling weak while ambulating. He was falling into his walker this reason he came to the ER today. Has small open superficial ulcer on the distal part of the left calf region. Denies any pain. No fevers. Denies abdominal pain. Denies chest pain. Denies headache. No dizziness. No runny nose or sore throat. Has chronic cough from his COPD. Appetite is okay. No abdominal pain. Normal bowel and bladder movements. Hemodynamics are okay. Bilateral lower extremity edema Saw PCP in July for lower extremity edema and was placed on Lasix Says since last 2 weeks getting worse BNP is okay Will follow echo Will place on IV Lasix 20 mg twice daily for now and monitor Doppler is negative for DVT Left leg wound Small superficial ulcer on the left distal calf Left tibia/fibula x-ray shows soft tissue swelling around the leg. ER gave Zosyn and Doxy Will continue with Rocephin We will monitor Weakness Ambulatory dysfunction Generally ambulates with a walker PT OT when stable Hypomagnesia Replace Follow repeat labs Diabetes Hold metformin Sliding scale We will monitor Hypertension On amlodipine, hydrochlorothiazide and metoprolol succinate and hydralazine We will monitor Hyperlipidemia On statin History of CVA Statin and aspirin and Plavix GERD On Protonix Low-grade bladder cancer TURBT Follows with urology DVT prophylaxis Lovenox Disposition Med/telemetry Full code. 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 Patient says since last 2 weeks having lower extremity edema. Lately is also feeling weak while ambulating. He was falling into his walker this reason he came to the ER today. Has small open superficial ulcer on the distal part of the left calf region. Denies any pain. No fevers. Denies abdominal pain. Denies chest pain. Denies headache. No dizziness. No runny nose or sore throat. Has chronic cough from his COPD. Appetite is okay. No abdominal pain. Normal bowel and bladder movements. Hemodynamics are okay. Past medical history. As mentioned above. Past surgical history. Bladder instillation of anticarcinogenic agent. Colonoscopy. Cystourethroscopy with fulguration of bladder tumor. Appendectomy. Social history. Quit smoking 2006. Smoked 2 packs a day for 50 years. Alcohol occasionally. No drug use. Family history. Brother had cancer. Brother had diabetes. Father had [place]. Mother had diabetes. Sister has diabetes. Son has diabetes. Hypertension. Allergies Allergy/AdvReac Type Severity Reaction Status Date / Time hydrochlorothiazide AdvReac Mild Cough Verified 03/23/24 10:43 irbesartan AdvReac Mild Cough Verified 03/20/24 22:22 Home Medications Medication Instructions Recorded Confirmed Type Lactobacillus acidophilus 250 10,000 mmu cells (40 x 250 million 03/26/24 10/20/24 Rx million cell capsule (Probiotic cell) PO DAILY #14 caps Acidophilus) amlodipine 5 mg tablet 5 mg PO QAM #30 tabs 03/26/24 10/20/24 Rx atorvastatin 40 mg tablet 40 mg PO QAM #30 tabs 03/26/24 10/20/24 Rx cholecalciferol (vitamin D3) 50 50 mcg PO DAILY #30 tabs 03/26/24 10/20/24 Rx mcg (2,000 unit) tablet (Vitamin D3) clopidogrel 75 mg tablet 75 mg PO .5XSWEEK #30 tabs 03/26/24 10/20/24 Rx guaifenesin 600 mg tablet, 600 mg PO AMHS #30 tabs 03/26/24 10/20/24 Rx extended release 12 hr hydralazine 10 mg tablet 20 mg (2 x 10 mg) PO QAM #30 tabs 03/26/24 10/20/24 Rx hydrochlorothiazide 25 mg tablet 25 mg PO QAM #30 tabs 03/26/24 10/20/24 Rx magnesium chloride 64 mg 64 mg PO DAILY #14 tabs 03/26/24 10/20/24 Rx (magnesium chloride) tablet,delayed release (Mag 64) melatonin 3 mg tablet 6 mg (2 x 3 mg) PO HS PRN insomnia 03/26/24 10/20/24 Rx #14 tabs metformin 500 mg tablet,extended 1,000 mg (2 x 500 mg) PO QAM #30 03/26/24 10/20/24 Rx release 24 hr tabs metoprolol succinate 25 mg 25 mg PO QAM #30 tabs 03/26/24 10/20/24 Rx tablet,extended release 24 hr multivitamin with minerals 1 tab PO QAM #30 tabs 03/26/24 10/20/24 Rx (Multiple Vitamin-Minerals tablet) pantoprazole 40 mg tablet,delayed 40 mg PO QAM #30 tabs 03/26/24 10/20/24 Rx release Lactobacillus rhamnosus GG 10 1 cap PO DAILY 10/20/24 10/20/24 History billion cell capsule (Culturelle) aspirin 81 mg tablet 81 mg PO DAILY 10/20/24 10/20/24 History furosemide 20 mg tablet 20 mg PO QAM 10/20/24 10/20/24 History nitrofurantoin 100 mg PO QPM 10/20/24 10/20/24 History monohydrate/macrocrystals 100 mg capsule Past Med/Surg History Problem List (Updated 10/20/24 @ 04:35 by Pratik Camargo MD) Lower extremity edema Leg wound, left (Acute) Pain of left calf (Acute) Left leg cellulitis (Acute) Acute UTI (Acute) Sepsis Confusion Leukocytosis (Acute) Ambulatory dysfunction (Acute) Generalized weakness (Acute) Heart disease (Chronic) Medical History Hypertension Diabetes Family History Other Family history non-contributory Social History Smoking Status: Former smoker Tobacco Type: Cigarettes Second Hand Exposure: No; Do You Dip or Chew Tobacco: No; Hx Alcohol Use: Yes Alcohol type: beer Hx Substance Use: No Preferred Language: Romanian Communication Ability: Effective Mental Health Professional Required: No Beliefs That Will Affect Care: None Current Living Situation: Family Current Living Situation Comment: Lives in same building as son & daughter in law Feels Safe at Home: Yes Assistive Devices: Walker Review of Systems Review of Systems: All systems reviewed & are unremarkable except as noted in HPI & below Physical Exam Physical Exam: General- Not in distress Head- atraumatic Eyes- PERRL. ENT- oropharynx clear Neck- supple, no JVD. Lungs- clear to auscultation no wheezing or crackles Heart- regular rhythm; no murmur, no gallop. Abdomen- normal bowel sounds, soft, nontender, no distension Extremities- b/l lower extremity edema present, superficial small ulcer seen on left distal calf region Neuro- alert, oriented PERRL, no facial palsy; no dysarthria; moves extremities Results & Data Results & Data Vital Signs (Past 12 Hours) Vital Signs Temp Pulse Resp BP Pulse Ox O2 Del Method 10/20/24 03:30 70 20 118/58 L 92 Room Air 10/20/24 03:00 71 16 125/61 92 Room Air 10/20/24 02:30 83 20 144/63 H 96 Room Air 10/20/24 01:42 79 18 138/62 95 Room Air 10/20/24 00:57 95 H 10/20/24 00:41 Room Air 10/20/24 00:35 36.6 C 105 H 20 180/85 H 93 Room Air 10/20/24 00:34 Room Air Diagnostic Findings Laboratory Results WBC 12.23 K/ul (4.8-10.8) H 10/20/24 00:50 RBC 4.69 M/uL (4.70-6.10) L 10/20/24 00:50 Hgb 14.0 g/dl (14.0-18.0) 10/20/24 00:50 Hct 41.7 % (42.0-52.0) L 10/20/24 00:50 MCV 88.9 fL (80.0-100.0) 10/20/24 00:50 MCH 29.9 pg (25.0-34.0) 10/20/24 00:50 MCHC 33.6 g/dL (32.0-36.0) 10/20/24 00:50 RDW Std Deviation 43.4 fL (36.4-46.3) 10/20/24 00:50 RDW Coeff of [place] 13.3 % (11.5-14.5) 10/20/24 00:50 Plt Count 239 K/uL (130-400) 10/20/24 00:50 MPV 10.4 fL (9.4-12.4) 10/20/24 00:50 Immature Gran % (Auto) 0.2 % 10/20/24 00:50 Neut % (Auto) 84.7 % 10/20/24 00:50 Lymph % (Auto) 7.9 % 10/20/24 00:50 [place] % (Auto) 6.5 % 10/20/24 00:50 Eos % (Auto) 0.4 % 10/20/24 00:50 Baso % (Auto) 0.3 % 10/20/24 00:50 Neut # (Auto) 10.35 K/uL (1.40-6.50) H 10/20/24 00:50 Lymph # (Auto) 0.97 K/uL (1.20-3.40) L 10/20/24 00:50 [place] # (Auto) 0.79 K/uL (0.11-0.59) H 10/20/24 00:50 Eos # (Auto) 0.05 K/uL (0.00-0.50) 10/20/24 00:50 Baso # (Auto) 0.04 K/uL (0.00-0.20) 10/20/24 00:50 Immature Gran # (Auto) 0.03 K/uL (0.01-0.20) 10/20/24 00:50 PT 12.1 Seconds (9.0-12.0) H 10/20/24 00:41 INR 1.1 (0.9-1.1) 10/20/24 00:41 Sodium 139 mmol/L (136-145) 10/20/24 00:41 Potassium 3.8 mmol/L (3.5-5.1) 10/20/24 00:41 Chloride 107 mmol/L (98-107) 10/20/24 00:41 Carbon Dioxide 23 mmol/L (21-32) 10/20/24 00:41 Anion Gap 9 (3-11) 10/20/24 00:41 BUN 15 mg/dl (6-23) 10/20/24 00:41 Creatinine 0.99 mg/dl (0.6-1.4) 10/20/24 00:41 Est Cr Clr Drug Dosing Not Reportable 10/20/24 00:41 eGFR 75.58 10/20/24 00:41 BUN/Creatinine Ratio 15.2 (10-20) 10/20/24 00:41 Glucose 148 mg/dl (70-99(Fasting)) H 10/20/24 00:41 Calcium 9.5 mg/dl (8.6-10.3) 10/20/24 00:41 Magnesium 1.5 mg/dl (1.7-2.4) L 10/20/24 00:41 Total Bilirubin 0.7 mg/dl (0.2-1.0) 10/20/24 00:41 AST 20 U/L (13-39) 10/20/24 00:41 ALT 42 U/L (7-52) 10/20/24 00:41 Alkaline Phosphatase 53 U/L (34-104) 10/20/24 00:41 Total Creatine Kinase 133 U/L (30-223) 10/20/24 00:41 Troponin I High Sens 10.1 pg/ml (0-20) 10/20/24 00:41 B-Natriuretic Peptide 141 pg/ml (0-100) H 10/20/24 00:50 Total Protein 7.1 gm/dl (6.0-8.3) 10/20/24 00:41 Albumin 4.4 gm/dl (3.4-5.0) 10/20/24 00:41 Globulin 2.7 gm/dl (2.5-4.0) 10/20/24 00:41 Albumin/Globulin Ratio 1.6 (0.9-2) 10/20/24 00:41 Procalcitonin 0.06 ng/ml (0-0.5) 10/20/24 00:41 TSH 2.148 uIu/ml (0.300-4.500) 10/20/24 00:41 SARS-CoV-2 (PCR) NEGATIVE (Negative) 10/20/24 00:49 Influenza Type A (PCR) Negative (Neg) 10/20/24 00:49 Influenza Type B (PCR) Negative (Neg) 10/20/24 00:49 RSV (RT-PCR) Negative (Neg) 10/20/24 00:49 Impressions Chest X-Ray 10/20/24 00:41 EXAM: XR chest 1V portable CLINICAL HISTORY: weakness TECHNIQUE: X-ray image of the chest was obtained in AP projection. COMPARISON: X-ray dated 03/22/2024 FINDINGS: Pulmonary Parenchyma: Resolved previously seen left lower lung zone air space filling opacity silhouetting the left hemidiaphragm. Decreased prominence of the bilateral hilar bronchovascular markings. Still noted bilateral lower zonal atelectatic bands. Decreased obliteration of the left costophrenic angle. Still noted bilateral apical pleural thickening. Clear right costophrenic angle. Heart and Mediastinum: Heart size and shape are normal. No mediastinal widening or masses. Still noted atherosclerotic calcifications of the aortic arch. Bony Thorax: Bony thorax appears intact without fractures or deformities. Soft Tissues: Soft tissues overlying the chest wall are unremarkable. IMPRESSION: 1. No acute abnormality identified. 2. Resolved previously seen left lower lung zone air space filling opacity. 3. Decreased prominence of the bilateral hilar bronchovascular markings, likely due to pulmonary congestion. 4. Stable bilateral lower zonal atelectatic bands. 5. Decreased obliteration of the left costophrenic angle, probably due to minimal pleural effusion/ thickening. 6. Stable bilateral apical pleural thickening could be a sequel to old granulomatous affection. 7. Stable atherosclerotic calcifications of the aortic arch. Electronically signed by Mckay Duarte 10-20-2024 02:03 AM Tibia/Fibula X-Ray 10/20/24 00:49 EXAM: XR tibia fibula LT 2V CLINICAL HISTORY: calf pain. TECHNIQUE: X-ray tibia and fibula, 2 views: AP (Anteroposterior) and lateral projections. COMPARISON: None. FINDINGS: Bone: The visualized tibia and fibula are intact. No evidence of fracture or dislocation. No lytic or sclerotic osseous lesions. Soft Tissue: Diffuse soft tissue swelling around the leg. Atherosclerotic calcifications of the tibial arteries. IMPRESSION: 1. No acute fracture or dislocation. 2. Diffuse soft tissue swelling around the leg. 3. Atherosclerotic calcifications of the tibial arteries. Disclaimer: A subtle bone abnormality or fracture may not be readily apparent on X-rays, thus clinical correlation and further imaging including follow-up CT, MRI, or follow-up X-rays are advised as needed. Electronically signed by Mckay Duarte 10-20-2024 02:19 AM Venous Doppler Study 10/20/24 00:49 EXAM: US venous doppler LE LT CLINICAL HISTORY: calf pain swelling. prior 03/20/2024 TECHNIQUE: Grayscale ultrasound, with and without compression, and color Doppler spectral waveform analysis were performed of the deep veins of the left lower extremity from the level of the common femoral veins to the level of the popliteal veins. The posterior tibial and peroneal veins were also scanned. COMPARISON: 03/20/2024 21:29:53 CELERY PACKER FINDINGS: Left external iliac, common femoral vein, superficial and femoral vein and popliteal vein are compressible and opacify at color Doppler evaluation with no evidence of deep vein thrombosis. There is no evidence of DVT in the visualized portions of the posterior tibial and peroneal veins. Subcutaneous oedema over calf. IMPRESSION: 1. Negative for deep vein thrombosis. 2. Subcutaneous oedema over calf. (New finding) Electronically signed by Josafat Cook 10-20-2024 03:28 AM ECG Additional Comments: ECG normal sinus rhythm rate of 100. Bundle branch block. Left anterior fascicular block. Bifascicular block. No significant change was found. QTc 4 97 Code Status & VTE Plan VTE Prophylaxis Plan VTE Prophylaxis will be ordered: Yes
[2024-10-20 06:19] LABS: Appearance Urine Clear (Clear); Bacteria Urine Automated None Seen (None Seen); Bilirubin Urine Negative (Negative); Blood Urine Negative (Negative); Cast Urine Automated 0-2 /lpf (0-2); Color Urine Yellow; Epithelial Cell Urine Auto 0-2 /hpf (0-2); Glucose Urine UA Negative (Negative); Ketones Urine Trace (Negative); Leukocyte Esterase Urine Negative (Negative); Nitrite Urine Negative (Negative); Protein Urine Trace (Negative); RBC Urine Automated 0-2 /hpf (0-2); Specific Gravity Urine 1.023 (1.000-1.030); Urobilinogen Urine Negative (Negative); WBC Urine Automated 0-5 /hpf (0-5); pH Urine 5.5 (4.5-7.5)
[2024-10-20] MEDS ORDERED: CARBOHYDRATES FOR HYPOGLYCEMIA PO PRN (07:43)
[2024-10-20] MEDS ORDERED: POLYETHYLENE (MIRALAX) 17 GM PACK PO PRN (07:43)
[2024-10-20] MEDS ORDERED: GLUCAGON FOR INJ 1 MG VIAL SQ PRN (07:43)
[2024-10-20] MEDS ORDERED: GLUCOSE 10 TAB/TUBE PO PRN (07:43)
[2024-10-20] MEDS ORDERED: NITROGLYCERIN SL 0.4 MG/TAB TAB SL PRN (07:43)
[2024-10-20] MEDS ORDERED: DEXTROSE 50% 50 ML SYRINGE IV PRN (07:43)
[2024-10-20] MEDS ORDERED: MELATONIN 3 MG TAB PO PRN (07:43)
[2024-10-20] MEDS ORDERED: GLUCOSE 40% GEL 15 GM TUBE PO PRN (07:43)
[2024-10-20 08:50] LABS: Basophils # (auto) 0.04 K/uL (0.00-0.20); Basophils % (auto) 0.4 %; Eosinophils # (auto) 0.12 K/uL (0.00-0.50); Eosinophils % (auto) 1.1 %; Hematocrit (blood only) 41.7 % (42.0-52.0); Hemoglobin 13.8 g/dl (14.0-18.0); Immature Granulocytes # (auto) 0.04 K/uL (0.01-0.20); Immature Granulocytes % (auto) 0.4 %; Lymphocytes # (auto) 1.33 K/uL (1.20-3.40); Lymphocytes % (auto) 11.7 %; Mean Corpuscular Hemoglobin 29.9 pg (25.0-34.0); Mean Corpuscular Hgb Conc 33.1 g/dL (32.0-36.0); Mean Corpuscular Volume 90.5 fL (80.0-100.0); Mean Platelet Volume 10.3 fL (9.4-12.4); Monocytes # (auto) 0.76 K/uL (0.11-0.59); Monocytes % (auto) 6.7 %; Neutrophils # (auto) 9.03 K/uL (1.40-6.50); Neutrophils % (auto) 79.7 %; Platelet Count 227 K/uL (130-400); RDW Coefficient of Variation 13.5 % (11.5-14.5); RDW Standard Deviation 44.8 fL (36.4-46.3); Red Blood Count 4.61 M/uL (4.70-6.10); White Blood Count 11.32 K/ul (4.8-10.8)
[2024-10-20] MEDS: ASPIRIN 81 MG ECTAB PO SCH (08:53)
[2024-10-20] MEDS: hydroCHLOROthiazide 25 MG TAB PO SCH (08:53)
[2024-10-20] MEDS: DOXYCYCLINE HYCLATE 100 MG CAP PO SCH (08:53)
[2024-10-20] MEDS: ENOXAPARIN INJ 40 MG/0.4 ML SYR SQ SCH (08:53)
[2024-10-20] MEDS: ATORVASTATIN 40 MG TAB PO SCH (08:54)
[2024-10-20] MEDS: hydrALAZINE 10 MG TAB PO SCH (08:54)
[2024-10-20] MEDS: PANTOprazole 40 MG TAB PO SCH (08:54)
[2024-10-20] MEDS: METOPROLOL SUCC 25MG EXT REL TAB PO SCH (08:54)
[2024-10-20] MEDS: CHOLECALCIFEROL 25 MCG (1000 UNITS) TAB PO SCH (08:54)
[2024-10-20] MEDS: CLOPIDOGREL BISULFATE 75 MG TAB PO SCH (08:54)
[2024-10-20] MEDS: ADVANCED PROBIOTIC 625 MG CAPSULE PO SCH (08:54)
[2024-10-20] MEDS: FUROSEMIDE INJ 20 MG/2 ML VIAL IV SCH (08:54)
[2024-10-20] MEDS: MAGNESIUM CHLORIDE W/CALCIUM 64MG DELAYED REL TAB PO SCH (08:54)
[2024-10-20] MEDS: CEROVITE ADV FORMULA TAB PO SCH (08:54)
[2024-10-20] MEDS: amLODIPine BESYLATE 5 MG TAB PO SCH (08:54)
[2024-10-20] MEDS: guaiFENesin 600 MG TABCR PO SCH (08:54)
[2024-10-20] MEDS: cefTRIAXone SODIUM 2,000 MG/50 ML BAG IV SCH (08:55)
[2024-10-20] MEDS: INSULIN ASPART PER UNIT CHARGE SC SCH (08:56)
[2024-10-20] MEDS: MAGNESIUM SULFATE / D5W 1 GM/100 ML BAG IV SCH (09:00)
[2024-10-20 09:06] LABS: Calcium 9.3 mg/dl (8.6-10.3); Creatinine Clr Calc Pharmacy 57.3 ml/min; Magnesium 2.2 mg/dl (1.7-2.4); Potassium 4.1 mmol/L (3.5-5.1)
[2024-10-20 10:24] LABS: Estimated Average Glucose 180 mg/dl; Hemoglobin A1C 7.9 % (4.5-5.6)
[2024-10-20] MEDS: ACETAMINOPHEN 325 MG TAB PO PRN (12:05)
--- NOTE | 2024-10-20 13:56 | Communication Note ---
Patient seen and examined at bedside. Appears tired but on room air. On exam, wound on left distal calf, 1+ pitting edema in legs bilaterally. Suspect cellulitis surrounding wound in setting of mild decompensated HF and chronic venous stasis. Continue diuresis, add doxyclcine for MRSA coverage, f/u echo results. Date of Service: October 20, 2024
[2024-10-20 16:10] VITALS: RESP 18
[2024-10-20] MEDS: NITROFURANTOIN MONOHYDRATE 100 MG CAP PO SCH (20:25)
[2024-10-21 06:43] LABS: Hematocrit (blood only) 39.6 % (42.0-52.0); Hemoglobin 13.3 g/dl (14.0-18.0); Mean Corpuscular Hemoglobin 29.6 pg (25.0-34.0); Mean Corpuscular Hgb Conc 33.6 g/dL (32.0-36.0); Mean Platelet Volume 10.6 fL (9.4-12.4); Platelet Count 211 K/uL (130-400); RDW Coefficient of Variation 13.4 % (11.5-14.5); RDW Standard Deviation 43.4 fL (36.4-46.3); White Blood Count 12.82 K/ul (4.8-10.8)
[2024-10-21 07:00] LABS: Magnesium 1.9 mg/dl (1.7-2.4); Phosphorus 2.8 mg/dl (2.5-4.9); Potassium 3.5 mmol/L (3.5-5.1)
[2024-10-21 11:53] VITALS: TEMP 97.9; O2SAT 93
--- NOTE | 2024-10-21 14:50 | Discharge Summary ---
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 Admitted to medicine for cellulitis t reatment and weakness. On medicine, given abx and diuresis with improvement. PT/OT ordered, recommended homegoing on discharge. ON 10/21/2024 patient medically stable for discharge home. 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 Patient says since last 2 weeks having lower extremity edema. Lately is also feeling weak while ambulating. He was falling into his walker this reason he came to the ER today. Has small ope n superficial ulcer on the distal part of the left calf region. Denies any pain. No fevers. Denies abdominal pain. Denies chest pain. Denies headache. No dizziness. No runny nose or sore throat. Has chronic cough from his COPD. Appetite is okay. No abdominal pain. Normal bowel and bladder movements. Hemodynamics are okay. Past medical history. As mentioned above. Past surgical history. Bladder instillation of anticarcinogenic agent. Colonoscopy. Cystourethroscopy with fulguration of bladder tumor. Appendectomy. Social history. Quit smoking 2006. Smoked 2 packs a day for 50 years. Alcohol occasionally. No drug use. Family history. Brother had cancer. Brother had diabetes. Father had [place]. Mother had diabetes. Sister has diabetes. Son has diabetes. Hypertension. Discharge Exam Gen: A&O 3 NAD HEENT: NCAT, EOMI, not icteric. External ears normal. No rhinorrhea. Moist mucous membranes. Neck: Supple, full range of motion, no observable masses, No meningeal sign. Lungs: No Respiratory distress. CV: RRR, no edema. Abdomen: Soft, nondistended, No rebound tenderness. MSK: No joint swelling, no redness. trace pitting edema in right leg, 1+ pitting edema in left leg Skin: No rashes, petechiae, lesions. Normal color per patient. Neuro: Normal Gait, Grossly intact. Psych: Appropriate for situation. Updated Medication List Medication Instructions Recorded Confirmed Type Lactobacillus acidophilus 250 10,000 mmu cells (40 x 250 million 03/26/24 10/20/24 Rx million cell capsule (Probiotic cell) PO DAILY #14 caps Acidophilus) amlodipine 5 mg tablet 5 mg PO QAM #30 tabs 03/26/24 10/20/24 Rx atorvastatin 40 mg tablet 40 mg PO QAM #30 tabs 03/26/24 10/20/24 Rx cholecalciferol (vitamin D3) 50 50 mcg PO DAILY #30 tabs 03/26/24 10/20/24 Rx mcg (2,000 unit) tablet (Vitamin D3) clopidogrel 75 mg tablet 75 mg PO .5XSWEEK #30 tabs 03/26/24 10/20/24 Rx guaifenesin 600 mg tablet, 600 mg PO AMHS #30 tabs 03/26/24 10/20/24 Rx extended release 12 hr hydralazine 10 mg tablet 20 mg (2 x 10 mg) PO QAM #30 tabs 03/26/24 10/20/24 Rx hydrochlorothiazide 25 mg tablet 25 mg PO QAM #30 tabs 03/26/24 10/20/24 Rx magnesium chloride 64 mg 64 mg PO DAILY #14 tabs 03/26/24 10/20/24 Rx (magnesium chloride) tablet,delayed release (Mag 64) melatonin 3 mg tablet 6 mg (2 x 3 mg) PO HS PRN insomnia 03/26/24 10/20/24 Rx #14 tabs metformin 500 mg tablet,extended 1,000 mg (2 x 500 mg) PO QAM #30 03/26/24 10/20/24 Rx release 24 hr tabs metoprolol succinate 25 mg 25 mg PO QAM #30 tabs 03/26/24 10/20/24 Rx tablet,extended release 24 hr multivitamin with minerals 1 tab PO QAM #30 tabs 03/26/24 10/20/24 Rx (Multiple Vitamin-Minerals tablet) pantoprazole 40 mg tablet,delayed 40 mg PO QAM #30 tabs 03/26/24 10/20/24 Rx release Lactobacillus rhamnosus GG 10 1 cap PO DAILY 10/20/24 10/20/24 History billion cell capsule (Culturelle) aspirin 81 mg tablet 81 mg PO DAILY 10/20/24 10/20/24 History furosemide 20 mg tablet 20 mg PO QAM 10/20/24 10/20/24 History nitrofurantoin 100 mg PO QPM 10/20/24 10/20/24 History monohydrate/macrocrystals 100 mg capsule albuterol sulfate 90 mcg/actuation 1 inh inhalation Q6H PRN shortness 10/21/24 Rx aerosol inhaler of breath or wheezing #8.5 grams amoxicillin 500 mg-potassium 1 tab PO BID 5 days #10 tabs 10/21/24 Rx clavulanate 125 mg tablet (Augmentin) doxycycline hyclate 100 mg capsule 100 mg PO BID 5 days #10 caps 10/21/24 Rx furosemide 40 mg tablet 40 mg PO BID 5 days #60 tabs 10/21/24 Rx Hospital Stay Data Consultations 10/20/24 02:47 ED Decision to Admit Stat Diagnostic Imagining Performed 10/20/24 00:49 US venous doppler LE LT Stat Pending Results Patient Have Any Pending Studies at Discharge: No Discharge Instructions Given to Patient (Per Discharging Provider) 1. Please take medications as prescribed. 2. Please finish course of abx and increased furosemide doses. 3. Please work with home PT/OT. 4. Follow up with PCP, cardiology, vascular surgery (pending PCP evaluation). Total Time Total Time Spent Total Time Spent (In Minutes): I spent a total of 35 minutes in direct patient care, including [id number] time with the patient and/or family, reviewing medical records, ordering and reviewing diagnostic tests, and coordinating care with other healthcare providers. This time includes: history taking, physical examination, medical decision making, counseling, ECG interpretation, imaging interpretation, lab interpretation, orders, and education, excluding time spent in the performance of separately billed services.
[2024-10-21 15:31] VITALS: PULSE 73
[2024-10-21 15:50] VITALS: BP 128/69
--- NOTE | 2024-10-22 04:15 | Electrocardiogram Report ---
Test Reason : Blood Pressure : */* mmHG Vent. Rate : 100 BPM Atrial Rate : 100 BPM P-R Int : 154 ms QRS Dur : 148 ms QT Int : 386 ms P-R-T Axes : 66 -54 23 degrees QTcB Int : 497 ms Normal sinus rhythm Right bundle branch block Left anterior fascicular block Bifascicular block Abnormal ECG When compared with ECG of 24-Dec-2023 18:05, No significant change was found Confirmed by Zana Hercules ([id number]) on 10/22/2024 4:15:24 AM Referred By: REFERRED SELF Confirmed By: Zana Hercules
--- NOTE | 2024-10-22 09:20 | Coding Query ---
CODING QUERY To promote full compliance with coding requirements relating to patient care, provider participation is requested in all cases of pipe cleaner uncertainty. Please assist us with the question(s) below: Coding Question(s): The Communication Note on 10/20 documents, "Suspect cellulitis surrounding wound in setting of mild decompensated HF and chronic venous stasis. Continue diuresis, add doxyclcine for MRSA coverage, f/u echo results". Please specify further below, regarding mild decompensated HF, as HF is not a valid abbreviation and there is no further documentation in the record. ( x ) Patient was treated for mild decompensated HF. Please specify further the diagnosis of mild decompensated HF ( ) Patient was Not treated for mild decompensated HF Physician's Response(s): mild decompensated HFpEF Thank you Davina Sims Principal Diagnosis: "that condition established after study, to be chiefly responsible for occasioning the admission of the patient to the hospital for care." Co-Existing Principal Diagnosis: "when two or more diagnoses equally meet the criteria for principal diagnosis as determined by the circumstances of admission, diagnostic work up, and/or therapy provided, and the Alphabetic Index, Tabular List, or another coding guideline does not provide sequencing direction, any one of the diagnoses may be sequenced first." "When the physician has documented what appears to be a current diagnosis in the body of the record, but has not included the diagnosis in the final diagnostic statement, the physician should be asked whether the diagnosis should be added." (Source [facility]oding [facility] 2 QTR90. p3-4) JAMEL
== END 2024-10-21 18:23 | disposition home or self-care (01) | DRG 602 ==
LOC: ED 00:32 → SUATTDRO 04:20 → 2W 04:20 → INTOOBSV 04:20 → 2W 06:15